=== PATIENT | female | born 1985 | race Two or more races ===

== ENCOUNTER 2024-05-02 03:48 | Emergency (ER) | payer OTHER, SELFPAY ==
--- NOTE | ~2024-05-02 | XR_ITS ---
EXAMINATION: XR CHEST CLINICAL INFORMATION: Positive covid. Cough. COMPARISON: None available. TECHNIQUE: Frontal view of the chest was obtained. FINDINGS: No significant abnormality is noted involving the heart, lungs, mediastinum, bony thorax or soft tissues. XR/XR chest 1V IMPRESSION: Unremarkable examination. Electronically signed by: Fab Caban MD 05/02/2024 05:22 AM EDT RP
[2024-05-02 04:06] VITALS: BP 123/73; PULSE 92; RESP 20; TEMP 36.9; O2SAT 98; BMI 37.6
--- NOTE | 2024-05-02 04:56 | ED_ITS ---
HPI - URI/Sore Throat General Chief Complaint: Upper Respiratory Symptoms Stated Complaint: COVID+/Cough Time Seen by Provider: 05/02/24 04:56 Source: patient Mode of arrival: ambulatory Limitations: no limitations History of Present Illness ED Provider: Dr. Prieto HPI Narrative: Patient with 3 days of cough, initially she thought it was her asthma, she took a covid test at home and it was positive. She notice slight blood when she brought up some sputum MD elicited complaint: cough Related Data Previous Rx's ?Medication ?Instructions ?Recorded kloidlisqbmfr-AJ-apixkemfequ 5 10 ml PO Q4H PRN cough #473 mL 05/02/24 mg-10 mg-100 mg/5 mL oral liquid Allergies Allergy/AdvReac Type Severity Reaction Status Date / Time Latex Allergy Unknown Rash Uncoded 05/02/24 04:07 Zyrtec Allergy Unknown Fatigued Uncoded 05/02/24 04:07 Review of Systems Review of Systems: Yes all other systems are reviewed and are negative Neurologic: Denies Sensory deficit (Neuro) [facility] Social History Social History Advance Directives: No Advance Directives Information Provided: Yes Physical Exam Vital Signs: Vital Signs: Last Vital Signs Temp 98.4 F 05/02/24 04:06 Pulse 92 05/02/24 04:06 Resp 20 05/02/24 04:06 BP 123/73 05/02/24 04:06 Pulse Ox 98 05/02/24 04:06 O2 Del Method Room Air 05/02/24 04:06 BMI result Body Mass Index 37.6 Const: Other: very anxious General: healthy appearing Nutritional Appearance: average body habitus Orientation/consciousness: oriented to person and patient oriented x3 Limitations: no limitations HEENT: Head: Yes normal to inspection Ears: external ears normal General nose exam: Normal external nose present Mouth: Normal oral and palatal mucosa present and oropharynx normal Throat: Yes posterior oropharynx normal Eyes: General: appearance normal, both eyes and all related structures Neck: Other: supple Neck: Yes normal visual inspection Chest: Chest palpation & inspection: normal inspection of the chest Resp: Auscultation: clear to auscultation bilaterally Cardio: Jugular venous distension: no JVD Rate: regular rate Rhythm: regular rhythm Heart sounds: S1 normal heart sound present and S2 normal heart sound present GI: Inspection: Yes normal to inspection Palpation (GI): Soft to palpation, nontender and No hepatosplenomegaly present Auscultation: normal bowel sounds : General: Yes no CVA tenderness Back/Spine/Pelvis: Back: no CVA tenderness Skin: General skin exam: no rashes or lesions noted Neuro: General: oriented to person and patient oriented x3 Cranial nerves: Yes CN's II-XII intact bilaterally Motor exam (neuro): 5/5 motor strength present throughout Sensory Exam: No Sensory deficit (Neuro) Extrem: General: Yes normal to inspection Psych: Appearance: grossly normal Course Reevaluation(s) Reevaluation #1: patient covid positive, xray normal will dc on cough medication Time: 06:15 Medical Decision Making Differential Diagnosis Differential Diagnoses: The differential diagnosis associated with the presentation includes (covid, pneumonia) Admission/Observation Consideration of admission/observation: Escalation of care including admission/observation considered (upon arrival admission was considered) Independent Interpretation I performed an independent interpretation of an: Plain X-Ray (no infiltrate on xray) Prescription Management I considered prescription management with: Antibiotic (no infiltrate on cxr) Chronic Conditions Patient?s care impacted by: Other (asthma) Discharge Plan Discharge Clinical Impression: COVID Patient Disposition: Home, Self-Care Instructions: COVID-19 (Coronavirus Disease 2019) (ED) Prescriptions: New iscepjusggpun-OO-bxmbutwzxun 5-10-100 mg/5 mL liquid 10 ml PO Q4H PRN (Reason: cough) Qty: [phone] Print Language: Romanian
--- OUTSIDE RECORDS SUMMARY | 2024-05-02 04:58 | XMS_ITS | Continuity of Care Document ---
Author Organization [facility] Address [address] [place] [address]- Care Team Providers Care Wire Inspector Name Role Phone Anali Concepcion DO Primary Care Physician Encounter [facility] Date(s): 12/14/21 - 03/10/[address] [address] Discharge Disposition: A-D/C Home Attending Physician: Anali Concepcion DO Admitting Physician: Anali Concepcion DO Referring Physician: Anali Concepcion DO Allergies, Adverse Reactions, Alerts Substance Reaction Severity Status aloe vera topical Active Latex Active ZyrTEC Active Immunizations Given and Recorded Vaccine Date Status Refusal Reason tetanus-diphtheria toxoids (Td) 1 02/01/22 Given tetanus-diphtheria toxoids (Td) 01/30/02 Recorded SARS-CoV-2 (COVID-19) mRNA BNT-162b2 vac 09/23/21 Recorded SARS-CoV-2 (COVID-19) mRNA BNT-162b2 vac 04/26/21 Recorded SARS-CoV-2 (COVID-19) mRNA BNT-162b2 vac 04/06/21 Recorded influenza virus vaccine, inactivated 06/30/21 Fareed rded influenza virus vaccine, inactivated 06/26/20 Fareed rded influenza virus vaccine, inactivated 2 06/08/18 Gi pooja influenza virus vaccine, inactivated 07/19/17 Give n hepatitis B adult vaccine 02/06/20 Given hepatitis B adult vaccine 10/07/19 Given hepatitis B adult vaccine 09/06/19 Given hepatitis B adult vaccine 09/24/10 Recorded Measles/Mumps/Rubella Virus Vaccine 09/06/19 Given Measles/Mumps/Rubella Virus Vaccine 09/24/10 Recor ded Measles/Mumps/Rubella Virus Vaccine 11/25/04 Recor ded Measles/Mumps/Rubella Virus Vaccine 11/25/94 Recor ded Measles/Mumps/Rubella Virus Vaccine 07/03/87 Recor ded pneumococcal 23-valent vaccine 08/14/15 Recorded pneumococcal 23-valent vaccine 06/07/11 Recorded tetanus/diphtheria/pertussis, acel(Tdap) 06/07/11 Recorded Human Papillomavirus Vaccine 05/23/07 Recorded Human Papillomavirus Vaccine 02/28/07 Recorded Human Papillomavirus Vaccine 11/01/06 Recorded Varicella Virus Vaccine 03/16/05 Recorded Varicella Virus Vaccine 02/09/05 Recorded hepatitis B pediatric vaccine 01/30/02 Recorded hepatitis B pediatric vaccine 10/17/97 Recorded hepatitis B pediatric vaccine 04/18/87 Recorded Poliovirus Vaccine, Inactivated 12/05/90 Recorded Poliovirus Vaccine, Inactivated 07/03/87 Recorded Poliovirus Vaccine, Inactivated 04/28/86 Recorded Poliovirus Vaccine, Inactivated 02/24/86 Recorded diphtheria/tetanus/pertussis, acel(DTaP) 07/03/87 Recorded diphtheria/tetanus/pertussis, acel(DTaP) 06/25/86 Recorded diphtheria/tetanus/pertussis, acel(DTaP) 04/28/86 Recorded diphtheria/tetanus/pertussis, acel(DTaP) 85 Recorded 1Result Comment: [facility]# [id number] 2Result Comment: [06/08/2018] [facility]:25998-626-15 Medications albuterol 0.083% inhalation solution 3 mL = 2.5 mg, Inhalation, Every 6 hours, PRN for wheezing, # 100 each, 0 Refills, Maintenance, 04/02/19 8:11:51 EDT, Solution Start Date: 04/02/19 Stop Date: 05/02/19 Status: Ordered albuterol 90 mcg/inh inhalation powder 1 puffs, Inhalation, Every 6 hours, PRN as needed, # 1 each, 0 Refills, Maintenance, 04/18/21 13:10:00 EDT, Powder, [facility], Partial fill upon patient request if the prescriptionis for a schedule II opioid drug., 1 puffs Inhalation E... Start Date: 04/18/21 Status: Ordered azelastine nasal 0.15% spray 2 sprays, 2 times a day, 0 Refills, Maintenance, 01/04/21 12:07:00 EDT, Partial fill upon patient request if the prescription is for a schedule II opioid drug. Start Date: 01/04/21 Status: Ordered Dulera Inhalation, 2 times a day, 0 Refills, Maintenance, 04/02/19 8:28:41 EDT Start Date: 04/02/19 Status: Ordered meclizine 12.5 mg oral tablet 1 tablet = 12.5 mg, By Mouth, 3 times a day, PRN Dizziness, # 10 tablet, 0 Refills, Maintenance, 11/26/21 17:45:00 EDT, Tablet, [facility], Partial fill upon patient request if the prescription is for a schedule II opioid drug., 146, cm,... Start Date: 11/26/21 Status: Ordered norethindrone 5 mg oral tablet 5 mg, 1, tablet, By Mouth, 2 times a day, # 90 tablet, Refills 3, Tot. Refills 3, Maintenance, 01/18/22 15:52:00 EDT, Route to Pharmacy Electronically, [facility], Partial fill uponpatient request if the prescription is for a schedule I... Start Date: 01/18/22 Status: Ordered omeprazole 20 mg oral enteric coated capsule 1 capsule, By Mouth, Daily, # 30 capsule, 1 Refills, Maintenance, 01/12/21 8:16:00 EDT, [id number], 146, cm, 01/04/21 11:29:00 EDT, Height, 75.5, kg, 10/31/19 15:44:00 EST, Dry Weight Start Date: 01/12/21 Status: Ordered Multivitamins By Mouth, Daily, 0 Refills, Maintenance, 01/04/21 12:04:00 EDT, Partial fill upon patient request if the prescription is for a schedule II opioid drug. Start Date: 01/04/21 Status: Ordered Singulair 10 mg oral tablet 10 mg, 1, tablet, By Mouth, Daily, # 30 tablet, Refills 5, Tot. Refills 5, Maintenance, 04/05/18 14:33:44 EDT, Print Requisition Start Date: 04/05/18 Stop Date: 10/02/18 Status: Ordered Voltaren 1% topical gel 1 application, Topically, 4 times a day, with food for 4-7 days, # 100 Gm, 0 Refills, Maintenance, 10/04/21 17:03:00 EST, Gel, [facility], Partial fill upon patient request if the prescription is for a schedule II opioid drug., 1 applica... Start Date: 10/04/21 Status: Ordered Problem List Condition Effective Dates Status Health Status Inform ant Allergic rhinitis(Confirmed) Active Anemia(Confirmed) Active Anxiety(Confirmed) Active Asthma(Confirmed) Active Last pap smear 10/03/17 negat dayron, with negative HPV(Confirmed) Active Endometriosis - diagnosed in 2011 and had multiple chocolate cysts removed from her ovaries and fallopian tubes(Confirmed) 1 Active Family history of colon canc er - sister at age 37; colonoscooy due 09/2023(Confirmed) Active LBP (low back pain)(Confirmed) Active Obese class I(Confirmed) Active RA (rheumatoid arthritis)(Confirmed) Active History of suicidal ideation which she blames on control, not sure which one it was, ? Depo-Provera. 11/23/17 denies suicidal ideation on current medications(Confirmed) Active 1She was diagnosed with endometriosis in 2011 and had multiple chocolate cysts removed from her ovaries and fallopian tubes. She was started on depo, but discontinued due to mood changes. She then tried Lupron + daily progesterone, but the Lupron gave her hot flashes, so she discontinued that. Shehas been taking the progesterone alone for the past 2-3 years. Social History Social History Type Response Smoking Status Never smoker entered on: 10/03/17 Sex
--- OUTSIDE RECORDS SUMMARY | 2024-05-02 04:59 | XMS_ITS | Continuity of Care Document ---
Author Organization [facility] Address [address] [place] [address]- Care Team Providers Care Master Mechanic Name Role Phone Anali Concepcion DO Primary Care Physician Encounter [facility] Date(s): 09/02/22 - 10/02/22 [facility] [address] [place], [place] [address] Allergies, Adverse Reactions, Alerts Substance Reaction Severity [...] Recorded diphtheria/tetanus/pertussis, acel(DTaP) 85 Recorded 1Result Comment: [facility]# [id number] 2Result Comment: [06/08/2018] [facility]:[id number] Medications albuterol 0.083% inhalation solution 3 mL [...] opioid drug. Start Date: 01/04/21 Status: Ordered fexofenadine 60 mg oral tablet 1 tablet = 60 mg, By Mouth, Daily, # 90 tablet, 4 Refills, Maintenance, 04/12/22 8:47:00 EDT, Tablet, [facility], Partial fill upon patient request if the prescription is for a schedule II opioid drug., 146, cm, 04/12/22 8:15:00 EDT, Hei... Start Date: 04/12/22 Stop Date: 07/06/23 Status: Ordered norethindrone 5 mg oral tablet 5 mg, 1, tablet, By Mouth, Daily, # 90 tablet, Refills 3, Tot. Refills 3, Maintenance, 06/06/22 11:31:00 EDT, Route to Pharmacy Electronically, [facility], Partial fill upon patientrequest if the prescription is for a schedule II opioid... Start Date: 06/06/22 Status: Ordered omeprazole 20 mg oral enteric coated capsule 1 capsule, By Mouth, Daily, # 30 capsule, 2 Refills, Maintenance, 07/15/22 13:24:00 EST, [facility], 146, cm, 05/17/22 8:07:00 EDT, Height, 72.3, kg, 05/13/22 15:03:00 EDT, Dry Weight Start Date: 07/15/22 Status: Ordered Multivitamins By Mouth, Daily, 0 [...] Date: 04/05/18 Stop Date: 10/02/18 Status: Ordered Zithromax 250 mg oral tablet 1 pack/packet, By Mouth, Once, # 6 tablet, 0 Refills, Soft Stop, 08/26/22 12:27:00 EST, Tablet, [facility], Partial fill upon patient request if the prescription is for a schedule II opioid drug., 146, cm, 12/23/22 11:41:00 EST, Height,... Start Date: 08/26/22 Status: Ordered Problem List Condition Confirmation Course Effective Dates Status H ealth Status Informant Allergic rhinitis Confirmed Active Anemia Confirmed Active Anxiety Confirmed Active Asthma Confirmed Active Last pap smear 10/03/17 negative, with negative HPV Confirmed Active Endometriosis - diagnosed in 2011 and had multiple chocolate cysts removed from her ovaries and fallopian tubes 1 Confirmed Active Family history of colon cancer - sister at age 37; colonoscooy due 09/2023 Confirmed Active LBP (low back pain) Confirmed Active RA (rheumatoid arthritis) Confirmed Active Severe obesity (BMI 35.0-39.9) with comorbidity Confirmed Active History of suicidal ideation which she blames on control, not sure which one it was, ? Depo-Provera. 11/23/17 denies suicidal ideation on current medications Confirmed Active 1She was diagnosed with endometriosis in [...] Status Never smoker entered on: 10/03/17 Sex Patient Care team information Care Team Personnel Name: Anali Concepcion DO Position: [facility] Primary Care Physician Member Role: PCP Address: Address: [address] [place] [address] Adult [place] [address]- Care Team Related Persons Name: KATIUSKA VIGIL Address: [address] [place] [address] Name: RAISA AMBROSE Address: home [address] [place] [address] Name: AURORA NIX Name: MELISSA AGUILAR
--- OUTSIDE RECORDS SUMMARY | 2024-05-02 04:59 | XMS_ITS | Continuity of Care Document ---
Author Organization [facility] Address [address] [place] [address]- Care Team Providers Care Cadence Specialists Name Role Phone Anali Concepcion DO Primary Care Physician Encounter [facility] Date(s): 02/26/24 - 03/27/24 [facility] [address] [place] [id number] Attending Physician: Louise Camarillo Admitting Physician: Admtr, Louise Referring Physician: Admtr, Ar8 Allergies, Adverse Reactions, Alerts Substance Reaction Severity Status amoxicillin gi upset Active aloe vera topical Active Zithromax gi upset Active Contrave gi upset Active Cats Active Dogs Active Latex Active ZyrTEC Active Pollen Ragweed Active Ragweed Active Other Environmental Allergy 1, 2 Active 1grass Feathers 2tree Immunizations Given and Recorded Vaccine Date Status Refusal Reason influenza virus vaccine, inactivated 06/27/22 Fareed rded influenza virus vaccine, inactivated 06/30/21 Fareed rded influenza virus vaccine, inactivated 06/26/20 Fareed rded influenza virus vaccine, inactivated 1 06/08/18 Gi pooja influenza virus vaccine, inactivated 07/19/17 Give n tetanus-diphtheria toxoids (Td) 2 02/01/22 Given tetanus-diphtheria toxoids (Td) 01/30/02 Recorded SARS-CoV-2 (COVID-19) mRNA BNT-162b2 vac 09/23/21 Recorded SARS-CoV-2 (COVID-19) mRNA BNT-162b2 vac 04/26/21 Recorded SARS-CoV-2 (COVID-19) mRNA BNT-162b2 vac 04/06/21 Recorded hepatitis B adult vaccine 02/06/20 Given hepatitis [...] Recorded diphtheria/tetanus/pertussis, acel(DTaP) 85 Recorded 1Result Comment: [06/08/2018] [facility]:50831-878-72 2Result Comment: [facility]# [id number] Medications albuterol 0.083% inhalation solution 3 mL [...] opioid drug. Start Date: 01/04/21 Status: Ordered Compression Stockings See Instructions, Maintenance, surgical, panty hose length 30-40 mm Hg, 07/24/23 15:29:00 EST, Supply Start Date: 07/24/23 Status: Ordered fexofenadine 60 mg oral tablet 1 tablet, By Mouth, Daily, # 90 tablet, 4 Refills, Maintenance, 04/26/23 9:22:00 EDT, [facility], 146, cm, 03/10/23 9:41:00 EDT, Height, 70.9, kg, 03/10/23 9:41:00 EDT, Dry Weight Start Date: 04/26/23 Status: Ordered norethindrone 5 mg oral tablet 5 mg, 1, tablet, By Mouth, Daily, # 90 tablet, Refills 3, Tot. Refills 3, Maintenance, 07/12/23 13:25:00 EST, Route to Pharmacy Electronically, [facility], Partial fill upon patientrequest if the prescription is for a schedule II opioid... Start Date: 07/12/23 Status: Ordered omeprazole 20 mg oral enteric coated capsule 1 capsule, By Mouth, Daily, # 30 capsule, 2 Refills, Maintenance, 12/29/23 10:32:00 EDT, [facility], 146, cm, 10/10/23 8:12:00 EST, Height, 75.8, kg, 07/24/23 15:15:00 EST, Dry Weight Start Date: 12/29/23 Status: Ordered Singulair 10 mg oral tablet 10 mg, 1, tablet, By Mouth, Daily, # 30 tablet, Refills 5, Tot. Refills 5, Maintenance, 04/05/18 14:33:44 EDT, Print Requisition Start Date: 04/05/18 Stop Date: 10/02/18 Status: Ordered tirzepatide 2.5 mg/0.5 mL subcutaneous solution = 2.5 mg, Subcutaneous Injection, Every week, rotate injection sites, # 4 each, 0 Refills, Maintenance, 02/02/24 13:49:00 EDT, Solution, [facility], Partial fill upon patient requestif the prescription is for a schedule II opioid drug.,... Start Date: 02/02/24 Status: Ordered Problem List Condition Confirmation Course Effective Dates Status H ealth Status Informant Allergic rhinitis Confirmed Active Anemia Confirmed Active Anxiety Confirmed Active Asthma Confirmed Active Last pap smear 10/03/17 negative, with negative HPV Confirmed Active Chronic rhinitis Confirmed Active Endometriosis - diagnosed in 2011 and had multiple chocolate cysts removed from her ovaries and fallopian tubes 1 Confirmed Active Family history of colon cancer - sister at age 37; colonoscooy due 09/2023 Confirmed Active LBP (low back pain) Confirmed Active Neck pain Confirmed Active RA (rheumatoid arthritis) Confirmed Active Severe obesity (BMI 35.0-39.9) with comorbidity Confirmed Active Vertigo Confirmed Active 1She was diagnosed with endometriosis [...] Team Personnel Name: Anali Concepcion DO Position: S Physician - Primary Care Member Role: PCP Address: Address: [address] [place] [address] Adult & [place] [address]- Care Team Related Persons Name: KATIUSKA VIGIL Address: [address] [place] [address] Name: RAISA AMBROSE Address: [address] [place] [address] Name: AURORA NIX Name: MELISSA AGUILAR
--- OUTSIDE RECORDS SUMMARY | 2024-05-02 04:59 | XMS_ITS | Continuity of Care Document ---
Author Organization [facility] Address [address] [place] [address]- Care Team Providers Care Art Preparator Name Role Phone Anali Concepcion DO Primary Care Physician Encounter [facility] Date(s): 08/11/23 - 09/10/23 [facility] [address] [place], [place] [address] Allergies, Adverse Reactions, Alerts Substance Reaction Severity Status aloe vera topical Active Cats Active Dogs Active Latex Active Pollen Ragweed Active Ragweed Active Other Environmental Allergy 1, 2 Active ZyrTEC Active 1grass Feathers 2tree Immunizations Given and [...] 1Result Comment: [06/08/2018] [facility]:90586-477-08 2Result Comment: [facility]# [id number] Medications albuterol 0.083% inhalation solution 3 mL [...] opioid drug. Start Date: 01/04/21 Status: Ordered buPROPion 100 mg/12 hours (SR) oral tablet, extended release 1 tablet = 100 mg, By Mouth, Daily, while waiting for contrave, # 7 tablet, 0 Refills, Maintenance,04/13/23 15:43:00 EDT, ER Tablet, [facility], Partial fill upon patient request if the prescription is for a schedule II opioid drug., 14... Start Date: 04/13/23 Stop Date: 04/20/23 Status: Ordered Compression Stockings See Instructions, Maintenance, surgical, panty hose length 30-40 mm Hg, 07/24/23 15:29:00 EST, Supply Start Date: 07/24/23 Status: Ordered fexofenadine 60 mg oral tablet 1 tablet, By Mouth, Daily, # 90 tablet, 4 Refills, Maintenance, 04/26/23 9:22:00 EDT, [facility], 146, cm, 03/10/23 9:41:00 EDT, Height, 70.9, kg, 03/10/23 9:41:00 EDT, Dry Weight Start Date: 04/26/23 Status: Ordered norethindrone 5 mg oral tablet 5 mg, 1, tablet, By Mouth, Daily, # 90 tablet, Refills 3, Tot. Refills 3, Maintenance, 07/12/23 13:25:00 EST, Route to Pharmacy Electronically, [facility], Partial fill upon patientrequest if the prescription is for a schedule II opioid... Start Date: 07/12/23 Status: Ordered Omeprazole By Mouth, Daily, 0 Refills, Maintenance, 09/06/23 11:58:00 EST, Partial fill upon patient request if the prescription is for a schedule II opioid drug. Start Date: 09/06/23 Status: Ordered Singulair 10 mg oral tablet 10 mg, 1, tablet, By Mouth, Daily, # 30 tablet, Refills 5, Tot. Refills 5, Maintenance, 04/05/18 14:33:44 EDT, Print Requisition Start Date: 04/05/18 Stop Date: 10/02/18 Status: Ordered Wegovy (0.25 mg dose) subcutaneous solution = 0.25 mg, Subcutaneous Infusion, Every week, rotate injection sites Dx: Overweight BMI >33; dyslipidemia in the abdomen, thigh, or upper arm, # 2 mL, 1 Refills, Maintenance, 04/28/23 11:27:00 EDT, [facility], Partial fill upon patient... Start Date: 04/28/23 Status: Ordered Problem List Condition Confirmation Course [...] Team Personnel Name: Anali Concepcion DO Position: [facility] Physician - Primary Care Member Role: PCP Address: Address: [address] [place] [address] Adult & [place] [address]- Care Team Related Persons Name: KATIUSKA VIGIL Address: [address] [place] [address] Name: RAISA AMBROSE Address: [address] [place] [address] Name: AURORA NIX Name: MELISSA AGUILAR
--- OUTSIDE RECORDS SUMMARY | 2024-05-02 04:59 | XMS_ITS | Continuity of Care Document ---
Author Organization [facility] Address [address] [place] [address]- Care Team Providers Care Ribbon Cutter Name Role Phone Anali Concepcion DO Primary Care Physician Encounter [facility] Date(s): 04/19/21 - 05/19/21 [facility] [address] [place] [address]- Allergies, Adverse Reactions, Alerts Substance Reaction Severity Status aloe vera topical Active Latex Active ZyrTEC Active Immunizations Given and Recorded Vaccine Date Status Refusal Reason hepatitis B adult vaccine 02/06/20 Given hepatitis B adult vaccine 10/07/19 Given hepatitis B adult vaccine 09/06/19 Given hepatitis B adult vaccine 09/24/10 Recorded Measles/Mumps/Rubella Virus Vaccine 09/06/19 Given Measles/Mumps/Rubella Virus Vaccine 09/24/10 Recor ded Measles/Mumps/Rubella Virus Vaccine 11/25/94 Recor ded Measles/Mumps/Rubella Virus Vaccine 07/03/87 Recor ded influenza virus vaccine, inactivated 1 06/08/18 Gi pooja influenza virus vaccine, inactivated 07/19/17 Give n pneumococcal 23-valent vaccine 08/14/15 Recorded pneumococcal 23-valent vaccine 06/07/11 Recorded tetanus/diphtheria/pertussis, acel(Tdap) 06/07/11 Recorded Varicella Virus Vaccine 02/09/05 Recorded hepatitis B pediatric vaccine 01/30/02 Recorded hepatitis B pediatric vaccine 10/17/97 Recorded hepatitis B pediatric vaccine 04/18/87 Recorded tetanus-diphtheria toxoids (Td) 01/30/02 Recorded Poliovirus Vaccine, Inactivated 12/05/90 Recorded Poliovirus Vaccine, Inactivated 07/03/87 Recorded Poliovirus Vaccine, Inactivated 04/28/86 Recorded Poliovirus Vaccine, Inactivated 02/24/86 Recorded diphtheria/tetanus/pertussis, acel(DTaP) 07/03/87 Recorded diphtheria/tetanus/pertussis, acel(DTaP) 06/25/86 Recorded diphtheria/tetanus/pertussis, acel(DTaP) 04/28/86 Recorded diphtheria/tetanus/pertussis, acel(DTaP) 85 Recorded 1Result Comment: [06/08/2018] [facility]:93654-736-08 Medications albuterol 0.083% inhalation solution 3 mL [...] 8:28:41 EDT Start Date: 04/02/19 Status: Ordered norethindrone 5 mg oral tablet TAKE 1 TABLET BY MOUTH TWICE A DAY Start Date: 04/02/19 Status: Ordered norethindrone 5 mg oral tablet 5 mg, 1, tablet, By Mouth, 2 times a day, # 90 tablet, Refills 3, Tot. Refills 3, Maintenance, 01/08/21 16:22:00 EDT, Route to Pharmacy Electronically, [facility], Partial fill uponpatient request if the prescription is for a schedule I... Start Date: 01/08/21 Status: Ordered omeprazole 20 mg oral enteric coated capsule 1 capsule, By Mouth, Daily, # 30 capsule, 1 Refills, Maintenance, 01/12/21 8:16:00 EDT, [id number], 146, cm, 01/04/21 11:29:00 EDT, Height, 75.5, kg, 10/31/19 15:44:00 EST, Dry Weight Start Date: 01/12/21 Status: Ordered Multivitamins By Mouth, Daily, 0 Refills, Maintenance, 01/04/21 12:04:00 EDT, Partial fill upon patient request if the prescription is for a schedule II opioid drug. Start Date: 01/04/21 Status: Ordered ProAir HFA 90 mcg/inh inhalation aerosol with adapter 2, puffs, Inhalation, Every 6 hours, PRN, # 1 each, Refills 0, Tot. Refills 0, Soft Stop, 11/02/18 9:01:59 EST, Aerosol, Route to Pharmacy Electronically, [id number], [facility] Start Date: 11/02/18 Stop Date: 12/02/18 Status: Ordered Singulair 10 mg oral tablet 10 mg, 1, tablet, By Mouth, Daily, # 30 tablet, Refills 5, Tot. Refills 5, Maintenance, 04/05/18 14:33:44 EDT, Print Requisition Start Date: 04/05/18 Stop Date: 10/02/18 Status: Ordered Zithromax 250 mg oral tablet 1 pack/packet, By Mouth, Once, as directed on package labeling, # 6 tablet, 0 Refills, Soft Stop, 04/20/21 16:04:00 EDT, Tablet, [facility], Partial fill upon patient request, 146, cm, 01/04/21 11:29:00 EDT, Height, 75.5, kg, 10/31/19 15... 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
--- OUTSIDE RECORDS SUMMARY | 2024-05-02 04:59 | XMS_ITS | Continuity of Care Document ---
Author Organization [facility] Address [address] [place] [address]- Care Team Providers Care Anchorer Name Role Phone Anali Concepcion DO Primary Care Physician ( [phone] [place] [facility]/29/[place] - 01/02/[address] [address] Attending Physician: Anali Concepcion DO Admitting Physician: Anali Concepcion DO Referring Physician: Anali Concepcion DO Allergies, Adverse Reactions, Alerts Substance Reaction Severity Status aloe vera topical Active Latex Active ZyrTEC Active Immunizations Given and Recorded Vaccine Date Status Refusal Reason SARS-CoV-2 (COVID-19) mRNA BNT-162b2 vac 09/23/21 Recorded [...] diphtheria/tetanus/pertussis, acel(DTaP) 85 Recorded 1Result Comment: [06/08/2018] [facility]:79856-966-07 Medications albuterol 0.083% inhalation solution 3 mL [...] capsule, 1 Refills, Maintenance, 01/12/21 8:16:00 EDT, [id number], 146, cm, 01/04/21 11:29:00 EDT, Height, 75.5, [...]
--- OUTSIDE RECORDS SUMMARY | 2024-05-02 04:59 | XMS_ITS | Continuity of Care Document ---
Author Organization [facility] [employer] [facility] Address [address], [address] [place] [address]- Care Team Providers Care Tool Grinder Set Up Operator Gear Name Role Phone Anali Concepcion DO Primary Care Physician En[place] [facility] [place] Date(s): 02/23/24 - 03/24/24 [facility] [address], [address]th [place] [address]- Attending Physician: Louise Camarillo Admitting Physician: AdmLouise galvan Referring Physician: Admtr ArJuan Alberto Allergies, Adverse Reactions, Alerts Substance Reaction Severity Status amoxicillin gi upset Active aloe vera topical Active Other Environmental Allergy 1, 2 Active Contrave gi upset Active Zithromax gi upset Active Cats Active Dogs Active Latex Active ZyrTEC Active Pollen Ragweed Active Ragweed Active 1grass Feathers 2tree Immunizations Given and [...] diphtheria/tetanus/pertussis, acel(DTaP) 85 Recorded 1Result Comment: [06/08/2018] [facility]:25875-834-92 2Result Comment: [facility]# [id number] Medications albuterol 0.083% inhalation solution 3 mL [...] tablet, 4 Refills, Maintenance, 04/26/23 9:22:00 EDT, [facility], 146, cm, 03/10/23 9:41:00 EDT, Height, 70.9, kg, 03/10/23 9:41:00 EDT, Dry Weight Start Date: 04/26/23 Status: Ordered norethindrone 5 mg oral tablet 5 mg, 1, tablet, By Mouth, Daily, # 90 tablet, Refills 3, Tot. Refills 3, Maintenance, 07/12/23 13:25:00 EST, Route to Pharmacy Electronically, [facility], Partial fill upon patientrequest if the prescription is for a schedule II opioid... Start Date: 07/12/23 Status: Ordered omeprazole 20 mg oral enteric coated capsule 1 capsule, By Mouth, Daily, # 30 capsule, 2 Refills, Maintenance, 12/29/23 10:32:00 EDT, [facility], 146, cm, 10/10/23 8:12:00 EST, [...] opioid drug.,... Start Date: 02/02/24 Status: Ordered triamcinolone 0.1% topical ointment 1 application, Topically, 2 times a day, for 14 days, apply a thin film to affected area of arm pits bilaterally, # 15 Gm, 0 Refills, Acute 03/25/24 14:04:00 EDT, 03/11/24 14:04:00 EDT, Ointment, [facility], Partial fill upon patient req... Start Date: 03/11/24 Stop Date: 03/25/24 Status: Ordered Problem List Condition Confirmation Course [...] Primary Care Member Role: PCP Address: Address: [address] [place] [address] Adult [place] [address]- [place] Care Team Related Persons Name: KATIUSKA VIGIL Address: [address] [place] [address] Name: RAISA AMBROSE Address: home [address] [place] [address] Name: AURORA NIX Name: MELISSA AGUILAR
--- OUTSIDE RECORDS SUMMARY | 2024-05-02 04:59 | XMS_ITS | Continuity of Care Document ---
Author Organization [facility] Address [address] [place] [address]- Care Team Providers Care Personnel Manager Name Role Phone Anali Concepcion DO Primary Care Physician ( [phone] [id number] Date(s): 01/12/23 - 01/19/23 [facility] [address] [place] [address]- Encounter Diagnosis Bilateral plantar fasciitis(Discharge Diagnosis) - 01/12/23 Attending Physician: Lincoln Gordon MD Referring Physician: Anali Concepcion DO Allergies, Adverse [...] diphtheria/tetanus/pertussis, acel(DTaP) 85 Recorded 1Result Comment: [06/08/2018] [facility]:08902-780-39 2Result Comment: [facility]# [address]-6 Medications albuterol 0.083% inhalation solution 3 mL [...] opioid drug. Start Date: 01/04/21 Status: Ordered Contrave 8 mg-90 mg oral tablet, extended release 2 tablet, By Mouth, 2 times a day, to replace prior dose, # 120 tablet, 5 Refills, Maintenance, 01/09/23 13:49:00 EDT, ER Tablet, [facility], Partial fill upon patient request if the prescription is for a schedule II opioid drug., 2 tabl... Start Date: 01/09/23 Stop Date: 07/08/23 Status: Ordered Contrave 8 mg-90 mg oral tablet, extended release 1 tablet, By Mouth, Daily in AM, do not crush or chew; contact pcp when receive for titration instructions, # 90 tablet, 1 Refills, Maintenance, 12/14/22 12:28:00 EDT, ER Tablet, [facility], Partial fill upon patient request if the prescription... Start Date: 12/14/22 Stop Date: 06/12/23 Status: Ordered fexofenadine 60 mg oral tablet [...] Daily, # 30 capsule, 2 Refills, Maintenance, 11/05/22 19:47:00 EST, [facility], 146, cm, 10/20/22 11:21:00 EST, Height, 72.3, kg, 05/13/22 15:03:00 EDT, Dry Weight Start Date: 11/05/22 Status: Ordered Singulair 10 mg oral tablet 10 mg, 1, tablet, By Mouth, Daily, # 30 tablet, Refills 5, Tot. Refills 5, Maintenance, 04/05/18 14:33:44 EDT, Print Requisition Start Date: 04/05/18 Stop Date: 10/02/18 Status: Ordered Problem List Condition Confirmation Course [...] Active LBP (low back pain) Confirmed Active Obese class I Confirmed Active RA (rheumatoid arthritis) Confirmed Active History of suicidal ideation which [...] progesterone alone for the past 2-3 years. Diagnosis Diagnosis Type Effective Dates Health Status inical Service Informant Bilateral plantar fasciitis Discharge Diagnosis 01/12/23 Vital Signs Most recent to oldest [Reference Range]: 1 Height 146 cm (01/12/23 3:23 PM) Weight 72.4 kg (01/12/23 3:23 PM) Oxygen Saturation [94-100 %] 97 % (01/12/23 3:23 PM) Pulse Rate [55-90 bpm] 84 bpm (01/12/23 3:23 PM) Body Mass Index [18.5-24.99 kg/m2] 33.97 kg/m2 *>HHI* (01/12/23 3:23 PM) Blood Pressure [90-138/55-84 mm Hg] 129/ 81mm Hg (01/12/23 3:23 PM) Blood pressure sites Arm, left (01/12/23 3:23 PM) Weight Obtained Via Bed scale (01/12/23 3:23 PM) Social History Social History Type Response Smoking Status Never smoker entered on: 10/03/17 Sex Patient Care team information Care Team Personnel Name: Anali Concepcion DO Position: [facility] Primary Care Physician Member Role: PCP Address: Address: [address] [place] [address] Adult & [place] [address]- Care Team Related Persons Name: KATIUSKA VIGIL Address: [address] [place] [address] Name: RAISA AMBROSE Address: [address] [place] [address] Name: AURORA NIX Name: MELISSA AGUILAR
--- OUTSIDE RECORDS SUMMARY | 2024-05-02 04:59 | XMS_ITS | Continuity of Care Document ---
Author Organization [facility] Address [address], [address] [place] [address]- Care Team Providers Care Tapper Supervisor Name Role Phone Anali Concepcion DO Primary Care Physician ( [phone] [place] [facility] [place] 12/08[place]22 - 01/07/23 [facility] [employer] [facility] [address] [place] [address]- Attending Physician: Louise Camarillo Admitting Physician: Louise Camarillo Referring Physician: AdmtrLouise Allergies, Adverse Reactions, Alerts Substance Reaction Severity [...] adult vaccine 09/24/10 Recorded Measles/Mumps/Rubella Virus Vaccine 1/3/20 Given Measles/Mumps/Rubella Virus Vaccine 09/24/10 Recor ded [...] Recorded 1Result Comment: [06/08/2018] [facility]:47152-571-39 2Result Comment: [facility]# [address]-3 Medications albuterol 0.083% inhalation solution 3 mL [...] Personnel Name: Anali Concepcion DO Position: S Primary Care Physician Member Role: PCP Address: Address: [address] [place] [address] Adult [place] [address]- Care Team Related Persons Name: KATIUSKA VIGIL Address: [address] [place] [address] Name: RAISA AMBROSE Address: [address] [place] [address] Name: AURORA NIX Name: MELISSA AGUILAR
--- OUTSIDE RECORDS SUMMARY | 2024-05-02 04:59 | XMS_ITS | Continuity of Care Document ---
Author Organization [facility] Address [address] [place] [address]- Care Team Providers Care Software Tools Build Engineer Name Role Phone Anali Concepcion DO Primary Care Physician Encounter [facility] [place] Date(s): 07/11/22 - 08/10/22 [facility] [address] [place] [address]- Allergies, Adverse Reactions, Alerts Substance Reaction Severity [...] Recorded 1Result Comment: [facility]# [address]-2 2Result Comment: [06/08/2018] [facility]:80637-551-43 Medications albuterol 0.083% inhalation solution 3 mL [...] 8:28:41 EDT Start Date: 04/02/19 Status: Ordered fexofenadine 60 mg oral tablet [...] Dry Weight Start Date: 07/15/22 Status: Ordered ondansetron 4 mg oral tablet 1 tablet = 4 mg, By Mouth, Every 8 hours, # 12 tablet, 0 Refills, Maintenance, 07/25/22 15:55:00 EST, Tablet, [facility], Partial fill upon patient request if the prescription is for a schedule II opioid drug., 146, cm, 07/21/22 9:03:00... Start Date: 07/25/22 Status: Ordered Multivitamins By Mouth, Daily, 0 Refills, Maintenance, 01/04/21 12:04:00 EDT, Partial fill upon patient request if the prescription is for a schedule II opioid drug. Start Date: 01/04/21 Status: Ordered simethicone 125 mg oral tablet, chewable 1 tablet = 125 mg, Chew, 4 times a day, # 48 tablet, 0 Refills, Maintenance, 04/12/22 8:43:00 EDT, Chew Tablet, [facility], Partial fill upon patient request if the prescription is for a schedule II opioid drug., 146, cm, 04/12/22 8:15:0... Start Date: 04/12/22 Status: Ordered Singulair 10 mg oral tablet [...] Date: 10/04/21 Status: Ordered Problem List Condition Confirmation Course [...] Team Personnel Name: Anali Concepcion DO Position: [facility] Primary Care Physician Member Role: PCP Address: Address: [address] [place] [address] Adult & [place] [address]- Care Team Related Persons Name: MUSASHALONDAA Address: [address] [place] [address] Name: RAISA AMBROSE Address: [address] [place] [address] Name: AURORA NIX Name: MELISSA AGUILAR
--- OUTSIDE RECORDS SUMMARY | 2024-05-02 04:59 | XMS_ITS | Continuity of Care Document ---
Author Organization [facility] Address [address] [place] [address]- Care Team Providers Care Manufacturing Lead Name Role Phone Anali Concepcion DO Primary Care Physician ( [phone] Encounter [facility] [place] Date(s): 11/29/19 - 12/06/19 [facility] [address] [place] [address]- [facility] Attending Physician: Anali Concepcion DO Allergies, Adverse Reactions, Alerts Substance Reaction Severity Status aloe vera topical Active Latex Active ZyrTEC Active Immunizations Given and Recorded Vaccine Date Status Refusal Reason hepatitis B adult vaccine 10/07/19 Given hepatitis [...] 06/07/11 Recorded Varicella Virus Vaccine 02/09/05 Recorded tetanus-diphtheria toxoids (Td) 01/30/02 Recorded hepatitis B pediatric vaccine 01/30/02 Recorded hepatitis B pediatric vaccine 10/17/97 Recorded hepatitis B pediatric vaccine 04/18/87 Recorded Poliovirus Vaccine, Inactivated 12/05/90 Recorded Poliovirus Vaccine, Inactivated 07/03/87 Recorded Poliovirus Vaccine, Inactivated 04/28/86 Recorded Poliovirus Vaccine, Inactivated 02/24/86 Recorded diphtheria/tetanus/pertussis, acel(DTaP) 07/03/87 Recorded diphtheria/tetanus/pertussis, acel(DTaP) 06/25/86 Recorded diphtheria/tetanus/pertussis, acel(DTaP) 04/28/86 Recorded diphtheria/tetanus/pertussis, acel(DTaP) 85 Recorded 1Result Comment: [06/08/2018] [facility]:35424-522-41 Medications Advair HFA 230 mcg / 21 mcg 2 puffs, Inhalation, 2 times a day, # 60 each, 0 Refills, Maintenance, 05/21/19 18:19:53 EDT, Aerosol, 2 puffs Inhalation 2 times a day Start Date: 05/21/19 Status: Ordered albuterol 0.083% inhalation solution 3 mL = 2.5 mg, Inhalation, Every 6 hours, PRN for wheezing, # 100 each, 0 Refills, Maintenance, 04/02/19 8:11:51 EDT, Solution Start Date: 04/02/19 Stop Date: 05/02/19 Status: Ordered Cipro HC 0.2%-1% otic suspension 3 drops, Ears, Both, 2 times a day, for 7 days, to replace ciprodex, # 10 mL, 0 Refills, Acute 12/12/19 9:54:00 EDT, 12/05/19 9:54:00 EDT, Otic Suspension, [facility]pharmacy #1130, 3 drops Ears, Both 2 times a day,x7 days,Instr:to replace ciprodex, 146, cm... Start Date: 12/05/19 Stop Date: 12/12/19 Status: Ordered ciprofloxacin-dexamethasone 0.3%-0.1% otic suspension 4 drops, Ears, Both, 2 times a day, # 7.5 mL, 0 Refills, Maintenance, 11/29/19 15:48:00 EDT, Suspension, [facility], 4 drops Ears, Both 2 times a day, 146, cm, 11/29/19 15:26:00 EDT, Height, 75.5, kg, 10/31/19 15:44:00 EST, Dry Weight Start Date: 11/29/19 Status: Ordered Citrucel Clear Mix 2 g/19 g oral powder for reconstitution = 2 Gm, By Mouth, Daily, # 30 each, 5 Refills, Maintenance, 02/08/18 15:02:21 EDT Start Date: 02/08/18 Status: Ordered Claritin 10 mg oral tablet 10 mg, 1, tablet, By Mouth, Daily, # 30 tablet, Refills 0, Tot. Refills 0, Maintenance, 05/21/19 18:52:50 EDT, Route to Pharmacy Electronically, [id number], [facility]/pharmacy #1130 Start Date: 05/21/19 Status: Ordered Claritin 10 mg oral tablet 10 mg, 1, tablet, By Mouth, Daily, # 90 tablet, Refills 0, Tot. Refills 0, Maintenance, 04/02/19 8:27:25 EDT, Route to Pharmacy Electronically, [id number], [facility]/pharmacy #1130 Start Date: 04/02/19 Status: Ordered Colace sodium 100 mg oral capsule 100 mg, 1, capsule, By Mouth, Daily, # 30 capsule, Refills 11, Tot. Refills 11, Maintenance, 02/08/18 15:01:19 EDT, Route to Pharmacy Electronically, [id number], [facility] Start Date: 02/08/18 Stop Date: 02/03/19 Status: Ordered Dulera Inhalation, 2 times a day, 0 Refills, Maintenance, 04/02/19 8:28:41 EDT Start Date: 04/02/19 Status: Ordered measles/mumps/rubella/varicella virus vaccine subcutaneous injection 0.5 mL, Subcutaneous Injection, Once, # 1 each, 0 Refills, Soft Stop, 09/02/19 12:34:00 EST, Powder, [facility]/pharmacy #1130, 0.5 mL Subcutaneous Injection Once, 146, cm, 06/28/19 16:39:00 EDT, Height, 77.72, kg, 06/12/19 14:42:00 EDT, Dry Weight Start Date: 09/02/19 Status: Ordered meloxicam 7.5 mg oral tablet 1 tablet = 7.5 mg, By Mouth, Daily, As needed with food, # 30 tablet, 1 Refills, Maintenance, 01/22/18 16:26:29 EDT Start Date: 01/22/18 Status: Ordered MiraLax oral powder for reconstitution See Instructions, 17 Gm By Mouth Daily as need for constipation dissolve in water or juice, # 527 Gm, 0 Refills, Maintenance, 02/08/18 15:01:29 EDT, 17 Gm By Mouth Daily as need for constipation; dissolve in water or juice Start Date: 02/08/18 Status: Ordered Nasacort Allergy 24HR 55 mcg/inh nasal spray 2 sprays, Nares, Both, Daily, # 1 each, 2 Refills, Maintenance, 11/29/19 16:12:00 EDT, [facility]/pharmacy#1130, 2 sprays Nares, Both Daily, 146, cm, 11/29/19 15:26:00 EDT, Height, 75.5, kg, 10/31/19 15:44:00 EST, Dry Weight Start Date: 11/29/19 Status: Ordered Nebulizer/Compressor See Instructions, # 1 each, Maintenance, and tubing/mouthpiece Dx asthma, 05/21/19 18:27:56 EDT, Compound Start Date: 05/21/19 Status: Ordered norethindrone 5 mg oral tablet TAKE 1 TABLET BY MOUTH TWICE A DAY Start Date: 04/02/19 Status: Ordered NuLYTELY with Flavor Packs oral powder for reconstitution 240 mL, By Mouth, Every 15 minutes, # 4,000 mL, 0 Refills, Maintenance, 02/08/18 15:01:07 EDT, 240 mL By Mouth Every 15 minutes Start Date: 02/08/18 Status: Ordered omeprazole 20 mg oral enteric coated capsule 1 capsule, By Mouth, Daily, # 30 capsule, 2 Refills, Maintenance, 10/17/19 16:34:00 EST, [facility], 146, cm, 10/07/19 8:16:00 EST, Height, 77.72, kg, 06/12/19 14:42:00 EDT, Dry Weight Start Date: 10/17/19 Status: Ordered ProAir HFA 90 mcg/inh inhalation aerosol with adapter 2, puffs, Inhalation, Every 6 hours, PRN, # 1 each, Refills 0, Tot. Refills 0, Soft Stop, 11/02/18 9:01:59 EST, Aerosol, Route to Pharmacy Electronically, [id number], [facility] [address] Start Date: 11/02/18 Stop Date: 12/02/18 Status: Ordered Recombivax HB Adult 10 mcg/mL intramuscular suspension 1 mL = 10 mcg, Intramuscular, Once, rpt at 1 and 6 months, # 1 mL, 2 Refills, Soft Stop, 09/02/19 12:37:00 EST, [facility], 146, cm, 06/28/19 16:39:00 EDT, Height, 77.72, kg, 06/12/19 14:42:00 EDT, Dry Weight Start Date: 09/02/19 Status: Ordered Singulair 10 mg oral tablet 10 mg, 1, tablet, By Mouth, Daily, # 30 tablet, Refills 5, Tot. Refills 5, Maintenance, 04/05/18 14:33:44 EDT, Print Requisition Start Date: 04/05/18 Stop Date: 10/02/18 Status: Ordered Zantac 150 oral tablet 1 tablet = 150 mg, By Mouth, 2 times a day, as needed for refiux, # 60 tablet, 0 Refills, Maintenance, 06/28/19 17:02:22 EDT, Tablet Start Date: 06/28/19 Status: Ordered Problem List Condition Effective Dates [...] progesterone alone for the past 2-3 years. Vital Signs Most recent to oldest [Reference Range]: 1 Height 146 cm (11/29/19 3:26 PM) Weight 76.6 kg (11/29/19 3:26 PM) Oxygen Saturation [94-100 %] 99 % (11/29/19 3:26 PM) Pulse Rate [55-90 bpm] 97 bpm *H* (11/29/19 3:26 PM) Body Mass Index [18.5-24.99] 35.94 *>HHI* (11/29/19 3:26 PM) Blood Pressure [90-138/55-84 mm Hg] 130/ 80mm Hg (11/29/19 3:26 PM) Social History Social History Type Response Smoking Status Never smoker entered on: 10/03/17 Sex
--- OUTSIDE RECORDS SUMMARY | 2024-05-02 04:59 | XMS_ITS | Continuity of Care Document ---
Author Organization [facility] Address [address] [place] [address]- Care Team Providers Care Sonographer Name Role Phone Anali Concepcion DO Primary Care Physician Encounter [facility] Date(s): 12/13/21 - 12/20/21 [facility] [address] [place] [address]- Encounter Diagnosis Knee pain, bilateral(Discharge Diagnosis) - 12/13/21 Attending Physician: Lincoln Gordon MD Referring Physician: [...] diphtheria/tetanus/pertussis, acel(DTaP) 85 Recorded 1Result Comment: [06/08/2018] [facility]:[id number] Medications albuterol 0.083% inhalation solution 3 mL [...] capsule, 1 Refills, Maintenance, 01/12/21 8:16:00 EDT, [id number], 146, cm, 01/04/21 11:29:00 EDT, Height, 75.5, [...] Diagnosis Diagnosis Type Effective Dates Health Status Cl inical Service Informant Knee pain, bilateral Discharge Diagnosis 12/13/21 Social History Social History Type Response Smoking Status Never smoker entered on: 10/03/17 Sex
--- OUTSIDE RECORDS SUMMARY | 2024-05-02 04:59 | XMS_ITS | Continuity of Care Document ---
Author Organization [facility] Address [address] [place] [address]- Care Team Providers Care Chainstitch Felled Seam Operator Name Role Phone Anali Concepcion DO Primary Care Physician Encounter [place] Date(s): 05/17/22 - 06/16/22 [facility] [address] [place], [place] [address] Attending Physician: Louise Camarillo Admitting Physician: AdmtrLouise Referring Physician: Admtr, Ar8 Allergies, Adverse Reactions, [...] Recorded diphtheria/tetanus/pertussis, acel(DTaP) 85 Recorded 1Result Comment: [facility]# [id number] 2Result Comment: [06/08/2018] [facility]:[id number] Medications albuterol 0.083% inhalation solution 3 mL [...] Date: 04/12/22 Stop Date: 07/06/23 Status: Ordered meclizine 12.5 mg oral tablet [...] Daily, # 30 capsule, 1 Refills, Maintenance, 04/12/22 8:42:00 EDT, [facility], 146, cm, 04/12/22 8:15:00 EDT, Height, 69.7, kg, 10/04/21 16:20:00 EST, Dry Weight Start Date: 04/12/22 Status: Ordered Multivitamins By Mouth, Daily, 0 [...] on: 10/03/17 Sex Patient Care team information Personnel Name: Anali Concepcion DO Address: Address: [address] [place] [address] Adult & Pediatric Medicine [place], [place] [address]
--- OUTSIDE RECORDS SUMMARY | 2024-05-02 04:59 | XMS_ITS | Continuity of Care Document ---
Author Organization [facility] Address [address] [place] [address]- Care Team Providers Care Sight Effects Specialist Name Role Phone Anali Concepcion DO Primary Care Physician ( [phone] Encounter [facility] Date(s): 12/15/22 - 12/22/22 [facility] [address] [place], [place] [address] Attending Physician: Anali Concepcion DO Allergies, Adverse [...] diphtheria/tetanus/pertussis, acel(DTaP) 85 Recorded 1Result Comment: [06/08/2018] [facility]:[id number] 2Result Comment: [facility]# [id number] Medications albuterol 0.083% inhalation solution 3 mL [...] Date: 04/12/22 Stop Date: 07/06/23 Status: Ordered lidocaine 5% topical ointment 1 application, Topically, 4 times a day, Apply to area of discomfort with a fingertip. Wash hands thoroughly after application., # 35 Gm, 0 Refills, Acute 01/02/23 12:00:00 EDT, 12/08/22 15:16:00 EDT, Ointment, [facility], Partial fill u... Start Date: 12/08/22 Stop Date: 01/02/23 Status: Ordered norethindrone 5 mg oral tablet [...] oldest [Reference Range]: 1 Height 146 cm (12/15/22 9:11 AM) Weight 73.8 kg (12/15/22 9:11 AM) Oxygen Saturation [94-100 %] 96 % (12/15/22 9:11 AM) Pulse Rate [55-90 bpm] 118 bpm *H* (12/15/22 9:11 AM) Body Mass Index [18.5-24.99 kg/m2] 34.62 kg/m2 *>HHI* (12/15/22 9:11 AM) Blood Pressure [90-138/55-84 mm Hg] 97/6 3mm Hg (12/15/22 9:11 AM) Respiratory Rate [16-30 br/min] 14 br/mi n *L* (12/15/22 9:11 AM) Temperature [96.8-100.4 DegF] 98 DegF (12/15/22 9:11 AM) Mode of Delivery (Oxygen) Room air (12/15/22 9:11 AM) Blood pressure sites Arm, left (12/15/22 9:11 AM) Temperature Route Temporal (12/15/22 9:11 AM) Weight Obtained Via Standing scale (12/15/22 9:11 AM) Social History Social History Type Response Smoking Status Never smoker entered on: 10/03/17 Sex Note * Velia Cooper: PERFORM, SIGN, VERIFY Event Display: Patient Education/Instruction Authored Date: [id number] [facility] Clinical Summary Name DIONY AMBROSE Age 37 Years 1985 PCP Anali Concepcion DO PCP Visit Date 12/15/2022 09:00:00 Patient Instructions Week 1: ??One tablet (naltrexone 8 mg/bupropion 90 mg) once daily in the morning for 1 week Week 2:?? one tablet twice a day Week 3: then 2 tablets in the morning and 1 tablet in the evening for 1 week Week 4:?2 tablets twice daily?? If you are having increased side effects please to not escalate the dose. We will need to monitor your blood pressure as you escalate on the dose. For your vaginal??lump-please use warm compresses??3 times a day??on this area. ??This is likely a benign process. ??Could be an ingrown hair??versus a??tiny cyst underneath the skin. ??You do not have to use the lidocaine if it is not providing any relief.?? Please do not squeeze the lump. Additional Instructions: Scheduled Appointments?? Future Appointments ?*[facility] ?[address]??[place],??[place],??[address] ?Phone:??--?Fax:??-- ?Appt. Date:??01/26/2023?10:00 AM ?Scheduled Provider:??Anali Concepcion DO Follow-Up Instructions ?? With: Address: When: Follow up, 1 Year for Physical With: Address: When: As Needed Diagnosis Encounter for general adult medical examination without abnormal findings Medications: Please continue your medications until treatment is completed or stopped by your provider. Discuss any questions related to medications with your provider. Medications to Continue with No Changes These medications were not printed or sent to your pharmacy Albuterol (albuterol 0.083% inhalation solution) 3 Milliliter Inhalation every 6 hours as needed for wheezing for 30 Days. Refills: 0. Next Dose: Albuterol (albuterol 90 mcg/inh inhalation powder) 1 puff(s) Inhalation every 6 hours as needed. Refills: 0. Next Dose: Azelastine Nasal (azelastine nasal 0.15% spray) 2 spray(s) twice a day. Next Dose: buPROPion-naltrexone (Contrave 8 mg-90 mg oral tablet, extended release) 1 tab(s) Oral Daily in themorning for 90 Days. do not crush or chew; contact pcp when receive for titration instructions. Refills: 1. Next Dose: Fexofenadine (fexofenadine 60 mg oral tablet) 1 tab(s) Oral Daily for 90 Days. Refills: 4. Next Dose: Lidocaine Topical (lidocaine 5% topical ointment) 1 farzana Topically 4 times a day. Apply to area of discomfort with a fingertip. Wash hands thoroughly after application.. Refills: 0. Next Dose: Montelukast (Singulair 10 mg oral tablet) 1 tab(s) Oral Daily for 30 Days. Refills: 5. Next Dose: Norethindrone (norethindrone 5 mg oral tablet) 1 tab(s) Oral Daily. Refills: 3. Next Dose: Omeprazole (omeprazole 20 mg oral enteric coated capsule) 1 capsule Oral Daily. Refills: 2. Next Dose: Allergy Info:?? ZyrTEC; Latex; aloe vera topical Medications Given This Visit Future Orders ?No future orders Vital Signs Height 146 cm Weight 73.8 kg BMI 34.62 kg/m2 Blood Pressure 97 mm Hg/63 mm Hg Temperature 98 DegF Pulse Rate 118 bpm Respiratory Rate 14 br/min 02 Sat Mode of Delivery 96 %/Room air You can now view a summary of your hospital visit from the comfort of your home through a free online portal called [employer]. [employer] is a website that allows you to securely view your medical information including discharge summary, medications and follow-up visits. ??You can alsosend a secure electronic message to your doctor???s office to request appointments, renew medications or just ask a question. You can enroll at [email or web address] or register during your next office visit. Disclaimer:?? The information provided is of a general nature and is intended to be used in conjunction with the recommendations and advice of your health care practitioner. ??Every effort has been made to ensure that the information provided is accurate and complete at the time it is provided to you however, as your needs change, or, as new ??information becomes available, different or additional instructions may be required. If you have questions, please consult with your primary care provider or pharmacist, as appropriate. ??This information is not intended to serve as substitution for assessment and evaluation by a qualified health care provider. If you do not have a primary care provider, you may find a [facility] provider by calling [facility] at [phone]. For information about the plan of care including goals and instructions for your diagnosis, please see the patient education orders section of this document. Patient Education Materials?? The content of this educational material or handout may have been modified, supplemented, or adapted from its original content and format to support your individualized medical care. 4 Steps for Eating Healthier Changing the way you eat can improve your health. It can lower your cholesterol and blood pressure,and help you stay at a healthy weight. Your diet doesn???t have to be bland and boring to be healthy. Just watch your calories and follow these steps: 1. Eat fewer unhealthy fats ??? Choose more fish and lean meats instead of fatty cuts of meat. ??? Skip butter and lard, and use less margarine. ??? Pass on foods that have palm, coconut, or hydrogenated oils. ??? Eat fewer high-fat dairy foods like cheese, ice cream, and whole milk. ??? Get a heart-healthy cookbook and try some low-fat recipes. 2.??Go light on salt ??? Keep the saltshaker off the table. ??? Limit high-salt ingredients, such as soy sauce, bouillon, and garlic salt. ??? Instead of adding salt when cooking, season your food with herbs and flavorings. Try lemon, garlic, and onion. ??? Limit convenience foods, such as boxed or canned foods and restaurant food. ??? Read food labels and choose lower-sodium options. 3. Limit sugar ??? Pause before you add sugars to pancakes, cereal, coffee, or tea. This includes white and brown table sugar, syrup, honey, and molasses. Cut your usual amount by half. ??? Use non-sugar sweeteners. Stevia, aspartame, and sucralose can satisfy a sweet tooth without adding calories. ??? Swap out sugar-filled soda and other drinks. Buy sugar-free or low-calorie beverages. Remember water is always the best choice. ??? Read labels and choose foods with less added sugar. Keep in mind that dairy foods and foods with fruit will have some natural sugar. ??? Cut the sugar in recipes by 1/3 to 1/2. Boost the flavor with extracts like almond, vanilla, ororange. Or add spices such as cinnamon or nutmeg. 4. Eat??more fiber ??? Eat fresh fruits and vegetables every day. ??? Boost your diet with whole grains. Go for oats, whole-grain rice, and bran. ??? Add beans and lentils to your meals. ??? Drink more water to match your fiber increase. This is to help prevent constipation. ?? 8080-[address] [employer] [place] [address]. All rights reserved. This information is not intended as a substitute for professional medical care. Always follow your healthcare professional's instructions. Prevention Guidelines,??Women Ages 18 to 39 Screening tests and vaccines are an important part of managing your health. Health counseling is essential, too. Below are guidelines for these, for women ages 18 to 39. Talk with your healthcare provider to make sure you???re up-to-date on what you need. Screening Who needs it How often Alcohol misuse All women in this age group At routine exams Blood pressure All women in this age group Every 2 years if your blood pressure is less than 120/80 mm Hg; yearly if your systolic blood pressure is 120 to 139 mm Hg, or your diastolic blood pressure reading is 80 to 89 mm Hg Breast cancer All women in this age group should talk with their healthcare providers about the need for clinicalbreast exams (CBE)1 Clinical breast exam every 3 years1 Cervical cancer Women ages 21 and older Women between ages 21 and 29 should have a Pap test every 3 years; women between ages 30 and 65 areadvised to have a Pap test plus an HPV test every 5 years Chlamydia Sexually active women ages 24 and younger, and women at increased risk for infection Every 3 years if you're at risk or have symptoms Depression All women in this age group At routine exams Diabetes mellitus, type 2 Adults with no symptoms who are overweight or obese and have 1 or more other risk factors for diabetes At least every 3 years Gonorrhea Sexually active women at increased risk for infection At routine exams Hepatitis C Anyone at increased risk At routine exams HIV All women At routine exams Obesity All women in this age group At routine exams Syphilis Women at increased risk for infection ??? talk with your healthcare provider At routine exams Tuberculosis Women at increased risk for infection ??? talk with your healthcare provider Ask your healthcare provider Vision All women in this age group At least 1 complete exam in your 20s, and 2 in your 30s Vaccine2 Who needs it How often Chickenpox (varicella) All women in this age group who have no record of this infection or vaccine 2 doses; the second dose should be given 4 to 8 weeks after the first dose Hepatitis A Women at increased risk for infection ??? talk with your healthcare provider 2 doses given at least 6 months apart Hepatitis B Women at increased risk for infection ??? talk with your healthcare provider 3 doses over 6 months; second dose should be given 1 month after the first dose; the third dose should be given at least 2 months after the second dose and at least 4 months after the first dose Haemophilus influenzae??Type B (HIB) Women at increased risk for infection ??? talk with your healthcare provider 1 to 3 doses Human papillomavirus (HPV) All women in this age group up to age 26 3 doses; the second dose should be given 1 to 2 months after the first dose and the third dose given 6 months after the first dose Influenza (flu) All women in this age group Once a year Measles, mumps, rubella (MMR) All women in this age group who have no record of these infections or vaccines 1 or 2 doses Meningococcal Women at increased risk for infection ??? talk with your healthcare provider 1 or more doses Pneumococcal conjugate vaccine (PCV13)??and pneumococcal polysaccharide??vaccine??(PPSV23) Women at increased risk for infection ??? talk with your healthcare provider PCV13: 1 dose ages 19 to 65 (protects against 13 types of pneumococcal bacteria) PPSV23: 1 to??2 doses through age 64, or 1 dose at 65 or older (protects against 23 types of pneumococcal bacteria) Tetanus/diphtheria/pertussis (Td/Tdap) booster All women in this age group Td every 10 years, or a one-time dose of Tdap instead of a Td booster after age 18, then Td every 10 years Counseling Who needs it How often BRCA gene mutation testing for breast and ovarian cancer susceptibility Women with increased risk for having gene mutation When your risk is known Breast cancer and chemoprevention Women at high risk for breast cancer When your risk is known Diet and exercise Women who are overweight or obese When diagnosed, and then at routine exams Domestic violence Women at the age in which they are able to have children At routine exams Sexually transmitted infection prevention Women who are sexually active At routine exams Skin cancer Prevention of skin cancer in fair-skinned adults through age 24 At routine exams Use of tobacco and the health effects it can cause All women in this age group Every visit 1According to the ACS, women ages 20 to 39 years should have a clinical breast exam (CBE) as part of their routine health exam every 3 years, and breast self- exams are an option for women starting intheir 20s.??However, the ??USPSTF does not recommend CBE. 2Those who are 18 years of age, who are not up-to-date on their childhood immunizations, should receive all appropriate catch-up vaccines recommended by the CDC. ?? 2827-58[address] [employer]. [address] [place] [address]. All rights reserved. This information is not intended as a substitute for professional medical care. Always follow your healthcare professional's instructions. Getting a Flu Vaccination The flu (influenza) is caused by a virus that is easily spread. A flu vaccine is your best chance to avoid the flu. The vaccine is given in the form of a shot (injection) or a nasal spray. It???s best to get vaccinated each year when the flu vaccine is available in your area. This can be done at your health care provider???s office or a health clinic. Drugstores, senior centers, and workplaces often offer flu vaccinations, too. If you want to know when the vaccine is available or if you have questions about getting vaccinated, ask your health care provider. Flu facts ??? The flu vaccine will not give you the flu. ??? The flu is caused by a virus. It can???t be treated with antibiotics. ??? The flu can be life-threatening, especially for people in high-risk groups. ??? Influenza is not the same as ???stomach flu,?? the 24-hour bug that causes vomiting and diarrhea. This is most likely due to a GI (gastrointestinal) infection???not the flu. Flu symptoms Flu symptoms tend to come on quickly. Fever, headache, fatigue, cough, sore throat, runny nose, andmuscle aches are symptoms of the flu. Children may have upset stomach or vomiting, but adults usually don???t. Some symptoms, such as fatigue and cough, can last a few weeks. How a flu vaccine protects you There are many strains (types) of flu viruses. Medical experts predict which??strains are most likely to make people sick each year. Flu vaccines??are made from these strains. With the shot, inactivated (???killed?? ) flu viruses are injected into your body. With the nasal spray, live and weakened viruses are sprayed into your nose. The viruses in both vaccines cannot make you sick. But they do prompt the body to make antibodies to fight these flu strains. If you???re exposed to the same strains later in the flu season, the antibodies will fight off the virus. Your health care provider can tell you which type of flu vaccine is right for you. Who should get the flu vaccination? The Centers for Disease Control and Prevention (CDC) recommends that infants over the age of 6 months and all children and adults should get a flu shot every year. Some people are at an increased risk of developing serious complications from the flu. It's extremely important that these people get the vaccine. They include those with: ??? Long-term heart and lung conditions ??? Other serious medical conditions: ??? Endocrine disorders, like diabetes ??? Kidney or liver disorders ??? Weak immune system from disease or medical treatment, for example those with HIV or AIDS or those taking long-term steroids or medications to treat cancer ??? Blood disorders, such as sickle cell disease It is also very important that others that have an increased risk of being exposed to the flu or are around people with increased risk of complications get the vaccine. They are: ??? Health care providers and other staff that provide care in hospitals, nursing homes, home health, and other facilities ??? Household members, including children of people in high-risk groups Types of flu vaccines The flu vaccine is available as a shot and as a nasal spray. Your health care provider will recommend the vaccine that is best for you. ??? The shot is available in a few different forms. There is a high-dose vaccine for those over age65 and a vaccine for those with egg allergies. It's safe for most people. Talk with your provider if you have had: ??? A severe allergic reaction to a previous flu vaccine ??? Guillain-barre syndrome (a severe paralyzing condition) ??? The nasal spray is recommended for people from 2 to 49 years of age. It should not be given to adults who: ??? Are ??? Have weak immune systems ??? Have egg allergies ??? Will be in close contact with someone with a weak immune system ??? Have taken antiviral medication in the past 2 days ?? 9468-[address] [employer] [place] [address], [place] [address]. All rights reserved. This information is not intended as a substitute for professional medical care. Always follow your healthcare professional's instructions. Patient Care team information Care Team Personnel Name: Anali Concepcion DO Position: [facility] Primary Care Physician Member Role: PCP Address: Address: [address] [place] [address] Adult & [place] [address]- Care Team Related Persons Name: KATIUSKA VIGIL Address: [address] [place] [address] Name: RAISA AMBROSE Address: [address] [place] [address] Name: AURORA NIX Name: MELISSA AGUILAR
--- OUTSIDE RECORDS SUMMARY | 2024-05-02 04:59 | XMS_ITS | Continuity of Care Document ---
Author Organization [facility] Address [address] [place] [address]- Care Team Providers Care Consumer Loan Processor Name Role Phone Anali Concepcion DO Primary Care Physician ( [phone] Encounter [facility] Date(s): 06/01/22 - 07/01/22 [facility] [address] [place], [place] [address] Allergies, Adverse Reactions, Alerts Substance Reaction [...] Recorded diphtheria/tetanus/pertussis, acel(DTaP) 85 Recorded 1Result Comment: [facility]# [id number] 2Result Comment: [06/08/2018] [facility]:[id number] Medications albuterol 0.083% inhalation solution 3 mL [...] a schedule II opioid drug. Start Date: 5/3/21 Status: Ordered simethicone 125 mg oral tablet, [...] Personnel Name: Anali Concepcion DO Address: Address: [address] [place] [address] Adult & Pediatric Medicine [place], [place] [address]
--- OUTSIDE RECORDS SUMMARY | 2024-05-02 04:59 | XMS_ITS | Continuity of Care Document ---
Author Organization [facility] Address [address] [place] [address]- Care Team Providers Care Port Cdl A Driver Name Role Phone Anali Concepcion DO Primary Care Physician Encounter [facility] Date(s): 09/02/22 - 10/02/22 [facility] [address] [place], [place] [address] Attending Physician: Anali Concepcion DO Allergies, [...] Recorded diphtheria/tetanus/pertussis, acel(DTaP) 85 Recorded 1Result Comment: [facility]# [id number] 2Result Comment: [06/08/2018] [facility]:[id number] Medications albuterol 0.083% inhalation solution 3 mL [...] a schedule II opioid drug., 146, cm, 08/26/22 11:41:00 EST, Height,... Start Date: 08/26/22 Status: [...] Care Physician Member Role: PCP Address: Address: [address] [place] [address] Adult [place] [address]- Care Team Related Persons Name: KATIUSKA VIGIL Address: [address] [place] [address] Name: RAISA AMBROSE Address: [address] [place] [address] Name: AURORA NIX Name: MELISSA AGUILAR
--- OUTSIDE RECORDS SUMMARY | 2024-05-02 04:59 | XMS_ITS | Continuity of Care Document ---
Author Organization [facility] Address [address] [place] [address]- Care Team Providers Care Beauty Counselor Name Role Phone Anali Concepcion DO Primary Care Physician ( [phone] [facility]counter [facility] Date[facility]): 12/29/22 - 01/28/23 [facility] [address] [place], [place] [address] Allergies, Adverse Reactions, Alerts Substance Reaction [...] acel(DTaP) 85 Recorded 1Result Comment: [06/08/2018] [facility] [place]:73308-844-33 2Result Comment: [facility] [place] [id number] Medications albuterol 0.083% inhalation solution 3 mL [...] dose, # 120 tablet, 5 Refills, Maintenance, 01/26/23 10:44:00 EDT, ER Tablet, [facility], Partial fill upon patient request if the prescription is for a schedule II opioid drug., 2 tabl... Start Date: 01/26/23 Stop Date: 07/25/23 Status: Ordered Contrave 8 mg-90 mg oral [...] Date: 04/12/22 Stop Date: 07/06/23 Status: Ordered MiraLax oral powder for reconstitution = 17 Gm, By Mouth, Daily, dissolve in water before taking, # 255 Gm, 0 Refills, Maintenance, 01/26/23 10:45:00 EDT, REC Powder, [facility], Partial fill upon patient request if the prescription is for a schedule II opioid drug., 17 Gm By... Start Date: 01/26/23 Status: Ordered norethindrone 5 mg oral tablet [...] Primary Care Member Role: PCP Address: Address: [address] [place] [address] Adult & [place] [address]- Care Team Related Persons Name: KATIUSKA VIGIL Address: [address] [place] [address] Name: RAISA AMBROSE Address: home [address] [place] [address] Name: AURORA NIX Name: MELISSA AGUILAR
--- OUTSIDE RECORDS SUMMARY | 2024-05-02 04:59 | XMS_ITS | Continuity of Care Document ---
Author Organization [facility] Address [address] [place] [address]- Care Team Providers Care Hardware Assembler Name Role Phone Anali Concepcion DO Primary Care Physician [facility] Date(s): 05/13/22 - 06/12/22 [facility] [address] [place], [place] [address] Allergies, Adverse Reactions, Alerts Substance Reaction Severity [...] Recorded diphtheria/tetanus/pertussis, acel(DTaP) 85 Recorded 1Result Comment: [facility]# [id number] 2Result Comment: [06/08/2018] [facility]:98310-721-86 Medications albuterol 0.083% inhalation solution 3 mL [...] Personnel Name: Anali Concepcion DO Address: Address: [address] [place] [address] Adult & Pediatric Medicine [place], [place] [address]
--- OUTSIDE RECORDS SUMMARY | 2024-05-02 04:59 | XMS_ITS | Continuity of Care Document ---
Author Organization [facility] Address [address] [place] [address]- Care Team Providers Care Early Intervention School Psychologist Name Role Phone Anali Concepcion DO Primary Care Physician [facility] Date(s): 06/06/22 - 07/06/22 [facility] [address] [place] [address]- Allergies, Adverse Reactions, Alerts Substance Reaction Severity [...] Recorded diphtheria/tetanus/pertussis, acel(DTaP) 85 Recorded 1Result Comment: [facility]# [id number] 2Result Comment: [06/08/2018] [facility]:48643-751-22 Medications albuterol 0.083% inhalation solution 3 mL [...] Personnel Name: Anali Concepcion DO Address: Address: [address] [place] [address] Adult & Pediatric [place], [place] [address]
--- OUTSIDE RECORDS SUMMARY | 2024-05-02 04:59 | XMS_ITS | Continuity of Care Document ---
Author Organization [facility] Address [address] [place] [address]- Care Team Providers Care Network Consultant Name Role Phone Anali Concepcion DO Primary Care Physician [facility]counter [facility] Date(s): 04/19/21 - 05/19/21 [facility] [address] [place] [address]- Allergies, Adverse Reactions, Alerts Substance Reaction Severity [...] diphtheria/tetanus/pertussis, acel(DTaP) 85 Recorded 1Result Comment: [06/08/2018] [facility]:84870-365-08 Medications albuterol 0.083% inhalation solution 3 mL [...] capsule, 1 Refills, Maintenance, 01/12/21 8:16:00 EDT, [facility], 146, cm, 01/04/21 11:29:00 EDT, Height, 75.5, [...] 9:01:59 EST, Aerosol, Route to Pharmacy Electronically, [id number], [facility] [address] Start Date: 11/02/18 Stop Date: 12/02/18 Status: [...]
--- OUTSIDE RECORDS SUMMARY | 2024-05-02 04:59 | XMS_ITS | Continuity of Care Document ---
Author Organization [facility] Address [address] [place] [address]- Care Team Providers Care Crystal Attacher Name Role Phone Anali Concepcion DO Primary Care Physician ( [phone] Encounter [facility] Date(s): 09/06/22 - 09/23/[address] [address]- Encounter Diagnosis Dizziness and giddiness(Final) - Discharge Disposition: A-D/C Home Attending Physician: Anali [...] 1Result Comment: [facility]# [id number] 2Result Comment: [06/08/2018] [facility]:25539-695-72 Medications albuterol 0.083% inhalation solution 3 mL [...] Maintenance, 04/12/22 8:47:00 EDT, Tablet, [facility], Partial fill upon patient request if the prescription is for a schedule II opioid drug., 146, cm, 04/12/22 8:15:00 EDT, Hei... Start Date: 04/12/22 Stop Date: 07/06/23 Status: Ordered norethindrone 5 mg oral tablet 5 mg, 1, tablet, By Mouth, Daily, # 90 tablet, Refills 3, Tot. Refills 3, Maintenance, 06/06/22 11:31:00 EDT, Route to Pharmacy Electronically, [facility], Partial fill upon patientrequest if [...] Team Personnel Name: Anali Concepcion DO Position: [facility] Primary Care Physician Member Role: PCP Address: Address: [address] [place] [address] Adult & [place] [address]- Care Team Related Persons Name: KATIUSKA VIGIL Address: home [address] [place] [address] Name: RAISA AMBROSE Address: home [address] [place] [address] Name: AURORA NIX Name: MELISSA AGUILAR
--- OUTSIDE RECORDS SUMMARY | 2024-05-02 04:59 | XMS_ITS | Continuity of Care Document ---
Author Organization [facility] Address [address] [place] [address]- Care Team Providers Care Community Development Aide Name Role Phone Anali Concepcion DO Primary Care Physician [facility] Date(s): 07/29/20 - 08/28/20 [facility] [address] [place], [place] [address] Allergies, Adverse Reactions, Alerts Substance Reaction Severity [...] diphtheria/tetanus/pertussis, acel(DTaP) 85 Recorded 1Result Comment: [06/08/2018] [facility]:51575-165-56 Medications Advair HFA 230 mcg / 21 [...] Date: 04/02/19 Stop Date: 05/02/19 Status: Ordered ciprofloxacin-dexamethasone 0.3%-0.1% otic suspension 4 drops, Ears, Both, 2 times a day, # 7.5 mL, 0 Refills, Maintenance, 11/29/19 15:48:00 EDT, Suspension, [facility]acy #0957, 4 drops Ears, Both 2 times [...] 05/21/19 18:52:50 EDT, Route to Pharmacy Electronically, [id number], [facility]pharmacy #1130 Start Date: 05/21/19 Status: Ordered Claritin 10 mg oral tablet 10 mg, 1, tablet, By Mouth, Daily, # 90 tablet, Refills 0, Tot. Refills 0, Maintenance, 04/02/19 8:27:25 EDT, Route to Pharmacy Electronically, [id number], [facility]/pharmacy #1130 Start Date: 04/02/19 Status: Ordered Colace sodium 100 mg oral capsule 100 mg, 1, capsule, By Mouth, Daily, # 30 capsule, Refills 11, Tot. Refills 11, Maintenance, 02/08/18 15:01:19 EDT, Route to Pharmacy Electronically, [id number], [facility] [address] Start Date: 02/08/18 Stop Date: 02/03/19 Status: Ordered Dulera Inhalation, 2 times a day, 0 Refills, Maintenance, 04/02/19 8:28:41 EDT Start Date: 04/02/19 Status: Ordered Flonase 50 mcg/inh nasal spray 1 sprays, Nares, Both, 2 times a day, # 3 each, 0 Refills, Maintenance, 08/10/20 10:32:00 EST, [place], [facility] # 302, Partial fill upon patient request, 1 sprays Nares, Both 2 times a day, 146, cm, 03/16/20 10:36:00 EDT, Height, 75.5, kg, 10/31... Start Date: 08/10/20 Status: Ordered guaiFENesin 100 mg/5 mL oral liquid 10 mL = 200 mg, By Mouth, Every 6 hours, PRN for cough, # 600 mL, 0 Refills, Maintenance, 08/10/20 10:34:00 EST, Liquid, [facility]/pharmacy #0957, Partial fill upon patient request if the prescription is for a schedule II opioid drug., 146, cm, 03/16/20 10:... Start Date: 08/10/20 Status: Ordered measles/mumps/rubella/varicella virus vaccine subcutaneous injection 0.5 mL, Subcutaneous Injection, Once, # 1 each, 0 Refills, Soft Stop, 09/02/19 12:34:00 EST, Powder, [facility]/pharmacy #1130, 0.5 mL Subcutaneous Injection Once, 146, cm, 06/28/19 16:39:00 EDT, Height, 77.72, kg, 06/12/19 14:42:00 EDT, Dry Weight Start Date: 09/02/19 Status: Ordered meloxicam 15 mg oral tablet 1 tablet = 15 mg, By Mouth, Daily, with food for foot pain, # 30 tablet, 0 Refills, Maintenance, 03/16/20 11:09:00 EDT, Tablet, [facility]/pharmacy #0957, 146, cm, 03/16/20 10:36:00 EDT, Height, 75.5, kg, 10/31/19 15:44:00 EST, Dry Weight Start Date: 03/16/20 Stop Date: 04/15/20 Status: Ordered meloxicam 7.5 mg oral tablet [...] each, 2 Refills, Maintenance, 11/29/19 16:12:00 EDT, [facility]pharmacy#1130, 2 sprays Nares, Both Daily, 146, cm, [...] Daily, # 30 capsule, 2 Refills, Maintenance, 06/08/20 13:45:00 EDT, [facility]/pharmacy #0957, 146, cm, 03/16/20 10:36:00 EDT, Height, 75.5, kg, 10/31/19 15:44:00 EST, Dry Weight Start Date: 06/08/20 Status: Ordered ProAir HFA 90 mcg/inh inhalation aerosol with adapter 2, puffs, Inhalation, Every 6 hours, PRN, # 1 each, Refills 0, Tot. Refills 0, Soft Stop, 11/02/18 9:01:59 EST, Aerosol, Route to Pharmacy Electronically, [id number], [facility] [address] Start Date: 11/02/18 Stop Date: 12/02/18 Status: Ordered Recombivax HB Adult 10 mcg/mL intramuscular suspension 1 mL = 10 mcg, Intramuscular, Once, rpt at 1 and 6 months, # 1 mL, 2 Refills, Soft Stop, 09/02/19 12:37:00 EST, [facility]/pharmacy #1130, 146, cm, 06/28/19 16:39:00 EDT, Height, [...] EDT, Tablet Start Date: 06/28/19 Status: Ordered Zithromax 250 mg oral tablet 1 pack/packet, By Mouth, Once, as directed on package labeling, # 6 tablet, 0 Refills, Soft Stop, 07/29/20 17:17:00 EST, Tablet, [facility], Partial fill upon patient request, 146, cm, 03/16/20 10:36:00 EDT, Height, 75.5, kg, 10/31/19 15:44:00... Start Date: 07/29/20 Status: Ordered Problem List Condition Effective Dates [...]
--- OUTSIDE RECORDS SUMMARY | 2024-05-02 04:59 | XMS_ITS | Continuity of Care Document ---
Author Organization [facility] Address [address] [place] [address]- Care Team Providers Care Thermal Cutter Hand Name Role Phone Anali Concepcion DO Primary Care Physician Encounter [facility] Date(s): 08/01/22 - 08/31/[address] [address] Attending Physician: Louise Camarillo Admitting Physician: Louise Camarillo Referring Physician: Louise Camarillo Allergies, Adverse Reactions, Alerts Substance Reaction Severity [...] Recorded 1Result Comment: [facility]# [id number] 2Result Comment: [06/08/2018] [facility]:40584-489-36 Medications albuterol 0.083% inhalation solution 3 mL [...] Maintenance, 04/12/22 8:47:00 EDT, Tablet, [facility], Partial fill upon patient request if the prescription is for a schedule II opioid drug., 146, cm, 04/12/22 8:15:00 EDT, Hei... Start Date: 04/12/22 Stop Date: 07/06/23 Status: Ordered norethindrone 5 mg oral tablet 5 mg, 1, tablet, By Mouth, Daily, # 90 tablet, Refills 3, Tot. Refills 3, Maintenance, 06/06/22 11:31:00 EDT, Route to Pharmacy Electronically, [facility], Partial fill upon patientrequest if [...] Team Personnel Name: Anali Concepcion DO Position: [facility] Primary Care Physician Member Role: PCP Address: Address: [address] [place] [address] Adult & [place] [address]- Care Team Related Persons Name: KATIUSKA VIGIL Address: [address] [place] [address] Name: RAISA AMBROSE Address: home [address] [place] [address] Name: AURORA NIX Name: MELISSA AGUILAR
--- OUTSIDE RECORDS SUMMARY | 2024-05-02 04:59 | XMS_ITS | Continuity of Care Document ---
Author Organization [facility] Address [address] [place] [address]- Care Team Providers Care Vp Medical Name Role Phone Anali Concepcion DO Primary Care Physician Encounter [facility] Date(s): 08/12/20 - 08/19/20 [facility] [address] [place], [place] [address] Encounter Diagnosis Cough(Discharge Diagnosis) - 08/12/20 Dyspnea(Discharge Diagnosis) - 08/12/20 Asthma, persistent not controlled(Discharge Diagnosis) - 08/12/20 Attending Physician: Luly Malik MD Referring Physician: Anali Concepcion DO Allergies, [...] vaccine 01/30/02 Recorded hepatitis B pediatric vaccine 2/13/98 Recorded hepatitis B pediatric vaccine 04/18/87 Recorded tetanus-diphtheria toxoids (Td) 01/30/02 Recorded Poliovirus Vaccine, Inactivated 12/05/90 Recorded Poliovirus Vaccine, Inactivated 07/03/87 Recorded Poliovirus Vaccine, Inactivated 04/28/86 Recorded Poliovirus Vaccine, Inactivated 02/24/86 Recorded diphtheria/tetanus/pertussis, acel(DTaP) 07/03/87 Recorded diphtheria/tetanus/pertussis, acel(DTaP) 06/25/86 Recorded diphtheria/tetanus/pertussis, acel(DTaP) 04/28/86 Recorded diphtheria/tetanus/pertussis, acel(DTaP) 85 Recorded 1Result Comment: [06/08/2018] [facility]:28052-639-02 Medications Advair HFA 230 mcg / 21 [...] Date: 04/02/19 Stop Date: 05/02/19 Status: Ordered Cheracol with Codeine 10 mg-100 mg/5 ml oral syrup 5 mL, By Mouth, Every 4 hours, PRN for cough, # 120 mL, 0 Refills, Acute 08/26/20 18:43:00 EST, 08/12/20 18:43:00 EST, Syrup, Partial fill upon patient request if the prescription is for a schedule II opioid drug. Start Date: 08/12/20 Stop Date: 08/26/20 Status: Ordered ciprofloxacin-dexamethasone 0.3%-0.1% otic suspension 4 drops, Ears, Both, 2 times a day, # 7.5 mL, 0 Refills, Maintenance, 11/29/19 15:48:00 EDT, Suspension, [facility]/pharmacy #0957, 4 drops Ears, Both 2 times [...] 05/21/19 18:52:50 EDT, Route to Pharmacy Electronically, [id number], [facility]/pharmacy #1130 Start Date: 05/21/19 Status: Ordered Claritin 10 mg oral tablet 10 mg, 1, tablet, By Mouth, Daily, # 90 tablet, Refills 0, Tot. Refills 0, Maintenance, 04/02/19 8:27:25 EDT, Route to Pharmacy Electronically, [id number], [facility]/pharmacy #1130 Start Date: 04/02/19 Status: Ordered Colace sodium 100 mg oral capsule 100 mg, 1, capsule, By Mouth, Daily, # 30 capsule, Refills 11, Tot. Refills 11, Maintenance, 02/08/18 15:01:19 EDT, Route to Pharmacy Electronically, [id number], [facility] [address] Start Date: 02/08/18 Stop Date: 02/03/19 Status: Ordered Dulera Inhalation, 2 times a day, 0 Refills, Maintenance, 04/02/19 8:28:41 EDT Start Date: 04/02/19 Status: Ordered Flonase 50 mcg/inh nasal spray 1 sprays, Nares, Both, 2 times a day, # 3 each, 0 Refills, Maintenance, 08/10/20 10:32:00 EST, [place], [facility] # 302, Partial fill upon patient request, 1 sprays Nares, Both 2 times a day, 146, cm, 03/16/20 10:36:00 EDT, Height, 75.5, kg, 10/31... Start Date: 08/10/20 Status: Ordered guaiFENesin 100 mg/5 mL oral liquid 10 mL = 200 mg, By Mouth, Every 6 hours, PRN for cough, # 600 mL, 0 Refills, Maintenance, 08/10/20 10:34:00 EST, Liquid, [facility]/pharmacy #0957, Partial fill upon patient request if the prescription is for a schedule II opioid drug., 146, cm, 03/16/20 10:... Start Date: 08/10/20 Status: Ordered measles/mumps/rubella/varicella virus vaccine subcutaneous injection 0.5 mL, Subcutaneous Injection, Once, # 1 each, 0 Refills, Soft Stop, 09/02/19 12:34:00 EST, Powder, [facility]/pharmacy #1130, 0.5 mL Subcutaneous Injection Once, 146, cm, 06/28/19 16:39:00 EDT, Height, 77.72, kg, 06/12/19 14:42:00 EDT, Dry Weight Start Date: 09/02/19 Status: Ordered meloxicam 15 mg oral tablet 1 tablet = 15 mg, By Mouth, Daily, with food for foot pain, # 30 tablet, 0 Refills, Maintenance, 03/16/20 11:09:00 EDT, Tablet, [facility]/pharmacy #0957, 146, cm, 03/16/20 10:36:00 EDT, Height, [...] each, 2 Refills, Maintenance, 11/29/19 16:12:00 EDT, [facility]/pharmacy#1130, 2 sprays Nares, Both Daily, 146, cm, [...] capsule, 2 Refills, Maintenance, 06/08/20 13:45:00 EDT, [facility]/pharmacy #0957, 146, cm, 03/16/20 10:36:00 EDT, Height, 75.5, kg, 10/31/19 15:44:00 EST, Dry Weight Start Date: 06/08/20 Status: Ordered predniSONE 10 mg oral tablet See Instructions, [id number],[id number] then stop with food, # 26 tablet, 0 Refills, Acute 08/20/20 18:22:00 EST, 08/12/20 18:21:00 EST, [facility]/pharmacy #0957, Partial fill upon patient request if the prescription is for a schedule II opioid d... Start Date: 08/12/20 Stop Date: 08/20/20 Status: Ordered ProAir HFA 90 mcg/inh inhalation aerosol with adapter 2, puffs, Inhalation, Every 6 hours, PRN, # 1 each, Refills 0, Tot. Refills 0, Soft Stop, 11/02/18 9:01:59 EST, Aerosol, Route to Pharmacy Electronically, [id number], [facility] [address] Start Date: 11/02/18 Stop Date: 12/02/18 Status: Ordered Recombivax HB Adult 10 mcg/mL intramuscular suspension 1 mL = 10 mcg, Intramuscular, Once, rpt at 1 and 6 months, # 1 mL, 2 Refills, Soft Stop, 09/02/19 12:37:00 EST, [facility]/pharmacy #1130, 146, cm, 06/28/19 16:39:00 EDT, Height, [...] Diagnosis Diagnosis Type Effective Dates Health Status Clinical Service Informant Cough Discharge Diagnosis 08/12/20 Dyspnea Discharge Diagnosis 08/12/20 Asthma, persistent not controlled Discharge Diagnosis 08/12/20 Social History Social History Type Response Smoking Status Never smoker entered on: 10/03/17 Sex
--- OUTSIDE RECORDS SUMMARY | 2024-05-02 04:59 | XMS_ITS | Continuity of Care Document ---
Author Organization [facility] Address [address] [place] [address]- Care Team Providers Care Atm Mechanic Name Role Phone Anali Concepcion DO Primary Care Physician ( [phone] Encounter [facility] Date(s): 04/18/21 - 04/25/21 [facility] [address] [place] [address]- Encounter Diagnosis URI (upper respiratory infection)(Discharge Diagnosis) - 04/18/21 Attending Physician: Aspen Abdul MD Referring Physician: Anali Concepcion DO Allergies, [...] 85 Recorded 1Result Comment: [06/08/2018] [facility]:62982-313-02 Medications albuterol 0.083% inhalation solution 3 mL [...] Refills, Maintenance, 01/12/21 8:16:00 EDT, [facility], 146, cm, 01/04/21 11:29:00 EDT, Height, 75.5, [...] 9:01:59 EST, Aerosol, Route to Pharmacy Electronically, [id number], [facility] Start Date: 11/02/18 Stop Date: 12/02/18 Status: Ordered Singulair 10 mg oral tablet 10 mg, 1, tablet, By Mouth, Daily, # 30 tablet, Refills 5, Tot. Refills 5, Maintenance, 04/05/18 14:33:44 EDT, Print Requisition Start Date: 04/05/18 Stop Date: 10/02/18 Status: Ordered Tessalon Perles 100 mg oral capsule 1 capsule = 100 mg, By Mouth, 3 times a day, PRN as needed for cough, for 7 days, # 21 capsule, 0 Refills, Acute 04/26/21 18:55:00 EDT, 04/19/21 18:55:00 EDT, Capsule, [facility], Partial fill upon patient request if the prescription is... Start Date: 04/19/21 Stop Date: 04/26/21 Status: Ordered Zithromax 250 mg oral tablet [...] Effective Dates Health Status Clinical Service Informant URI (upper respiratory infection) Discharge Diagnosis 04/18/21 Social History Social History Type Response Smoking Status Never smoker entered on: 10/03/17 Sex
--- OUTSIDE RECORDS SUMMARY | 2024-05-02 04:59 | XMS_ITS | Continuity of Care Document ---
Author Organization [facility] Address [address] [place] [address]- Care Team Providers Care Electronic Gaming Device Supervisor Name Role Phone Anali Concepcion DO Primary Care Physician Encounter [facility] Date(s): 03/10/23 - 03/17/23 [facility] [address] [place] [address]- Encounter Diagnosis Constipation(Discharge Diagnosis) - 03/10/23 Obese class I(Discharge Diagnosis) - 03/10/23 Change of, skin texture(Discharge Diagnosis) - 03/10/23 Sinus congestion(Discharge Diagnosis) - 03/10/23 Rib pain(Discharge Diagnosis) - 03/10/23 Attending Physician: Eva VP [employer]SPORTATION, Miriam Allergies, Adverse Reactions, Alerts Substance Reaction Severity [...] diphtheria/tetanus/pertussis, acel(DTaP) 85 Recorded 1Result Comment: [06/08/2018] [facility]:40766-692-38 2Result Comment: [facility]# [address]-5 Medications albuterol 0.083% inhalation solution 3 mL [...] capsule, By Mouth, Daily, # 30 capsule, 6 Refills, Maintenance, 02/06/23 16:38:00 EDT, [facility], 146, cm, 01/26/23 10:14:00 EDT, Height, 75, kg, 12/08/22 14:59:00 EDT, Dry Weight Start Date: 02/06/23 Status: Ordered polyethylene glycol 3350 oral powder for reconstitution = 17 Gm, By Mouth, Daily, # 238 Gm, 1 Refills, Maintenance, 02/09/23 16:28:00 EDT, [facility], 15, 17 Gm By Mouth Daily, 146, cm, 02/09/23 9:44:00 EDT, Height, 75, kg, 12/08/22 14:59:00 EDT, Dry Weight Start Date: 02/09/23 Status: Ordered Singulair 10 mg oral tablet [...] Effective Dates Health Status Clinical Service Informant Constipation Discharge Diagnosis 03/10/23 Obese class I Discharge Diagnosis 03/10/23 Change of, skin texture Discharge Diagnosis 03/10/23 Sinus congestion Discharge Diagnosis 03/10/23 Rib pain Discharge Diagnosis 03/10/23 Vital Signs Most recent to oldest [Reference Range]: 1 Height 146 cm (03/10/23 9:41 AM) Weight 70.9 kg (03/10/23 9:41 AM) Oxygen Saturation [94-100 %] 97 % (03/10/23 9:41 AM) Pulse Rate [55-90 bpm] 90 bpm (03/10/23 9:41 AM) Body Mass Index [18.5-24.99 kg/m2] 33.26 kg/m2 *>HHI* (03/10/23 9:41 AM) Blood Pressure [90-138/55-84 mm Hg] 131/ 81mm Hg (03/10/23 9:41 AM) Respiratory Rate [16-30 br/min] 18 br/mi n (03/10/23 9:41 AM) Temperature [96.8-100.4 DegF] 98.7 DegF (03/10/23 9:41 AM) Mode of Delivery (Oxygen) Room air (03/10/23 9:41 AM) Blood pressure sites Arm, right (03/10/23 9:41 AM) Temperature Route Oral (03/10/23 9:41 AM) Dry Weight 70.9 kg (03/10/23 9:41 AM) Weight Obtained Via Standing scale (03/10/23 9:41 AM) Dry Weight Obtained Via Standing scale (03/10/23 9:41 AM) Social History Social History Type Response Smoking Status Never smoker entered on: 10/03/17 Sex Note * Sarah Herring: PERFORM, SIGN, VERIFY Event Display: Patient Education/Instruction Authored Date: [id number] [facility] *No [facility] Clinical Summary Name DIONY AMBROSE Age 37 Years 1985 PCP Anali Concepcion DO PCP Visit Date 03/10/2023 09:39:00 Additional Instructions: Scheduled Appointments?? Future Appointments ?*No??[facility] ?[address]??[place],??[place],??[address] ?Phone:??--?Fax:??-- ?Appt. Date:??04/28/2023?11:00 AM ?Scheduled Provider:??Anali Concepcion DO Follow-Up Instructions ?? Diagnosis Medications: Please continue your medications until treatment is completed or stopped by your provider. Discuss any questions related to medications with your provider. New Medications [facility], [address], [place] [id number], [phone] Senna (Senna 8.6 mg oral tablet) 2 tab(s) Oral Daily at Bedtime as needed Constipation. Refills: 0. Next Dose: Medications to Continue with No Changes These [...] 8 mg-90 mg oral tablet, extended release) 2 tab(s) Oral twice a day for 30 Days. to replace prior dose. Refills: 5. Next Dose: buPROPion-naltrexone (Contrave 8 mg-90 mg oral tablet, extended release) 1 tab(s) Oral Daily in themorning for 90 Days. do not crush or chew; contact pcp when receive for titration instructions. Refills: 1. Next Dose: Fexofenadine (fexofenadine 60 mg oral tablet) 1 tab(s) Oral Daily for 90 Days. Refills: 4. Next Dose: Montelukast (Singulair 10 mg oral tablet) 1 tab(s) Oral Daily for 30 Days. Refills: 5. Next Dose: Norethindrone (norethindrone 5 mg oral tablet) 1 tab(s) Oral Daily. Refills: 3. Next Dose: Omeprazole (omeprazole 20 mg oral enteric coated capsule) 1 capsule Oral Daily. Refills: 6. Next Dose: Polyethylene Glycol 3350 (polyethylene glycol 3350 oral powder for reconstitution) 17 gram Oral Daily. Refills: 1. Next Dose: Allergy Info:?? ZyrTEC; Latex; aloe vera topical Medications Given This Visit Future Orders ?No future orders Vital Signs Height 146 cm Weight 70.9 kg BMI 33.26 kg/m2 Blood Pressure 131 mm Hg/81 mm Hg Temperature 98.7 DegF Pulse Rate 90 bpm Respiratory Rate 18 br/min 02 Sat Mode of Delivery 97 %/Room air You can now view a summary of your hospital visit from the comfort of your home through a free online portal called [employer]. [employer] is a website that allows you to securely view your medical information including discharge summary, medications and follow-up visits. ??You can alsosend a secure electronic message to your doctor???s office to request appointments, renew medications or just ask a question. You can enroll at [email or web address] or register during your next office visit. [...] primary care provider, you may find a [facility] provider by calling [facility] at [phone]. For information about the plan of care including goals and instructions for your diagnosis, please see the patient education orders section of this document. Patient Education Materials?? The content of this educational material or handout may have been modified, supplemented, or adapted from its original content and format to support your individualized medical care. Patient Care team information Care Team Personnel Name: Anali Concepcion DO Position: [facility] Physician - Primary Care Member Role: PCP Address: Address: [address] [place] [address] Adult & [place] [address]- Care Team Related Persons Name: KATIUSKA VIGIL Address: home [address] [place] [address] Name: RAISA AMBROSE Address: home [address] [place] [address] Name: AURORA NIX Name: MELISSA AGUILAR
--- OUTSIDE RECORDS SUMMARY | 2024-05-02 04:59 | XMS_ITS | Continuity of Care Document ---
Author Organization [facility] Address [address] [place] [address]- Care Team Providers Care Mingle Operator Name Role Phone Anali Concepcion DO Primary Care Physician [place] [facility] Date(s): 07/25/22 - 08/01/22 [facility] [address] [place], [place] [address] Attending Physician: Anali Concepcion DO Allergies, Adverse [...] Recorded diphtheria/tetanus/pertussis, acel(DTaP) 85 Recorded 1Result Comment: [facility]# [address]-5 2Result Comment: [06/08/2018] [facility]:10604-167-28 Medications albuterol 0.083% inhalation solution 3 mL [...] Team Personnel Name: Anali Concepcion DO Position: [facility] Primary Care Physician Member Role: PCP Address: Address: [address] [place] [address] Adult [place] [address]- Care Team Related Persons Name: MUSASHALONDAA Address: [address] [place] [address] Name: RAISA AMBROSE Address: home [address] [place] [address] Name: AURORA NIX Name: MELISSA AGUILAR
--- OUTSIDE RECORDS SUMMARY | 2024-05-02 05:00 | XMS_ITS | Continuity of Care Document ---
Author Organization [facility] Address [address] [place] [address]- Care Team Providers Care Consumer Product Advisor Name Role Phone Anali Concepcion DO Primary Care Physician Encounter [facility] Date(s): 07/29/20 - 08/28/20 [facility] [address] [place], [place] [address] Allergies, Adverse Reactions, Alerts Substance Reaction [...] diphtheria/tetanus/pertussis, acel(DTaP) 85 Recorded 1Result Comment: [06/08/2018] [facility]:60971-668-70 Medications Advair HFA 230 mcg / 21 [...] 0 Refills, Maintenance, 11/29/19 15:48:00 EDT, Suspension, [facility]/pharmacy #0957, 4 drops Ears, Both 2 times [...] 05/21/19 18:52:50 EDT, Route to Pharmacy Electronically, [id number], [facility]/pharmacy #1130 Start Date: 05/21/19 Status: Ordered Claritin 10 mg oral tablet 10 mg, 1, tablet, By Mouth, Daily, # 90 tablet, Refills 0, Tot. Refills 0, Maintenance, 04/02/19 8:27:25 EDT, Route to Pharmacy Electronically, [id number], [facility]/pharmacy #1130 Start Date: 04/02/19 Status: Ordered Colace sodium 100 mg oral capsule 100 mg, 1, capsule, By Mouth, Daily, # 30 capsule, Refills 11, Tot. Refills 11, Maintenance, 02/08/18 15:01:19 EDT, Route to Pharmacy Electronically, [id number], [facility] Start Date: 02/08/18 Stop Date: 02/03/19 Status: Ordered Dulera Inhalation, 2 times a day, 0 Refills, Maintenance, 04/02/19 8:28:41 EDT Start Date: 04/02/19 Status: Ordered Flonase 50 mcg/inh nasal spray 1 sprays, Nares, Both, 2 times a day, # 3 each, 0 Refills, Maintenance, 08/10/20 10:32:00 EST, [place], [facility] # [facility], Partial fill upon patient request, 1 sprays Nares, Both 2 times a day, 146, cm, 03/16/20 10:36:00 EDT, Height, 75.5, kg, 10/31... Start Date: 08/10/20 Status: Ordered guaiFENesin 100 mg/5 mL oral liquid 10 mL = 200 mg, By Mouth, Every 6 hours, PRN for cough, # 600 mL, 0 Refills, Maintenance, 08/10/20 10:34:00 EST, Liquid, [facility]/pharmacy #0957, Partial fill upon patient request if the prescription is for a schedule II opioid drug., 146, cm, 03/16/20 10:... Start Date: 08/10/20 Status: Ordered measles/mumps/rubella/varicella virus vaccine subcutaneous injection 0.5 mL, Subcutaneous Injection, Once, # 1 each, 0 Refills, Soft Stop, 09/02/19 12:34:00 EST, Powder, [facility]/pharmacy #1130, 0.5 mL Subcutaneous Injection Once, 146, cm, 06/28/19 16:39:00 EDT, Height, 77.72, kg, 06/12/19 14:42:00 EDT, Dry Weight Start Date: 09/02/19 Status: Ordered meloxicam 15 mg oral tablet 1 tablet = 15 mg, By Mouth, Daily, with food for foot pain, # 30 tablet, 0 Refills, Maintenance, 03/16/20 11:09:00 EDT, Tablet, [facility]/pharmacy #0957, 146, cm, 03/16/20 10:36:00 EDT, Height, [...] each, 2 Refills, Maintenance, 11/29/19 16:12:00 EDT, [facility]/pharmacy#1130, 2 sprays Nares, Both Daily, 146, cm, [...] capsule, 2 Refills, Maintenance, 06/08/20 13:45:00 EDT, [facility]/pharmacy #0957, 146, cm, 03/16/20 10:36:00 EDT, Height, 75.5, kg, 10/31/19 15:44:00 EST, Dry Weight Start Date: 06/08/20 Status: Ordered ProAir HFA 90 mcg/inh inhalation aerosol with adapter 2, puffs, Inhalation, Every 6 hours, PRN, # 1 each, Refills 0, Tot. Refills 0, Soft Stop, 11/02/18 9:01:59 EST, Aerosol, Route to Pharmacy Electronically, [id number], [facility] Start Date: 11/02/18 Stop Date: 12/02/18 Status: Ordered Recombivax HB Adult 10 mcg/mL intramuscular suspension 1 mL = 10 mcg, Intramuscular, Once, rpt at 1 and 6 months, # 1 mL, 2 Refills, Soft Stop, 09/02/19 12:37:00 EST, [facility]/pharmacy #1130, 146, cm, 06/28/19 16:39:00 EDT, Height, [...]
--- OUTSIDE RECORDS SUMMARY | 2024-05-02 05:00 | XMS_ITS | Continuity of Care Document ---
Author Organization [facility] Address [address] [place] [address]- Care Team Providers Care Preparer Making Department Name Role Phone Anali Concepcion DO Primary Care Physician Encounter [facility] Date(s): 11/22/21 - 11/29/21 [facility] [address] [place] [address]- Encounter Diagnosis Bilateral knee pain(Discharge Diagnosis) - 11/22/21 Attending Physician: Lincoln Gordon MD Allergies, Adverse Reactions, Alerts Substance Reaction Severity [...] acel(DTaP) 85 Recorded 1Result Comment: [06/08/2018] [facility]:57145-007-45 Medications albuterol 0.083% inhalation solution 3 mL [...] capsule, 1 Refills, Maintenance, 01/12/21 8:16:00 EDT, [facility], 146, cm, 01/04/21 11:29:00 EDT, Height, 75.5, [...] Dates Health Status Cl inical Service Informant Bilateral knee pain Discharge Diagnosis 11/22/21 Social History Social History Type Response Smoking Status Never smoker entered on: 10/03/17 Sex
--- OUTSIDE RECORDS SUMMARY | 2024-05-02 05:00 | XMS_ITS | Continuity of Care Document ---
Author Organization [facility] Address [address] [place] [address]- Care Team Providers Care Outreach Liaison Name Role Phone Anali Concepcion DO Primary Care Physician Encounter [facility] Date(s): 10/11/19 - 10/21/19 [facility] [address] [place] [address]- [facility] Attending Physician: Louise Camarillo Admitting Physician: Louise [...] diphtheria/tetanus/pertussis, acel(DTaP) 85 Recorded 1Result Comment: [06/08/2018] [facility]:20264-694-26 Medications Advair HFA 230 mcg / 21 [...] Date: 04/02/19 Stop Date: 05/02/19 Status: Ordered Citrucel Clear Mix 2 g/19 g oral powder for reconstitution = 2 Gm, By Mouth, Daily, # 30 each, 5 Refills, Maintenance, 02/08/18 15:02:21 EDT Start Date: 02/08/18 Status: Ordered Claritin 10 mg oral tablet 10 mg, 1, tablet, By Mouth, Daily, # 30 tablet, Refills 0, Tot. Refills 0, Maintenance, 05/21/19 18:52:50 EDT, Route to Pharmacy Electronically, [id number], [facility]/pharmacy #1130 Start Date: 05/21/19 Status: Ordered Claritin 10 mg oral tablet 10 mg, 1, tablet, By Mouth, Daily, # 90 tablet, Refills 0, Tot. Refills 0, Maintenance, 04/02/19 8:27:25 EDT, Route to Pharmacy Electronically, [id number], [facility] Start Date: 04/02/19 Status: Ordered Colace sodium 100 mg oral capsule 100 mg, 1, capsule, By Mouth, Daily, # 30 capsule, Refills 11, Tot. Refills 11, Maintenance, 02/08/18 15:01:19 EDT, Route to Pharmacy Electronically, [id number], [facility] Start Date: 02/08/18 Stop Date: 02/03/19 Status: Ordered Dulera Inhalation, 2 times a day, 0 Refills, Maintenance, 04/02/19 8:28:41 EDT Start Date: 04/02/19 Status: Ordered measles/mumps/rubella/varicella virus vaccine subcutaneous injection 0.5 mL, Subcutaneous Injection, Once, # 1 each, 0 Refills, Soft Stop, 09/02/19 12:34:00 EST, Powder, [facility], 0.5 mL Subcutaneous Injection Once, 146, [...] or juice Start Date: 02/08/18 Status: Ordered Nebulizer/Compressor See Instructions, # 1 [...] capsule, 2 Refills, Maintenance, 10/17/19 16:34:00 EST, [facility], 146, cm, 10/07/19 8:16:00 EST, Height, 77.72, kg, 06/12/19 14:42:00 EDT, Dry Weight Start Date: 10/17/19 Status: Ordered ProAir HFA 90 mcg/inh inhalation aerosol with adapter 2, puffs, Inhalation, Every 6 hours, PRN, # 1 each, Refills 0, Tot. Refills 0, Soft Stop, 11/02/18 9:01:59 EST, Aerosol, Route to Pharmacy Electronically, [id number], [facility] Start Date: 11/02/18 Stop Date: 12/02/18 Status: Ordered Recombivax HB Adult 10 mcg/mL intramuscular suspension 1 mL = 10 mcg, Intramuscular, Once, rpt at 1 and 6 months, # 1 mL, 2 Refills, Soft Stop, 09/02/19 12:37:00 EST, [facility]/pharmacy #1130, 146, cm, 06/28/19 16:39:00 EDT, Height, 77.72, kg, 06/12/19 14:42:00 EDT, Dry Weight Start Date: 09/02/19 Status: Ordered Singulair 10 mg oral tablet 10 mg, 1, tablet, By Mouth, Daily, # 30 tablet, Refills 5, Tot. Refills 5, Maintenance, 04/05/18 14:33:44 EDT, Print Requisition Start Date: 04/05/18 Stop Date: 10/02/18 Status: Ordered triamcinolone 55 mcg/inh nasal spray PUT 1-2 SPRAYS INTO EACH NOSTRIL DAILY. Start Date: 04/02/19 Status: Ordered Zantac 150 oral tablet 1 [...]
--- OUTSIDE RECORDS SUMMARY | 2024-05-02 05:00 | XMS_ITS | Continuity of Care Document ---
Author Organization [facility] Address [address] [place] [address]- Care Team Providers Care Orthopedics Nurse Name Role Phone Anali Concepcion DO Primary Care Physician Encounter [facility] Date(s): 05/13/22 - 06/12/[address] [address]- Allergies, Adverse Reactions, Alerts Substance Reaction Severity [...] Recorded diphtheria/tetanus/pertussis, acel(DTaP) 85 Recorded 1Result Comment: [facility]# [id number] 2Result Comment: [06/08/2018] [facility]:04354-848-21 Medications albuterol 0.083% inhalation solution 3 mL [...] Personnel Name: Anali Concepcion DO Address: Address: [address] [place] [address] Adult & Pediatric Medicine [place], [place] [address]
--- OUTSIDE RECORDS SUMMARY | 2024-05-02 05:00 | XMS_ITS | Continuity of Care Document ---
Author Organization [facility] Address [address] [place] [address]- Care Team Providers Care Pickle Solution Maker Name Role Phone Anali Concepcion DO Primary Care Physician Encounter [facility] Date(s): 01/18/23 - 03/11/23 [facility] [address] [place] [address]- Attending Physician: Lincoln Gordon MD Referring Physician: [...] diphtheria/tetanus/pertussis, acel(DTaP) 85 Recorded 1Result Comment: [06/08/2018] [facility]:87291-478-84 2Result Comment: [facility]# [address]-5 Medications albuterol 0.083% inhalation solution 3 mL [...] 6 Refills, Maintenance, 02/06/23 16:38:00 EDT, [facility], 146, cm, 01/26/23 10:14:00 EDT, [...] Dry Weight Start Date: 02/09/23 Status: Ordered Senna 8.6 mg oral tablet 17.2 mg, 2, tablet, By Mouth, Daily at bedtime, PRN, # 50 tablet, Refills 0, Tot. Refills 0, Acute,Constipation, 03/12/23 10:13:00 EDT, 03/10/23 10:12:00 EDT, Route to Pharmacy Electronically, [facility] Tablet, Partial fill upon patien... Start Date: 03/10/23 Stop Date: 03/12/23 Status: Ordered Singulair 10 mg oral tablet [...] Team Personnel Name: Anali Concepcion DO Position: [facility] Physician - Primary Care Member Role: PCP Address: Address: [address] [place] [address] Adult & [place] [address]- Care Team Related Persons Name: KATIUSKA VIGIL Address: home [address] [place] [address] Name: RAISA AMBROSE Address: [address] [place] [address] Name: AURROA NIX Name: MELISSA AGUILAR
--- OUTSIDE RECORDS SUMMARY | 2024-05-02 05:00 | XMS_ITS | Continuity of Care Document ---
Author Organization [facility] Address [address] [place] [address]- Care Team Providers Care Miller [place] Name Role Phone Anali Concepcion DO Primary Care Physician ( [phone] Encounter [facility] Date(s): 08/15/20 - 09/14/20 [facility] [address] [place], [place] [address] Allergies, Adverse Reactions, Alerts Substance [...] diphtheria/tetanus/pertussis, acel(DTaP) 85 Recorded 1Result Comment: [06/08/2018] [facility]:77224-787-31 Medications Advair HFA 230 mcg / 21 [...] 0 Refills, Maintenance, 11/29/19 15:48:00 EDT, Suspension, [facility]/pharmacy #0957, 4 drops Ears, Both 2 [...] 05/21/19 18:52:50 EDT, Route to Pharmacy Electronically, [id number], [facility]/pharmacy #1130 Start Date: 05/21/19 Status: Ordered Claritin 10 mg oral tablet 10 mg, 1, tablet, By Mouth, Daily, # 90 tablet, Refills 0, Tot. Refills 0, Maintenance, 04/02/19 8:27:25 EDT, Route to Pharmacy Electronically, [id number], [facility]/pharmacy #1130 Start Date: 04/02/19 Status: Ordered Colace sodium 100 mg oral capsule 100 mg, 1, capsule, By Mouth, Daily, # 30 capsule, Refills 11, Tot. Refills 11, Maintenance, 02/08/18 15:01:19 EDT, Route to Pharmacy Electronically, [id number], [facility] [address] Start Date: 02/08/18 Stop Date: 02/03/19 Status: Ordered Dulera Inhalation, 2 times a day, 0 Refills, Maintenance, 04/02/19 8:28:41 EDT Start Date: 04/02/19 Status: Ordered Flonase 50 mcg/inh nasal spray 1 sprays, Nares, Both, 2 times a day, # 3 each, 0 Refills, Maintenance, 08/10/20 10:32:00 EST, [place], [facility] # 302, Partial fill upon patient request, 1 sprays Nares, Both 2 times a day, 146, cm, 03/16/20 10:36:00 EDT, Height, 75.5, kg, 10/31... Start Date: 08/10/20 Status: Ordered guaiFENesin 100 mg/5 mL oral liquid 10 mL = 200 mg, By Mouth, Every 6 hours, PRN for cough, # 600 mL, 0 Refills, Maintenance, 08/10/20 10:34:00 EST, Liquid, [facility]/pharmacy #0957, Partial fill upon patient request if the prescription is for a schedule II opioid drug., 146, cm, 03/16/20 10:... Start Date: 08/10/20 Status: Ordered measles/mumps/rubella/varicella virus vaccine subcutaneous injection 0.5 mL, Subcutaneous Injection, Once, # 1 each, 0 Refills, Soft Stop, 09/02/19 12:34:00 EST, Powder, [facility]/pharmacy #1130, 0.5 mL Subcutaneous Injection Once, 146, cm, 06/28/19 16:39:00 EDT, Height, 77.72, kg, 06/12/19 14:42:00 EDT, Dry Weight Start Date: 09/02/19 Status: Ordered meloxicam 15 mg oral tablet 1 tablet = 15 mg, By Mouth, Daily, with food for foot pain, # 30 tablet, 0 Refills, Maintenance, 03/16/20 11:09:00 EDT, Tablet, [facility]/pharmacy #0957, 146, cm, 03/16/20 10:36:00 EDT, [...] each, 2 Refills, Maintenance, 11/29/19 16:12:00 EDT, [facility]/pharmacy#1130, 2 sprays Nares, Both Daily, 146, [...] Daily, # 30 capsule, 2 Refills, Maintenance, 09/07/20 10:39:00 EST, [facility]/pharmacy #0957, 146, cm, 08/12/20 17:46:00 EST, Height, 75.5, kg, 10/31/19 15:44:00 EST, Dry Weight Start Date: 09/07/20 Status: Ordered ProAir HFA 90 mcg/inh inhalation aerosol with adapter 2, puffs, Inhalation, Every 6 hours, PRN, # 1 each, Refills 0, Tot. Refills 0, Soft Stop, 11/02/18 9:01:59 EST, Aerosol, Route to Pharmacy Electronically, [id number], [facility] [address] Start Date: 11/02/18 Stop Date: 12/02/18 Status: Ordered Recombivax HB Adult 10 mcg/mL intramuscular suspension 1 mL = 10 mcg, Intramuscular, Once, rpt at 1 and 6 months, # 1 mL, 2 Refills, Soft Stop, 09/02/19 12:37:00 EST, [facility]/pharmacy #1130, 146, cm, 06/28/19 16:39:00 EDT, [...]
--- OUTSIDE RECORDS SUMMARY | 2024-05-02 05:00 | XMS_ITS | Continuity of Care Document ---
Author Organization [facility] Address [address] [place] [address]- Care Team Providers Care Forklift Material Handler Name Role Phone Anali Concepcion DO Primary Care Physician Encounter [facility] Date(s): 08/31/21 - 09/30/21 [facility] [address] [place] [address]- Allergies, Adverse Reactions, Alerts Substance Reaction Severity [...] diphtheria/tetanus/pertussis, acel(DTaP) 85 Recorded 1Result Comment: [06/08/2018] [facility]:52501-401-00 Medications albuterol 0.083% inhalation solution 3 mL [...] Refills, Maintenance, 01/12/21 8:16:00 EDT, [facility], 146, cm, 01/04/21 11:29:00 EDT, Height, 75.5, [...] 9:01:59 EST, Aerosol, Route to Pharmacy Electronically, [id number], [facility] [address] Start Date: 11/02/18 Stop Date: 12/02/18 Status: [...]
--- OUTSIDE RECORDS SUMMARY | 2024-05-02 05:00 | XMS_ITS | Continuity of Care Document ---
[facility] Address [address], [address] [place] [address]- Care Team Providers Care Staffing Manager Name Role Phone Anali Concepcion DO Primary Care Physician Encounter [facility] Date(s): 05/13/22 - 05/20/22 [facility] Renute Cooknvites [facility] [address] [place], [place] [address] Attending Physician: Azeb GUTIERREZ, July Malhotra Referring Physician: Anali Concepcion DO Allergies, Adverse [...] Recorded diphtheria/tetanus/pertussis, acel(DTaP) 85 Recorded 1Result Comment: [facility]# [id number] 2Result Comment: [06/08/2018] [facility]:90272-917-12 Medications albuterol 0.083% inhalation solution 3 mL [...] oldest [Reference Range]: 1 Height 146 cm (05/13/22 3:03 PM) Weight 72.3 kg (05/13/22 3:03 PM) Pulse Rate [55-90 bpm] 159 bpm *H* (05/13/22 3:03 PM) Body Mass Index [18.5-24.99] 33.92 *>HHI* (05/13/22 3:03 PM) Blood Pressure [90-138/55-84 mm Hg] 118/ 82mm Hg (05/13/22 3:03 PM) Blood pressure sites Arm, right (05/13/22 3:03 PM) Dry Weight 72.3 kg (05/13/22 3:03 PM) Weight Obtained Via Standing scale (05/13/22 3:03 PM) Dry Weight Obtained Via Standing scale (05/13/22 3:03 PM) Social History Social History Type Response Smoking Status Never smoker entered on: 10/03/17 Sex Care Team Personnel Name: Anali Concepcion DO Address: [address] [place] [address] Adult & Pediatric Medicine [place], [place] [address]"
--- OUTSIDE RECORDS SUMMARY | 2024-05-02 05:00 | XMS_ITS | Continuity of Care Document ---
Author Organization [facility] Address [address] [place] [address]- Care Team Providers Care Educational Coordinator Name Role Phone Anali Concepcion DO Primary Care Physician [facility] Date(s): 02/07/23 - 03/09/23 [facility] [address] [place], [place] [address] Allergies, Adverse Reactions, Alerts Substance Reaction [...] diphtheria/tetanus/pertussis, acel(DTaP) 85 Recorded 1Result Comment: [06/08/2018] [facility]:06354-369-42 2Result Comment: [facility]# [id number] Medications albuterol 0.083% inhalation solution 3 mL [...] Primary Care Member Role: PCP Address: Address: [address] [place] [address] Adult & [place] [address]- [place] Care Team Related Persons Name: KATIUSKA VIGIL Address: home [address] [place] [address] Name: RAISA AMBROSE Address: home [address] [place] [address] Name: AURORA NIX Name: MELISSA AGUILAR
--- OUTSIDE RECORDS SUMMARY | 2024-05-02 05:00 | XMS_ITS | Continuity of Care Document ---
Author Organization [facility] Address [address] [place] [address]- Care Team Providers Care Tank Stave Assembler Name Role Phone Anali Concepcion DO Primary Care Physician Encounter [facility] Date(s): 03/11/24 - 04/10/24 [facility] [address] [place], [place] [address] Allergies, Adverse Reactions, Alerts Substance Reaction Severity Status amoxicillin gi upset Active aloe vera topical Active Zithromax gi upset Active Cats Active Dogs Active Latex Active Pollen Ragweed Active Ragweed Active Other Environmental Allergy 1, 2 Active ZyrTEC Active Contrave gi upset Active 1grass Feathers 2tree Immunizations Given and [...] Recorded 1Result Comment: [06/08/2018] [facility]:32007-909-91 2Result Comment: [facility]# [id number] Medications albuterol 0.083% inhalation solution 3 mL [...] tablet, 4 Refills, Maintenance, 04/26/23 9:22:00 EDT, [facility], 146, cm, 03/10/23 9:41:00 EDT, Height, 70.9, kg, 03/10/23 9:41:00 EDT, Dry Weight Start Date: 04/26/23 Status: Ordered norethindrone 5 mg oral tablet 5 mg, 1, tablet, By Mouth, Daily, # 90 tablet, Refills 3, Tot. Refills 3, Maintenance, 07/12/23 13:25:00 EST, Route to Pharmacy Electronically, [facility] #[facility], Partial fill upon patientrequest if the prescription is for a schedule II opioid... Start Date: 07/12/23 Status: Ordered omeprazole 20 mg oral enteric coated capsule 1 capsule, By Mouth, Daily, # 30 capsule, 2 Refills, Maintenance, 12/29/23 10:32:00 EDT, [facility], 146, cm, 10/10/23 8:12:00 EST, [...] Team Personnel Name: Anali Concepcion DO Position: [facility] Physician - Primary Care Member Role: PCP Address: Address: [address] [place] [address] Adult & [place] [address]- Care Team Related Persons Name: KATIUSKA VIGIL Address: home [address] [place] [address] Name: RAISA AMBROSE Address: home [address] [place] [address] Name: AURORA NIX Name: MELISSA AGUILAR
--- OUTSIDE RECORDS SUMMARY | 2024-05-02 05:00 | XMS_ITS | Continuity of Care Document ---
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 Refills 3, Maintenance, 07/12/23 13:25:00 EST, Route to Pharmacy Electronically, [facility] #94, Partial fill upon patientrequest if the prescription is for a schedule II opioid... Start Date: 07/12/23 Status: Ordered omeprazole 20 mg oral enteric coated capsule 1 capsule, By Mouth, Daily, # 30 capsule, 2 Refills, Maintenance, 12/29/23 10:32:00 EDT, [facility], 146, cm, 10/10/23 8:12:00 EST, [...] Effective Dates Health Status Clinical Service Informant Breast abscess Discharge Diagnosis 03/19/24 Breast tenderness Discharge Diagnosis 03/19/24 Vital Signs Most recent to oldest [Reference Range]: 1 Height 146 cm (03/19/24 9:11 AM) Weight 78.2 kg (03/19/24 9:11 AM) Oxygen Saturation [94-100 %] 96 % (03/19/24 9:11 AM) Pulse Rate [55-90 bpm] 82 bpm (03/19/24 9:11 AM) Body Mass Index [18.5-24.99 kg/m2] 36.69 kg/m2 *>HHI* (03/19/24 9:11 AM) Blood Pressure [90-138/55-84 mm Hg] 115/ 72mm Hg (03/19/24 9:11 AM) Mode of Delivery (Oxygen) Room air (03/19/24 9:11 AM) Blood pressure sites Arm, left (03/19/24 9:11 AM) Dry Weight 78.2 kg (03/19/24 9:11 AM) Weight Obtained Via Standing scale (03/19/24 9:11 AM) Social History Social History Type Response Smoking Status Never smoker entered on: 10/03/17 Sex Note * Brooklyn Rodríguez: PERFORM Event Display: Patient Education/Instruction Authored Date: [id number] Ambulatory Adult Visit Summary [facility] [address] [place] [address] Name: DIONY AMBROSE : 1985?? Visit: 03/19/2024 09:10?? Ambulatory Visit Instructions ?? Your Care Team Primary Care Provider Anali Concepcion DO? This Visit Provider Eva SOLARES, Miriam Vitals Signs Pulse Rate: 82 bpm Height: 146 cm Systolic Blood Pressure: 115 mm Hg Weight: 78.2 kg Diastolic Blood Pressure: 72 mm Hg Body Mass Index:??36.69 kg/m2??Critical Oxygen Saturation: 96 % Body surface area: 1.78 What to do next Scheduled Follow-Up Appointments 2023 11:00 AM EDT ?? With: Anali Concepcion DO Where: [facility] [address] [place] [address]- Status: Pending Medications The list below reflects the information in our records and provided by you today along with any changes made during this visit. Please continue your medications until treatment is completed or stopped by your provider. If this is different from the information you have or there are other questions,please contact the prescribing provider. What How Much When Instructions Unchanged Albuterol (albuterol 0.083% inhalation solution) 3 Milliliter Inhalation Every 6 hours as needed for for wheezing Duration: 30 Days Unchanged Albuterol (albuterol 90 mcg/ inh inhalation powder) 1 puff(s) Inhalation Every 6 hours as needed for as needed Unchanged Azelastine Nasal (azelastine nasal 0.15% spray) 2 spray(s) Twice a day Unchanged Durable Medical Equipment (Compression Stockings) See Instructions surgical, panty hose length 30-40 mm Hg ?? Unchanged Fexofenadine (fexofenadine 60 mg oral tablet) 1 tab(s) Oral Daily Unchanged Montelukast (Singulair 10 mg oral tablet) 1 tab(s) Oral Daily Duration: 30 Days Unchanged Norethindrone (norethindrone 5 mg oral tablet) 1 tab(s) Oral Daily Unchanged Omeprazole (omeprazole 20 mg oral enteric coated capsule) 1 capsule Oral Daily Unchanged tirzepatide (tirzepatide 2.5 mg/ 0.5 mL subcutaneous solution) 2.5 Milligram Subcutaneous Injection Every week rotate injection sites ?? Unchanged Triamcinolone Topical (triamcinolone 0.1% topical ointment) 1 farzana Topically Twice a day Duration: 14 Days apply a thin film to affected area of arm pits bilaterally ?? Medications and Immunizations Administered Medications Given During Visit No medications given during this visit.?? Allergies (NKA means No Known Allergies) Cats Contrave??(gi upset) Dogs Latex Other Environmental Allergy Pollen??(Ragweed) Ragweed Zithromax??(gi upset) ZyrTEC aloe vera topical amoxicillin??(gi upset) Common Emergency Awareness Tips IS IT A STROKE? Act FAST and Check for these signs: FACE Does the face look uneven? ARM Does one arm drift down? SPEECH Does their speech sound strange? TIME Call at any sign of stroke ?? Heart Attack Signs Chest discomfort: Most heart attacks involve discomfort in the center of the chest and lasts more than a few minutes, or goes away and comes back. It can feel like uncomfortable pressure, squeezing, fullness or pain. Discomfort in upper body: Symptoms can include pain or discomfort in one or both arms, back, neck, jaw or stomach. Shortness of breath: With or without discomfort. Other signs: Breaking out in a cold sweat, nausea, or lightheaded. Remember, MINUTES DO MATTER. If you experience any of these heart attack warning signs, call to get immediate medical attention! ?? Smoking can increase your chances of developing chronic health problems and can cause harmful effects to other family members in your house. If you smoke, you are strongly encouraged to quit. Please call [facility] [employer] at [phone] or [phone]) or log in to [email or web address] for referrals to smoking cessation programs. ?? The National Suicide Prevention Hotline is available 27/03 if you or someone you know needs to find a reason to keep living. By calling 7-301-846-FlickIM (5000) you'll be connected to a skilled, trained counselor at a crisis center in your area. [facility] [employer] Portal You can view and manage your care through the patient portal or by using a health care farzana of your choosing. [employer] is a website that allows you to securely view your medical information including your hospital discharge summary, office visit summaries, medications and follow-up visits. You can also request appointments, renew medications, and request access to your medical information using a health care farzana of your choosing, or just ask a question. You can enroll at [email or web address] or register during your next office visit. [facility], in keeping with [facility] guidance, no longer requires face masks for staff, patientsor visitors in most situations. Similiar to time spent indoors at other locations, there is the chance that you were exposed to repiratory viruses during your time with us (such as flu or COVID-19). If you develop symptoms concerning for a viral respiratory infection, please seek testing (and treatment if indicated) from your medical provider or home test kit. ?? Disclaimer: The information provided is of a general nature and is intended to be used in conjunction with the recommendations and advice of your health care practitioner. Every effort has been made to ensure that the information provided is accurate and complete at the time it is provided to you however, as your needs change, or, as new information becomes available, different or additional instructions may be required. ?? If you have questions, please consult with your primary care provider or pharmacist, as appropriate. This information is not intended to serve as substitution for assessment and evaluation by a qualified health care provider. If you do not have a primary care provider, you may find a [facility] provider by calling [employer] at [phone]. Patient Care team information Care Team Personnel Name: Anali Concepcion DO Position: S Physician - Primary Care Member Role: PCP Address: Address: [address] [place] [address] Adult & Pediatric Medicine [address] Care Team Related Persons Name: KATIUSKA VIGIL Address: home [address] [place] [address] Name: RAISA AMBROSE Address: home [address] [place] [address] Name: AURORA NIX Name: MELISSA AGUILAR
--- OUTSIDE RECORDS SUMMARY | 2024-05-02 05:00 | XMS_ITS | Continuity of Care Document ---
Author Organization [facility] Address [address] [place] [address]- Care Team Providers Care Centrifugal Screen Tender Name Role Phone Anali Concepcion DO Primary Care Physician [facility] Date(s): 06/01/22 - 07/01/22 [facility] [address] [place], [place] [address] Allergies, Adverse Reactions, Alerts Substance [...] Fareed rded influenza virus vaccine, inactivated 06/26/20 Farede rded influenza virus vaccine, inactivated 2 06/08/18 [...] 1Result Comment: [facility]# [id number] 2Result Comment: [06/08/2018] [facility]:76584-422-67 Medications albuterol 0.083% inhalation solution 3 mL [...] Personnel Name: Anali Concepcion DO Address: Address: [address] [place] [address] Adult & Pediatric Medicine [place], [place] [address]
--- OUTSIDE RECORDS SUMMARY | 2024-05-02 05:00 | XMS_ITS | Continuity of Care Document ---
Author Organization [facility] Address [address] [place] [address]- Care Team Providers Care Flying I Instructor Name Role Phone Anali Concepcion DO Primary Care Physician ( [phone] Encounter [facility] Date(s): 11/29/21 - 12/29/21 [facility] [address] [place] [address]- Allergies, Adverse Reactions, Alerts Substance Reaction Severity [...] Recorded 1Result Comment: [06/08/2018] [facility]:29941-082-62 Medications albuterol 0.083% inhalation solution 3 mL [...] capsule, 1 Refills, Maintenance, 01/12/21 8:16:00 EDT, [facility], 146, cm, 01/04/21 11:29:00 EDT, Height, 75.5, [...]
--- OUTSIDE RECORDS SUMMARY | 2024-05-02 05:00 | XMS_ITS | Continuity of Care Document ---
Author Organization [facility] Address [address] [address]- Care Team Providers Care Cloth Designer Name Role Phone Anali Concepcion DO Primary Care Physician Encounter [facility] Date(s): 08/07/20 - 09/06/[address] [address]- Allergies, Adverse Reactions, Alerts Substance Reaction Severity [...] diphtheria/tetanus/pertussis, acel(DTaP) 85 Recorded 1Result Comment: [06/08/2018] [facility]:86053-873-05 Medications Advair HFA 230 mcg / 21 [...] 0 Refills, Maintenance, 11/29/19 15:48:00 EDT, Suspension, [facility]/pharmacy #0957, 4 drops Ears, Both [...] 05/21/19 18:52:50 EDT, Route to Pharmacy Electronically, [id number], [facility]/pharmacy #1130 Start Date: 05/21/19 Status: Ordered Claritin 10 mg oral tablet 10 mg, 1, tablet, By Mouth, Daily, # 90 tablet, Refills 0, Tot. Refills 0, Maintenance, 04/02/19 8:27:25 EDT, Route to Pharmacy Electronically, [id number], [facility]/pharmacy #1130 Start Date: 04/02/19 Status: Ordered Colace sodium 100 mg oral capsule 100 mg, 1, capsule, By Mouth, Daily, # 30 capsule, Refills 11, Tot. Refills 11, Maintenance, 02/08/18 15:01:19 EDT, Route to Pharmacy Electronically, [id number], [facility] Start Date: 02/08/18 Stop Date: 02/03/19 Status: Ordered Dulera Inhalation, 2 times a day, 0 Refills, Maintenance, 04/02/19 8:28:41 EDT Start Date: 04/02/19 Status: Ordered Flonase 50 mcg/inh nasal spray 1 sprays, Nares, Both, 2 times a day, # 3 each, 0 Refills, Maintenance, 08/10/20 10:32:00 EST, [place], [facility] # 302, Partial fill upon patient request, 1 sprays Nares, Both 2 times a day, 146, cm, 03/16/20 10:36:00 EDT, Height, 75.5, kg, 10/31... Start Date: 08/10/20 Status: Ordered guaiFENesin 100 mg/5 mL oral liquid 10 mL = 200 mg, By Mouth, Every 6 hours, PRN for cough, # 600 mL, 0 Refills, Maintenance, 08/10/20 10:34:00 EST, Liquid, [facility]/pharmacy #0957, Partial fill upon patient request if the prescription is for a schedule II opioid drug., 146, cm, 03/16/20 10:... Start Date: 08/10/20 Status: Ordered measles/mumps/rubella/varicella virus vaccine subcutaneous injection 0.5 mL, Subcutaneous Injection, Once, # 1 each, 0 Refills, Soft Stop, 09/02/19 12:34:00 EST, Powder, [facility]/pharmacy #1130, 0.5 mL Subcutaneous Injection Once, 146, cm, 06/28/19 16:39:00 EDT, Height, 77.72, kg, 06/12/19 14:42:00 EDT, Dry Weight Start Date: 09/02/19 Status: Ordered meloxicam 15 mg oral tablet 1 tablet = 15 mg, By Mouth, Daily, with food for foot pain, # 30 tablet, 0 Refills, Maintenance, 03/16/20 11:09:00 EDT, Tablet, [facility]/pharmacy #0957, 146, cm, 03/16/20 10:36:00 [...] each, 2 Refills, Maintenance, 11/29/19 16:12:00 EDT, [facility]/pharmacy#1130, 2 sprays Nares, Both Daily, [...] capsule, 2 Refills, Maintenance, 06/08/20 13:45:00 EDT, [facility]/pharmacy #0957, 146, cm, 03/16/20 10:36:00 EDT, Height, 75.5, kg, 10/31/19 15:44:00 EST, Dry Weight Start Date: 06/08/20 Status: Ordered ProAir HFA 90 mcg/inh inhalation aerosol with adapter 2, puffs, Inhalation, Every 6 hours, PRN, # 1 each, Refills 0, Tot. Refills 0, Soft Stop, 11/02/18 9:01:59 EST, Aerosol, Route to Pharmacy Electronically, [id number], [facility] Start Date: 11/02/18 Stop Date: 12/02/18 Status: Ordered Recombivax HB Adult 10 mcg/mL intramuscular suspension 1 mL = 10 mcg, Intramuscular, Once, rpt at 1 and 6 months, # 1 mL, 2 Refills, Soft Stop, 09/02/19 12:37:00 EST, [facility]/pharmacy #1130, 146, cm, 06/28/19 16:39:00 [...]
--- OUTSIDE RECORDS SUMMARY | 2024-05-02 05:00 | XMS_ITS | Continuity of Care Document ---
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
--- OUTSIDE RECORDS SUMMARY | 2024-05-02 05:00 | XMS_ITS | Continuity of Care Document ---
Author Organization [facility] Renu Brooks n's [facility] Address [address] [place] [address], [address] [place] [address]- Care Team Providers Care Field Superintendent Name Role Phone Anali Concepcion DO Primary Care Physician Encounter [facility] Date(s): 09/06/23 - 11/15/23 [facility] Renu Osunas [facility] [address] [place] [address] [place] [address]- Attending Physician: Not on Staff, Attending MD Referring Physician: Carrillo Stockton Allergies, Adverse Reactions, Alerts Substance Reaction Severity Status amoxicillin gi upset Active aloe vera topical Active Zithromax gi upset Active Dogs Active Contrave gi upset Active Cats Active Latex Active ZyrTEC Active Pollen Ragweed [...] diphtheria/tetanus/pertussis, acel(DTaP) 85 Recorded 1Result Comment: [06/08/2018] [facility]:46060-244-86 2Result Comment: [facility]# [address]-6 Medications albuterol 0.083% inhalation solution 3 mL [...] Refills, Maintenance, 04/26/23 9:22:00 EDT, [facility], 146, cm, 03/10/23 9:41:00 EDT, Height, 70.9, kg, 03/10/23 9:41:00 EDT, Dry Weight Start Date: 04/26/23 Status: Ordered norethindrone 5 mg oral tablet 5 mg, 1, tablet, By Mouth, Daily, # 90 tablet, Refills 3, Tot. Refills 3, Maintenance, 07/12/23 13:25:00 EST, Route to Pharm[facility] Electronically, [facility] [...] arm, # 2 mL, 1 Refills, Maintenance, 10/10/23 8:26:00 EST,[facility], Partial fill upon patient... Start Date: 10/10/23 Status: Ordered Problem List Condition Confirmation Course [...] pain) Confirmed Active Neck pain Confirmed Active Obese class I Confirmed Active RA (rheumatoid arthritis) Confirmed Active Vertigo Confirmed Active 1She was [...] Team Personnel Name: Anali Concepcion DO Position: [facility] Physician - Primary Care Member Role: PCP Address: Address: [address] [place] [address] Adult [place] [address]- Care Team Related Persons Name: KATIUSKA VIGIL Address: home [address] [place] [address] Name: RAISA AMBROSE Address: [address] [place] [address] Name: AURORA NIX Name: MELISSA AGUILAR
--- OUTSIDE RECORDS SUMMARY | 2024-05-02 05:00 | XMS_ITS | Continuity of Care Document ---
Author Organization [facility] Address [address] [place] [address]- Care Team Providers Care Advanced Research Programs Director Name Role Phone Anali Concepcion DO Primary Care Physician [place] [facility] [place] - 10/15/[address] [address] Attending Physician: Louise Camarillo Admitting Physician: Louise [...] Recorded diphtheria/tetanus/pertussis, acel(DTaP) 85 Recorded 1Result Comment: [facility]# [id number] 2Result Comment: [06/08/2018] [facility]:[id number] Medications albuterol 0.083% inhalation solution 3 mL [...] Maintenance, 04/12/22 8:47:00 EDT, Tablet, [facility], Partial fill upon patient request if the prescription is for a schedule II opioid drug., 146, cm, 04/12/22 8:15:00 EDT, Hei... Start Date: 04/12/22 Stop Date: 07/06/23 Status: Ordered norethindrone 5 mg oral tablet 5 mg, 1, tablet, By Mouth, Daily, # 90 tablet, Refills 3, Tot. Refills 3, Maintenance, 06/06/22 11:31:00 EDT, Route to Pharmacy Electronically, [facility] #[facility], Partial fill upon patientrequest if [...] Care Physician Member Role: PCP Address: Address: [address] [place] [address] Adult & [place] [address]- Care Team Related Persons Name: KATIUSKA VIGIL Address: home [address] [place] [address] Name: RAISA AMBROSE Address: home [address] [place] [address] Name: AURORA NIX Name: MELISSA AGUILAR
--- OUTSIDE RECORDS SUMMARY | 2024-05-02 05:00 | XMS_ITS | Continuity of Care Document ---
Author Organization [facility] Address [address] [place] [address]- Care Team Providers Care Winder Hand Name Role Phone Anali Concepcion DO Primary Care Physician Encounter [facility] [place] Date(s): 10/20/22 - 11/19/22 [facility] [address] [place], [place] [address] Attending Physician: Louise Camarillo Admitting Physician: [...] diphtheria/tetanus/pertussis, acel(DTaP) 85 Recorded 1Result Comment: [06/08/2018] [facility]:[id number] 2Result Comment: [facility]# [id number] Medications albuterol 0.083% inhalation solution 3 mL [...] 8 mg-90 mg oral tablet, extended release See Instructions, one tab daily x 1 week, then 1 tabs 2x daily x week 2, then 2 tabs am and 1 tab pm week 3, then 2 tabs bid x week 4 and then from there on ; TEST script for insurance Dx: BMI >30and dyslipidemia, failure of prior wt loss trials, #... Start Date: 10/20/22 Status: Ordered fexofenadine 60 mg oral tablet 1 tablet = 60 mg, By Mouth, Daily, # 90 tablet, 4 Refills, Maintenance, 04/12/22 8:47:00 EDT, Tablet, [facility], Partial fill upon patient request if the prescription is for a schedule II opioid drug., 146, cm, 04/12/22 8:15:00 EDT, Hei... Start Date: 04/12/22 Stop Date: 07/06/23 Status: Ordered norethindrone 5 mg oral tablet 5 mg, 1, tablet, By Mouth, Daily, # 90 tablet, Refills 3, Tot. Refills 3, Maintenance, 06/06/22 11:31:00 EDT, Route to Pharmacy Electronically, [facility], Partial fill upon patientrequest if the prescription is for a schedule II opioid... Start Date: 06/06/22 Status: Ordered omeprazole 20 mg oral enteric coated capsule 1 capsule, By Mouth, Daily, # 30 capsule, 2 Refills, Maintenance, 11/05/22 19:47:00 EST, [facility], 146, cm, 10/20/22 11:21:00 EST, Height, 72.3, kg, 05/13/22 15:03:00 EDT, Dry Weight Start Date: 11/05/22 Status: Ordered Multivitamins By Mouth, Daily, 0 [...] smoker entered on: 10/03/17 Sex Note * Event Display: Laboratory Result Scanned Authored Date: * Event Display: Laboratory Result Scanned Authored Date: * Event Display: Immunology Report Authored Date: Patient Care team information Care Team Personnel Name: Anali Concepcion DO Position: S Primary Care Physician Member Role: PCP Address: Address: [address] [facility] Adult [facility] [place] [address]- Care Team Related Persons Name: MUSASHALONDAA Address: [address] [place] [address] Name: RAISA AMBROSE Address: [address] [place] [address] Name: AURORA NIX Name: MELISSA AGUILAR
--- OUTSIDE RECORDS SUMMARY | 2024-05-02 05:00 | XMS_ITS | Continuity of Care Document ---
Author Organization [facility] Address [address] [place] [address]- Care Team Providers Care Sap Fico Business Analyst Name Role Phone Anali Concepcion DO Primary Care Physician [facility] Date(s): 01/19/23 - 02/18/23 [facility] [address] [place], [place] [address] Allergies, Adverse Reactions, Alerts Substance Reaction Severity [...] 85 Recorded 1Result Comment: [06/08/2018] [facility]:[id number] 2Result Comment: [facility]# [id number] Medications albuterol 0.083% inhalation solution 3 mL [...] Most recent to oldest [Reference Range]: 1 Blood Pressure [90-138/55-84 mm Hg] 112/ 66mm Hg (01/18/23 5:02 PM) Social History Social History Type Response Smoking Status Never smoker entered on: 10/03/17 Sex Patient Care team information Care Team Personnel Name: Anali Concepcion DO Position: [facility] Physician - Primary Care Member Role: PCP Address: Address: [address] [place] [address] Adult & [place] [address]- Care Team Related Persons Name: MUSAKATIUSKA Address: [address] [place] [address] Name: RAISA AMBROSE Address: [address] [place] [address] Name: AURORA NIX Name: MELISSA AGUILAR
--- OUTSIDE RECORDS SUMMARY | 2024-05-02 05:00 | XMS_ITS | Continuity of Care Document ---
Author Organization [facility] Address [address] [place] [address]- Care Team Providers Care Centerpuncher Name Role Phone Anali Concepcion DO Primary Care Physician [place] [facility] [place]): [place] 04/27/21 [facility] [address] [place] [address]- Encounter Diagnosis Asthma exacerbation(Discharge Diagnosis) - 04/20/21 Attending Physician: Stephen Phan MD Allergies, Adverse Reactions, Alerts Substance Reaction [...] 85 Recorded 1Result Comment: [06/08/2018] [facility]:[id number] Medications albuterol 0.083% inhalation solution 3 mL [...] Refills, Maintenance, 01/12/21 8:16:00 EDT, [facility], 146, cm, 01/04/21 11:29:00 EDT, Height, 75.5, [...] 9:01:59 EST, Aerosol, Route to Pharmacy Electronically, [id number], [facility] [address] Start Date: 11/02/18 Stop Date: 12/02/18 Status: [...] Effective Dates Health Status Clinical Service Informant Asthma exacerbation Discharge Diagnosis 04/20/21 Social History Social History Type Response Smoking Status Never smoker entered on: 10/03/17 Sex
--- OUTSIDE RECORDS SUMMARY | 2024-05-02 05:00 | XMS_ITS | Continuity of Care Document ---
Author Organization [facility] Address [address] [place] [address]- Care Team Providers Care Facing Slitter Name Role Phone Anali Concepcion DO Primary Care Physician [facility]counter [facility] Date(s): 01/09/23 - 02/08/23 [facility] [address] [place], [place] [address] Allergies, Adverse Reactions, Alerts Substance Reaction [...] acel(DTaP) 85 Recorded 1Result Comment: [06/08/2018] [facility]:[id number] 2Result Comment: [facility]# [id number] Medications albuterol 0.083% inhalation solution 3 mL [...] Daily, # 238 Gm, 1 Refills, Maintenance, 02/07/23 22:06:00 EDT, [facility], 15, DISSOLVE AND TAKE 17 GRAM IN WATER BY MOUTH ONCE DAILY, 146, cm, 01/26/23 10:14:00EDT, Height, 75, kg, 12/08/22 14:59:00 EDT, Dry Weight Start Date: 02/07/23 Status: Ordered Singulair 10 mg oral tablet [...] Primary Care Member Role: PCP Address: Address: [address] [place] [address] Adult & [place] [address]- Care Team Related Persons Name: KATIUSKA VIGIL Address: [address] [place] [address] Name: RAISA AMBROSE Address: [address] [place] [address] Name: AURORA NIX Name: MELISSA AGUILAR
--- OUTSIDE RECORDS SUMMARY | 2024-05-02 05:00 | XMS_ITS | Continuity of Care Document ---
Author Organization [facility] Address [address] [place] [address]- Care Team Providers Care Architectural Engineering Teacher Name Role Phone Anali Concepcion DO Primary Care Physician [facility]counter [facility] Date(s): 12/29/22 - 01/28/23 [facility] [address] [place], [place] [address] Allergies, Adverse Reactions, Alerts Substance Reaction [...] diphtheria/tetanus/pertussis, acel(DTaP) 85 Recorded 1Result Comment: [06/08/2018] [facility]:[id number] 2Result Comment: [facility]# [id number] Medications albuterol 0.083% inhalation solution 3 mL [...] Primary Care Member Role: PCP Address: Address: [address] [place] [address] Adult [place] [address]- Care Team Related Persons Name: KATIUSKA VIGIL Address: [address] [place] [address] Name: RAISA AMBROSE Address: home [address] [place] [address] Name: AURORA NIX Name: MELISSA AGUILAR
--- OUTSIDE RECORDS SUMMARY | 2024-05-02 05:00 | XMS_ITS | Continuity of Care Document ---
Author Organization [facility] Address [address] [place] [address]- Care Team Providers Care Bowling Ball Marker Name Role Phone Anali Concepcion DO Primary Care Physician Encounter [facility] [place] Date(s): 10/04/21 - 10/11/21 [facility] [address] [place] [address]- Encounter Diagnosis Patellar instability of both knees(Discharge Diagnosis) - 10/04/21 Patellofemoral pain syndrome of both knees(Discharge Diagnosis) - 10/04/21 Attending Physician: Lincoln Gordon MD Referring Physician: [...] 1Result Comment: [06/08/2018] [facility]:[id number] Medications albuterol 0.083% inhalation solution 3 mL [...] Refills, Maintenance, 01/12/21 8:16:00 EDT, [facility], 146, cm, 01/04/21 11:29:00 EDT, Height, 75.5, [...] 9:01:59 EST, Aerosol, Route to Pharmacy Electronically, [id number], [facility] Start Date: 11/02/18 Stop Date: 12/02/18 Status: [...] 1 applica... Start Date: 10/04/21 Status: Ordered Zithromax 250 mg oral tablet [...] Effective Dates Health Status Clinical Service Informant Patellar instability of both knees Discharge Diagnosis 10/04/21 Patellofemoral pain syndrome of both knees Discharge Diagnosis 10/04/21 Vital Signs Most recent to oldest [Reference Range]: 1 Height 146 cm (10/04/21 4:20 PM) Weight 69.7 kg (10/04/21 4:20 PM) Oxygen Saturation [94-100 %] 98 % (10/04/21 4:20 PM) Pulse Rate [55-90 bpm] 78 bpm (10/04/21 4:20 PM) Body Mass Index [18.5-24.99] 32.7 *>HHI* (10/04/21 4:20 PM) Blood Pressure [90-138/55-84 mm Hg] 115/ 78mm Hg (10/04/21 4:20 PM) Temperature [96.8-100.4 DegF] 98.3 DegF (10/04/21 4:20 PM) Mode of Delivery (Oxygen) Room air (10/04/21 4:20 PM) Blood pressure sites Arm, left (10/04/21 4:20 PM) Dry Weight 69.7 kg (10/04/21 4:20 PM) Weight Obtained Via Standing scale (10/04/21 4:20 PM) Social History Social History Type Response Smoking Status Never smoker entered on: 10/03/17 Sex
--- OUTSIDE RECORDS SUMMARY | 2024-05-02 05:00 | XMS_ITS | Continuity of Care Document ---
Author Organization [facility] Address [address] [place] [address]- Care Team Providers Care Strickler Attendant Name Role Phone Anali Concepcion DO Primary Care Physician Encounter [facility] [place] Date(s): 08/08/23 - 09/07/23 [facility] [address] [place], [place] [address] Allergies, Adverse Reactions, Alerts Substance [...] acel(DTaP) 85 Recorded 1Result Comment: [06/08/2018] [facility]:[id number] 2Result Comment: [facility]# [id number] Medications albuterol 0.083% inhalation solution 3 mL [...] Maintenance,04/13/23 15:43:00 EDT, ER Tablet, [facility], Partial fill upon patient request [...] Refills, Maintenance, 04/26/23 9:22:00 EDT, [facility], 146, cm, 03/10/23 9:41:00 EDT, Height, 70.9, kg, 03/10/23 9:41:00 EDT, Dry Weight Start Date: 04/26/23 Status: Ordered norethindrone 5 mg oral tablet 5 mg, 1, tablet, By Mouth, Daily, # 90 tablet, Refills 3, Tot. Refills 3, Maintenance, 07/12/23 13:25:00 EST, Route to Pharmacy Electronically, [facility], Partial fill upon patientrequest if [...] Team Personnel Name: Anali Concepcion DO Position: [facility] Physician - Primary Care Member Role: PCP Address: Address: [address] [place] [address] Adult & [place] [address]- Care Team Related Persons Name: KATIUSKA VIGIL Address: home [address] [place] [address] Name: RAISA AMBROSE Address: home [address] [place] [address] Name: AURORA NIX Name: MELISSA AGUILAR
--- OUTSIDE RECORDS SUMMARY | 2024-05-02 05:00 | XMS_ITS | Continuity of Care Document ---
Author Organization [facility] Address [address] [place] [address]- Care Team Providers Care House Rn Name Role Phone Anali Concepcion DO Primary Care Physician [facility] Date(s): 03/19/21 - 05/06/[address] [address] Attending Physician: Saman Carlson MD Admitting Physician: Saman Carlson MD Referring Physician: Saman Carlson MD Allergies, Adverse Reactions, Alerts Substance Reaction [...] 85 Recorded 1Result Comment: [06/08/2018] [facility]:78425-557-64 Medications albuterol 0.083% inhalation solution 3 mL [...] Refills, Maintenance, 01/12/21 8:16:00 EDT, [facility], 146, cm, 01/04/21 11:29:00 EDT, Height, 75.5, [...] 9:01:59 EST, Aerosol, Route to Pharmacy Electronically, [id number], [facility] [address] Start Date: 11/02/18 Stop Date: 12/02/18 Status: [...]
--- OUTSIDE RECORDS SUMMARY | 2024-05-02 05:01 | XMS_ITS | Continuity of Care Document ---
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 Refills 0, Maintenance, 04/02/19 8:27:25 EDT, Route to Pharmacy Electronically, [id number], [facility]/pharmacy #1130 Start Date: 04/02/19 Status: Ordered Colace sodium 100 mg oral capsule 100 mg, 1, capsule, By Mouth, Daily, # 30 capsule, Refills 11, Tot. Refills 11, Maintenance, 02/08/18 15:01:19 EDT, Route to Pharmacy Electronically, [id number], [facility] [address] Start Date: 02/08/18 Stop Date: 02/03/19 Status: [...] capsule, 2 Refills, Maintenance, 10/17/19 16:34:00 EST, [facility], 146, cm, 10/07/19 8:16:00 EST, Height, 77.72, kg, 06/12/19 14:42:00 EDT, Dry Weight Start Date: 10/17/19 Status: Ordered ProAir HFA 90 mcg/inh inhalation aerosol with adapter 2, puffs, Inhalation, Every 6 hours, PRN, # 1 each, Refills 0, Tot. Refills 0, Soft Stop, 11/02/18 9:01:59 EST, Aerosol, Route to Pharmacy Electronically, [id number], [facility] Start Date: 11/02/18 Stop Date: 12/02/18 Status: Ordered Recombivax HB Adult 10 mcg/mL intramuscular suspension 1 mL = 10 mcg, Intramuscular, Once, rpt at 1 and 6 months, # 1 mL, 2 Refills, Soft Stop, 09/02/19 12:37:00 EST, [facility]/pharmacy #1130, 146, cm, 06/28/19 16:39:00 EDT, [...]
--- OUTSIDE RECORDS SUMMARY | 2024-05-02 05:01 | XMS_ITS | Continuity of Care Document ---
Author Organization [facility] Address [address] [place] [address]- Care Team Providers Care Pellet Machine Operator Name Role Phone Anali Concepcion DO Primary Care Physician Encounter [facility] Date(s): 08/11/23 - 09/10/23 [facility] [address] [place], [place] [address] Allergies, Adverse [...] acel(DTaP) 85 Recorded 1Result Comment: [06/08/2018] [facility]:23513-121-13 2Result Comment: [facility]# [id number] Medications albuterol 0.083% inhalation solution 3 mL [...] Maintenance,04/13/23 15:43:00 EDT, ER Tablet, [facility] [...] EST, Route to Pharmacy Electronically, [facility], Partial fill upon patientrequest if [...] Primary Care Member Role: PCP Address: Address: [address] [place] [address] Adult & [place] [address]- Care Team Related Persons Name: KATIUSKA VIGIL Address: home [address] [place] [address] Name: RAISA AMBROSE Address: home [address] [place] [address] Name: AURORA NIX Name: MELISSA AGUILAR
--- OUTSIDE RECORDS SUMMARY | 2024-05-02 05:01 | XMS_ITS | Continuity of Care Document ---
Author Organization [facility] Address [address] [place] [address]- Care Team Providers Care Shift Supervisor Melting Name Role Phone Anali Concepcion DO Primary Care Physician [facility]counter [facility] Date(s): 10/31/19 - 11/07/19 [facility] [address] [place] [address]- [facility] Attending Physician: Bruce Khalil MD Referring Physician: Anali Concepcion DO Allergies, [...] acel(DTaP) 85 Recorded 1Result Comment: [06/08/2018] [facility]:24161-354-92 Medications Advair HFA 230 mcg / 21 [...] Date: 04/02/19 Stop Date: 05/02/19 Status: Ordered amoxicillin-clavulanate 875 mg-125 mg oral tablet 1 tablet, By Mouth, 2 times a day, for 10 days, with food or milk, # 20 tablet, 0 Refills, Acute 11/10/19 16:23:00 EDT, 10/31/19 16:23:00 EST, [facility], 146, cm, 10/31/19 15:44:00EST, Height, 75.5, kg, 10/31/19 15:44:00 EST, Dry Weight Start Date: 10/31/19 Stop Date: 11/10/19 Status: Ordered Citrucel Clear Mix 2 g/19 g oral powder for reconstitution = 2 Gm, By Mouth, Daily, # 30 each, 5 Refills, Maintenance, 02/08/18 15:02:21 EDT Start Date: 02/08/18 Status: Ordered Claritin 10 mg oral tablet 10 mg, 1, tablet, By Mouth, Daily, # 30 tablet, Refills 0, Tot. Refills 0, Maintenance, 05/21/19 18:52:50 EDT, Route to Pharmacy Electronically, [id number], [facility]/pharmacy #1130 Start Date: 05/21/19 Status: Ordered Claritin 10 mg oral tablet 10 mg, 1, tablet, By Mouth, Daily, # 90 tablet, Refills 0, Tot. Refills 0, Maintenance, 04/02/19 8:27:25 EDT, Route to Pharmacy Electronically, [id number], [facility]/pharmacy #1130 Start Date: 04/02/19 Status: Ordered Colace sodium 100 mg oral capsule 100 mg, 1, capsule, By Mouth, Daily, # 30 capsule, Refills 11, Tot. Refills 11, Maintenance, 02/08/18 15:01:19 EDT, Route to Pharmacy Electronically, [id number], [facility] [address] Start Date: 02/08/18 Stop Date: 02/03/19 Status: Ordered Dulera Inhalation, 2 times a day, 0 Refills, Maintenance, 04/02/19 8:28:41 EDT Start Date: 04/02/19 Status: Ordered measles/mumps/rubella/varicella virus vaccine subcutaneous injection 0.5 mL, Subcutaneous Injection, Once, # 1 each, 0 Refills, Soft Stop, 09/02/19 12:34:00 EST, Powder, [facility]/pharmacy #1130, 0.5 mL Subcutaneous Injection [...] Refills, Maintenance, 10/17/19 16:34:00 EST, [facility], 146, cm, 10/07/19 8:16:00 EST, Height, 77.72, kg, 06/12/19 14:42:00 EDT, Dry Weight Start Date: 10/17/19 Status: Ordered ProAir HFA 90 mcg/inh inhalation aerosol with adapter 2, puffs, Inhalation, Every 6 hours, PRN, # 1 each, Refills 0, Tot. Refills 0, Soft Stop, 11/02/18 9:01:59 EST, Aerosol, Route to Pharmacy Electronically, [id number], [facility] [address] Start Date: 11/02/18 Stop Date: 12/02/18 Status: Ordered Recombivax HB Adult 10 mcg/mL intramuscular suspension 1 mL = 10 mcg, Intramuscular, Once, rpt at 1 and 6 months, # 1 mL, 2 Refills, Soft Stop, 09/02/19 12:37:00 EST, [facility]/pharmacy #1130, 146, cm, 06/28/19 16:39:00 [...] oldest [Reference Range]: 1 Height 146 cm (10/31/19 3:44 PM) Weight 75.5 kg (10/31/19 3:44 PM) Oxygen Saturation [94-100 %] 96 % (10/31/19 3:44 PM) Pulse Rate [55-90 bpm] 129 bpm *H* (10/31/19 3:44 PM) Body Mass Index [18.5-24.99] 35.42 *>HHI* (10/31/19 3:44 PM) Blood Pressure [90-138/55-84 mm Hg] 140/ 86mm Hg *H* (10/31/19 3:44 PM) Respiratory Rate [16-30 br/min] 18 br/mi n (10/31/19 3:44 PM) Temperature [96.8-100.4 DegF] 99.0 DegF (10/31/19 3:44 PM) Mode of Delivery (Oxygen) Room air (10/31/19 3:44 PM) Blood pressure sites Arm, right (10/31/19 3:44 PM) Temperature Route Oral (10/31/19 3:44 PM) Dry Weight 75.5 kg (10/31/19 3:44 PM) Weight Obtained Via Standing scale (10/31/19 3:44 PM) Dry Weight Obtained Via Standing scale (10/31/19 3:44 PM) Social History Social History Type Response Smoking Status Never smoker entered on: 10/03/17 Sex
--- OUTSIDE RECORDS SUMMARY | 2024-05-02 05:01 | XMS_ITS | Continuity of Care Document ---
Author Organization [facility] Address [address] [place] [address]- Care Team Providers Care Psychologist Name Role Phone Anali Concepcino DO Primary Care Physician Encounter [facility] Date(s): 01/26/23 - 02/02/23 [facility] [address] [place], [place] [address] Attending Physician: Anali Concepicon DO Allergies, Adverse Reactions, Alerts Substance Reaction [...] diphtheria/tetanus/pertussis, acel(DTaP) 85 Recorded 1Result Comment: [06/08/2018] [facility]:36318-292-33 2Result Comment: [facility]# [id number] Medications albuterol 0.083% inhalation solution 3 mL [...] oldest [Reference Range]: 1 Height 146 cm (01/26/23 10:14 AM) Weight 70.1 kg (01/26/23 10:14 AM) Oxygen Saturation [94-100 %] 98 % (01/26/23 10:14 AM) Pulse Rate [55-90 bpm] 85 bpm (5/25/23 10:14 AM) Body Mass Index [18.5-24.99 kg/m2] 32.89 kg/m2 *>HHI* (01/26/23 10:14 AM) Blood Pressure [90-138/55-84 mm Hg] 118/ 79mm Hg (01/26/23 10:14 AM) Mode of Delivery (Oxygen) Room air (01/26/23 10:14 AM) Blood pressure sites Arm, left (01/26/23 10:14 AM) Weight Obtained Via Standing scale (01/26/23 10:14 AM) Social History Social History Type Response Smoking Status Never smoker entered on: 10/03/17 Sex Note * Sarah Herring: PERFORM, SIGN, VERIFY Event Display: Patient Education/Instruction Authored Date: [id number] [facility] *No Edge Adult Ped Clinical Summary Name DIONY AMBROSE Age 37 Years 1985 PCP Anali Concepcion DO PCP Visit Date 01/26/2023 09:58:00 Additional Instructions: Scheduled Appointments?? Future Appointments ?*[facility] ?[address] ?[address] ?[place],??[place],??[address] ?Phone:??--?Fax:??-- ?Appt. Date:??02/09/2023?4:00 PM ?Scheduled Provider:??Lincoln Gordon MD Follow-Up Instructions ?? Diagnosis Medications: Please continue [...] for titration instructions. Refills: 1. Next Dose: buPROPion-naltrexone (Contrave 8 mg-90 mg oral tablet, extended release) 2 tab(s) Oral twice a day for 30 Days. to replace prior dose. Refills: 5. Next Dose: Fexofenadine (fexofenadine 60 mg oral [...] topical Medications Given This Visit Future Orders ?Comprehensive Metabolic Panel? Order Date:01/26/23?- Complete on or after?01/26/23 Vital Signs Height 146 cm Weight 70.1 kg BMI 32.89 kg/m2 Blood Pressure 118 mm Hg/79 mm Hg Temperature Pulse Rate 85 bpm Respiratory Rate 02 Sat Mode of Delivery 98 %/Room air You can now view a summary of your hospital visit from the comfort of your home through a free online portal called [employer]. [employer] is a website that allows you to securely view your medical information including discharge summary, medications and follow-up visits. ??You can alsosend a secure electronic message to your doctor???s office to request appointments, renew medications or just ask a question. You can enroll at [email or web address] or register during your next office visit. [...] primary care provider, you may find a [facility] provider by calling [facility] [employer] Link at [phone]. For information about the plan of care [...] Team Personnel Name: Anali Concepcion DO Position: [facility] Physician - Primary Care Member Role: PCP Address: Address: [address] [place] [address] Adult & [place] [address]- Care Team Related Persons Name: KATIUSKA VIGIL Address: home [address] [place] [address] Name: RAISA AMBROSE Address: home [address] [place] [address] Name: AURORA NIX Name: MELISSA AGUILAR
--- OUTSIDE RECORDS SUMMARY | 2024-05-02 05:01 | XMS_ITS | Continuity of Care Document ---
Author Organization [facility] Address [address] [place] [address]- Care Team Providers Care Director Of Counseling Name Role Phone Anali Concepcion DO Primary Care Physician [place] [facility] Date(s): 02/02/24 - 02/09/24 [facility] [address] [place], [place] [address] Attending Physician: Anali Concepcion DO Allergies, Adverse Reactions, Alerts Substance Reaction Severity Status amoxicillin gi upset Active aloe vera topical Active Zithromax gi upset Active Ragweed Active Contrave gi upset Active Other Environmental Allergy 1, 2 Active Cats Active Dogs Active Latex Active ZyrTEC Active Pollen Ragweed Active 1grass Feathers 2tree Immunizations Given [...] acel(DTaP) 85 Recorded 1Result Comment: [06/08/2018] [facility]:[id number] 2Result Comment: [facility]# [address]-7 Medications albuterol 0.083% inhalation solution 3 mL [...] tablet, 4 Refills, Maintenance, 04/26/23 9:22:00 EDT, [facility], 146, cm, 03/10/23 9:41:00 EDT, Height, 70.9, kg, 03/10/23 9:41:00 EDT, Dry Weight Start Date: 04/26/23 Status: Ordered norethindrone 5 mg oral tablet 5 mg, 1, tablet, By Mouth, Daily, # 90 tablet, Refills 3, Tot. Refills 3, Maintenance, 07/12/23 13:25:00 EST, Route to Pharmacy Electronically, [facility], Partial fill upon patientrequest if the prescription is for a schedule II opioid... Start Date: 07/12/23 Status: Ordered omeprazole 20 mg oral enteric coated capsule 1 capsule, By Mouth, Daily, # 30 capsule, 2 Refills, Maintenance, 12/29/23 10:32:00 EDT, [facility], 146, cm, 10/10/23 8:12:00 EST, [...] oldest [Reference Range]: 1 Height 146 cm (02/02/24 1:28 PM) Weight 78.8 kg (02/02/24 1:28 PM) Oxygen Saturation [94-100 %] 96 % (02/02/24 1:28 PM) Pulse Rate [55-90 bpm] 93 bpm *H* (02/02/24 1:28 PM) Body Mass Index [18.5-24.99 kg/m2] 36.97 kg/m2 *>HHI* (02/02/24 1:28 PM) Blood Pressure [90-138/55-84 mm Hg] 125/ 82mm Hg (02/02/24 1:28 PM) Mode of Delivery (Oxygen) Room air (02/02/24 1:28 PM) Blood pressure sites Arm, left (02/02/24 1:28 PM) Dry Weight 78.8 kg (02/02/24 1:28 PM) Weight Obtained Via Standing scale (02/02/24 1:28 PM) Dry Weight Obtained Via Standing scale (02/02/24 1:28 PM) Social History Social History Type Response Smoking Status Never smoker entered on: 10/03/17 Sex Note * Tamar Goldberg: PERFORM Event Display: Patient Education/Instruction Authored Date: [id number] Ambulatory Adult Visit Summary [facility] [address] [place] [address] Name: DIONY AMBROSE : 1985?? Visit: 02/02/2024 13:19?? Ambulatory Visit Instructions ?? Your Care Team Primary Care Provider Anali Concepcion DO? This Visit Provider Anali Concepcion DO Vitals Signs Pulse Rate:??93 bpm??High Height: 146 cm Systolic Blood Pressure: 125 mm Hg Weight: 78.8 kg Diastolic Blood Pressure: 82 mm Hg Body Mass Index:??36.97 kg/m2??Critical Oxygen Saturation: 96 % Body surface area: 1.79 What to do next Follow-Up Appointments Follow Up with??Anali Concepcion DO When:??05/16/2024 11:00 AM EDT Where: [address] [facility] Adult [place] [address]- Medications The list below reflects the information in our records and provided by you today along with any changes made during this visit. Please continue your medications until treatment is completed or stopped by your provider. If this is different from the information you have or there are other questions,please contact the prescribing provider. What How Much When Instructions New tirzepatide (tirzepatide 2.5 mg/ 0.5 mL subcutaneous solution) 2.5 Milligram Subcutaneous Injection Every week rotate injection sites ?? Pickup at [facility] Unchanged Albuterol (albuterol 0.083% inhalation solution) 3 [...] enteric coated capsule) 1 capsule Oral Daily Pharmacy Information [facility]: [address], [place] [id number] [phone] ?? What How Much When Comments Stop Taking semaglutide (Wegovy (0.25 mg dose) subcutaneous solution) 0.25 Milligram Subcutaneous Infusion Every week rotate injection sites Dx: Overweight BMI >33; dyslipidemia in the abdomen, thigh, or upper arm ?? Medications and Immunizations Administered Medications Given [...] are strongly encouraged to quit. Please call [employer] at [phone] or [phone] ([phone]) or log in to [email or web address] for referrals to smoking cessation programs. ?? The National Suicide Prevention Hotline is available 27/03 if you or someone you know needs to find a reason to keep living. By calling 1-278-322-[employer] (3519) you'll be connected to a skilled, trained counselor at a crisis center in your area. [facility] Portal You can view and manage your care through the patient portal or by using a health care farzana of your choosing. [employer] is a website that allows you to securely view your medical information including your hospital discharge summary, office visit summaries, medications and follow-up visits. You can also request appointments, renew medications, and request access to your medical information using a health care farzana of your choosing, or just ask a question. You can enroll at [email or web address] or register during your next office visit. [facility], in keeping with [facility] guidance, no longer requires face masks [...] care provider, you may find a [facility] provider by calling [employer] at [phone]. Patient Care team information Care Team Personnel Name: Anali Concepcion DO Position: [facility] Physician - Primary Care Member Role: PCP Address: Address: [address] [place] [address] Adult [place] [address]- Care Team Related Persons Name: KATIUSKA VIGIL Address: home [address] [place] [address] Name: RAISA AMBROSE Address: home [address] [place] [address] Name: AURORA NIX Name: MELISSA AGUILAR
--- OUTSIDE RECORDS SUMMARY | 2024-05-02 05:01 | XMS_ITS | Continuity of Care Document ---
Author Organization [facility] Address [address], [address] [place] [address]- Care Team Providers Care Rn Primary Care Name Role Phone Anali Concepcion DO Primary Care Physician ( [phone] [facility] Date(s): 08/03/20 - 09/04/20 [facility] Renu Osunas [facility] [address] [place] [address]- Attending Physician: [place] GUTIERREZ, Hanane Malhotra Referring Physician: Not on Staff, Referring MD Allergies, Adverse Reactions, Alerts Substance Reaction [...] diphtheria/tetanus/pertussis, acel(DTaP) 85 Recorded 1Result Comment: [06/08/2018] [facility]:18340-339-30 Medications Advair HFA 230 mcg / 21 [...] 0 Refills, Maintenance, 11/29/19 15:48:00 EDT, Suspension, [facility]/pharmacy #0957, 4 drops Ears, Both 2 times [...] 05/21/19 18:52:50 EDT, Route to Pharmacy Electronically, [id number], [facility]/pharmacy #1130 Start Date: 05/21/19 Status: Ordered Claritin 10 mg oral tablet 10 mg, 1, tablet, By Mouth, Daily, # 90 tablet, Refills 0, Tot. Refills 0, Maintenance, 04/02/19 8:27:25 EDT, Route to Pharmacy Electronically, [id number], [facility]/pharmacy #1130 Start Date: 04/02/19 Status: Ordered Colace sodium 100 mg oral capsule 100 mg, 1, capsule, By Mouth, Daily, # 30 capsule, Refills 11, Tot. Refills 11, Maintenance, 02/08/18 15:01:19 EDT, Route to Pharmacy Electronically, [id number], [facility] Start Date: 02/08/18 Stop Date: 02/03/19 Status: Ordered Dulera Inhalation, 2 times a day, 0 Refills, Maintenance, 04/02/19 8:28:41 EDT Start Date: 04/02/19 Status: Ordered Flonase 50 mcg/inh nasal spray 1 sprays, Nares, Both, 2 times a day, # 3 each, 0 Refills, Maintenance, 08/10/20 10:32:00 EST, [place], [facility], Partial fill upon patient request, 1 sprays Nares, Both 2 times a day, 146, cm, 03/16/20 10:36:00 EDT, Height, 75.5, kg, 10/31... Start Date: 08/10/20 Status: Ordered guaiFENesin 100 mg/5 mL oral liquid 10 mL = 200 mg, By Mouth, Every 6 hours, PRN for cough, # 600 mL, 0 Refills, Maintenance, 08/10/20 10:34:00 EST, Liquid, [facility]/pharmacy #0957, Partial fill upon patient request if the prescription is for a schedule II opioid drug., 146, cm, 03/16/20 10:... Start Date: 08/10/20 Status: Ordered measles/mumps/rubella/varicella virus vaccine subcutaneous injection 0.5 mL, Subcutaneous Injection, Once, # 1 each, 0 Refills, Soft Stop, 09/02/19 12:34:00 EST, Powder, [facility]/pharmacy #1130, 0.5 mL Subcutaneous Injection Once, 146, cm, 06/28/19 16:39:00 EDT, Height, 77.72, kg, 06/12/19 14:42:00 EDT, Dry Weight Start Date: 09/02/19 Status: Ordered meloxicam 15 mg oral tablet 1 tablet = 15 mg, By Mouth, Daily, with food for foot pain, # 30 tablet, 0 Refills, Maintenance, 03/16/20 11:09:00 EDT, Tablet, [facility]/pharmacy #0957, 146, cm, 03/16/20 10:36:00 EDT, Height, [...] each, 2 Refills, Maintenance, 11/29/19 16:12:00 EDT, [facility]/pharmacy#1130, 2 sprays Nares, Both Daily, 146, cm, [...] capsule, 2 Refills, Maintenance, 06/08/20 13:45:00 EDT, [facility]/pharmacy #0957, 146, cm, 03/16/20 10:36:00 EDT, Height, 75.5, kg, 10/31/19 15:44:00 EST, Dry Weight Start Date: 06/08/20 Status: Ordered ProAir HFA 90 mcg/inh inhalation aerosol with adapter 2, puffs, Inhalation, Every 6 hours, PRN, # 1 each, Refills 0, Tot. Refills 0, Soft Stop, 11/02/18 9:01:59 EST, Aerosol, Route to Pharmacy Electronically, [id number], [facility] Start Date: 11/02/18 Stop Date: 12/02/18 Status: Ordered Recombivax HB Adult 10 mcg/mL intramuscular suspension 1 mL = 10 mcg, Intramuscular, Once, rpt at 1 and 6 months, # 1 mL, 2 Refills, Soft Stop, 09/02/19 12:37:00 EST, [facility]/pharmacy #1130, 146, cm, 06/28/19 16:39:00 EDT, Height, [...]
--- OUTSIDE RECORDS SUMMARY | 2024-05-02 05:01 | XMS_ITS | Continuity of Care Document ---
Author Organization [facility] Address [address] [place] [address]- Care Team Providers Care Electrical Helper Name Role Phone Anali Concepcion DO Primary Care Physician Encounter [facility] [place] Date(s): 07/24/23 - 07/31/23 [facility] [address] [place], [place] [address] Encounter Diagnosis Severe obesity (BMI 35.0-39.9) with comorbidity(Discharge Diagnosis) - 07/24/23 Allergic rhinitis(Discharge Diagnosis) - 07/24/23 Chronic rhinitis(Discharge Diagnosis) - 07/24/23 Neck pain(Discharge Diagnosis) - 07/24/23 Attending Physician: Anali Concepcion DO Allergies, Adverse Reactions, Alerts Substance Reaction Severity Status aloe vera topical Active Cats Active Latex Active Pollen Ragweed Active Ragweed Active Other Environmental Allergy 1, 2 Active ZyrTEC Active Dogs Active 1grass Feathers 2tree Immunizations Given and [...] acel(DTaP) 85 Recorded 1Result Comment: [06/08/2018] [facility]:19669-024-50 2Result Comment: [facility]# [address]-3 Medications albuterol 0.083% inhalation solution 3 mL [...] II opioid... Start Date: 07/12/23 Status: Ordered Singulair 10 mg oral tablet [...] Effective Dates Health Status Clinical Service Informant Severe obesity (BMI 35.0-39.9) with comorbidity Discharge Diagnosis 07/24/23 Allergic rhinitis Discharge Diagnosis 07/24/23 Chronic rhinitis Discharge Diagnosis 07/24/23 Neck pain Discharge Diagnosis 07/24/23 Vital Signs Most recent to oldest [Reference Range]: 1 Height 146 cm (07/24/23 3:15 PM) Weight 75.8 kg (07/24/23 3:15 PM) Oxygen Saturation [94-100 %] 97 % (07/24/23 3:15 PM) Pulse Rate [55-90 bpm] 82 bpm (07/24/23 3:15 PM) Body Mass Index [18.5-24.99 kg/m2] 35.56 kg/m2 *>HHI* (07/24/23 3:15 PM) Blood Pressure [90-138/55-84 mm Hg] 123/ 81mm Hg (07/24/23 3:15 PM) Respiratory Rate [16-30 br/min] 18 br/mi n (07/24/23 3:15 PM) Temperature [96.8-100.4 DegF] 98.3 DegF (07/24/23 3:15 PM) Mode of Delivery (Oxygen) Room air (07/24/23 3:15 PM) Blood pressure sites Arm, left (07/24/23 3:15 PM) Temperature Route Oral (07/24/23 3:15 PM) Dry Weight 75.8 kg (07/24/23 3:15 PM) Weight Obtained Via Standing scale (07/24/23 3:15 PM) Dry Weight Obtained Via Standing scale (07/24/23 3:15 PM) Social History Social History Type Response Smoking Status Never smoker entered on: 10/03/17 Sex Note * Tamar Goldberg: PERFORM, SIGN, VERIFY Event Display: Patient Education/Instruction Authored Date: [id number] [facility] *No Edge Adult Ped Clinical Summary Name DIONY AMBROSE Age 37 Years 1985 PCP Anali Concepcion DO PCP Visit Date 07/24/2023 15:14:00 Patient Instructions Start flonase??sensimist??one spray each nostril twice a day.?? Restart your flonase.?? Additional Instructions: Scheduled Appointments?? Future Appointments ?*No[facility]Edge[facility]Adult[facility]Ped ?[address]??[place],??[place],??[address] ?Phone:??--?Fax:??-- ?Appt. Date:??09/26/2023?10:40 AM ?Scheduled Provider:??Anali Concepcion DO Follow-Up Instructions [...] 2 spray(s) twice a day. Next Dose: BuPROpion (buPROPion 100 mg/12 hours (SR) oral tablet, extended release) 1 tab(s) Oral Daily for 7 Days. while waiting for contrave. Refills: 0. Next Dose: Durable Medical Equipment (Compression Stockings) See Instructions. surgical, panty hose length 30-40 mm Hg. Next Dose: Fexofenadine (fexofenadine 60 mg oral tablet) 1 tab(s) Oral Daily. Refills: 4. Next Dose: Montelukast (Singulair 10 mg oral tablet) 1 tab(s) Oral Daily for 30 Days. Refills: 5. Next Dose: Norethindrone (norethindrone 5 mg oral tablet) 1 tab(s) Oral Daily. Refills: 3. Next Dose: semaglutide (Wegovy (0.25 mg dose) subcutaneous solution) 0.25 Milligram Subcutaneous Infusion every week. rotate injection sites Dx: Overweight BMI >33; dyslipidemia in the abdomen, thigh, or upper arm. Refills: 1. Next Dose: No Longer Take the Following Medications buPROPion-naltrexone (Contrave 8 mg-90 mg oral tablet, extended release) 2 tab(s) Oral twice a day for 30 Days. to replace prior dose. Refills: 5. buPROPion-naltrexone (Contrave 8 mg-90 mg oral tablet, extended release) 1 tab(s) Oral Daily in themorning for 90 Days. do not crush or chew; contact pcp when receive for titration instructions. Refills: 1. Omeprazole (omeprazole 20 mg oral enteric coated capsule) 1 capsule Oral Daily. Refills: 6. Polyethylene Glycol 3350 (polyethylene glycol 3350 oral powder for reconstitution) 17 gram Oral Daily. Refills: 5. Allergy Info:?? ZyrTEC; Other Environmental Allergy; Ragweed; Pollen; Latex; Dogs; Cats; aloe vera topical Medications Given This Visit Future Orders ?No future orders Vital Signs Height 146 cm Weight 75.8 kg BMI 35.56 kg/m2 Blood Pressure 123 mm Hg/81 mm Hg Temperature 98.3 DegF Pulse Rate 82 bpm Respiratory Rate 18 br/min 02 Sat Mode of Delivery 97 %/Room air You can now view a summary of your hospital visit from the comfort of your home through a free online portal called [employer]. [employer] is a website that allows you to securely view your medical information including discharge summary, medications and follow-up visits. ??You can alsosend a secure electronic message to your doctor???s office to request appointments, renew medications or just ask a question. You can enroll at [email or web address] or register during your next [...] [facility] provider by calling [facility] [employer] Link at [phone]. [facility], in keeping with [facility] guidance, no longer requires face masks for staff, patientsor visitors in most situations. Similar to time spent indoors at other locations, there is the chance that you were exposed to respiratory viruses during your time with us (such as flu or COVID-19).? If you develop symptoms concerning for a viral respiratory infection, please seek testing (and treatment if indicated) from your medical provider or home test kit. For information about the plan of care [...] Team Personnel Name: Anali Concepcion DO Position: [facility] Physician - Primary Care Member Role: PCP Address: Address: [address] [place] [address] Adult & [place] [address]- Care Team Related Persons Name: KATIUSKA VIGIL Address: [address] [place] [address] Name: RAISA AMBROSE Address: [address] [place] [address] Name: AURORA NIX Name: MELISSA AGUILAR
--- OUTSIDE RECORDS SUMMARY | 2024-05-02 05:01 | XMS_ITS | Continuity of Care Document ---
Author Organization [facility] n[facility] Address [address], [address] [place] [address]- Care Team Providers Care Watch Train Inspector Name Role Phone Anali Concepcion DO Primary Care Physician Encounter [facility] [place] [place] Date(s): 01/27/22 - 02/26/22 [facility] [address], [address] [place], [place] [address] Allergies, Adverse [...] Recorded diphtheria/tetanus/pertussis, acel(DTaP) 85 Recorded 1Result Comment: [facility]# [id number] 2Result Comment: [06/08/2018] [facility]:67392-544-08 Medications albuterol 0.083% inhalation solution 3 mL [...] capsule, 1 Refills, Maintenance, 01/12/21 8:16:00 EDT, [facility], 146, cm, 01/04/21 11:29:00 EDT, Height, 75.5, [...]
--- OUTSIDE RECORDS SUMMARY | 2024-05-02 05:01 | XMS_ITS | Continuity of Care Document ---
Author Organization [facility] Address [address] [place] [address]- Care Team Providers Care Central Office Equipment Installer Name Role Phone Anali Concepcion DO Primary Care Physician Encounter [facility] [place] Date(s): 02/06/20 - 02/13/20 [facility] [address] [place] [address]- [facility] Attending Physician: Anali Concepcion DO Allergies, Adverse [...] acel(DTaP) 85 Recorded 1Result Comment: [06/08/2018] [facility]:56332-153-01 Medications Advair HFA 230 mcg / 21 [...] 0 Refills, Maintenance, 11/29/19 15:48:00 EDT, Suspension, [facility]/pharmacy #0957, 4 drops Ears, Both 2 times [...] 05/21/19 18:52:50 EDT, Route to Pharmacy Electronically, [id number], [facility]/pharmacy #1130 Start Date: 05/21/19 Status: Ordered Claritin 10 mg oral tablet 10 mg, 1, tablet, By Mouth, Daily, # 90 tablet, Refills 0, Tot. Refills 0, Maintenance, 04/02/19 8:27:25 EDT, Route to Pharmacy Electronically, [id number], [facility]/pharmacy #1130 Start Date: 04/02/19 Status: Ordered Colace sodium 100 mg oral capsule 100 mg, 1, capsule, By Mouth, Daily, # 30 capsule, Refills 11, Tot. Refills 11, Maintenance, 02/08/18 15:01:19 EDT, Route to Pharmacy Electronically, [id number], [facility] [address] Start Date: 02/08/18 Stop Date: 02/03/19 Status: Ordered Dulera Inhalation, 2 times a day, 0 Refills, Maintenance, 04/02/19 8:28:41 EDT Start Date: 04/02/19 Status: Ordered measles/mumps/rubella/varicella virus vaccine subcutaneous injection 0.5 mL, Subcutaneous Injection, Once, # 1 each, 0 Refills, Soft Stop, 09/02/19 12:34:00 EST, Powder, [facility]/pharmacy #1130, 0.5 mL Subcutaneous Injection Once, 146, [...] each, 2 Refills, Maintenance, 11/29/19 16:12:00 EDT, [facility]/pharmacy#1130, 2 sprays Nares, Both Daily, 146, cm, [...] Daily, # 30 capsule, 2 Refills, Maintenance, 01/20/20 13:47:00 EDT, [facility]/pharmacy #0957, 146, cm, 01/16/20 10:45:00 EDT, Height, 75.5, kg, 10/31/19 15:44:00 EST, Dry Weight Start Date: 01/20/20 Status: Ordered ProAir HFA 90 mcg/inh inhalation aerosol with adapter 2, puffs, Inhalation, Every 6 hours, PRN, # 1 each, Refills 0, Tot. Refills 0, Soft Stop, 11/02/18 9:01:59 EST, Aerosol, Route to Pharmacy Electronically, [id number], [facility] [address] Start Date: 11/02/18 Stop Date: 12/02/18 Status: Ordered Recombivax HB Adult 10 mcg/mL intramuscular suspension 1 mL = 10 mcg, Intramuscular, Once, rpt at 1 and 6 months, # 1 mL, 2 Refills, Soft Stop, 09/02/19 12:37:00 EST, [facility]/pharmacy #1130, 146, cm, 06/28/19 16:39:00 EDT, Height, [...]
--- OUTSIDE RECORDS SUMMARY | 2024-05-02 05:01 | XMS_ITS | Continuity of Care Document ---
Author Organization [facility] Address [address] [place] [address]- Care Team Providers Care Loan Processor Name Role Phone Anali Concepcion DO Primary Care Physician [place] [facility] [place](s[place] 05/17/22 - 05/24/22 [facility] [address] [place] [address]- Encounter Diagnosis Midepigastric pain(Discharge Diagnosis) - 05/17/22 Right upper quadrant abdominal pain(Discharge Diagnosis) - 05/17/22 Attending Physician: Eva SOLARES, Miriam Referring Physician: Anali Concepcion DO Allergies, Adverse [...] Recorded 1Result Comment: [facility]# [address]-4 2Result Comment: [06/08/2018] [facility]:78360-233-84 Medications albuterol 0.083% inhalation solution 3 mL [...] Effective Dates Health Status Clinical Service Informant Midepigastric pain Discharge Diagnosis 05/17/22 Right upper quadrant abdominal pain Discharge Diagnosis 05/17/22 Vital Signs Most recent to oldest [Reference Range]: 1 Height 146 cm (05/17/22 8:07 AM) Weight 72.3 kg (05/17/22 8:07 AM) Oxygen Saturation [94-100 %] 98 % (05/17/22 8:07 AM) Pulse Rate [55-90 bpm] 74 bpm (05/17/22 8:07 AM) Body Mass Index [18.5-24.99] 33.92 *>HHI* (05/17/22 8:07 AM) Blood Pressure [90-138/55-84 mm Hg] 106/ 70mm Hg (05/17/22 8:07 AM) Mode of Delivery (Oxygen) Room air (05/17/22 8:07 AM) Blood pressure sites Arm, left (05/17/22 8:07 AM) Weight Obtained Via Standing scale (05/17/22 8:07 AM) Social History Social History Type Response Smoking Status Never smoker entered on: 10/03/17 Sex Care Team Personnel Name: Anali Concepcion DO Address: [address] [place] [address] Adult [facility] Medicine [address]
--- OUTSIDE RECORDS SUMMARY | 2024-05-02 05:01 | XMS_ITS | Continuity of Care Document ---
Author Organization [facility] Address [address] [place] [address]- Care Team Providers Care Pickle Sorter Name Role Phone Anali Concepcion DO Primary Care Physician Encounter [facility] Date(s): 04/12/22 - 04/19/22 [facility] [address] [place], [place] [address] Attending Physician: Anali Concepcion DO Allergies, Adverse [...] Recorded diphtheria/tetanus/pertussis, acel(DTaP) 85 Recorded 1Result Comment: [facility]# [address]-6 2Result Comment: [06/08/2018] [facility]:09435-847-36 Medications albuterol 0.083% inhalation solution 3 mL [...] Date: 04/12/22 Stop Date: 07/06/23 Status: Ordered Lidoderm 5% film 1 patch, Topically, Daily, for 30 days, dx costochondritis remove patches after 12 hours, # 30 patch, 0 Refills, Acute 05/12/22 8:40:00 EDT, 04/12/22 8:40:00 EDT, [facility], Partial fill upon patient request if the prescription is for... Start Date: 04/12/22 Stop Date: 05/12/22 Status: Ordered meclizine 12.5 mg oral tablet [...] oldest [Reference Range]: 1 Height 146 cm (04/12/22 8:15 AM) Weight 72.3 kg (04/12/22 8:15 AM) Oxygen Saturation [94-100 %] 98 % (04/12/22 8:15 AM) Pulse Rate [55-90 bpm] 74 bpm (04/12/22 8:15 AM) Body Mass Index [18.5-24.99] 33.92 *>HHI* (04/12/22 8:15 AM) Blood Pressure [90-138/55-84 mm Hg] 104/ 78mm Hg (04/12/22 8:15 AM) Blood pressure sites Arm, left (04/12/22 8:15 AM) Weight Obtained Via Standing scale (04/12/22 8:15 AM) Social History Social History Type Response Smoking Status Never smoker entered on: 10/03/17 Sex
--- OUTSIDE RECORDS SUMMARY | 2024-05-02 05:01 | XMS_ITS | Continuity of Care Document ---
Author Organization [facility] Address [address] [place] [address]- Care Team Providers Care Packing Room Supervisor Name Role Phone Anali Concepcion DO Primary Care Physician [place] [facility] [place] Date(s[place] 09/14/20 - 12/16/20 [facility] [address] [place] [address]- Attending Physician: [place] GUTIERREZ, Hanane Malhotra Referring [...] acel(DTaP) 85 Recorded 1Result Comment: [06/08/2018] [facility]:25437-364-21 Medications Advair HFA 230 mcg / 21 [...] 05/21/19 18:52:50 EDT, Route to Pharmacy Electronically, [id number], [facility]/pharmacy #1130 Start Date: 05/21/19 Status: Ordered Claritin 10 mg oral tablet 10 mg, 1, tablet, By Mouth, Daily, # 90 tablet, Refills 0, Tot. Refills 0, Maintenance, 04/02/19 8:27:25 EDT, Route to Pharmacy Electronically, [id number], [facility]/pharmacy #1130 Start Date: 04/02/19 Status: Ordered Colace sodium 100 mg oral capsule 100 mg, 1, capsule, By Mouth, Daily, # 30 capsule, Refills 11, Tot. Refills 11, Maintenance, 02/08/18 15:01:19 EDT, Route to Pharmacy Electronically, [id number], [facility] [address] Start Date: 02/08/18 Stop Date: 02/03/19 Status: Ordered Dulera Inhalation, 2 times a day, 0 Refills, Maintenance, 04/02/19 8:28:41 EDT Start Date: 04/02/19 Status: Ordered Flonase 50 mcg/inh nasal spray 1 sprays, Nares, Both, 2 times a day, # 3 each, 0 Refills, Maintenance, 08/10/20 10:32:00 EST, [place], [facility] # [facility], Partial fill upon patient [...] capsule, 2 Refills, Maintenance, 09/07/20 10:39:00 EST, [facility]/pharmacy #0957, 146, cm, 08/12/20 17:46:00 EST, Height, 75.5, kg, 10/31/19 15:44:00 EST, Dry Weight Start Date: 09/07/20 Status: Ordered ProAir HFA 90 mcg/inh inhalation aerosol with adapter 2, puffs, Inhalation, Every 6 hours, PRN, # 1 each, Refills 0, Tot. Refills 0, Soft Stop, 11/02/18 9:01:59 EST, Aerosol, Route to Pharmacy Electronically, [id number], [facility] [address] Start Date: 11/02/18 Stop Date: 12/02/18 Status: [...]
--- OUTSIDE RECORDS SUMMARY | 2024-05-02 05:01 | XMS_ITS | Continuity of Care Document ---
Author Organization [facility] Address [address] [place] [address]- Care Team Providers Care Card Services Specialist Name Role Phone Anali Concepcion DO Primary Care Physician Encounter [facility] [place] Date(s): 02/05/24 - 03/06/24 [facility] [address] [place], [place] [address] Allergies, Adverse Reactions, Alerts Substance Reaction Severity Status amoxicillin gi upset Active aloe vera topical Active Latex Active Ragweed Active Other Environmental Allergy 1, 2 Active ZyrTEC Active Contrave gi upset Active Pollen Ragweed Active Zithromax gi upset Active Cats Active Dogs Active 1grass Feathers 2tree Immunizations [...] acel(DTaP) 85 Recorded 1Result Comment: [06/08/2018] [facility]:87181-927-93 2Result Comment: [facility]# [address]-7 Medications albuterol 0.083% inhalation solution 3 mL [...] tablet, 4 Refills, Maintenance, 04/26/23 9:22:00 EDT, [facility], 146, cm, 03/10/23 9:41:00 EDT, Height, 70.9, kg, 03/10/23 9:41:00 EDT, Dry Weight Start Date: 04/26/23 Status: Ordered norethindrone 5 mg oral tablet 5 mg, 1, tablet, By Mouth, Daily, # 90 tablet, Refills 3, Tot. Refills 3, Maintenance, 07/12/23 13:25:00 EST, Route to Pharmacy Electronically, [facility], Partial fill upon patientrequest if the prescription is for a schedule II opioid... Start Date: 07/12/23 Status: Ordered omeprazole 20 mg oral enteric coated capsule 1 capsule, By Mouth, Daily, # 30 capsule, 2 Refills, Maintenance, 12/29/23 10:32:00 EDT, [facility] #[facility], 146, cm, 10/10/23 8:12:00 EST, [...] Team Personnel Name: Anali Concepcion DO Position: [facility] Physician - Primary Care Member Role: PCP Address: Address: [address] [place] [address] Adult & [place] [address]- Care Team Related Persons Name: KATIUSKA VIGIL Address: [address] [place] [address] Name: RAISA AMBROSE Address: home [address] [place] [address] Name: AURORA NIX Name: MELISSA AGUILAR
--- OUTSIDE RECORDS SUMMARY | 2024-05-02 05:01 | XMS_ITS | Continuity of Care Document ---
Author Organization [facility] Address [address] [place] [address]- Care Team Providers Care Sign Hanger Supervisor Name Role Phone Anali Concepcion DO Primary Care Physician ( [phone] Encounter [facility] [place] Date(s): 04/20/21 - 05/20/[address] [facility] [place] [facility] [address] [place], [place] [address] Attending Physician: Louise Camarillo [...] acel(DTaP) 85 Recorded 1Result Comment: [06/08/2018] [facility]:42913-546-32 Medications albuterol 0.083% inhalation solution 3 mL [...] Refills, Maintenance, 01/12/21 8:16:00 EDT, [facility], 146, cm, 01/04/21 11:29:00 EDT, Height, 75.5, [...] 9:01:59 EST, Aerosol, Route to Pharmacy Electronically, [id number], [facility] [address] Start Date: 11/02/18 Stop Date: 12/02/18 Status: [...]
--- OUTSIDE RECORDS SUMMARY | 2024-05-02 05:01 | XMS_ITS | Continuity of Care Document ---
Author Organization [facility] Address [address] [place] [address]- Care Team Providers Care Ticket Counter Name Role Phone Anali Concepcion DO Primary Care Physician Encounter [facility] Date(s): 09/16/22 - 10/16/22 [facility] [address] [place] [address]- Allergies, Adverse Reactions, Alerts Substance Reaction Severity [...] Recorded diphtheria/tetanus/pertussis, acel(DTaP) 85 Recorded 1Result Comment: [facility]# [address]-4 2Result Comment: [06/08/2018] [facility]:22697-873-08 Medications albuterol 0.083% inhalation solution 3 mL [...] Care Physician Member Role: PCP Address: Address: [address] [place] [address] Adult [place] [address]- Care Team Related Persons Name: KATIUSKA VIGIL Address: home [address] [place] [address] Name: RAISA AMBROSE Address: home [address] [place] [address] Name: AURORA NIX Name: MELISSA AGUILAR
--- OUTSIDE RECORDS SUMMARY | 2024-05-02 05:01 | XMS_ITS | Continuity of Care Document ---
Author Organization [facility] Address [address] [place] [address]- Care Team Providers Care Terrazzo Worker Helper Name Role Phone Anali Concepcion DO Primary Care Physician Encounter [facility] Date(s): 10/19/19 - 10/19/[address] [address] [facility] Attending Physician: Anali Concepcion DO Allergies, [...] diphtheria/tetanus/pertussis, acel(DTaP) 85 Recorded 1Result Comment: [06/08/2018] [facility]:37043-743-54 Medications Advair HFA 230 mcg / 21 [...] 05/21/19 18:52:50 EDT, Route to Pharmacy Electronically, [id number], [facility]/pharmacy #1130 Start Date: 05/21/19 Status: Ordered Claritin 10 mg oral tablet 10 mg, 1, tablet, By Mouth, Daily, # 90 tablet, Refills 0, Tot. Refills 0, Maintenance, 04/02/19 8:27:25 EDT, Route to Pharmacy Electronically, [id number], [facility]/pharmacy #1130 Start Date: 04/02/19 Status: Ordered Colace sodium 100 mg oral capsule 100 mg, 1, capsule, By Mouth, Daily, # 30 capsule, Refills 11, Tot. Refills 11, Maintenance, 02/08/18 15:01:19 EDT, Route to Pharmacy Electronically, [id number], [facility] [address] Start Date: 02/08/18 Stop Date: 02/03/19 Status: [...] capsule, 2 Refills, Maintenance, 10/17/19 16:34:00 EST, [facility], 146, cm, 10/07/19 8:16:00 EST, Height, 77.72, kg, 06/12/19 14:42:00 EDT, Dry Weight Start Date: 10/17/19 Status: Ordered ProAir HFA 90 mcg/inh inhalation aerosol with adapter 2, puffs, Inhalation, Every 6 hours, PRN, # 1 each, Refills 0, Tot. Refills 0, Soft Stop, 11/02/18 9:01:59 EST, Aerosol, Route to Pharmacy Electronically, [id number], [facility] [address] Start Date: 11/02/18 Stop Date: 12/02/18 Status: Ordered Recombivax HB Adult 10 mcg/mL intramuscular suspension 1 mL = 10 mcg, Intramuscular, Once, rpt at 1 and 6 months, # 1 mL, 2 Refills, Soft Stop, 09/02/19 12:37:00 EST, [facility]/pharmacy #1130, 146, cm, 06/28/19 16:39:00 EDT, [...]
--- OUTSIDE RECORDS SUMMARY | 2024-05-02 05:01 | XMS_ITS | Continuity of Care Document ---
Author Organization [facility] Address [address] [place] [address]- Care Team Providers Care Wax Ball Molder Name Role Phone Anali Concepcion DO Primary Care Physician ( [phone] Encounter [facility] Date(s): 05/18/22 - 06/17/22 [facility] [address] [place], [place] [address] Allergies, Adverse Reactions, Alerts Substance [...] Recorded diphtheria/tetanus/pertussis, acel(DTaP) 85 Recorded 1Result Comment: [facility][NOTE 2]# [id number] 2Result Comment: [06/08/2018] [facility][NOTE 2]:[id number] Medications albuterol 0.083% inhalation solution 3 mL [...] Personnel Name: Anali Concepcion DO Address: Address: [address] [place] [address] Adult & Pediatric Medicine [place], [place] [address]
--- OUTSIDE RECORDS SUMMARY | 2024-05-02 05:01 | XMS_ITS | Continuity of Care Document ---
Author Organization [facility] Address [address] [place] [address]- Care Team Providers Care Inventory Taker Name Role Phone Anali Concepcion DO Primary Care Physician Encounter [facility] Date(s): 11/29/19 - 12/09/19 [facility] [address] [place] [address]- [facility] Attending Physician: Louise Camarillo Admitting Physician: Louise Camarillo Referring Physician: AdmLouise galvan Allergies, Adverse Reactions, Alerts Substance Reaction Severity [...] Recorded 1Result Comment: [06/08/2018] [facility]:70812-329-86 Medications Advair HFA 230 mcg / 21 [...] 9:54:00 EDT, 12/05/19 9:54:00 EDT, Otic Suspension, [facility]/pharmacy #1130, 3 drops Ears, Both 2 times [...] 05/21/19 18:52:50 EDT, Route to Pharmacy Electronically, [id number], [facility]/pharmacy #1130 Start Date: 05/21/19 Status: Ordered Claritin 10 mg oral tablet 10 mg, 1, tablet, By Mouth, Daily, # 90 tablet, Refills 0, Tot. Refills 0, Maintenance, 04/02/19 8:27:25 EDT, Route to Pharmacy Electronically, [id number], [facility]/pharmacy #1130 Start Date: 04/02/19 Status: Ordered Colace sodium 100 mg oral capsule 100 mg, 1, capsule, By Mouth, Daily, # 30 capsule, Refills 11, Tot. Refills 11, Maintenance, 02/08/18 15:01:19 EDT, Route to Pharmacy Electronically, [id number], [facility] [address] Start Date: 02/08/18 Stop Date: 02/03/19 Status: Ordered Cortisporin-TC 0.3%-1%-0.33%-0.05% suspension 5 drops, Ears, Both, 3 times a day, for 10 days, # 10 mL, 0 Refills, Acute 12/19/19 14:49:00 EDT, 12/09/19 14:49:00 EDT, Susp[facility], [facility], 5 drops Ears, Both 3 times a day,x10 days, 146, cm, 11/29/19 15:26:00 EDT, Height, 75.5, kg, 10/31... Start Date: 12/09/19 Stop Date: 12/19/19 Status: Ordered Dulera Inhalation, 2 times a day, 0 Refills, Maintenance, 04/02/19 8:28:41 EDT Start Date: 04/02/19 Status: Ordered measles/mumps/rubella/varicella virus vaccine subcutaneous injection 0.5 mL, Subcutaneous Injection, Once, # 1 each, 0 Refills, Soft Stop, 09/02/19 12:34:00 EST, Powder, [facility]/pharmacy #1130, 0.5 mL Subcutaneous Injection Once, [...] each, 2 Refills, Maintenance, 11/29/19 16:12:00 EDT, [facility]/pharmacy#1130, 2 sprays Nares, Both Daily, 146, [...] capsule, 2 Refills, Maintenance, 10/17/19 16:34:00 EST, [facility], 146, cm, 10/07/19 8:16:00 EST, Height, 77.72, kg, 06/12/19 14:42:00 EDT, Dry Weight Start Date: 10/17/19 Status: Ordered ProAir HFA 90 mcg/inh inhalation aerosol with adapter 2, puffs, Inhalation, Every 6 hours, PRN, # 1 each, Refills 0, Tot. Refills 0, Soft Stop, 11/02/18 9:01:59 EST, Aerosol, Route to Pharmacy Electronically, [id number], [facility] [address] Start Date: 11/02/18 Stop Date: 12/02/18 Status: Ordered Recombivax HB Adult 10 mcg/mL intramuscular suspension 1 mL = 10 mcg, Intramuscular, Once, rpt at 1 and 6 months, # 1 mL, 2 Refills, Soft Stop, 09/02/19 12:37:00 EST, [facility]/pharmacy #1130, 146, cm, 06/28/19 16:39:00 EDT, [...] Maintenance, 06/28/19 17:02:22 EDT, Tablet Start Date: 10/25/19 Status: Ordered Problem List Condition Effective Dates [...]
--- OUTSIDE RECORDS SUMMARY | 2024-05-02 05:01 | XMS_ITS | Continuity of Care Document ---
Author Organization [facility] Address [address] [place] [address]- Care Team Providers Care Dry Transfer Worker Name Role Phone Anali Concepcion DO Primary Care Physician En[place] [facility] Date(s): 10/10/23 - 10/17/23 [facility] [address] [place] [address]- Encounter Diagnosis Sinusitis(Discharge Diagnosis) - 10/10/23 Asthma(Discharge Diagnosis) - 10/10/23 Obesity(Discharge Diagnosis) - 10/10/23 RA (rheumatoid arthritis)(Discharge Diagnosis) - 10/10/23 Attending Physician: Aris Hidalgo MD Allergies, Adverse Reactions, Alerts Substance Reaction [...] diphtheria/tetanus/pertussis, acel(DTaP) 85 Recorded 1Result Comment: [06/08/2018] [facility]:07851-650-32 2Result Comment: [facility]# [address]-5 Medications albuterol 0.083% inhalation solution 3 mL = 2.5 mg, Inhalation, Every 6 hours, PRN for wheezing, # 100 each, 0 Refills, Maintenance, 04/02/19 8:11:51 EDT, Solution Start Date: 04/02/19 Stop Date: 05/02/19 Status: Ordered albuterol 90 mcg/inh inhalation powder 1 puffs, Inhalation, Every 6 hours, PRN as needed, # 1 each, 0 Refills, Maintenance, 04/18/21 13:10:00 EDT, Powder, [facility], Partial fill upon patient request [...] EST, Route to Pharmacy Electronically, [facility], Partial fill upon patientrequest if [...] Effective Dates Health Status inical Service Informant Sinusitis Discharge Diagnosis 10/10/23 Asthma Discharge Diagnosis 10/10/23 Obesity Discharge Diagnosis 10/10/23 RA (rheumatoid arthritis) Discharge Diagnosis 10/10/23 Vital Signs Most recent to oldest [Reference Range]: 1 Height 146 cm (10/10/23 8:12 AM) Weight 74.5 kg (10/10/23 8:12 AM) Oxygen Saturation [94-100 %] 98 % (10/10/23 8:12 AM) Pulse Rate [55-90 bpm] 77 bpm (10/10/23 8:12 AM) Body Mass Index [18.5-24.99 kg/m2] 34.95 kg/m2 *>HHI* (10/10/23 8:12 AM) Blood Pressure [90-138/55-84 mm Hg] 104/ 71mm Hg (10/10/23 8:12 AM) Mode of Delivery (Oxygen) Room air (10/10/23 8:12 AM) Blood pressure sites Arm, left (10/10/23 8:12 AM) Social History Social History Type Response Smoking Status Never smoker entered on: 10/03/17 Sex Patient Care team information Care Team Personnel Name: Anali Concepcion DO Position: [facility] Physician - Primary Care Member Role: PCP Address: Address: [address] [place] [address] Adult & [place] [address]- Care Team Related Persons Name: KATIUSKA VIGIL Address: [address] [place] [address] Name: RAISA AMBROSE Address: [address] [place] [address] Name: AURORA NIX Name: MELISSA AGUILAR
--- OUTSIDE RECORDS SUMMARY | 2024-05-02 05:01 | XMS_ITS | Continuity of Care Document ---
Author Organization [facility] Address [address] [place] [address]- Care Team Providers Care Reading Intervention Teacher Name Role Phone Anali Concepcion DO Primary Care Physician Encounter [facility] [place] Date(s): 08/09/23 - 09/08/23 [facility] [address] [place], [place] [address] Allergies, Adverse Reactions, Alerts Substance Reaction Severity Status aloe vera topical Active Cats Active Dogs Active Ragweed Active Other Environmental Allergy 1, 2 Active Pollen Ragweed Active Latex Active ZyrTEC Active 1grass Feathers 2tree Immunizations [...] diphtheria/tetanus/pertussis, acel(DTaP) 85 Recorded 1Result Comment: [06/08/2018] [facility]:94280-925-18 2Result Comment: [facility]# [id number] Medications albuterol 0.083% inhalation solution 3 mL [...] EST, Route to Pharmacy Electronically, [facility], Partial fill upon patientrequest if [...] Team Personnel Name: Anali Concepcion DO Position: [facility] Physician - Primary Care Member Role: PCP Address: Address: [address] [place] [address] Adult [place] [address]- Care Team Related Persons Name: KATIUSKA VIGIL Address: home [address] [place] [address] Name: RAISA AMBROSE Address: [address] [place] [address] Name: AURORA NIX Name: MELISSA AGUILAR
--- OUTSIDE RECORDS SUMMARY | 2024-05-02 05:01 | XMS_ITS | Continuity of Care Document ---
Author Organization [facility] Address [address] [place] [address]- Care Team Providers Care Cat Dog Or Other Pet Groomer Name Role Phone Anali Concepcion DO Primary Care Physician ( [phone] Encounter [facility] Date(s): 04/12/23 - 05/12/23 [facility] [address] [place], [place] [address] Allergies, Adverse Reactions, Alerts Substance Reaction Severity Status aloe vera topical Active Cats Active Dogs Active Latex Active Ragweed Active Other Environmental Allergy 1, 2 Active ZyrTEC Active Pollen Ragweed Active 1grass [...] Vaccine 09/24/10 Recor ded Measles/Mumps/Rubella Virus Vaccine 3/24/05 Recor ded Measles/Mumps/Rubella Virus Vaccine 11/25/94 Recor [...] diphtheria/tetanus/pertussis, acel(DTaP) 85 Recorded 1Result Comment: [06/08/2018] [facility]:11643-448-73 2Result Comment: [facility]# [address]-1 Medications albuterol 0.083% inhalation solution 3 mL [...] Date: 04/13/23 Stop Date: 04/20/23 Status: Ordered Contrave 8 mg-90 mg oral [...] 06/06/22 11:31:00 EDT, Route to Pharmacy Electronically, [facility], Partial fill upon patientrequest if the prescription is for a schedule II opioid... Start Date: 06/06/22 Status: Ordered omeprazole 20 mg oral enteric coated capsule 1 capsule, By Mouth, Daily, # 30 capsule, 6 Refills, Maintenance, 02/06/23 16:38:00 EDT, [facility], 146, cm, 01/26/23 10:14:00 EDT, Height, 75, kg, 12/08/22 14:59:00 EDT, Dry Weight Start Date: 02/06/23 Status: Ordered polyethylene glycol 3350 oral powder for reconstitution = 17 Gm, By Mouth, Daily, # 527 Gm, 5 Refills, Maintenance, 04/28/23 11:28:00 EDT, [facility] #[facility], 17 Gm By Mouth Daily, 146, cm, 04/28/23 11:13:00 EDT, Height, 70.5, kg, 04/28/23 11:18:00 EDT, Dry Weight Start Date: 04/28/23 Status: Ordered Singulair 10 mg oral tablet [...] mL, 1 Refills, Maintenance, 04/28/23 11:27:00 EDT, [facility] #[facility], Partial fill upon patient... Start Date: 04/28/23 Status: Ordered Problem List Condition Confirmation Course Effective Dates Status H ealth Status Informant Allergic rhinitis Confirmed Active Anemia Confirmed Active Anxiety Confirmed Active Asthma Confirmed Active Last pap smear 10/03/17 negative, with negative HPV Confirmed Active Constipation Confirmed Active Endometriosis - diagnosed in 2011 [...] Personnel Name: Anali Concepcion DO Position: [facility] Physician - Primary Care Member Role: PCP Address: Address: [address] [place] [address] Adult & [place] [address]- [place] Care Team Related Persons Name: KATIUSKA VIGIL Address: home [address] [place] [address] Name: RAISA AMBROSE Address: home [address] [place] [address] Name: AURORA NIX Name: MELISSA AGUILAR
--- OUTSIDE RECORDS SUMMARY | 2024-05-02 05:01 | XMS_ITS | Continuity of Care Document ---
Author Organization [facility] Address [address] [place] [address]- Care Team Providers Care Professor Of Special Education Name Role Phone Anali Concepcion DO Primary Care Physician [facility] Date(s): 04/06/21 - 05/06/21 [facility] [address] [place] [address]- Allergies, Adverse Reactions, Alerts Substance Reaction Severity [...] acel(DTaP) 85 Recorded 1Result Comment: [06/08/2018] [facility]:90411-426-92 Medications albuterol 0.083% inhalation solution 3 mL [...] Refills, Maintenance, 01/12/21 8:16:00 EDT, [facility], 146, cm, 01/04/21 11:29:00 EDT, Height, 75.5, [...] 9:01:59 EST, Aerosol, Route to Pharmacy Electronically, [id number], [facility] Start Date: 11/02/18 Stop Date: 12/02/18 Status: [...]
--- OUTSIDE RECORDS SUMMARY | 2024-05-02 05:01 | XMS_ITS | Continuity of Care Document ---
Author Organization [facility] Address [address], [address] [place] [address]- Care Team Providers Care Hr Specialist Name Role Phone Anali Concepcion DO Primary Care Physician [facility]counter [facility] Date(s): 08/25/21 - 09/24/21 [facility] [address] [facility], [address] [place] [address]- Allergies, Adverse Reactions, Alerts Substance Reaction Severity [...] 85 Recorded 1Result Comment: [06/08/2018] [facility]:04753-362-13 Medications albuterol 0.083% inhalation solution 3 mL [...] Refills, Maintenance, 01/12/21 8:16:00 EDT, [facility], 146, cm, 01/04/21 11:29:00 EDT, Height, 75.5, [...] 9:01:59 EST, Aerosol, Route to Pharmacy Electronically, [id number], [facility] Start Date: 11/02/18 Stop Date: 12/02/18 Status: [...]
--- OUTSIDE RECORDS SUMMARY | 2024-05-02 05:01 | XMS_ITS | Continuity of Care Document ---
Author Organization [facility] Address [address] [place] [address]- Care Team Providers Care Sociology Faculty Member Name Role Phone Anali Concepcion DO Primary Care Physician Encounter [facility] Date(s): 08/12/20 - 08/19/20 [facility] [address] [place] [address]- Attending Physician: Aspen Abdul MD Referring Physician: [...] diphtheria/tetanus/pertussis, acel(DTaP) 85 Recorded 1Result Comment: [06/08/2018] [facility]:13528-411-85 Medications Advair HFA 230 mcg / 21 [...] 0 Refills, Maintenance, 11/29/19 15:48:00 EDT, Suspension, [facility]/pharmacy #0957, 4 drops Ears, [...] 05/21/19 18:52:50 EDT, Route to Pharmacy Electronically, [id number], [facility]/pharmacy #1130 Start Date: 05/21/19 Status: Ordered Claritin 10 mg oral tablet 10 mg, 1, tablet, By Mouth, Daily, # 90 tablet, Refills 0, Tot. Refills 0, Maintenance, 04/02/19 8:27:25 EDT, Route to Pharmacy Electronically, [id number], [facility]/pharmacy #1130 Start Date: 04/02/19 Status: Ordered Colace sodium 100 mg oral capsule 100 mg, 1, capsule, By Mouth, Daily, # 30 capsule, Refills 11, Tot. Refills 11, Maintenance, 02/08/18 15:01:19 EDT, Route to Pharmacy Electronically, [id number], [facility] [address] Start Date: 02/08/18 Stop Date: 02/03/19 Status: Ordered Dulera Inhalation, 2 times a day, 0 Refills, Maintenance, 04/02/19 8:28:41 EDT Start Date: 04/02/19 Status: Ordered Flonase 50 mcg/inh nasal spray 1 sprays, Nares, Both, 2 times a day, # 3 each, 0 Refills, Maintenance, 08/10/20 10:32:00 EST, [facility], Partial fill upon patient request, 1 sprays Nares, Both 2 times a day, 146, cm, 03/16/20 10:36:00 EDT, Height, 75.5, kg, 10/31... Start Date: 08/10/20 Status: Ordered guaiFENesin 100 mg/5 mL oral liquid 10 mL = 200 mg, By Mouth, Every 6 hours, PRN for cough, # 600 mL, 0 Refills, Maintenance, 08/10/20 10:34:00 EST, Liquid, [facility]/pharmacy #0957, Partial fill upon patient request if the prescription is for a schedule II opioid drug., 146, cm, 03/16/20 10:... Start Date: 08/10/20 Status: Ordered measles/mumps/rubella/varicella virus vaccine subcutaneous injection 0.5 mL, Subcutaneous Injection, Once, # 1 each, 0 Refills, Soft Stop, 09/02/19 12:34:00 EST, Powder, [facility]/pharmacy #1130, 0.5 mL Subcutaneous Injection Once, 146, cm, 06/28/19 16:39:00 EDT, Height, 77.72, kg, 06/12/19 14:42:00 EDT, Dry Weight Start Date: 09/02/19 Status: Ordered meloxicam 15 mg oral tablet 1 tablet = 15 mg, By Mouth, Daily, with food for foot pain, # 30 tablet, 0 Refills, Maintenance, 03/16/20 11:09:00 EDT, Tablet, [facility]/pharmacy #0957, 146, cm, 03/16/20 [...] each, 2 Refills, Maintenance, 11/29/19 16:12:00 EDT, [facility]/pharmacy#1130, 2 sprays Nares, Both [...] capsule, 2 Refills, Maintenance, 06/08/20 13:45:00 EDT, [facility]/pharmacy #0957, 146, cm, 03/16/20 10:36:00 EDT, Height, 75.5, kg, 10/31/19 15:44:00 EST, Dry Weight Start Date: 06/08/20 Status: Ordered predniSONE 10 mg oral tablet See Instructions, [id number],[id number],[id number] then stop with food, # 26 tablet, 0 Refills, Acute 08/20/20 18:22:00 EST, 08/12/20 18:21:00 EST, [facility]/pharmacy #0957, Partial fill upon patient request if the prescription is for a schedule II opioid d... Start Date: 08/12/20 Stop Date: 08/20/20 Status: Ordered ProAir HFA 90 mcg/inh inhalation aerosol with adapter 2, puffs, Inhalation, Every 6 hours, PRN, # 1 each, Refills 0, Tot. Refills 0, Soft Stop, 11/02/18 9:01:59 EST, Aerosol, Route to Pharmacy Electronically, [id number], [facility] [address] Start Date: 11/02/18 Stop Date: 12/02/18 Status: Ordered Recombivax HB Adult 10 mcg/mL intramuscular suspension 1 mL = 10 mcg, Intramuscular, Once, rpt at 1 and 6 months, # 1 mL, 2 Refills, Soft Stop, 09/02/19 12:37:00 EST, [facility]/pharmacy #1130, 146, cm, 06/28/19 [...] oldest [Reference Range]: 1 Height 146 cm (08/12/20 5:46 PM) Oxygen Saturation [94-100 %] 100 % (08/12/20 5:46 PM) Pulse Rate [55-90 bpm] 79 bpm (08/12/20 5:46 PM) Blood Pressure [90-138/55-84 mm Hg] 135/ 89mm Hg (08/12/20 5:46 PM) Respiratory Rate [16-30 br/min] 20 br/mi n (08/12/20 5:46 PM) Temperature [96.8-100.4 DegF] 98.4 DegF (08/12/20 5:46 PM) Mode of Delivery (Oxygen) Room air (08/12/20 5:46 PM) Blood pressure sites Arm, left (08/12/20 5:46 PM) Temperature Route Temporal (08/12/20 5:46 PM) Social History Social History Type Response Smoking Status Never smoker entered on: 10/03/17 Sex
--- OUTSIDE RECORDS SUMMARY | 2024-05-02 05:01 | XMS_ITS | Continuity of Care Document ---
Author Organization [facility] Address [address] [place] [address]- Care Team Providers Care Hvac R Instructor Name Role Phone Anali Concepcion DO Primary Care Physician Encounter [facility] Date(s): 04/28/23 - 05/05/23 [facility] [address] [place] [address]- Encounter Diagnosis Obese class I(Discharge Diagnosis) - 04/28/23 Allergic rhinitis(Discharge Diagnosis) - 04/28/23 Asthma(Discharge Diagnosis) - 04/28/23 Family history of colon cancer - sister at age 37; colonoscooy due 09/2023 (Discharge Diagnosis) - 04/28/23 Endometriosis - diagnosed in 2011 and had multiple chocolate cysts removed from her ovaries and fallopian tubes(Discharge Diagnosis) - 04/28/23 Constipation(Discharge Diagnosis) - 04/28/23 Vertigo(Discharge Diagnosis) - 04/28/23 Attending Physician: Anali Concepcion DO Allergies, Adverse [...] diphtheria/tetanus/pertussis, acel(DTaP) 85 Recorded 1Result Comment: [06/08/2018] [facility]:27487-297-27 2Result Comment: [facility]# [id number] Medications albuterol 0.083% inhalation solution 3 mL [...] tablet, 4 Refills, Maintenance, 04/26/23 9:22:00 EDT, [facility], 146, cm, 03/10/23 9:41:00 EDT, Height, 70.9, kg, 03/10/23 9:41:00 EDT, Dry Weight Start Date: 04/26/23 Status: Ordered norethindrone 5 mg oral tablet 5 mg, 1, tablet, By Mouth, Daily, # 90 tablet, Refills 3, Tot. Refills 3, Maintenance, 06/06/22 11:31:00 EDT, Route to Pharmacy Electronically, [facility], Partial fill upon patientrequest if the prescription is for a schedule II opioid... Start Date: 06/06/22 Status: Ordered omeprazole 20 mg oral enteric coated capsule 1 capsule, By Mouth, Daily, # 30 capsule, 6 Refills, Maintenance, 02/06/23 16:38:00 EDT, [facility], 146, cm, 01/26/23 10:14:00 EDT, Height, 75, kg, 12/08/22 14:59:00 EDT, Dry Weight Start Date: 02/06/23 Status: Ordered polyethylene glycol 3350 oral powder for reconstitution = 17 Gm, By Mouth, Daily, # 527 Gm, 5 Refills, Maintenance, 04/28/23 11:28:00 EDT, [facility], 17 Gm By Mouth Daily, [...] Effective Dates Health Status Clinical Service Informant Obese class I Discharge Diagnosis 04/28/23 Allergic rhinitis Discharge Diagnosis 04/28/23 Asthma Discharge Diagnosis 04/28/23 Family history of colon cancer - sister at age 37; colonoscooy due 09/2023 Discharge Diagnosis 04/28/23 Endometriosis - diagnosed in 2011 and had multiple chocolate cysts removed from her ovaries and fallopian tubes Discharge Diagnosis 04/28/23 Constipation Discharge Diagnosis 04/28/23 Vertigo Discharge Diagnosis 04/28/23 Vital Signs Most recent to oldest [Reference Range]: 1 Height 146 cm (04/28/23 11:13 AM) Weight 70.5 kg (04/28/23 11:13 AM) Oxygen Saturation [94-100 %] 97 % (04/28/23 11:13 AM) Pulse Rate [55-90 bpm] 88 bpm (04/28/23 11:13 AM) Body Mass Index [18.5-24.99 kg/m2] 33.07 kg/m2 *>HHI* (04/28/23 11:13 AM) Blood Pressure [90-138/55-84 mm Hg] 117/ 79mm Hg (04/28/23 11:13 AM) Blood pressure sites Arm, left (04/28/23 11:13 AM) Dry Weight 70.5 kg (04/28/23 11:13 AM) Social History Social History Type Response Smoking Status Never smoker entered on: 10/03/17 Sex Patient Care team information Care Team Personnel Name: Anali Concepcion DO Position: [facility] Physician - Primary Care Member Role: PCP Address: Address: [address] [place] [address] Adult [place] [address]- Care Team Related Persons Name: KATIUSKA VIGIL Address: [address] [place] [address] Name: RAISA AMBROSE Address: [address] [place] [address] Name: AURORA NIX Name: MELISSA AGUILAR
--- OUTSIDE RECORDS SUMMARY | 2024-05-02 05:02 | XMS_ITS | Continuity of Care Document ---
Author Organization [facility] Address [address] [place] [address]- Care Team Providers Care Linen Manager Name Role Phone Anali Concepcion DO Primary Care Physician [facility]counter [facility] Date(s): 07/15/22 - 08/14/22 [facility] [address] [place] [address]- Allergies, Adverse Reactions, Alerts Substance Reaction Severity [...] Recorded diphtheria/tetanus/pertussis, acel(DTaP) 85 Recorded 1Result Comment: [facility]# [id number] 2Result Comment: [06/08/2018] [facility]:08176-763-82 Medications albuterol 0.083% inhalation solution 3 mL [...] Team Personnel Name: Anali Concepcion DO Position: [facility] Primary Care Physician Member Role: PCP Address: Address: [address] [place] [address] Adult [place] [address]- Care Team Related Persons Name: MUSAKATIUSKA Address: [address] [place] [address] Name: RAISA AMBROSE Address: [address] [place] [address] Name: AURORA NIX Name: MELISSA AGUILAR
--- OUTSIDE RECORDS SUMMARY | 2024-05-02 05:02 | XMS_ITS | Continuity of Care Document ---
Author Organization [facility] Address [address] [place] [address]- Care Team Providers Care Bone Char Kiln Tender Name Role Phone Anali Concepcion DO Primary Care Physician Encounter [facility] Date(s): 01/04/21 - 01/11/21 [facility] [address] [place] [address]- Encounter Diagnosis Polyuria(Discharge Diagnosis) - 01/04/21 Polydipsia(Discharge Diagnosis) - 01/04/21 Abdominal bloating(Discharge Diagnosis) - 01/04/21 Attending Physician: Luly Malik MD Referring Physician: [...] diphtheria/tetanus/pertussis, acel(DTaP) 85 Recorded 1Result Comment: [06/08/2018] [facility]:39099-685-50 Medications albuterol 0.083% inhalation solution 3 mL = 2.5 mg, Inhalation, Every 6 hours, PRN for wheezing, # 100 each, 0 Refills, Maintenance, 04/02/19 8:11:51 EDT, Solution Start Date: 04/02/19 Stop Date: 05/02/19 Status: Ordered azelastine nasal 0.15% spray 2 [...] 20 mg oral enteric coated capsule 1 capsule = 20 mg, By Mouth, Daily, # 30 capsule, 0 Refills, Maintenance, 01/04/21 12:03:00 EDT, [facility], Partial fill upon patient request if the prescription is for a schedule II opioid drug. Start Date: 01/04/21 Status: Ordered Multivitamins By Mouth, Daily, 0 [...] 9:01:59 EST, Aerosol, Route to Pharmacy Electronically, [id number], [facility] [address] Start Date: 11/02/18 Stop Date: 12/02/18 Status: Ordered Singulair 10 mg oral tablet 10 mg, 1, tablet, By Mouth, Daily, # 30 tablet, Refills 5, Tot. Refills 5, Maintenance, 04/05/18 14:33:44 EDT, [facility] Start Date: 04/05/18 Stop Date: 10/02/18 Status: Ordered Problem List Condition Effective Dates [...] Effective Dates Health Status Clinical Service Informant Polyuria Discharge Diagnosis 01/04/21 Polydipsia Discharge Diagnosis 01/04/21 Abdominal bloating Discharge Diagnosis 01/04/21 Vital Signs Most recent to oldest [Reference Range]: 1 Height 146 cm (01/04/21 11:29 AM) Weight 70 kg (01/04/21 11:29 AM) Oxygen Saturation [94-100 %] 96 % (01/04/21 11:29 AM) Pulse Rate [55-90 bpm] 74 bpm (01/04/21 11:29 AM) Body Mass Index [18.5-24.99] 32.84 *>HHI* (01/04/21 11:29 AM) Blood Pressure [90-138/55-84 mm Hg] 112/ 72mm Hg (01/04/21 11:29 AM) Temperature [96.8-100.4 DegF] 98.7 DegF (01/04/21 11:29 AM) Mode of Delivery (Oxygen) Room air (01/04/21 11:29 AM) Blood pressure sites Arm, left (01/04/21 11:29 AM) Temperature Route Temporal (01/04/21 11:29 AM) Weight Obtained Via Standing scale (01/04/21 11:29 AM) Social History Social History Type Response Smoking Status Never smoker entered on: 10/03/17 Sex
--- OUTSIDE RECORDS SUMMARY | 2024-05-02 05:02 | XMS_ITS | Continuity of Care Document ---
Author Organization [facility] Address [address] [place] [address]- Care Team Providers Care Machine Operator Picker Name Role Phone Anali Concepcion DO Primary Care Physician [facility] Date(s): 01/27/22 - 02/26/22 [facility] [address] [place] [address]- Allergies, Adverse Reactions, Alerts Substance Reaction Severity [...] Recorded diphtheria/tetanus/pertussis, acel(DTaP) 85 Recorded 1Result Comment: [facility]# [id number] 2Result Comment: [06/08/2018] [facility]:22663-597-86 Medications albuterol 0.083% inhalation solution 3 mL [...] capsule, 1 Refills, Maintenance, 01/12/21 8:16:00 EDT, [facility], 146, cm, 01/04/21 11:29:00 EDT, Height, 75.5, [...]
--- OUTSIDE RECORDS SUMMARY | 2024-05-02 05:02 | XMS_ITS | Continuity of Care Document ---
Author Organization [facility] Address [address] [place] [address]- Care Team Providers Care Burn Nurse Name Role Phone Anali Concepcion DO Primary Care Physician Encounter [facility] Date(s): 05/16/23 - 06/15/23 [facility] [address] [place], [place] [address] Allergies, Adverse Reactions, Alerts Substance Reaction Severity [...] Recorded 1Result Comment: [06/08/2018] [facility]:79498-592-55 2Result Comment: [facility]# [id number] Medications albuterol 0.083% inhalation solution 3 mL [...] 06/06/22 11:31:00 EDT, Route to Pharmacy Electronically, [facility], Partial fill upon patientrequest if the prescription is for a schedule II opioid... Start Date: 06/06/22 Status: Ordered omeprazole 20 mg oral enteric coated capsule 1 capsule, By Mouth, Daily, # 30 capsule, 6 Refills, Maintenance, 02/06/23 16:38:00 EDT, [facility], 146, cm, 01/26/23 10:14:00 EDT, Height, 75, kg, 12/08/22 14:59:00 EDT, Dry Weight Start Date: 02/06/23 Status: Ordered polyethylene glycol 3350 oral powder for reconstitution = 17 Gm, By Mouth, Daily, # 527 Gm, 5 Refills, Maintenance, 04/28/23 11:28:00 EDT, [facility] #[facility], 17 Gm By Mouth Daily, [...] mL, 1 Refills, Maintenance, 04/28/23 11:27:00 EDT, [facility] #[facility], Partial fill upon patient... Start [...] Team Personnel Name: Anali Concepcion DO Position: [facility] Physician - Primary Care Member Role: PCP Address: Address: [address] [place] [address] Adult [place] [address]- [place] Care Team Related Persons Name: KATIUSKA VIGIL Address: [address] [place] [address] Name: RAISA AMBROSE Address: [address] [place] [address] Name: AURORA NIX Name: MELISSA AGUILAR
--- OUTSIDE RECORDS SUMMARY | 2024-05-02 05:02 | XMS_ITS | Continuity of Care Document ---
Author Organization [facility] Address [address] [place] [address]- Care Team Providers Care Crop Adjuster Name Role Phone Anali Concepcion DO Primary Care Physician ( [phone] [facility]counter [facility] Date(s): 01/05/23 - 02/04/23 [facility] [address] [place], [place] [address] Allergies, Adverse Reactions, Alerts Substance [...] diphtheria/tetanus/pertussis, acel(DTaP) 85 Recorded 1Result Comment: [06/08/2018] [facility]:[id number] 2Result Comment: [facility]# [address]-1 Medications albuterol 0.083% inhalation solution 3 mL [...] Primary Care Member Role: PCP Address: Address: [address] [place] [address] Adult & [place] [address]- Care Team Related Persons Name: KATIUSKA VIGIL Address: [address] [place] [address] Name: RAISA AMBROSE Address: [address] [place] [address] Name: AURORA NIX Name: MELISSA AGUILAR
--- OUTSIDE RECORDS SUMMARY | 2024-05-02 05:02 | XMS_ITS | Continuity of Care Document ---
Author Organization [facility] Address [address] [place] [address]- Care Team Providers Care Retoucher Name Role Phone Anali Concepcion DO Primary Care Physician [facility] Date(s): 03/23/22 - 04/22/22 [facility] [address] [place], [place] [address] Allergies, Adverse [...] Vaccine 11/25/04 Recor ded Measles/Mumps/Rubella Virus Vaccine 3/24/95 Recor ded Measles/Mumps/Rubella Virus Vaccine 07/03/87 Recor [...] 85 Recorded 1Result Comment: [facility]# [id number] 2Result Comment: [06/08/2018] [facility]:71462-670-03 Medications albuterol 0.083% inhalation solution 3 mL [...]
--- OUTSIDE RECORDS SUMMARY | 2024-05-02 05:02 | XMS_ITS | Continuity of Care Document ---
Author Organization [facility] Address [address] [place] [address]- Care Team Providers Care Bankruptcy Processor Name Role Phone Anali Concepcion DO Primary Care Physician [facility]counter [facility] Date(s): 02/10/23 - 03/12/23 [facility] [address] [place], [place] [address] Allergies, Adverse Reactions, Alerts Substance Reaction [...] acel(DTaP) 85 Recorded 1Result Comment: [06/08/2018] [facility]:50942-362-40 2Result Comment: [facility]# [address]-4 Medications albuterol 0.083% inhalation solution 3 mL [...] Primary Care Member Role: PCP Address: Address: [address] [place] [address] Adult & [place] [address]- Care Team Related Persons Name: KATIUSKA VIGIL Address: [address] [place] [address] Name: RAISA AMBROSE Address: [address] [place] [address] Name: AURORA NIX Name: MELISSA AGUILAR
--- OUTSIDE RECORDS SUMMARY | 2024-05-02 05:02 | XMS_ITS | Continuity of Care Document ---
Author Organization [facility] Address [address], [address] [place] [address]- Care Team Providers Care Reel Fed Printer Name Role Phone Anali Concepcion DO Primary Care Physician [place] [facility] [place] - 08/26/22 [facility] [address], [address] [place] [address]- Attending Physician: Hanane Millard MD Referring Physician: Anali Concepcion DO Allergies, [...] diphtheria/tetanus/pertussis, acel(DTaP) 85 Recorded 1Result Comment: [facility]# [address]-5 2Result Comment: [06/08/2018] [facility]:84154-065-86 Medications albuterol 0.083% inhalation solution 3 mL [...] 4 Refills, Maintenance, 04/12/22 8:47:00 EDT, Tablet, [facility], Partial fill upon patient request if the prescription is for a schedule II opioid drug., 146, cm, 04/12/22 8:15:00 EDT, Hei... Start Date: 04/12/22 Stop Date: 07/06/23 Status: Ordered norethindrone 5 mg oral tablet 5 mg, 1, tablet, By Mouth, Daily, # 90 tablet, Refills 3, Tot. Refills 3, Maintenance, 06/06/22 11:31:00 EDT, Route to Pharmacy Electronically, [facility] #[facility], Partial fill upon patientrequest if the prescription is for a schedule II opioid... Start Date: 06/06/22 Status: Ordered omeprazole 20 mg oral enteric coated capsule 1 capsule, By Mouth, Daily, # 30 capsule, 2 Refills, Maintenance, 07/15/22 13:24:00 EST, [facility], 146, cm, 05/17/22 8:07:00 EDT, [...] oldest [Reference Range]: 1 Height 146 cm (08/19/22 11:44 AM) Blood Pressure [90-138/55-84 mm Hg] 112/ 68mm Hg (08/19/22 11:44 AM) Blood pressure sites Arm, right (08/19/22 11:44 AM) Social History Social History Type Response Smoking Status Never smoker entered on: 10/03/17 Sex Patient Care team information Care Team Personnel Name: Anali Concepcion DO Position: S Primary Care Physician Member Role: PCP Address: Address: [address] [place] [address] Adult & [place] [address]- Care Team Related Persons Name: KATIUSKA VIGIL Address: [address] [place] [address] Name: RAISA AMBROSE Address: [address] [place] [address] Name: AURORA NIX Name: MELISSA AGUILAR
--- OUTSIDE RECORDS SUMMARY | 2024-05-02 05:02 | XMS_ITS | Continuity of Care Document ---
Author Organization [facility] Address [address] [place] [address]- Care Team Providers Care Venetian Blind Machine Operator Name Role Phone Anali Concepcion DO Primary Care Physician [facility] Date(s[facility] 11/07/20 - 12/07/20 [facility] [address] [place], [place] [address] Attending Physician: Louise Camarillo Admitting Physician: AdmLouise galvan Referring Physician: Admtr, Louise Allergies, Adverse Reactions, Alerts Substance Reaction Severity [...] diphtheria/tetanus/pertussis, acel(DTaP) 85 Recorded 1Result Comment: [06/08/2018] [facility]:39673-722-07 Medications Advair HFA 230 mcg / 21 [...] 0 Refills, Maintenance, 11/29/19 15:48:00 EDT, Suspension, [facility]/pharmacy #0957, 4 drops Ears, Both 2 [...] 05/21/19 18:52:50 EDT, Route to Pharmacy Electronically, [id number], [facility]/pharmacy #1130 Start Date: 05/21/19 Status: Ordered Claritin 10 mg oral tablet 10 mg, 1, tablet, By Mouth, Daily, # 90 tablet, Refills 0, Tot. Refills 0, Maintenance, 04/02/19 8:27:25 EDT, Route to Pharmacy Electronically, [id number], [facility]/pharmacy #1130 Start Date: 04/02/19 Status: Ordered Colace sodium 100 mg oral capsule 100 mg, 1, capsule, By Mouth, Daily, # 30 capsule, Refills 11, Tot. Refills 11, Maintenance, 02/08/18 15:01:19 EDT, Route to Pharmacy Electronically, [id number], [facility] [address] Start Date: 02/08/18 Stop Date: 02/03/19 Status: Ordered Dulera Inhalation, 2 times a day, 0 Refills, Maintenance, 04/02/19 8:28:41 EDT Start Date: 04/02/19 Status: Ordered Flonase 50 mcg/inh nasal spray 1 sprays, Nares, Both, 2 times a day, # 3 each, 0 Refills, Maintenance, 08/10/20 10:32:00 EST, [place], [facility] # 302, Partial fill upon patient request, 1 sprays Nares, Both 2 times a day, 146, cm, 03/16/20 10:36:00 EDT, Height, 75.5, kg, 10/31... Start Date: 08/10/20 Status: Ordered guaiFENesin 100 mg/5 mL oral liquid 10 mL = 200 mg, By Mouth, Every 6 hours, PRN for cough, # 600 mL, 0 Refills, Maintenance, 08/10/20 10:34:00 EST, Liquid, [facility]/pharmacy #0957, Partial fill upon patient request if the prescription is for a schedule II opioid drug., 146, cm, 03/16/20 10:... Start Date: 08/10/20 Status: Ordered measles/mumps/rubella/varicella virus vaccine subcutaneous injection 0.5 mL, Subcutaneous Injection, Once, # 1 each, 0 Refills, Soft Stop, 09/02/19 12:34:00 EST, Powder, [facility]/pharmacy #1130, 0.5 mL Subcutaneous Injection Once, 146, cm, 06/28/19 16:39:00 EDT, Height, 77.72, kg, 06/12/19 14:42:00 EDT, Dry Weight Start Date: 09/02/19 Status: Ordered meloxicam 15 mg oral tablet 1 tablet = 15 mg, By Mouth, Daily, with food for foot pain, # 30 tablet, 0 Refills, Maintenance, 03/16/20 11:09:00 EDT, Tablet, [facility]/pharmacy #0957, 146, cm, 03/16/20 10:36:00 EDT, [...] each, 2 Refills, Maintenance, 11/29/19 16:12:00 EDT, [facility]/pharmacy#1130, 2 sprays Nares, Both Daily, 146, [...] capsule, 2 Refills, Maintenance, 09/07/20 10:39:00 EST, [facility]/pharmacy #0957, 146, cm, 08/12/20 17:46:00 EST, Height, 75.5, kg, 10/31/19 15:44:00 EST, Dry Weight Start Date: 09/07/20 Status: Ordered ProAir HFA 90 mcg/inh inhalation aerosol with adapter 2, puffs, Inhalation, Every 6 hours, PRN, # 1 each, Refills 0, Tot. Refills 0, Soft Stop, 11/02/18 9:01:59 EST, Aerosol, Route to Pharmacy Electronically, [id number], [facility] [address] Start Date: 11/02/18 Stop Date: 12/02/18 Status: Ordered Recombivax HB Adult 10 mcg/mL intramuscular suspension 1 mL = 10 mcg, Intramuscular, Once, rpt at 1 and 6 months, # 1 mL, 2 Refills, Soft Stop, 09/02/19 12:37:00 EST, [facility]/pharmacy #1130, 146, cm, 06/28/19 16:39:00 [...]
--- OUTSIDE RECORDS SUMMARY | 2024-05-02 05:02 | XMS_ITS | Continuity of Care Document ---
Author Organization [facility] Address [address] [place] [address]- Care Team Providers Care Mri Special Procedures Technologist Name Role Phone Anali Concepcion DO Primary Care Physician [facility]counter [facility] Date(s): 09/25/23 - 10/25/23 [facility] [address] [place], [place] [address] Allergies, Adverse Reactions, Alerts [...] 1Result Comment: [06/08/2018] [facility]:84326-354-67 2Result Comment: [facility]# [address]-7 Medications albuterol 0.083% inhalation solution 3 mL [...] EST, Route to Pharmacy Electronically, [facility] #[facility], Partial fill upon patientrequest if [...] Team Personnel Name: Anali Concepcion DO Position: [facility] Physician - Primary Care Member Role: PCP Address: Address: [address] [place] [address] Adult & [place] [address]- Care Team Related Persons Name: KATIUSKA VIGIL Address: [address] [place] [address] Name: RAISA AMBROSE Address: home [address] [place] [address] Name: AURORA NIX Name: MELISSA AGUILAR
--- OUTSIDE RECORDS SUMMARY | 2024-05-02 05:02 | XMS_ITS | Continuity of Care Document ---
Author Organization [facility] Address [address] [place] [address]- Care Team Providers Care Feather Maker Name Role Phone Anali Concepcion DO Primary Care Physician Encounter [facility] Date(s): 01/27/22 - 02/26/22 [facility] [address] [place] [address]- Allergies, Adverse Reactions, Alerts Substance Reaction Severity [...] Recorded 1Result Comment: [facility]# [id number] 2Result Comment: [06/08/2018] [facility]:94139-770-19 Medications albuterol 0.083% inhalation solution 3 mL [...] 01/12/21 8:16:00 EDT, [facility], 146, cm, 01/04/21 11:29:00 EDT, Height, 75.5, [...]
--- OUTSIDE RECORDS SUMMARY | 2024-05-02 05:02 | XMS_ITS | Continuity of Care Document ---
Author Organization [facility] Cecilia n[facility] Address [address], [address] [place] [address]- Care Team Providers Care Eviction Specialist Name Role Phone Anali Concepcion DO Primary Care Physician ( [phone] Encounter [facility] Date(s): 08/01/22 - 08/31/22 [facility] [address], [address] [place] [address]- Allergies, Adverse Reactions, Alerts Substance Reaction Severity [...] [facility]# [address]-4 2Result Comment: [06/08/2018] [facility]:48738-251-23 Medications albuterol 0.083% inhalation solution 3 mL [...] Care Physician Member Role: PCP Address: Address: [address] [place] [address] Adult & [place] [address]- Care Team Related Persons Name: KATIUSKA VIGIL Address: [address] [place] [address] Name: RAISA AMBROSE Address: [address] [place] [address] Name: AURORA NIX Name: MELISSA AGUILAR
--- OUTSIDE RECORDS SUMMARY | 2024-05-02 05:02 | XMS_ITS | Continuity of Care Document ---
Author Organization [facility] Address [address] [place] [address]- Care Team Providers Care Substation Operator Automatic Name Role Phone Anali Concepcion DO Primary Care Physician [place] [facility] 02/25/21 [facility] [address] [place], [place] [address] Attending Physician: Louise Camarillo Admitting Physician: Louise [...] toxoids (Td) 01/30/02 Recorded Poliovirus Vaccine, Inactivated 4/3/91 Recorded Poliovirus Vaccine, Inactivated 07/03/87 Recorded Poliovirus Vaccine, Inactivated 04/28/86 Recorded Poliovirus Vaccine, Inactivated 02/24/86 Recorded diphtheria/tetanus/pertussis, acel(DTaP) 07/03/87 Recorded diphtheria/tetanus/pertussis, acel(DTaP) 06/25/86 Recorded diphtheria/tetanus/pertussis, acel(DTaP) 04/28/86 Recorded diphtheria/tetanus/pertussis, acel(DTaP) 85 Recorded 1Result Comment: [06/08/2018] [facility]:78748-294-20 Medications albuterol 0.083% inhalation solution 3 mL [...] capsule, 1 Refills, Maintenance, 01/12/21 8:16:00 EDT, [facility], 146, cm, 01/04/21 11:29:00 EDT, Height, 75.5, kg, 02/27/20 15:44:00 EST, Dry Weight Start Date: 01/12/21 [...] 9:01:59 EST, Aerosol, Route to Pharmacy Electronically, [id number], [facility] [address] Start Date: 11/02/18 Stop Date: 12/02/18 Status: [...]
--- OUTSIDE RECORDS SUMMARY | 2024-05-02 05:02 | XMS_ITS | Continuity of Care Document ---
Author Organization [facility] [employer] [employer] [facility] Address [address], [address] [place] [address]- Care Team Providers Care Healthcare Analyst Name Role Phone Anali Concepcion DO Primary Care Physician ( [phone] Encounter [facility] Date(s): 11/03/21 - 12/03/21 [facility] [employer] [facility] [address] [place], [place] [address] Attending Physician: Louise Camarillo Admitting Physician: AdmtrLouise [...] acel(DTaP) 85 Recorded 1Result Comment: [06/08/2018] [facility]:24181-451-06 Medications albuterol 0.083% inhalation solution 3 mL [...] capsule, 1 Refills, Maintenance, 01/12/21 8:16:00 EDT, [facility] 18[facility], 146, cm, 01/04/21 11:29:00 EDT, Height, 75.5, [...]
--- OUTSIDE RECORDS SUMMARY | 2024-05-02 05:02 | XMS_ITS | Continuity of Care Document ---
Author Organization [facility] Address [address] [place] [address]- Care Team Providers Care Air Conditioning Technician Name Role Phone Anali Concepcion DO Primary Care Physician [place] [facility] [place] 08[place]01[place]23 - 08/31/23 [facility] [address] [place] [address] [place] Allergies, Adverse Reactions, Alerts Substance Reaction Severity [...] diphtheria/tetanus/pertussis, acel(DTaP) 85 Recorded 1Result Comment: [06/08/2018] [facility]:96364-228-93 2Result Comment: [facility]# [address]-6 Medications albuterol 0.083% inhalation solution 3 mL [...] EST, Route to Pharmacy Electronically, [facility], Partial fill upon patientrequest if [...] Team Personnel Name: Anali Concepcion DO Position: [facility] Physician - Primary Care Member Role: PCP Address: Address: [address] [place] [address] Adult & [place] [address]- Care Team Related Persons Name: KATIUSKA VIGIL Address: [address] [place] [address] Name: RAISA AMBROSE Address: home [address] [place] [address] Name: AURORA NIX Name: MELISSA AGUILAR
--- OUTSIDE RECORDS SUMMARY | 2024-05-02 05:02 | XMS_ITS | Continuity of Care Document ---
Author Organization [facility] Address [address] [place] [address]- Care Team Providers Care Able Bodied Seaman Name Role Phone Anali Concepcion DO Primary Care Physician [place] [facility] [place] 11[place]07[place]20 - 11/14/20 [facility] [address] [place] [address]- Attending Physician: Elmira Reed Referring Physician: Anali Concepcion DO Allergies, Adverse [...] Recorded 1Result Comment: [06/08/2018] [facility]:01526-667-73 Medications Advair HFA 230 mcg / 21 [...] 0 Refills, Maintenance, 11/29/19 15:48:00 EDT, Suspension, [facility]/pharmacy #0957, 4 drops Ears, [...] 05/21/19 18:52:50 EDT, Route to Pharmacy Electronically, [id number], [facility]/pharmacy #1130 Start Date: 05/21/19 Status: Ordered Claritin 10 mg oral tablet 10 mg, 1, tablet, By Mouth, Daily, # 90 tablet, Refills 0, Tot. Refills 0, Maintenance, 04/02/19 8:27:25 EDT, Route to Pharmacy Electronically, [id number], [facility]/pharmacy #1130 Start Date: 04/02/19 Status: Ordered Colace sodium 100 mg oral capsule 100 mg, 1, capsule, By Mouth, Daily, # 30 capsule, Refills 11, Tot. Refills 11, Maintenance, 02/08/18 15:01:19 EDT, Route to Pharmacy Electronically, [id number], [facility] [address] Start Date: 02/08/18 Stop Date: 02/03/19 Status: Ordered Dulera Inhalation, 2 times a day, 0 Refills, Maintenance, 04/02/19 8:28:41 EDT Start Date: 04/02/19 Status: Ordered Flonase 50 mcg/inh nasal spray 1 sprays, Nares, Both, 2 times a day, # 3 each, 0 Refills, Maintenance, 08/10/20 10:32:00 EST, [place], [facility] # 302, Partial fill upon patient request, 1 sprays Nares, Both 2 times a day, 146, cm, 03/16/20 10:36:00 EDT, Height, 75.5, kg, 10/31... Start Date: 08/10/20 Status: Ordered guaiFENesin 100 mg/5 mL oral liquid 10 mL = 200 mg, By Mouth, Every 6 hours, PRN for cough, # 600 mL, 0 Refills, Maintenance, 08/10/20 10:34:00 EST, Liquid, [facility]/pharmacy #0957, Partial fill upon patient request if the prescription is for a schedule II opioid drug., 146, cm, 03/16/20 10:... Start Date: 08/10/20 Status: Ordered measles/mumps/rubella/varicella virus vaccine subcutaneous injection 0.5 mL, Subcutaneous Injection, Once, # 1 each, 0 Refills, Soft Stop, 09/02/19 12:34:00 EST, Powder, [facility]/pharmacy #1130, 0.5 mL Subcutaneous Injection Once, 146, cm, 06/28/19 16:39:00 EDT, Height, 77.72, kg, 06/12/19 14:42:00 EDT, Dry Weight Start Date: 09/02/19 Status: Ordered meloxicam 15 mg oral tablet 1 tablet = 15 mg, By Mouth, Daily, with food for foot pain, # 30 tablet, 0 Refills, Maintenance, 03/16/20 11:09:00 EDT, Tablet, [facility]/pharmacy #0957, 146, cm, 03/16/20 [...] each, 2 Refills, Maintenance, 11/29/19 16:12:00 EDT, [facility]/pharmacy#1130, 2 sprays Nares, Both [...] capsule, 2 Refills, Maintenance, 09/07/20 10:39:00 EST, [facility]/pharmacy #0957, 146, cm, 08/12/20 17:46:00 EST, Height, 75.5, kg, 10/31/19 15:44:00 EST, Dry Weight Start Date: 09/07/20 Status: Ordered ProAir HFA 90 mcg/inh inhalation aerosol with adapter 2, puffs, Inhalation, Every 6 hours, PRN, # 1 each, Refills 0, Tot. Refills 0, Soft Stop, 11/02/18 9:01:59 EST, Aerosol, Route to Pharmacy Electronically, [id number], [facility] [address] Start Date: 11/02/18 Stop Date: 12/02/18 Status: Ordered Recombivax HB Adult 10 mcg/mL intramuscular suspension 1 mL = 10 mcg, Intramuscular, Once, rpt at 1 and 6 months, # 1 mL, 2 Refills, Soft Stop, 09/02/19 12:37:00 EST, [facility]/pharmacy #1130, 146, cm, 06/28/19 16:39:00 EDT, Height, 77.72, kg, 06/12/19 14:42:00 EDT, Dry Weight Start Date: 09/02/19 Status: Ordered Singulair 10 mg oral tablet 10 mg, 1, tablet, By Mouth, Daily, # 30 tablet, Refills 5, Tot. Refills 5, Maintenance, 04/05/18 14:33:44 EDT, Print Requisition Start Date: 04/05/18 Stop Date: 10/02/18 Status: Ordered tiZANidine 2 mg oral tablet See Instructions, PRN, 1-2 tablet By Mouth Every 8 hours PRN muscle spasm. Start with 1 and increase as needed/tolerated., # 24 tablet, Refills 0, Tot. Refills 0, Acute 11/15/20 14:00:00 EDT, muscle spasm, 11/07/20 13:10:00 EST, Instructions Replace R... Start Date: 11/07/20 Stop Date: 11/15/20 Status: Ordered Zantac 150 oral tablet 1 [...] oldest [Reference Range]: 1 Height 146 cm (11/07/20 12:40 PM) Oxygen Saturation [94-100 %] 99 % (11/07/20 12:40 PM) Pulse Rate [55-90 bpm] 70 bpm (11/07/20 12:40 PM) Blood Pressure [90-138/55-84 mm Hg] 134/ 85mm Hg (11/07/20 12:40 PM) Respiratory Rate [16-30 br/min] 20 br/mi n (11/07/20 12:40 PM) Temperature [96.8-100.4 DegF] 98.1 DegF (11/07/20 12:40 PM) Mode of Delivery (Oxygen) Room air (11/07/20 12:40 PM) Social History Social History Type Response Smoking Status Never smoker entered on: 10/03/17 Sex
--- OUTSIDE RECORDS SUMMARY | 2024-05-02 05:02 | XMS_ITS | Continuity of Care Document ---
Author Organization [facility] Address [address] [place] [address]- Care Team Providers Care Center Hole Reamer Name Role Phone Anali Concepcion DO Primary Care Physician Encounter [facility] Date(s): 02/06/20 - 03/07/20 [facility] [address] [place] [address]- [facility] Attending Physician: Louise Camarillo Admitting Physician: Louise [...] diphtheria/tetanus/pertussis, acel(DTaP) 85 Recorded 1Result Comment: [06/08/2018] [facility]:25409-597-76 Medications Advair HFA 230 mcg / 21 [...] 0 Refills, Maintenance, 11/29/19 15:48:00 EDT, Suspension, [facility]/pharmacy #0957, 4 drops Ears, Both 2 times [...] 05/21/19 18:52:50 EDT, Route to Pharmacy Electronically, [id number], [facility]/pharmacy #1130 Start Date: 05/21/19 Status: Ordered Claritin 10 mg oral tablet 10 mg, 1, tablet, By Mouth, Daily, # 90 tablet, Refills 0, Tot. Refills 0, Maintenance, 04/02/19 8:27:25 EDT, Route to Pharmacy Electronically, [id number], [facility]/pharmacy #1130 Start Date: 04/02/19 Status: Ordered Colace sodium 100 mg oral capsule 100 mg, 1, capsule, By Mouth, Daily, # 30 capsule, Refills 11, Tot. Refills 11, Maintenance, 02/08/18 15:01:19 EDT, Route to Pharmacy Electronically, [id number], [facility] [address] Start Date: 02/08/18 Stop Date: 02/03/19 Status: Ordered Dulera Inhalation, 2 times a day, 0 Refills, Maintenance, 04/02/19 8:28:41 EDT Start Date: 04/02/19 Status: Ordered measles/mumps/rubella/varicella virus vaccine subcutaneous injection 0.5 mL, Subcutaneous Injection, Once, # 1 each, 0 Refills, Soft Stop, 09/02/19 12:34:00 EST, Powder, [facility]/pharmacy #1130, 0.5 mL Subcutaneous Injection Once, 146, [...] each, 2 Refills, Maintenance, 11/29/19 16:12:00 EDT, [facility]/pharmacy#1130, 2 sprays Nares, Both Daily, 146, cm, [...] capsule, 2 Refills, Maintenance, 01/20/20 13:47:00 EDT, [facility]/pharmacy #0957, 146, cm, 01/16/20 10:45:00 EDT, Height, 75.5, kg, 10/31/19 15:44:00 EST, Dry Weight Start Date: 01/20/20 Status: Ordered ProAir HFA 90 mcg/inh inhalation aerosol with adapter 2, puffs, Inhalation, Every 6 hours, PRN, # 1 each, Refills 0, Tot. Refills 0, Soft Stop, 11/02/18 9:01:59 EST, Aerosol, Route to Pharmacy Electronically, [id number], [facility] [address] Start Date: 11/02/18 Stop Date: 12/02/18 Status: Ordered Recombivax HB Adult 10 mcg/mL intramuscular suspension 1 mL = 10 mcg, Intramuscular, Once, rpt at 1 and 6 months, # 1 mL, 2 Refills, Soft Stop, 09/02/19 12:37:00 EST, [facility]/pharmacy #1130, 146, cm, 06/28/19 16:39:00 EDT, Height, [...]
--- OUTSIDE RECORDS SUMMARY | 2024-05-02 05:02 | XMS_ITS | Continuity of Care Document ---
Author Organization [facility] Address [address] [place] [address]- Care Team Providers Care Electrical Power Station Technician Name Role Phone Anali Concepcion DO Primary Care Physician [facility]): 08[facility] - 09/16/20 [facility] [address], [place] [address] Allergies, Adverse Reactions, Alerts Substance [...] acel(DTaP) 85 Recorded 1Result Comment: [06/08/2018] [facility]:09811-988-86 Medications Advair HFA 230 mcg / 21 [...] 0 Refills, Maintenance, 11/29/19 15:48:00 EDT, Suspension, [facility]/pharmacy #0957, 4 drops Ears, [...] 05/21/19 18:52:50 EDT, Route to Pharmacy Electronically, [id number], [facility]/pharmacy #1130 Start Date: 05/21/19 Status: Ordered Claritin 10 mg oral tablet 10 mg, 1, tablet, By Mouth, Daily, # 90 tablet, Refills 0, Tot. Refills 0, Maintenance, 04/02/19 8:27:25 EDT, Route to Pharmacy Electronically, [id number], [facility]/pharmacy #1130 Start Date: 04/02/19 Status: Ordered Colace sodium 100 mg oral capsule 100 mg, 1, capsule, By Mouth, Daily, # 30 capsule, Refills 11, Tot. Refills 11, Maintenance, 02/08/18 15:01:19 EDT, Route to Pharmacy Electronically, [id number], [facility] [address] Start Date: 02/08/18 Stop Date: 02/03/19 Status: Ordered Dulera Inhalation, 2 times a day, 0 Refills, Maintenance, 04/02/19 8:28:41 EDT Start Date: 04/02/19 Status: Ordered Flonase 50 mcg/inh nasal spray 1 sprays, Nares, Both, 2 times a day, # 3 each, 0 Refills, Maintenance, 08/10/20 10:32:00 EST, [place], [facility] # 302, Partial fill upon patient request, 1 sprays Nares, Both 2 times a day, 146, cm, 03/16/20 10:36:00 EDT, Height, 75.5, kg, 10/31... Start Date: 08/10/20 Status: Ordered guaiFENesin 100 mg/5 mL oral liquid 10 mL = 200 mg, By Mouth, Every 6 hours, PRN for cough, # 600 mL, 0 Refills, Maintenance, 08/10/20 10:34:00 EST, Liquid, [facility]/pharmacy #0957, Partial fill upon patient request if the prescription is for a schedule II opioid drug., 146, cm, 03/16/20 10:... Start Date: 08/10/20 Status: Ordered measles/mumps/rubella/varicella virus vaccine subcutaneous injection 0.5 mL, Subcutaneous Injection, Once, # 1 each, 0 Refills, Soft Stop, 09/02/19 12:34:00 EST, Powder, [facility]/pharmacy #1130, 0.5 mL Subcutaneous Injection Once, 146, cm, 06/28/19 16:39:00 EDT, Height, 77.72, kg, 06/12/19 14:42:00 EDT, Dry Weight Start Date: 09/02/19 Status: Ordered meloxicam 15 mg oral tablet 1 tablet = 15 mg, By Mouth, Daily, with food for foot pain, # 30 tablet, 0 Refills, Maintenance, 03/16/20 11:09:00 EDT, Tablet, [facility]/pharmacy #0957, 146, cm, 03/16/20 [...] each, 2 Refills, Maintenance, 11/29/19 16:12:00 EDT, [facility]/pharmacy#1130, 2 sprays Nares, Both [...] capsule, 2 Refills, Maintenance, 09/07/20 10:39:00 EST, [facility]/pharmacy #0957, 146, cm, 08/12/20 17:46:00 EST, Height, 75.5, kg, 10/31/19 15:44:00 EST, Dry Weight Start Date: 09/07/20 Status: Ordered ProAir HFA 90 mcg/inh inhalation aerosol with adapter 2, puffs, Inhalation, Every 6 hours, PRN, # 1 each, Refills 0, Tot. Refills 0, Soft Stop, 11/02/18 9:01:59 EST, Aerosol, Route to Pharmacy Electronically, [id number], [facility] [address] Start Date: 11/02/18 Stop Date: 12/02/18 Status: Ordered Recombivax HB Adult 10 mcg/mL intramuscular suspension 1 mL = 10 mcg, Intramuscular, Once, rpt at 1 and 6 months, # 1 mL, 2 Refills, Soft Stop, 09/02/19 12:37:00 EST, [facility]/pharmacy #1130, 146, cm, 06/28/19 [...]
--- OUTSIDE RECORDS SUMMARY | 2024-05-02 05:02 | XMS_ITS | Continuity of Care Document ---
Author Organization [facility] Address [address] [place] [address]- Care Team Providers Care Lawn And Garden Technician Name Role Phone Anali Concepcion DO Primary Care Physician ( [phone] Encounter [facility] Date(s): 03/16/20 - 03/23/20 [facility] [address] [place] [address]- [facility] Attending Physician: Bruce Khalil MD Referring Physician: [...] acel(DTaP) 85 Recorded 1Result Comment: [06/08/2018] [facility]:48013-640-17 Medications Advair HFA 230 mcg / 21 [...] 0 Refills, Maintenance, 11/29/19 15:48:00 EDT, Suspension, [facility]/pharmacy #0957, 4 drops Ears, Both 2 times [...] 05/21/19 18:52:50 EDT, Route to Pharmacy Electronically, [id number], [facility]/pharmacy #1130 Start Date: 05/21/19 Status: Ordered Claritin 10 mg oral tablet 10 mg, 1, tablet, By Mouth, Daily, # 90 tablet, Refills 0, Tot. Refills 0, Maintenance, 04/02/19 8:27:25 EDT, Route to Pharmacy Electronically, [id number], [facility]/pharmacy #1130 Start Date: 04/02/19 Status: Ordered Colace sodium 100 mg oral capsule 100 mg, 1, capsule, By Mouth, Daily, # 30 capsule, Refills 11, Tot. Refills 11, Maintenance, 02/08/18 15:01:19 EDT, Route to Pharmacy Electronically, [id number], [facility] [address] Start Date: 02/08/18 Stop Date: 02/03/19 Status: Ordered Dulera Inhalation, 2 times a day, 0 Refills, Maintenance, 04/02/19 8:28:41 EDT Start Date: 04/02/19 Status: Ordered measles/mumps/rubella/varicella virus vaccine subcutaneous injection 0.5 mL, Subcutaneous Injection, Once, # 1 each, 0 Refills, Soft Stop, 09/02/19 12:34:00 EST, Powder, [facility]/pharmacy #1130, 0.5 mL Subcutaneous Injection Once, 146, cm, 06/28/19 16:39:00 EDT, Height, 77.72, kg, 06/12/19 14:42:00 EDT, Dry Weight Start Date: 09/02/19 Status: Ordered meloxicam 15 mg oral tablet 1 tablet = 15 mg, By Mouth, Daily, with food for foot pain, # 30 tablet, 0 Refills, Maintenance, 03/16/20 11:09:00 EDT, Tablet, [facility]/pharmacy #0957, 146, cm, 03/16/20 10:36:00 EDT, Height, [...] each, 2 Refills, Maintenance, 11/29/19 16:12:00 EDT, [facility]/pharmacy#1130, 2 sprays Nares, Both Daily, 146, cm, [...] capsule, 2 Refills, Maintenance, 01/20/20 13:47:00 EDT, [facility]/pharmacy #0957, 146, cm, 01/16/20 10:45:00 EDT, Height, 75.5, kg, 10/31/19 15:44:00 EST, Dry Weight Start Date: 01/20/20 Status: Ordered ProAir HFA 90 mcg/inh inhalation aerosol with adapter 2, puffs, Inhalation, Every 6 hours, PRN, # 1 each, Refills 0, Tot. Refills 0, Soft Stop, 11/02/18 9:01:59 EST, Aerosol, Route to Pharmacy Electronically, [id number], [facility] [address] Start Date: 11/02/18 Stop Date: 12/02/18 Status: [...] oldest [Reference Range]: 1 Height 146 cm (03/16/20 10:36 AM) Oxygen Saturation [94-100 %] 98 % (03/16/20 10:36 AM) Pulse Rate [55-90 bpm] 82 bpm (03/16/20 10:36 AM) Blood Pressure [90-138/55-84 mm Hg] 132/ 79mm Hg (03/16/20 10:36 AM) Respiratory Rate [16-30 br/min] 20 br/mi n (03/16/20 10:36 AM) Temperature [96.8-100.4 DegF] 98.2 DegF (03/16/20 10:36 AM) Mode of Delivery (Oxygen) Room air (03/16/20 10:36 AM) Blood pressure sites Arm, left (03/16/20 10:36 AM) Temperature Route Temporal (03/16/20 10:36 AM) Social History Social History Type Response Smoking Status Never smoker entered on: 10/03/17 Sex
--- OUTSIDE RECORDS SUMMARY | 2024-05-02 05:02 | XMS_ITS | Continuity of Care Document ---
Author Organization [facility] Address [address] [place] [address]- Care Team Providers Care Termite Renewal Inspector Name Role Phone Anali Concepcion DO Primary Care Physician [facility]): 08[facility]12/22 - 08/19/22 [facility] [address] [place], [place] [address] Attending Physician: Anali Concepcion DO [...] Recorded 1Result Comment: [facility]# [id number] 2Result Comment: [06/08/2018] [facility]:45055-271-89 Medications albuterol 0.083% inhalation solution 3 mL [...] oldest [Reference Range]: 1 Height 146 cm (08/12/22 11:26 AM) Oxygen Saturation [94-100 %] 97 % (08/12/22 11:26 AM) Pulse Rate [55-90 bpm] 84 bpm (08/12/22 11:26 AM) Blood Pressure [90-138/55-84 mm Hg] 108/ 82mm Hg (08/12/22 11:26 AM) Mode of Delivery (Oxygen) Room air (08/12/22 11:26 AM) Blood pressure sites Arm, left (08/12/22 11:26 AM) Social History Social History Type Response Smoking Status Never smoker entered on: 10/03/17 Sex Note * Brooklny Rodríguez: PERFORM, SIGN, VERIFY Event Display: Patient Education/Instruction Authored Date: [id number] [facility] *[facility] Adult [facility] Clinical Summary Name DIONY AMBROSE Age 36 Years 1985 PCP Anali Concepcion DO PCP Visit Date 08/12/2022 10:57:00 Additional Instructions: Scheduled Appointments?? Future Appointments ?*[facility]DUPLICATING [facility]ACHINE [facility]IC[facility] ?[address]??[place],??[place],??[address] ?Phone:??--?Fax:??-- ?Appt. Date:??08/19/2022?11:40 AM ?Scheduled Provider:??Hanane Millard MD Follow-Up Instructions ?? Diagnosis Medications: Please [...] 2 spray(s) twice a day. Next Dose: Diclofenac Topical (Voltaren 1% topical gel) 1 farzana Topically 4 times a day. with food for 4-7 days.Refills: 0. Next Dose: Fexofenadine (fexofenadine 60 mg oral tablet) 1 tab(s) Oral Daily for 90 Days. Refills: 4. Next Dose: formoterol-mometasone (Dulera) Inhalation twice a day. Next Dose: Montelukast (Singulair 10 mg oral tablet) 1 tab(s) Oral Daily for 30 Days. Refills: 5. Next Dose: Multivitamin, ( Multivitamins) Oral Daily. Next Dose: Norethindrone (norethindrone 5 mg oral tablet) 1 tab(s) Oral Daily. Refills: 3. Next Dose: Omeprazole (omeprazole 20 mg oral enteric coated capsule) 1 capsule Oral Daily. Refills: 2. Next Dose: Ondansetron (ondansetron 4 mg oral tablet) 1 tab(s) Oral every 8 hours. Refills: 0. Next Dose: Simethicone (simethicone 125 mg oral tablet, chewable) 1 tab(s) Chew 4 times a day. Refills: 0. Next Dose: Allergy Info:?? ZyrTEC; Latex; aloe vera topical Medications Given This Visit Future Orders ?No future orders Vital Signs Height 146 cm Weight BMI Blood Pressure 108 mm Hg/82 mm Hg Temperature Pulse Rate 84 bpm Respiratory Rate 02 Sat Mode of Delivery 97 %/Room air You can now view a summary of your hospital visit from the comfort of your home through a free online portal called [employer]. [employer] is a website that allows you to securely view your medical information including discharge summary, medications and follow-up visits. ??You can alsosend a secure electronic message to your doctor???s office to request appointments, renew medications or just ask a question. You can enroll at [email or web address] or register during your next office visit. [...] primary care provider, you may find a [facility] provider by calling [facility] at [phone]. For information about the plan of care [...] Team Personnel Name: Anali Concepcion DO Position: [facility] Primary Care Physician Member Role: PCP Address: Address: [address] [place] [address] Adult [place] [address]- Care Team Related Persons Name: KATIUSKA VIGIL Address: home [address] [place] [address] Name: RAISA AMBROSE Address: [address] [place] [address] Name: AURORA NIX Name: MELISSA AGUILAR
--- OUTSIDE RECORDS SUMMARY | 2024-05-02 05:02 | XMS_ITS | Continuity of Care Document ---
Author Organization [facility] Address [address] [place] [address]- Care Team Providers Care Acute Care Nurse Name Role Phone Anali Concepcion DO Primary Care Physician [facility] Date(s): 12/29/23 - 01/28/24 [facility] [address] [place], [place] [address] Allergies, Adverse Reactions, Alerts Substance Reaction [...] Fareed rded influenza virus vaccine, inactivated 06/30/21 Farede rded influenza virus vaccine, inactivated 06/26/20 Fareed [...] 85 Recorded 1Result Comment: [06/08/2018] [facility]:91737-190-16 2Result Comment: [facility]# [address]-7 Medications albuterol 0.083% inhalation solution 3 mL [...] tablet, 4 Refills, Maintenance, 04/26/23 9:22:00 EDT, [facility], 146, cm, 03/10/23 9:41:00 EDT, Height, 70.9, kg, 03/10/23 9:41:00 EDT, Dry Weight Start Date: 04/26/23 Status: Ordered norethindrone 5 mg oral tablet 5 mg, 1, tablet, By Mouth, Daily, # 90 tablet, Refills 3, Tot. Refills 3, Maintenance, 07/12/23 13:25:00 EST, Route to Pharmacy Electronically, [facility] #[facility], Partial fill upon patientrequest if the prescription is for a schedule II opioid... Start Date: 07/12/23 Status: Ordered omeprazole 20 mg oral enteric coated capsule 1 capsule, By Mouth, Daily, # 30 capsule, 2 Refills, Maintenance, 12/29/23 10:32:00 EDT, [facility], 146, cm, 10/10/23 8:12:00 EST, [...] arm, # 2 mL, 1 Refills, Maintenance, 01/17/24 16:07:00 EDT, [facility] #94, Partial fill upon patient... Start Date: 01/17/24 Status: Ordered Problem List Condition Confirmation Course [...] Team Personnel Name: Anali Concepcion DO Position: [facility] Physician - Primary Care Member Role: PCP Address: Address: [address] [place] [address] Adult [place] [address]- Care Team Related Persons Name: KATIUSKA VIGIL Address: [address] [place] [address] Name: RAISA AMBROSE Address: [address] [place] [address] Name: AURORA NIX Name: MELISSA AGUILAR
--- OUTSIDE RECORDS SUMMARY | 2024-05-02 05:02 | XMS_ITS | Continuity of Care Document ---
Author Organization [facility] Address [address] [place] [address]- Care Team Providers Care Baker Doughnut Name Role Phone Anali Concepcion DO Primary Care Physician [facility]s): 09/02/22 - 10/02/22 [facility] [address] [place], [place] [address] Allergies, Adverse [...] diphtheria/tetanus/pertussis, acel(DTaP) 85 Recorded 1Result Comment: [facility]# [id number] 2Result Comment: [06/08/2018] [facility]:86865-436-28 Medications albuterol 0.083% inhalation solution 3 mL [...] Anali Concepcion DO Position: [facility] Primary Care Physician Member Role: PCP Address: Address: [address] [place] [address] Adult [place] [address]- Care Team Related Persons Name: KATIUSKA VIGIL Address: [address] [place] [address] Name: RAISA AMBROSE Address: [address] [place] [address] Name: AURORA NIX Name: MELISSA AGUILAR
--- OUTSIDE RECORDS SUMMARY | 2024-05-02 05:02 | XMS_ITS | Continuity of Care Document ---
Author Organization [facility] Address [address] [place] [address]- Care Team Providers Care Sand Operator Name Role Phone Anali Concepcion DO Primary Care Physician [facility] Date[facility]s): 10/21/21 - 10/28/21 [facility] [address] [place] [address]- Attending Physician: July Bowie MD Referring Physician: Hannah Jorge Allergies, Adverse Reactions, Alerts Substance Reaction Severity [...] [06/08/2018] [facility]:97676-315-70 Medications albuterol 0.083% inhalation solution 3 mL [...] capsule, 1 Refills, Maintenance, 01/12/21 8:16:00 EDT, [facility], 146, cm, 01/04/21 11:29:00 EDT, Height, 75.5, [...] 9:01:59 EST, Aerosol, Route to Pharmacy Electronically, [id number], [facility] [address] Start Date: 11/02/18 Stop Date: 12/02/18 Status: [...] oldest [Reference Range]: 1 Height 146 cm (10/21/21 11:34 AM) Weight 68.63 kg (10/21/21 11:34 AM) Body Mass Index [18.5-24.99] 32.2 *>HHI* (10/21/21 11:34 AM) Blood Pressure [90-138/55-84 mm Hg] 130/ 74mm Hg (10/21/21 11:34 AM) Blood pressure sites Arm, left (10/21/21 11:34 AM) Weight Obtained Via Standing scale (10/21/21 11:34 AM) Social History Social History Type Response Smoking Status Never smoker entered on: 10/03/17 Sex
--- OUTSIDE RECORDS SUMMARY | 2024-05-02 05:02 | XMS_ITS | Continuity of Care Document ---
Author Organization [facility] Address [address] [place] [address]- Care Team Providers Care Laboratory Animal Care Veterinarian Name Role Phone Anali Concepcion DO Primary Care Physician ( [phone] [facility]s): 09/06/19 - 09/13/19 [facility] [address] [place] [address]- [facility] Attending Physician: Anali Concepcion DO Allergies, Adverse Reactions, Alerts Substance Reaction Severity Status aloe vera topical Active Latex Active ZyrTEC Active Immunizations Given and Recorded Vaccine Date Status Refusal Reason Measles/Mumps/Rubella Virus Vaccine 09/06/19 Given Measles/Mumps/Rubella Virus Vaccine 09/24/10 Recor ded Measles/Mumps/Rubella Virus Vaccine 11/25/94 Recor ded Measles/Mumps/Rubella Virus Vaccine 07/03/87 Recor ded hepatitis B adult vaccine 09/06/19 Given hepatitis B adult vaccine 09/24/10 Recorded influenza virus vaccine, inactivated 1 06/08/18 Gi [...] 1Result Comment: [06/08/2018] [facility]:93305-138-04 Medications Advair HFA 230 mcg / 21 [...] 05/21/19 18:52:50 EDT, Route to Pharmacy Electronically, [id number], [facility]/pharmacy #1130 Start Date: 05/21/19 Status: Ordered Claritin 10 mg oral tablet 10 mg, 1, tablet, By Mouth, Daily, # 90 tablet, Refills 0, Tot. Refills 0, Maintenance, 04/02/19 8:27:25 EDT, Route to Pharmacy Electronically, [id number], [facility]/pharmacy #1130 Start Date: 04/02/19 Status: Ordered Colace sodium 100 mg oral capsule 100 mg, 1, capsule, By Mouth, Daily, # 30 capsule, Refills 11, Tot. Refills 11, Maintenance, 02/08/18 15:01:19 EDT, Route to Pharmacy Electronically, [id number], [facility] [address] Start Date: 02/08/18 Stop Date: 02/03/19 Status: Ordered Dulera Inhalation, 2 times a day, 0 Refills, Maintenance, 04/02/19 8:28:41 EDT Start Date: 04/02/19 Status: Ordered measles/mumps/rubella/varicella virus vaccine subcutaneous injection 0.5 mL, Subcutaneous Injection, Once, # 1 each, 0 Refills, Soft Stop, 09/02/19 12:34:00 EST, Powder, [facility]/pharmacy #1130, 0.5 mL Subcutaneous Injection Once, 146, [...] capsule = 20 mg, By Mouth, Daily, resending pharmacy did not recieve, # 30 capsule, 2 Refills, Maintenance, 06/14/19 16:23:14 EDT, [facility] Start Date: 06/14/19 Status: Ordered ProAir HFA 90 mcg/inh inhalation aerosol with adapter 2, puffs, Inhalation, Every 6 hours, PRN, # 1 each, Refills 0, Tot. Refills 0, Soft Stop, 11/02/18 9:01:59 EST, Aerosol, Route to Pharmacy Electronically, [id number], [facility] [address] Start Date: 11/02/18 Stop Date: 12/02/18 Status: [...]
--- OUTSIDE RECORDS SUMMARY | 2024-05-02 05:02 | XMS_ITS | Continuity of Care Document ---
Author Organization [facility] Address [address] [place] [address]- Care Team Providers Care Engraver Signature Name Role Phone Anali Concepcion DO Primary Care Physician [facility](s): 01/07/21 - 02/06/21 [facility] [address], [address] [place] [address]- Allergies, Adverse Reactions, Alerts Substance Reaction Severity [...] 85 Recorded 1Result Comment: [06/08/2018] [facility]:53976-324-71 Medications albuterol 0.083% inhalation solution 3 mL [...] Refills, Maintenance, 01/12/21 8:16:00 EDT, [facility], 146, cm, 01/04/21 11:29:00 EDT, Height, 75.5, [...] 9:01:59 EST, Aerosol, Route to Pharmacy Electronically, [id number], [facility] [address] Start Date: 11/02/18 Stop Date: 12/02/18 Status: [...]
--- OUTSIDE RECORDS SUMMARY | 2024-05-02 05:02 | XMS_ITS | Continuity of Care Document ---
Author Organization [facility] Address [address] [place] [address]- Care Team Providers Care It Program Manager Name Role Phone Anali Concepcion DO Primary Care Physician [facility] Date(s): 07/13/22 - 08/12/[address] [address]- Allergies, Adverse Reactions, Alerts Substance Reaction Severity [...] 85 Recorded 1Result Comment: [facility]# [id number] 2Result Comment: [06/08/2018] [facility]:27107-246-00 Medications albuterol 0.083% inhalation solution 3 mL [...] Name: Anali Concepcion DO Position: [facility] Primary Care Physician Member Role: PCP Address: Address: [address] [place] [address] Adult & [place] [address]- Care Team Related Persons Name: MUSASHALONDAA Address: [address] [place] [address] Name: RAISA AMBROSE Address: [address] [place] [address] Name: AURORA NIX Name: MELISSA AGUILAR
--- OUTSIDE RECORDS SUMMARY | 2024-05-02 05:03 | XMS_ITS | Continuity of Care Document ---
Author Organization [facility] Address [address] [place] [address]- Care Team Providers Care Architectural Inspector Name Role Phone Anali Concepcion DO Primary Care Physician ( [phone] Encounter [facility] Date(s): 03/08/22 - 04/07/[address] [address]- Attending Physician: Louise Camarillo Admitting Physician: Louise [...] Comment: [facility]NOTE 2]# [id number] 2Result Comment: [06/08/2018] [facility][NOTE 2]:99168-717-25 Medications albuterol 0.083% inhalation solution 3 mL [...] capsule, 1 Refills, Maintenance, 01/12/21 8:16:00 EDT, [facility] [address], 146, cm, 01/04/21 11:29:00 EDT, Height, 75.5, [...] Print Requisition Start Date: 04/05/18 Stop Date: 1/29/19 Status: Ordered Voltaren 1% topical gel 1 [...]
--- OUTSIDE RECORDS SUMMARY | 2024-05-02 05:03 | XMS_ITS | Continuity of Care Document ---
Author Organization [facility] Address [address] [place] [address]- Care Team Providers Care Registered Nurse Obstetrics Name Role Phone Anali Concepcion DO Primary Care Physician [facility] - 05/21/20 [facility] [address] [place] [address]- [facility] Allergies, Adverse Reactions, Alerts Substance Reaction Severity [...] Comment: [06/08/2018] [facility]:41687-403-50 Medications Advair HFA 230 mcg / 21 [...] 0 Refills, Maintenance, 11/29/19 15:48:00 EDT, Suspension, [facility]/pharmacy #0957, 4 drops Ears, Both 2 [...] 05/21/19 18:52:50 EDT, Route to Pharmacy Electronically, [id number], [facility]/pharmacy #1130 Start Date: 05/21/19 Status: Ordered Claritin 10 mg oral tablet 10 mg, 1, tablet, By Mouth, Daily, # 90 tablet, Refills 0, Tot. Refills 0, Maintenance, 04/02/19 8:27:25 EDT, Route to Pharmacy Electronically, [id number], [facility]/pharmacy #1130 Start Date: 04/02/19 Status: Ordered Colace sodium 100 mg oral capsule 100 mg, 1, capsule, By Mouth, Daily, # 30 capsule, Refills 11, Tot. Refills 11, Maintenance, 02/08/18 15:01:19 EDT, Route to Pharmacy Electronically, [id number], [facility] [address] Start Date: 02/08/18 Stop Date: 02/03/19 Status: Ordered Dulera Inhalation, 2 times a day, 0 Refills, Maintenance, 04/02/19 8:28:41 EDT Start Date: 04/02/19 Status: Ordered measles/mumps/rubella/varicella virus vaccine subcutaneous injection 0.5 mL, Subcutaneous Injection, Once, # 1 each, 0 Refills, Soft Stop, 09/02/19 12:34:00 EST, Powder, [facility]/pharmacy #1130, 0.5 mL Subcutaneous Injection Once, 146, cm, 06/28/19 16:39:00 EDT, Height, 77.72, kg, 06/12/19 14:42:00 EDT, Dry Weight Start Date: 09/02/19 Status: Ordered meloxicam 15 mg oral tablet 1 tablet = 15 mg, By Mouth, Daily, with food for foot pain, # 30 tablet, 0 Refills, Maintenance, 03/16/20 11:09:00 EDT, Tablet, [facility]/pharmacy #0957, 146, cm, 03/16/20 10:36:00 EDT, [...] each, 2 Refills, Maintenance, 11/29/19 16:12:00 EDT, [facility]/pharmacy#1130, 2 sprays Nares, Both Daily, 146, [...] capsule, 2 Refills, Maintenance, 01/20/20 13:47:00 EDT, [facility]/pharmacy #0957, 146, cm, 01/16/20 10:45:00 EDT, Height, 75.5, kg, 10/31/19 15:44:00 EST, Dry Weight Start Date: 01/20/20 Status: Ordered ProAir HFA 90 mcg/inh inhalation aerosol with adapter 2, puffs, Inhalation, Every 6 hours, PRN, # 1 each, Refills 0, Tot. Refills 0, Soft Stop, 11/02/18 9:01:59 EST, Aerosol, Route to Pharmacy Electronically, [id number], [facility] [address] Start Date: 11/02/18 Stop Date: 12/02/18 Status: [...] sure which one it was, ? Depo-Provera. 3/22/18 denies suicidal ideation on current medications(Confirmed) Active [...]
--- OUTSIDE RECORDS SUMMARY | 2024-05-02 05:03 | XMS_ITS | Continuity of Care Document ---
Author Organization [facility] Address [address] [place] [address]- Care Team Providers Care Poiser Balance Name Role Phone Anali Concepcion DO Primary Care Physician [facility] Date[facility]s): 01/26/22 - 02/25/22 [facility] [address] [place] [address]- Allergies, Adverse Reactions, Alerts Substance Reaction Severity [...] diphtheria/tetanus/pertussis, acel(DTaP) 85 Recorded 1Result Comment: [facility]# [id number] 2Result Comment: [06/08/2018] [facility]:87019-075-49 Medications albuterol 0.083% inhalation solution 3 mL [...] capsule, 1 Refills, Maintenance, 01/12/21 8:16:00 EDT, [facility], 146, cm, 01/04/21 11:29:00 EDT, Height, 75.5, [...]
--- OUTSIDE RECORDS SUMMARY | 2024-05-02 05:03 | XMS_ITS | Continuity of Care Document ---
[facility] Address [address], [address] [place] [address]- Care Team Providers Care Supervisor Brake Repair Name Role Phone Anali Concepcion DO Primary Care Physician ( [phone] Encounter [facility] Date(s): 06/17/22 - 07/17/22 [facility] [address] [place] [address]- Allergies, Adverse Reactions, Alerts Substance Reaction Severity [...] Recorded diphtheria/tetanus/pertussis, acel(DTaP) 85 Recorded 1Result Comment: [facility]# [id number] 2Result Comment: [06/08/2018] [facility]:96140-430-77 Medications albuterol 0.083% inhalation solution 3 mL [...] Team Personnel Name: Anali Concepcion DO Position: [facility] Primary Care Physician Member Role: PCP Address: Address: [address] [place] [address] Adult & Pediatric Medicine [address]- Care Team Related Persons Name: KATIUSKA VIGIL Address: [address] [place] [address] Name: RAISA AMBROSE Address: home [address] [place] [address] Name: AURORA NIX Name: MELISSA AGUILAR
--- OUTSIDE RECORDS SUMMARY | 2024-05-02 05:03 | XMS_ITS | Continuity of Care Document ---
Author Organization [facility] Cecilia n's [facility] Address [address], [address] [place] [address]- Care Team Providers Care Valve Assembler Name Role Phone Anali Concepcion DO Primary Care Physician ( [phone] Encounter [facility] Date(s): 08/05/20 - 09/04/20 [facility] [address] [place] [address]- Attending Physician: Louise Camarillo Admitting Physician: Louise [...] Recorded 1Result Comment: [06/08/2018] [facility]:98962-795-72 Medications Advair HFA 230 mcg / 21 [...] 0 Refills, Maintenance, 11/29/19 15:48:00 EDT, Suspension, [facility]/pharmacy #0957, 4 drops Ears, Both 2 times [...] 05/21/19 18:52:50 EDT, Route to Pharmacy Electronically, [id number], [facility]/pharmacy #1130 Start Date: 05/21/19 Status: Ordered Claritin 10 mg oral tablet 10 mg, 1, tablet, By Mouth, Daily, # 90 tablet, Refills 0, Tot. Refills 0, Maintenance, 04/02/19 8:27:25 EDT, Route to Pharmacy Electronically, [id number], [facility]/pharmacy #1130 Start Date: 04/02/19 Status: Ordered Colace sodium 100 mg oral capsule 100 mg, 1, capsule, By Mouth, Daily, # 30 capsule, Refills 11, Tot. Refills 11, Maintenance, 02/08/18 15:01:19 EDT, Route to Pharmacy Electronically, [id number], [facility] [address] Start Date: 02/08/18 Stop Date: 02/03/19 Status: Ordered Dulera Inhalation, 2 times a day, 0 Refills, Maintenance, 04/02/19 8:28:41 EDT Start Date: 04/02/19 Status: Ordered Flonase 50 mcg/inh nasal spray 1 sprays, Nares, Both, 2 times a day, # 3 each, 0 Refills, Maintenance, 08/10/20 10:32:00 EST, [place], [facility] # 302, Partial fill upon patient request, 1 sprays Nares, Both 2 times a day, 146, cm, 03/16/20 10:36:00 EDT, Height, 75.5, kg, 10/31... Start Date: 08/10/20 Status: Ordered guaiFENesin 100 mg/5 mL oral liquid 10 mL = 200 mg, By Mouth, Every 6 hours, PRN for cough, # 600 mL, 0 Refills, Maintenance, 08/10/20 10:34:00 EST, Liquid, [facility]/pharmacy #0957, Partial fill upon patient request if the prescription is for a schedule II opioid drug., 146, cm, 03/16/20 10:... Start Date: 08/10/20 Status: Ordered measles/mumps/rubella/varicella virus vaccine subcutaneous injection 0.5 mL, Subcutaneous Injection, Once, # 1 each, 0 Refills, Soft Stop, 09/02/19 12:34:00 EST, Powder, [facility]/pharmacy #1130, 0.5 mL Subcutaneous Injection Once, 146, cm, 06/28/19 16:39:00 EDT, Height, 77.72, kg, 06/12/19 14:42:00 EDT, Dry Weight Start Date: 09/02/19 Status: Ordered meloxicam 15 mg oral tablet 1 tablet = 15 mg, By Mouth, Daily, with food for foot pain, # 30 tablet, 0 Refills, Maintenance, 03/16/20 11:09:00 EDT, Tablet, [facility]/pharmacy #0957, 146, cm, 03/16/20 10:36:00 EDT, Height, [...] each, 2 Refills, Maintenance, 11/29/19 16:12:00 EDT, [facility]/pharmacy#1130, 2 sprays Nares, Both Daily, 146, cm, [...] capsule, 2 Refills, Maintenance, 06/08/20 13:45:00 EDT, [facility]/pharmacy #0957, 146, cm, 03/16/20 10:36:00 EDT, Height, 75.5, kg, 10/31/19 15:44:00 EST, Dry Weight Start Date: 06/08/20 Status: Ordered ProAir HFA 90 mcg/inh inhalation aerosol with adapter 2, puffs, Inhalation, Every 6 hours, PRN, # 1 each, Refills 0, Tot. 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
--- OUTSIDE RECORDS SUMMARY | 2024-05-02 05:03 | XMS_ITS | Continuity of Care Document ---
Author Organization [facility] Address [address] [place] [address]- Care Team Providers Care Shift Supervisor Melting Name Role Phone Anali Concepcion DO Primary Care Physician [facility] Date[facility]s): 08/10/23 - 09/09/23 [facility] [address] [place], [place] [address] Allergies, Adverse Reactions, Alerts Substance Reaction Severity Status aloe vera topical Active Cats Active Dogs Active Latex Active Other Environmental Allergy 1, 2 Active ZyrTEC Active Ragweed Active Pollen Ragweed Active 1grass Feathers 2tree [...] 1Result Comment: [06/08/2018] [facility]:39626-595-84 2Result Comment: [facility]# [address]-8 Medications albuterol 0.083% inhalation solution 3 mL [...] EST, Route to Pharmacy Electronically, [facility] #[facility], Partial fill upon patientrequest if [...] Team Personnel Name: Anali Concepcion DO Position: [facility] Physician - Primary Care Member Role: PCP Address: Address: [address] [place] [address] Adult & [place] [address]- Care Team Related Persons Name: KATIUSKA VIGIL Address: [address] [place] [address] Name: RAISA AMBROSE Address: home [address] [place] [address] Name: AURORA NIX Name: MELISSA AGUILAR
--- OUTSIDE RECORDS SUMMARY | 2024-05-02 05:03 | XMS_ITS | Continuity of Care Document ---
Author Organization [facility] Address [address] [place] [address]- Care Team Providers Care Certified Industrial Hygienist Name Role Phone Anali Concepcion DO Primary Care Physician [facility] Date(s): 03/10/21 - 04/09/21 [facility] [address] [place], [place] [address] Allergies, Adverse [...] diphtheria/tetanus/pertussis, acel(DTaP) 85 Recorded 1Result Comment: [06/08/2018] [facility]:26098-371-77 Medications albuterol 0.083% inhalation solution 3 mL [...] 1 Refills, Maintenance, 01/12/21 8:16:00 EDT, [facility] [address], 146, cm, 01/04/21 11:29:00 EDT, Height, 75.5, [...] 9:01:59 EST, Aerosol, Route to Pharmacy Electronically, [id number], [facility] [address] Start Date: 11/02/18 Stop Date: 12/02/18 Status: [...]
--- OUTSIDE RECORDS SUMMARY | 2024-05-02 05:03 | XMS_ITS | Continuity of Care Document ---
Author Organization [facility] Address [address] [place] [address]- Care Team Providers Care Dynamotor Repairer Name Role Phone Anali Concepcion DO Primary Care Physician [facility] Date(s): 09/01/22 - 10/01/22 [facility] [address] [place], [place] [address] Allergies, Adverse Reactions, Alerts Substance Reaction [...] Recorded diphtheria/tetanus/pertussis, acel(DTaP) 85 Recorded 1Result Comment: [facility]# [id number] 2Result Comment: [06/08/2018] [facility]:40387-847-88 Medications albuterol 0.083% inhalation solution 3 mL [...] Care Physician Member Role: PCP Address: Address: [address] [place] [address] Adult & [place] [address]- Care Team Related Persons Name: KATIUSKA VIGIL Address: [address] [place] [address] Name: RAISA AMBROSE Address: [address] [place] [address] Name: AURORA NIX Name: MELISSA AGUILAR
--- OUTSIDE RECORDS SUMMARY | 2024-05-02 05:03 | XMS_ITS | Continuity of Care Document ---
Author Organization [facility] Address [address] [place] [address]- Care Team Providers Care Residential Real Estate Sales Manager Name Role Phone Anali Concepcion DO Primary Care Physician Encounter [facility] Date(s): 03/13/24 - 04/12/24 [facility] [address] [place], [place] [address] Allergies, Adverse Reactions, Alerts Substance Reaction Severity Status amoxicillin gi upset Active aloe vera topical Active Contrave gi upset Active Zithromax gi [...] acel(DTaP) 85 Recorded 1Result Comment: [06/08/2018] [facility]:50251-466-63 2Result Comment: [facility]# [address]-2 Medications albuterol 0.083% inhalation solution 3 mL [...] tablet, 4 Refills, Maintenance, 04/26/23 9:22:00 EDT, [facility] #94, 146, cm, 03/10/23 9:41:00 EDT, Height, 70.9, kg, 03/10/23 9:41:00 EDT, Dry Weight Start Date: 04/26/23 Status: Ordered norethindrone 5 mg oral tablet 5 mg, 1, tablet, By Mouth, Daily, # 90 tablet, Refills 3, Tot. Refills 3, Maintenance, 07/12/23 13:25:00 EST, Route to Pharmacy Electronically, [facility] #94, Partial fill upon patientrequest if the prescription is for a schedule II opioid... Start Date: 07/12/23 Status: Ordered omeprazole 20 mg oral enteric coated capsule 1 capsule, By Mouth, Daily, # 30 capsule, 2 Refills, Maintenance, 12/29/23 10:32:00 EDT, [facility], 146, cm, 10/10/23 8:12:00 EST, [...] Team Personnel Name: Anali Concepcion DO Position: [facility] Physician - Primary Care Member Role: PCP Address: Address: [address] [place] [address] Adult & [place] [address]- Care Team Related Persons Name: KATIUSKA VIGIL Address: [address] [place] [address] Name: RAISA AMBROSE Address: [address] [place] [address] Name: AURORA NIX Name: MELISSA AGUILAR
--- OUTSIDE RECORDS SUMMARY | 2024-05-02 05:03 | XMS_ITS | Continuity of Care Document ---
Author Organization [facility] Address [address] [place] [address]- Care Team Providers Care Finance Admin Name Role Phone Anali Concepcion DO Primary Care Physician ( [phone] [facility] Date(s): 08/17/20 - 08/24/20 [facility] [address] [place], [place] [address] Attending Physician: Anali Concepcion DO Allergies, [...] acel(DTaP) 85 Recorded 1Result Comment: [06/08/2018] [facility]:40643-664-77 Medications Advair HFA 230 mcg / 21 [...] Refills, Maintenance, 11/29/19 15:48:00 EDT, Suspension, [facility]/pharmacy #0957, 4 drops Ears, Both 2 [...] 05/21/19 18:52:50 EDT, Route to Pharmacy Electronically, [id number], [facility]/pharmacy #1130 Start Date: 05/21/19 Status: Ordered Claritin 10 mg oral tablet 10 mg, 1, tablet, By Mouth, Daily, # 90 tablet, Refills 0, Tot. Refills 0, Maintenance, 04/02/19 8:27:25 EDT, Route to Pharmacy Electronically, [id number], [facility]/pharmacy #1130 Start Date: 04/02/19 Status: Ordered Colace sodium 100 mg oral capsule 100 mg, 1, capsule, By Mouth, Daily, # 30 capsule, Refills 11, Tot. Refills 11, Maintenance, 02/08/18 15:01:19 EDT, Route to Pharmacy Electronically, [id number], [facility] [address] Start Date: 02/08/18 Stop Date: 02/03/19 Status: Ordered Dulera Inhalation, 2 times a day, 0 Refills, Maintenance, 04/02/19 8:28:41 EDT Start Date: 04/02/19 Status: Ordered Flonase 50 mcg/inh nasal spray 1 sprays, Nares, Both, 2 times a day, # 3 each, 0 Refills, Maintenance, 08/10/20 10:32:00 EST, [place], [facility] # 302, Partial fill upon patient request, 1 sprays Nares, Both 2 times a day, 146, cm, 03/16/20 10:36:00 EDT, Height, 75.5, kg, 10/31... Start Date: 08/10/20 Status: Ordered guaiFENesin 100 mg/5 mL oral liquid 10 mL = 200 mg, By Mouth, Every 6 hours, PRN for cough, # 600 mL, 0 Refills, Maintenance, 08/10/20 10:34:00 EST, Liquid, [facility]/pharmacy #0957, Partial fill upon patient request if the prescription is for a schedule II opioid drug., 146, cm, 03/16/20 10:... Start Date: 08/10/20 Status: Ordered measles/mumps/rubella/varicella virus vaccine subcutaneous injection 0.5 mL, Subcutaneous Injection, Once, # 1 each, 0 Refills, Soft Stop, 09/02/19 12:34:00 EST, Powder, [facility]/pharmacy #1130, 0.5 mL Subcutaneous Injection Once, 146, cm, 06/28/19 16:39:00 EDT, Height, 77.72, kg, 06/12/19 14:42:00 EDT, Dry Weight Start Date: 09/02/19 Status: Ordered meloxicam 15 mg oral tablet 1 tablet = 15 mg, By Mouth, Daily, with food for foot pain, # 30 tablet, 0 Refills, Maintenance, 03/16/20 11:09:00 EDT, Tablet, [facility]/pharmacy #0957, 146, cm, 03/16/20 10:36:00 EDT, [...] each, 2 Refills, Maintenance, 11/29/19 16:12:00 EDT, [facility], 2 sprays Nares, Both Daily, 146, cm, [...] 2 Refills, Maintenance, 06/08/20 13:45:00 EDT, [facility]/pharmacy #0957, 146, cm, 03/16/20 10:36:00 EDT, Height, 75.5, kg, 10/31/19 15:44:00 EST, Dry Weight Start Date: 06/08/20 Status: Ordered ProAir HFA 90 mcg/inh inhalation aerosol with adapter 2, puffs, Inhalation, Every 6 hours, PRN, # 1 each, Refills 0, Tot. Refills 0, Soft Stop, 11/02/18 9:01:59 EST, Aerosol, Route to Pharmacy Electronically, [id number], [facility] [address] Start Date: 11/02/18 Stop Date: 12/02/18 Status: Ordered Recombivax HB Adult 10 mcg/mL intramuscular suspension 1 mL = 10 mcg, Intramuscular, Once, rpt at 1 and 6 months, # 1 mL, 2 Refills, Soft Stop, 09/02/19 12:37:00 EST, [facility]/pharmacy #1130, 146, cm, 06/28/19 16:39:00 EDT, [...]
--- OUTSIDE RECORDS SUMMARY | 2024-05-02 05:03 | XMS_ITS | Continuity of Care Document ---
Author Organization [facility] Address [address] [place] [address]- Care Team Providers Care Canal Structure Operator Name Role Phone Anali Concepcion DO Primary Care Physician [facility]s): 08[facility]12/20 - 09/11/20 [facility] [address] [place], [place] [address] Attending Physician: Louise Camarillo Admitting Physician: [...] 85 Recorded 1Result Comment: [06/08/2018] [facility]:46225-054-84 Medications Advair HFA 230 mcg / 21 [...] 0 Refills, Maintenance, 11/29/19 15:48:00 EDT, Suspension, [facility]/pharmacy #0957, 4 drops Ears, Both [...] 05/21/19 18:52:50 EDT, Route to Pharmacy Electronically, [id number], [facility]/pharmacy #1130 Start Date: 05/21/19 Status: Ordered Claritin 10 mg oral tablet 10 mg, 1, tablet, By Mouth, Daily, # 90 tablet, Refills 0, Tot. Refills 0, Maintenance, 04/02/19 8:27:25 EDT, Route to Pharmacy Electronically, [id number], [facility]/pharmacy #1130 Start Date: 04/02/19 Status: Ordered Colace sodium 100 mg oral capsule 100 mg, 1, capsule, By Mouth, Daily, # 30 capsule, Refills 11, Tot. Refills 11, Maintenance, 02/08/18 15:01:19 EDT, Route to Pharmacy Electronically, [id number], [facility] [address] Start Date: 02/08/18 Stop Date: 02/03/19 Status: Ordered Dulera Inhalation, 2 times a day, 0 Refills, Maintenance, 04/02/19 8:28:41 EDT Start Date: 04/02/19 Status: Ordered Flonase 50 mcg/inh nasal spray 1 sprays, Nares, Both, 2 times a day, # 3 each, 0 Refills, Maintenance, 08/10/20 10:32:00 EST, [place], [facility] # 302, Partial fill upon patient request, 1 sprays Nares, Both 2 times a day, 146, cm, 03/16/20 10:36:00 EDT, Height, 75.5, kg, 10/31... Start Date: 08/10/20 Status: Ordered guaiFENesin 100 mg/5 mL oral liquid 10 mL = 200 mg, By Mouth, Every 6 hours, PRN for cough, # 600 mL, 0 Refills, Maintenance, 08/10/20 10:34:00 EST, Liquid, [facility]/pharmacy #0957, Partial fill upon patient request if the prescription is for a schedule II opioid drug., 146, cm, 03/16/20 10:... Start Date: 08/10/20 Status: Ordered measles/mumps/rubella/varicella virus vaccine subcutaneous injection 0.5 mL, Subcutaneous Injection, Once, # 1 each, 0 Refills, Soft Stop, 09/02/19 12:34:00 EST, Powder, [facility]/pharmacy #1130, 0.5 mL Subcutaneous Injection Once, 146, cm, 06/28/19 16:39:00 EDT, Height, 77.72, kg, 06/12/19 14:42:00 EDT, Dry Weight Start Date: 09/02/19 Status: Ordered meloxicam 15 mg oral tablet 1 tablet = 15 mg, By Mouth, Daily, with food for foot pain, # 30 tablet, 0 Refills, Maintenance, 03/16/20 11:09:00 EDT, Tablet, [facility]/pharmacy #0957, 146, cm, 03/16/20 10:36:00 [...] each, 2 Refills, Maintenance, 11/29/19 16:12:00 EDT, [facility]/pharmacy#1130, 2 sprays Nares, Both Daily, [...] capsule, 2 Refills, Maintenance, 09/07/20 10:39:00 EST, [facility]/pharmacy #0957, 146, cm, 08/12/20 17:46:00 EST, Height, 75.5, kg, 10/31/19 15:44:00 EST, Dry Weight Start Date: 09/07/20 Status: Ordered ProAir HFA 90 mcg/inh inhalation aerosol with adapter 2, puffs, Inhalation, Every 6 hours, PRN, # 1 each, Refills 0, Tot. Refills 0, Soft Stop, 11/02/18 9:01:59 EST, Aerosol, Route to Pharmacy Electronically, [id number], [facility] [address] Start Date: 11/02/18 Stop Date: 12/02/18 Status: Ordered Recombivax HB Adult 10 mcg/mL intramuscular suspension 1 mL = 10 mcg, Intramuscular, Once, rpt at 1 and 6 months, # 1 mL, 2 Refills, Soft Stop, 09/02/19 12:37:00 EST, [facility]/pharmacy #1130, 146, cm, 06/28/19 16:39:00 [...]
--- OUTSIDE RECORDS SUMMARY | 2024-05-02 05:03 | XMS_ITS | Continuity of Care Document ---
Author Organization [facility] Address [address], [address] [place] [address]- Care Team Providers Care Epic Cadence Analyst Name Role Phone Anali Concepcion DO Primary Care Physician Encounter [facility] Date(s): 06/17/22 - 07/17/22 [facility] [address], [address] [place] [address]- Allergies, Adverse Reactions, Alerts Substance Reaction Severity [...] diphtheria/tetanus/pertussis, acel(DTaP) 85 Recorded 1Result Comment: [facility]# [id number] 2Result Comment: [06/08/2018] [facility]:08861-337-47 Medications albuterol 0.083% inhalation solution 3 mL [...] Team Personnel Name: Anali Concepcion DO Position: [facility] Primary Care Physician Member Role: PCP Address: Address: [address] [place] [address] Adult & [place] [address]- Care Team Related Persons Name: KATIUSKA VIGIL Address: home [address] [place] [address] Name: RAISA AMBROSE Address: home [address] [place] [address] Name: AURORA NIX Name: MELISSA AGUILAR
--- OUTSIDE RECORDS SUMMARY | 2024-05-02 05:03 | XMS_ITS | Continuity of Care Document ---
Author Organization [facility] Address [address] [place] [address]- Care Team Providers Care Hosiery Pairer Name Role Phone Anali Concepcion DO Primary Care Physician ( [phone] [facility]counter [facility] Date(s): 06/08/20 - 07/08/20 [facility] [address] [place] [address]- [facility] Allergies, Adverse Reactions, Alerts Substance [...] Recorded 1Result Comment: [06/08/2018] [facility]:84962-378-58 Medications Advair HFA 230 mcg / 21 [...] Refills, Maintenance, 11/29/19 15:48:00 EDT, Suspension, [facility]/pharmacy #0957, 4 drops Ears, Both 2 times [...] 05/21/19 18:52:50 EDT, Route to Pharmacy Electronically, [id number], [facility]/pharmacy #1130 Start Date: 05/21/19 Status: Ordered Claritin 10 mg oral tablet 10 mg, 1, tablet, By Mouth, Daily, # 90 tablet, Refills 0, Tot. Refills 0, Maintenance, 04/02/19 8:27:25 EDT, Route to Pharmacy Electronically, [id number], [facility]/pharmacy #1130 Start Date: 04/02/19 Status: Ordered Colace sodium 100 mg oral capsule 100 mg, 1, capsule, By Mouth, Daily, # 30 capsule, Refills 11, Tot. Refills 11, Maintenance, 02/08/18 15:01:19 EDT, Route to Pharmacy Electronically, [id number], [facility] [id number] Start Date: 02/08/18 Stop Date: 02/03/19 Status: Ordered Dulera Inhalation, 2 times a day, 0 Refills, Maintenance, 04/02/19 8:28:41 EDT Start Date: 04/02/19 Status: Ordered measles/mumps/rubella/varicella virus vaccine subcutaneous injection 0.5 mL, Subcutaneous Injection, Once, # 1 each, 0 Refills, Soft Stop, 09/02/19 12:34:00 EST, Powder, [facility]/pharmacy #1130, 0.5 mL Subcutaneous Injection Once, 146, cm, 06/28/19 16:39:00 EDT, Height, 77.72, kg, 06/12/19 14:42:00 EDT, Dry Weight Start Date: 09/02/19 Status: Ordered meloxicam 15 mg oral tablet 1 tablet = 15 mg, By Mouth, Daily, with food for foot pain, # 30 tablet, 0 Refills, Maintenance, 03/16/20 11:09:00 EDT, Tablet, [facility]/pharmacy #0957, 146, cm, 03/16/20 10:36:00 EDT, Height, [...] 2 Refills, Maintenance, 11/29/19 16:12:00 EDT, [facility]/pharmacy#1130, 2 sprays Nares, Both Daily, 146, cm, [...] capsule, 2 Refills, Maintenance, 06/08/20 13:45:00 EDT, [facility]/pharmacy #0957, 146, cm, 03/16/20 10:36:00 EDT, Height, 75.5, kg, 10/31/19 15:44:00 EST, Dry Weight Start Date: 06/08/20 Status: Ordered ProAir HFA 90 mcg/inh inhalation aerosol with adapter 2, puffs, Inhalation, Every 6 hours, PRN, # 1 each, Refills 0, Tot. Refills 0, Soft Stop, 11/02/18 9:01:59 EST, Aerosol, Route to Pharmacy Electronically, [id number], [facility] [address] Start Date: 11/02/18 Stop Date: 12/02/18 Status: [...]
--- OUTSIDE RECORDS SUMMARY | 2024-05-02 05:03 | XMS_ITS | Continuity of Care Document ---
Author Organization [facility] Address [address] [place] [address]- Care Team Providers Care Wheel Molder Name Role Phone Anali Concepcion DO Primary Care Physician Encounter [facility] Date(s): 03/08/22 - 04/07/[address] [address] Attending Physician: [...] [facility]# [id number] 2Result Comment: [06/08/2018] [facility]:77563-246-28 Medications albuterol 0.083% inhalation solution 3 mL [...] capsule, 1 Refills, Maintenance, 01/12/21 8:16:00 EDT, [facility], 146, cm, 01/04/21 11:29:00 EDT, Height, 75.5, [...]
--- OUTSIDE RECORDS SUMMARY | 2024-05-02 05:03 | XMS_ITS | Continuity of Care Document ---
Author Organization [facility] Address [address] [place] [address]- Care Team Providers Care Hospitalist Medical Director Name Role Phone Anali Concepcion DO Primary Care Physician ( [phone] [place] [facility] [place] 01/16/20 - 01/23/20 [facility] [address] [place] [address]- [facility] Attending Physician: Anali Concepcion DO Allergies, Adverse [...] 85 Recorded 1Result Comment: [06/08/2018] [facility]:07997-060-82 Medications Advair HFA 230 mcg / 21 [...] Maintenance, 11/29/19 15:48:00 EDT, Suspension, [facility]/pharmacy #0957, 4 drops Ears, Both [...] 05/21/19 18:52:50 EDT, Route to Pharmacy Electronically, [id number], [facility]/pharmacy #1130 Start Date: 05/21/19 Status: Ordered Claritin 10 mg oral tablet 10 mg, 1, tablet, By Mouth, Daily, # 90 tablet, Refills 0, Tot. Refills 0, Maintenance, 04/02/19 8:27:25 EDT, Route to Pharmacy Electronically, [id number], [facility]/pharmacy #1130 Start Date: 04/02/19 Status: Ordered Colace sodium 100 mg oral capsule 100 mg, 1, capsule, By Mouth, Daily, # 30 capsule, Refills 11, Tot. Refills 11, Maintenance, 02/08/18 15:01:19 EDT, Route to Pharmacy Electronically, [id number], [facility] [address] Start Date: 02/08/18 Stop Date: 02/03/19 Status: Ordered Dulera Inhalation, 2 times a day, 0 Refills, Maintenance, 04/02/19 8:28:41 EDT Start Date: 04/02/19 Status: Ordered measles/mumps/rubella/varicella virus vaccine subcutaneous injection 0.5 mL, Subcutaneous Injection, Once, # 1 each, 0 Refills, Soft Stop, 09/02/19 12:34:00 EST, Powder, [facility]/pharmacy #1130, 0.5 mL Subcutaneous Injection [...] Refills, Maintenance, 11/29/19 16:12:00 EDT, [facility]/pharmacy#1130, 2 sprays Nares, Both Daily, [...] capsule, 2 Refills, Maintenance, 01/20/20 13:47:00 EDT, [facility]/pharmacy #0957, 146, cm, 01/16/20 10:45:00 EDT, Height, 75.5, kg, 10/31/19 15:44:00 EST, Dry Weight Start Date: 01/20/20 Status: Ordered ProAir HFA 90 mcg/inh inhalation aerosol with adapter 2, puffs, Inhalation, Every 6 hours, PRN, # 1 each, Refills 0, Tot. Refills 0, Soft Stop, 11/02/18 9:01:59 EST, Aerosol, Route to Pharmacy Electronically, [id number], [facility] [address] Start Date: 11/02/18 Stop Date: 12/02/18 Status: [...] oldest [Reference Range]: 1 Height 146 cm (01/16/20 10:45 AM) Weight 76.8 kg (01/16/20 10:45 AM) Oxygen Saturation [94-100 %] 98 % (01/16/20 10:45 AM) Pulse Rate [55-90 bpm] 93 bpm *H* (01/16/20 10:45 AM) Body Mass Index [18.5-24.99] 36.03 *>HHI* (01/16/20 10:45 AM) Blood Pressure [90-138/55-84 mm Hg] 122/ 78mm Hg (01/16/20 10:45 AM) Respiratory Rate [16-30 br/min] 16 br/mi n (01/16/20 10:45 AM) Temperature [96.8-100.4 DegF] 98.5 DegF (01/16/20 10:45 AM) Mode of Delivery (Oxygen) Room air (01/16/20 10:45 AM) Blood pressure sites Arm, left (01/16/20 10:45 AM) Temperature Route Oral (01/16/20 10:45 AM) Weight Obtained Via Standing scale (01/16/20 10:45 AM) Social History Social History Type Response Smoking Status Never smoker entered on: 10/03/17 Sex
--- OUTSIDE RECORDS SUMMARY | 2024-05-02 05:03 | XMS_ITS | Continuity of Care Document ---
Author Organization [facility] Address [address] [place] [address]- Care Team Providers Care Gas Engine Operator Generators Name Role Phone Anali Concepcion DO Primary Care Physician [facility] Date[facility]s): 12/13/22 - 01/12/23 [facility] [address] [place], [place] [address] Allergies, Adverse Reactions, Alerts Substance Reaction [...] acel(DTaP) 85 Recorded 1Result Comment: [06/08/2018] [facility]:06391-028-32 2Result Comment: [facility]# [address]-6 Medications albuterol 0.083% inhalation solution 3 mL [...] Care Physician Member Role: PCP Address: Address: [address] [place] [address] Adult & [place] [address]- Care Team Related Persons Name: KATIUSKA VIGIL Address: [address] [place] [address] Name: RASIA AMBROSE Address: [address] [place] [address] Name: AURORA NIX Name: MELISSA AGUILAR
--- OUTSIDE RECORDS SUMMARY | 2024-05-02 05:03 | XMS_ITS | Continuity of Care Document ---
Author Organization [facility] Address [address] [place] [address]- Care Team Providers Care Court Deputy Name Role Phone nAali Concepcion DO Primary Care Physician [facility]counter [facility] Date(s): 02/01/23 - 03/03/23 [facility] [address] [place], [place] [address] Allergies, Adverse Reactions, Alerts Substance Reaction Severity [...] diphtheria/tetanus/pertussis, acel(DTaP) 85 Recorded 1Result Comment: [06/08/2018] [facility]:42943-394-78 2Result Comment: [facility]# [address]-1 Medications albuterol 0.083% inhalation solution 3 mL [...] Primary Care Member Role: PCP Address: Address: [address] [place] [address] Adult [place] [address]- [place] Care Team Related Persons Name: KATIUSKA VIGIL Address: [address] [place] [address] Name: RAISA AMBROSE Address: [address] [place] [address] Name: AURORA NIX Name: MELISSA AGUILAR
--- OUTSIDE RECORDS SUMMARY | 2024-05-02 05:03 | XMS_ITS | Continuity of Care Document ---
Author Organization [facility] Address [address] [place] [address]- Care Team Providers Care Correspondence Representative Name Role Phone Anali Concepcion DO Primary Care Physician [place] [facility] [place](s[place] 02/09/23 - 02/16/23 [facility] [address] [place] [address]- Encounter Diagnosis Bilateral plantar fasciitis(Discharge Diagnosis) - 02/09/23 Chronic pain of both knees(Discharge Diagnosis) - 02/09/23 Attending Physician: Nile Diallo MD Referring Physician: Anali Concepcion DO Allergies, [...] 1Result Comment: [06/08/2018] [facility]:97218-654-27 2Result Comment: [facility]# [address]-5 Medications albuterol 0.083% inhalation solution 3 mL [...] Health Status Cl inical Service Informant Bilateral plantar fasciitis Discharge Diagnosis 02/09/23 Chronic pain of both knees Discharge Diagnosis 02/09/23 Vital Signs Most recent to oldest [Reference Range]: 1 Height 146 cm (02/09/23 9:44 AM) Weight 71.2 kg (02/09/23 9:44 AM) Oxygen Saturation [94-100 %] 98 % (02/09/23 9:44 AM) Pulse Rate [55-90 bpm] 82 bpm (02/09/23 9:44 AM) Body Mass Index [18.5-24.99 kg/m2] 33.4 kg/m2 *>HHI* (02/09/23 9:44 AM) Blood Pressure [90-138/55-84 mm Hg] 125/ 81mm Hg (02/09/23 9:44 AM) Mode of Delivery (Oxygen) Room air (02/09/23 9:44 AM) Blood pressure sites Arm, left (02/09/23 9:44 AM) Weight Obtained Via Bed scale (02/09/23 9:44 AM) Social History Social History Type Response Smoking Status Never smoker entered on: 10/03/17 Sex Patient Care team information Care Team Personnel Name: Anali Concepcion DO Position: [facility] Physician - Primary Care Member Role: PCP Address: Address: [address] [place] [address] Adult & [place] [address]- Care Team Related Persons Name: KATIUSKA VIGIL Address: [address] [place] [address] Name: RAISA AMBROSE Address: [address] [place] [address] Name: AURORA NIX Name: MELISSA AGUILAR
--- OUTSIDE RECORDS SUMMARY | 2024-05-02 05:03 | XMS_ITS | Continuity of Care Document ---
Author Organization [facility] Address [address] [place] [address]- Care Team Providers Care Place Change Roof Bolter Name Role Phone Anali Concepcion DO Primary Care Physician [facility] Date(s): 09/06/19 - 11/10/19 [facility] [address] [place] [address]- [facility] Attending Physician: Not on Staff, Attending MD Allergies, Adverse Reactions, Alerts Substance Reaction [...] 85 Recorded 1Result Comment: [06/08/2018] [facility]:55209-091-21 Medications Advair HFA 230 mcg / 21 [...] 05/21/19 18:52:50 EDT, Route to Pharmacy Electronically, [id number], [facility]/pharmacy #1130 Start Date: 05/21/19 Status: Ordered Claritin 10 mg oral tablet 10 mg, 1, tablet, By Mouth, Daily, # 90 tablet, Refills 0, Tot. Refills 0, Maintenance, 04/02/19 8:27:25 EDT, Route to Pharmacy Electronically, [id number], [facility]/pharmacy #1130 Start Date: 04/02/19 Status: Ordered Colace sodium 100 mg oral capsule 100 mg, 1, capsule, By Mouth, Daily, # 30 capsule, Refills 11, Tot. Refills 11, Maintenance, 02/08/18 15:01:19 EDT, Route to Pharmacy Electronically, [id number], [facility] [address] Start Date: 02/08/18 Stop Date: 02/03/19 Status: [...] Refills, Maintenance, 10/17/19 16:34:00 EST, [facility], 146, cm, 10/07/19 8:16:00 EST, Height, 77.72, kg, 06/12/19 14:42:00 EDT, Dry Weight Start Date: 10/17/19 Status: Ordered ProAir HFA 90 mcg/inh inhalation aerosol with adapter 2, puffs, Inhalation, Every 6 hours, PRN, # 1 each, Refills 0, Tot. Refills 0, Soft Stop, 11/02/18 9:01:59 EST, Aerosol, Route to Pharmacy Electronically, [id number], [facility] [address] Start Date: 11/02/18 Stop Date: 12/02/18 Status: [...]
--- OUTSIDE RECORDS SUMMARY | 2024-05-02 05:03 | XMS_ITS | Continuity of Care Document ---
Author Organization [facility] Address [address] [place] [address]- Care Team Providers Care Liquor Inspector Name Role Phone Anali Concepcion DO Primary Care Physician [facility] Date(s): 11/26/21 - 12/03/21 [facility] [address] [place] [address]- Attending Physician: Anali Concepcion DO Allergies, Adverse [...] diphtheria/tetanus/pertussis, acel(DTaP) 85 Recorded 1Result Comment: [06/08/2018] [facility][NOTE 2]:32734-035-52 Medications albuterol 0.083% inhalation solution 3 mL [...] capsule, 1 Refills, Maintenance, 01/12/21 8:16:00 EDT, [facility], 146, cm, 01/04/21 11:29:00 EDT, Height, 75.5, [...] oldest [Reference Range]: 1 Height 146 cm (11/26/21 2:10 PM) Weight 69.3 kg (11/26/21 2:10 PM) Oxygen Saturation [94-100 %] 99 % (11/26/21 2:10 PM) Pulse Rate [55-90 bpm] 85 bpm (11/26/21 2:10 PM) Body Mass Index [18.5-24.99] 32.51 *>HHI* (11/26/21 2:10 PM) Blood Pressure [90-138/55-84 mm Hg] 100/ 60mm Hg (11/26/21 2:10 PM) Blood pressure sites Arm, left (11/26/21 2:10 PM) Social History Social History Type Response Smoking Status Never smoker entered on: 10/03/17 Sex
--- OUTSIDE RECORDS SUMMARY | 2024-05-02 05:03 | XMS_ITS | Continuity of Care Document ---
Author Organization [facility] Address [address], [address] [place] [address]- Care Team Providers Care Skiing Instructor Name Role Phone Anali Concepcion DO Primary Care Physician [place] [facility] [place] 09/06/23 - 10/06/23 [facility] [address], [address] [place] [address]- Allergies, Adverse Reactions, Alerts Substance Reaction Severity [...] diphtheria/tetanus/pertussis, acel(DTaP) 85 Recorded 1Result Comment: [06/08/2018] [facility]:87015-070-92 2Result Comment: [facility]# [address]-3 Medications albuterol 0.083% inhalation solution 3 mL [...] Team Personnel Name: Anali Concepcion DO Position: [facility] Physician - Primary Care Member Role: PCP Address: Address: [address] [place] [address] Adult & [place] [address]- Care Team Related Persons Name: KATIUSKA VIGIL Address: [address] [place] [address] Name: RAISA AMBROSE Address: [address] [place] [address] Name: AURORA NIX Name: MELISSA AGUILAR
--- OUTSIDE RECORDS SUMMARY | 2024-05-02 05:03 | XMS_ITS | Continuity of Care Document ---
Author Organization [facility] Address [address] [place] [address]- Care Team Providers Care Underground Supervisor Name Role Phone Anali Concepcion DO Primary Care Physician [facility] Date(s): 07/29/20 - 08/28/20 [facility] [address] [place], [place] [address] Allergies, Adverse Reactions, Alerts [...] Recorded 1Result Comment: [06/08/2018] [facility]:66224-626-98 Medications Advair HFA 230 mcg / 21 [...] 0 Refills, Maintenance, 11/29/19 15:48:00 EDT, Suspension, [facility]/pharmacy #0957, 4 drops Ears, Both 2 [...] 05/21/19 18:52:50 EDT, Route to Pharmacy Electronically, [id number], [facility]/pharmacy #1130 Start Date: 05/21/19 Status: Ordered Claritin 10 mg oral tablet 10 mg, 1, tablet, By Mouth, Daily, # 90 tablet, Refills 0, Tot. Refills 0, Maintenance, 04/02/19 8:27:25 EDT, Route to Pharmacy Electronically, [id number], [facility]/pharmacy #1130 Start Date: 04/02/19 Status: Ordered Colace sodium 100 mg oral capsule 100 mg, 1, capsule, By Mouth, Daily, # 30 capsule, Refills 11, Tot. Refills 11, Maintenance, 02/08/18 15:01:19 EDT, Route to Pharmacy Electronically, [id number], [facility] [address] Start Date: 02/08/18 Stop Date: 02/03/19 Status: Ordered Dulera Inhalation, 2 times a day, 0 Refills, Maintenance, 04/02/19 8:28:41 EDT Start Date: 04/02/19 Status: Ordered Flonase 50 mcg/inh nasal spray 1 sprays, Nares, Both, 2 times a day, # 3 each, 0 Refills, Maintenance, 08/10/20 10:32:00 EST, [place], [facility] # 302, Partial fill upon patient request, 1 sprays Nares, Both 2 times a day, 146, cm, 03/16/20 10:36:00 EDT, Height, 75.5, kg, 10/31... Start Date: 08/10/20 Status: Ordered guaiFENesin 100 mg/5 mL oral liquid 10 mL = 200 mg, By Mouth, Every 6 hours, PRN for cough, # 600 mL, 0 Refills, Maintenance, 08/10/20 10:34:00 EST, Liquid, [facility]/pharmacy #0957, Partial fill upon patient request if the prescription is for a schedule II opioid drug., 146, cm, 03/16/20 10:... Start Date: 08/10/20 Status: Ordered measles/mumps/rubella/varicella virus vaccine subcutaneous injection 0.5 mL, Subcutaneous Injection, Once, # 1 each, 0 Refills, Soft Stop, 09/02/19 12:34:00 EST, Powder, [facility]/pharmacy #1130, 0.5 mL Subcutaneous Injection Once, 146, cm, 06/28/19 16:39:00 EDT, Height, 77.72, kg, 06/12/19 14:42:00 EDT, Dry Weight Start Date: 09/02/19 Status: Ordered meloxicam 15 mg oral tablet 1 tablet = 15 mg, By Mouth, Daily, with food for foot pain, # 30 tablet, 0 Refills, Maintenance, 03/16/20 11:09:00 EDT, Tablet, [facility]/pharmacy #0957, 146, cm, 03/16/20 10:36:00 EDT, [...] each, 2 Refills, Maintenance, 11/29/19 16:12:00 EDT, [facility]/pharmacy#1130, 2 sprays Nares, Both Daily, 146, [...] capsule, 2 Refills, Maintenance, 06/08/20 13:45:00 EDT, [facility]/pharmacy #0957, 146, cm, 03/16/20 10:36:00 EDT, Height, 75.5, kg, 10/31/19 15:44:00 EST, Dry Weight Start Date: 06/08/20 Status: Ordered ProAir HFA 90 mcg/inh inhalation aerosol with adapter 2, puffs, Inhalation, Every 6 hours, PRN, # 1 each, Refills 0, Tot. Refills 0, Soft Stop, 11/02/18 9:01:59 EST, Aerosol, Route to Pharmacy Electronically, [id number], [facility] [address] Start Date: 11/02/18 Stop Date: 12/02/18 Status: Ordered Recombivax HB Adult 10 mcg/mL intramuscular suspension 1 mL = 10 mcg, Intramuscular, Once, rpt at 1 and 6 months, # 1 mL, 2 Refills, Soft Stop, 09/02/19 12:37:00 EST, [facility]/pharmacy #1130, 146, cm, 06/28/19 16:39:00 EDT, [...]
--- OUTSIDE RECORDS SUMMARY | 2024-05-02 05:03 | XMS_ITS | Continuity of Care Document ---
Author Organization [facility] Address [address] [place] [address]- Care Team Providers Care Oncology Registrar Name Role Phone Anali Concepcion DO Primary Care Physician Encounter [facility] Date(s): 05/13/22 - 08/31/[address] [address]- Attending Physician: Isi Guerra MD Admitting Physician: Isi Guerra MD Referring Physician: Anali Concepcion DO Allergies, [...] diphtheria/tetanus/pertussis, acel(DTaP) 85 Recorded 1Result Comment: [facility]# [address]-8 2Result Comment: [06/08/2018] [facility]:42451-178-88 Medications albuterol 0.083% inhalation solution 3 mL [...] 4 Refills, Maintenance, 04/12/22 8:47:00 EDT, Tablet, [facility] #[facility], Partial fill upon patient request if the prescription is for a schedule II opioid drug., 146, cm, 04/12/22 8:15:00 EDT, Hei... Start Date: 04/12/22 Stop Date: 07/06/23 Status: Ordered norethindrone 5 mg oral tablet 5 mg, 1, tablet, By Mouth, Daily, # 90 tablet, Refills 3, Tot. Refills 3, Maintenance, 06/06/22 11:31:00 EDT, Route to Pharmacy Electronically, [facility] #[facility], Partial fill upon patientrequest if the prescription is for a schedule II opioid... Start Date: 06/06/22 Status: Ordered omeprazole 20 mg oral enteric coated capsule 1 capsule, By Mouth, Daily, # 30 capsule, 2 Refills, Maintenance, 07/15/22 13:24:00 EST, [facility], 146, cm, 05/17/22 8:07:00 EDT, [...] Team Personnel Name: Anali Concepcion DO Position: [facility] Primary Care Physician Member Role: PCP Address: Address: [address] [place] [address] Adult & [place] [address]- Care Team Related Persons Name: KATIUSKA VIGIL Address: [address] [place] [address] Name: RAISA AMBROSE Address: [address] [place] [address] Name: AURORA NIX Name: MELISSA AGUILAR
--- OUTSIDE RECORDS SUMMARY | 2024-05-02 05:03 | XMS_ITS | Continuity of Care Document ---
[facility] Organization [facility] Address [address], [address] [place] [address]- Care Team Providers Care Manager Customer Service Name Role Phone Anali Concepcion DO Primary Care Physician En[facility] [place] Date(s): 08/01/22 - 08/31/22 [facility] [address], [address] [place] [address]- Allergies, Adverse Reactions, Alerts Substance Reaction Severity [...] Recorded diphtheria/tetanus/pertussis, acel(DTaP) 85 Recorded 1Result Comment: [facility]# [address]-0 2Result Comment: [06/08/2018] [facility]:81194-716-87 Medications albuterol 0.083% inhalation solution 3 mL [...] Care Physician Member Role: PCP Address: Address: [address] [place] [address] Adult & [place] [address]- Care Team Related Persons Name: KATIUSKA VIGIL Address: home [address] [place] [address] Name: RAISA AMBROSE Address: home [address] [place] [address] Name: AURORA NIX Name: MELISSA AGUILAR
--- OUTSIDE RECORDS SUMMARY | 2024-05-02 05:03 | XMS_ITS | Continuity of Care Document ---
Author Organization [facility] Address [address] [place] [address]- Care Team Providers Care City Recorder Name Role Phone Anali Concepcion DO Primary Care Physician [facility]counter [facility] Date(s): 04/18/21 - 05/18/21 [facility] [address] [place] [address]- Attending Physician: Louise Camarillo Admitting Physician: Louise [...] 1Result Comment: [06/08/2018] [facility]:56351-266-91 Medications albuterol 0.083% inhalation solution 3 mL [...] Refills, Maintenance, 01/12/21 8:16:00 EDT, [facility], 146, cm, 01/04/21 11:29:00 EDT, Height, 75.5, [...] 9:01:59 EST, Aerosol, Route to Pharmacy Electronically, [id number], [facility] Start Date: 11/02/18 Stop Date: 12/02/18 Status: [...]
--- OUTSIDE RECORDS SUMMARY | 2024-05-02 05:03 | XMS_ITS | Continuity of Care Document ---
Author Organization [facility] Address [address] [place] [address]- Care Team Providers Care Combatant Swimmer Name Role Phone Anali Concepcion DO Primary Care Physician [facility]counter [facility] Date(s): 02/09/23 - 03/11/23 [facility] [address] [place], [place] [address] Allergies, Adverse [...] diphtheria/tetanus/pertussis, acel(DTaP) 85 Recorded 1Result Comment: [06/08/2018] [facility]:35133-321-98 2Result Comment: [facility]# [address]-3 Medications albuterol 0.083% inhalation solution 3 mL [...] to Pharmacy Electronically, [facility] Tablet, Partial fill upon patien... [...] Care Member Role: PCP Address: Address: [address] [place] [address] Adult & [place] [address]- Care Team Related Persons Name: KATIUSKA VIGIL Address: home [address] [place] [address] Name: RAISA AMBROSE Address: home [address] [place] [address] Name: AURORA NIX Name: MELISSA AGUILAR
--- OUTSIDE RECORDS SUMMARY | 2024-05-02 05:04 | XMS_ITS | Continuity of Care Document ---
Author Organization [facility] Renu erazo's Address [address] [facility] [address], 4t [place] [address]- Care Team Providers Care News Camera Operator Name Role Phone Anali Concepcion DO Primary Care Physician Encounter [facility] [place] [place] Date(s): 09/06/23 - 09/13/23 [facility] [address], 4th [place] [address]- Attending Physician: Not on Staff, Attending MD Referring Physician: Not on Staff, Referring MD Allergies, Adverse Reactions, Alerts Substance Reaction Severity Status aloe vera topical Active Cats Active Pollen Ragweed Active Other Environmental Allergy 1, 2 Active Ragweed Active Dogs Active Latex Active ZyrTEC Active 1grass Feathers [...] Recorded 1Result Comment: [06/08/2018] [facility]:59254-170-44 2Result Comment: [facility]# [address]-3 Medications albuterol 0.083% inhalation solution 3 mL [...] EST, Route to Pharmacy Electronically, [facility], Partial fill upon patientrequest if [...] oldest [Reference Range]: 1 Height 146 cm (09/06/23 11:56 AM) Weight 76.3 kg (09/06/23 11:56 AM) Body Mass Index [18.5-24.99 kg/m2] 35.79 kg/m2 *>HHI* (09/06/23 11:56 AM) Blood Pressure [90-138/55-84 mm Hg] 110/ 70mm Hg (09/06/23 11:56 AM) Blood pressure sites Arm, left (09/06/23 11:56 AM) Dry Weight Obtained Via Standing scale (09/06/23 11:56 AM) Social History Social History Type Response Smoking Status Never smoker entered on: 10/03/17 Sex Patient Care team information Care Team Personnel Name: AbranAnali green DO Position: S Physician - Primary Care Member Role: PCP Address: Address: [address] [place] [address] Adult [place] [address]- Care Team Related Persons Name: KATIUSKA VIGIL Address: [address] [place] [address] Name: RAISA AMBROSE Address: home [address] [place] [address] Name: AURORA NIX Name: MELISSA AGUILAR
--- OUTSIDE RECORDS SUMMARY | 2024-05-02 05:04 | XMS_ITS | Continuity of Care Document ---
Author Organization [facility] Address [address] [place] [address]- Care Team Providers Care Latin American Studies Director Name Role Phone Anali Concepcion DO Primary Care Physician [facility] Date(s): 02/07/22 - 04/24/[address] [address] Attending Physician: Lincoln Gordon MD Admitting Physician: Lincoln Gordon MD Referring Physician: Lincoln Gordon MD Allergies, Adverse Reactions, [...] Recorded diphtheria/tetanus/pertussis, acel(DTaP) 85 Recorded 1Result Comment: [facility]# [id number] 2Result Comment: [06/08/2018] [facility]:57307-185-90 Medications albuterol 0.083% inhalation solution 3 mL [...]
--- OUTSIDE RECORDS SUMMARY | 2024-05-02 05:04 | XMS_ITS | Continuity of Care Document ---
Author Organization [facility] Address [address], [address] [place] [address]- Care Team Providers Care Compotype Operator Name Role Phone Anali Concepcion DO Primary Care Physician [place] [facility] [place] 01/28/22 - 02/27/22 [facility] [employer] [facility] [address], [address] [place], [place] [address] Allergies, Adverse Reactions, Alerts Substance [...] Recorded 1Result Comment: [facility]# [id number] 2Result Comment: [06/08/2018] [facility]:65863-132-80 Medications albuterol 0.083% inhalation solution 3 mL [...] capsule, 1 Refills, Maintenance, 01/12/21 8:16:00 EDT, [facility], 146, cm, 01/04/21 11:29:00 EDT, Height, 75.5, [...]
--- OUTSIDE RECORDS SUMMARY | 2024-05-02 05:04 | XMS_ITS | Continuity of Care Document ---
Author Organization [facility] Address [address] [place] [address]- Care Team Providers Care Hotel Maintenance Engineer Name Role Phone Anali Concepcion DO Primary Care Physician [facility]counter [facility] Date(s): 04/10/20 - 05/10/20 [facility] [address] [place] [address]- [facility] Allergies, Adverse Reactions, Alerts [...] 85 Recorded 1Result Comment: [06/08/2018] [facility]:43499-798-44 Medications Advair HFA 230 mcg / 21 [...] 0 Refills, Maintenance, 11/29/19 15:48:00 EDT, Suspension, [facility]/pharmacy #0957, 4 drops Ears, Both [...] 05/21/19 18:52:50 EDT, Route to Pharmacy Electronically, [id number], [facility]/pharmacy #1130 Start Date: 05/21/19 Status: Ordered Claritin 10 mg oral tablet 10 mg, 1, tablet, By Mouth, Daily, # 90 tablet, Refills 0, Tot. Refills 0, Maintenance, 04/02/19 8:27:25 EDT, Route to Pharmacy Electronically, [id number], [facility]/pharmacy #1130 Start Date: 04/02/19 Status: Ordered Colace sodium 100 mg oral capsule 100 mg, 1, capsule, By Mouth, Daily, # 30 capsule, Refills 11, Tot. Refills 11, Maintenance, 02/08/18 15:01:19 EDT, Route to Pharmacy Electronically, [id number], [facility] 8[address] Start Date: 02/08/18 Stop Date: 02/03/19 Status: Ordered Dulera Inhalation, 2 times a day, 0 Refills, Maintenance, 04/02/19 8:28:41 EDT Start Date: 04/02/19 Status: Ordered measles/mumps/rubella/varicella virus vaccine subcutaneous injection 0.5 mL, Subcutaneous Injection, Once, # 1 each, 0 Refills, Soft Stop, 09/02/19 12:34:00 EST, Powder, [facility]/pharmacy #1130, 0.5 mL Subcutaneous Injection Once, 146, cm, 06/28/19 16:39:00 EDT, Height, 77.72, kg, 06/12/19 14:42:00 EDT, Dry Weight Start Date: 09/02/19 Status: Ordered meloxicam 15 mg oral tablet 1 tablet = 15 mg, By Mouth, Daily, with food for foot pain, # 30 tablet, 0 Refills, Maintenance, 03/16/20 11:09:00 EDT, Tablet, [facility]/pharmacy #0957, 146, cm, 03/16/20 10:36:00 [...] each, 2 Refills, Maintenance, 11/29/19 16:12:00 EDT, [facility]/pharmacy#1130, 2 sprays Nares, Both Daily, [...] 9:01:59 EST, Aerosol, Route to Pharmacy Electronically, [id number], [facility] [address] Start Date: 11/02/18 Stop Date: 12/02/18 Status: [...]
--- OUTSIDE RECORDS SUMMARY | 2024-05-02 05:04 | XMS_ITS | Continuity of Care Document ---
Author Organization [facility] Renu Brooks [facility] Address [address] [facility], [address] [place] [address]- Care Team Providers Care Supervisor Fusing Room Name Role Phone Anali Concepcion DO Primary Care Physician Encounter [facility] [place] Date(s): 08/03/20 - 08/10/20 [facility] [employer] [facility] [address] [facility] [address] [facility], [address] [place], [place] [address] Attending Physician: Venice GUTIERREZ, Hanane Malhotra Referring Physician: Anali Concepcion DO Allergies, [...] 1Result Comment: [06/08/2018] [facility]:98184-167-60 Medications Advair HFA 230 mcg / 21 [...] 0 Refills, Maintenance, 11/29/19 15:48:00 EDT, Suspension, [facility]/pharmacy #0957, 4 drops Ears, Both [...] 05/21/19 18:52:50 EDT, Route to Pharmacy Electronically, [id number], [facility]/pharmacy #1130 Start Date: 05/21/19 Status: Ordered Claritin 10 mg oral tablet 10 mg, 1, tablet, By Mouth, Daily, # 90 tablet, Refills 0, Tot. Refills 0, Maintenance, 04/02/19 8:27:25 EDT, Route to Pharmacy Electronically, [id number], [facility]/pharmacy #1130 Start Date: 04/02/19 Status: Ordered Colace sodium 100 mg oral capsule 100 mg, 1, capsule, By Mouth, Daily, # 30 capsule, Refills 11, Tot. Refills 11, Maintenance, 02/08/18 15:01:19 EDT, Route to Pharmacy Electronically, [id number], [facility] [address] Start Date: 02/08/18 Stop Date: 02/03/19 Status: Ordered Dulera Inhalation, 2 times a day, 0 Refills, Maintenance, 04/02/19 8:28:41 EDT Start Date: 04/02/19 Status: Ordered Flonase 50 mcg/inh nasal spray 1 sprays, Nares, Both, 2 times a day, # 3 each, 0 Refills, Maintenance, 08/10/20 10:32:00 EST, [place], [facility] # [facility], Partial fill upon patient request, 1 sprays Nares, Both 2 times a day, 146, cm, 03/16/20 10:36:00 EDT, Height, 75.5, kg, 10/31... Start Date: 08/10/20 Status: Ordered guaiFENesin 100 mg/5 mL oral liquid 10 mL = 200 mg, By Mouth, Every 6 hours, PRN for cough, # 600 mL, 0 Refills, Maintenance, 08/10/20 10:34:00 EST, Liquid, [facility]/pharmacy #0957, Partial fill upon patient request if the prescription is for a schedule II opioid drug., 146, cm, 03/16/20 10:... Start Date: 08/10/20 Status: Ordered measles/mumps/rubella/varicella virus vaccine subcutaneous injection 0.5 mL, Subcutaneous Injection, Once, # 1 each, 0 Refills, Soft Stop, 09/02/19 12:34:00 EST, Powder, [facility]/pharmacy #1130, 0.5 mL Subcutaneous Injection Once, 146, cm, 06/28/19 16:39:00 EDT, Height, 77.72, kg, 06/12/19 14:42:00 EDT, Dry Weight Start Date: 09/02/19 Status: Ordered meloxicam 15 mg oral tablet 1 tablet = 15 mg, By Mouth, Daily, with food for foot pain, # 30 tablet, 0 Refills, Maintenance, 03/16/20 11:09:00 EDT, Tablet, [facility]/pharmacy #0957, 146, cm, 03/16/20 10:36:00 [...] each, 2 Refills, Maintenance, 11/29/19 16:12:00 EDT, [facility]/pharmacy#1130, 2 sprays Nares, Both Daily, [...] capsule, 2 Refills, Maintenance, 06/08/20 13:45:00 EDT, [facility]/pharmacy #0957, 146, cm, 03/16/20 10:36:00 EDT, Height, 75.5, kg, 10/31/19 15:44:00 EST, Dry Weight Start Date: 06/08/20 Status: Ordered ProAir HFA 90 mcg/inh inhalation aerosol with adapter 2, puffs, Inhalation, Every 6 hours, PRN, # 1 each, Refills 0, Tot. Refills 0, Soft Stop, 11/02/18 9:01:59 EST, Aerosol, Route to Pharmacy Electronically, [id number], [facility] [address] Start Date: 11/02/18 Stop Date: 12/02/18 Status: Ordered Recombivax HB Adult 10 mcg/mL intramuscular suspension 1 mL = 10 mcg, Intramuscular, Once, rpt at 1 and 6 months, # 1 mL, 2 Refills, Soft Stop, 09/02/19 12:37:00 EST, [facility]/pharmacy #1130, 146, cm, 06/28/19 16:39:00 [...]
--- OUTSIDE RECORDS SUMMARY | 2024-05-02 05:04 | XMS_ITS | Continuity of Care Document ---
Author Organization [facility] Renu [facility] Address [address] [facility], [address] [place] [address]- Care Team Providers Care Voicer Name Role Phone Anali Concepcion DO Primary Care Physician [place] [facility] [place] - 10/06/21 [facility] Renute CookSwif[employer] [facility] [address] [facility] [facility], [address] [place], [place] [address] Allergies, Adverse Reactions, Alerts Substance [...] Recorded 1Result Comment: [06/08/2018] [facility]:57126-666-72 Medications albuterol 0.083% inhalation solution 3 mL [...] Refills, Maintenance, 01/12/21 8:16:00 EDT, [facility], 146, cm, 01/04/21 11:29:00 EDT, Height, 75.5, [...] 9:01:59 EST, Aerosol, Route to Pharmacy Electronically, [id number], [facility] [address] Start Date: 11/02/18 Stop Date: 12/02/18 Status: [...]
--- OUTSIDE RECORDS SUMMARY | 2024-05-02 05:04 | XMS_ITS | Continuity of Care Document ---
Author Organization [facility] Address [address] [place] [address]- Care Team Providers Care Field Service Engineer Name Role Phone Anali Concepcion DO Primary Care Physician [place] [facility] [place](s): 01/08/21 - 02/25/21 [facility] [address] [place], [place] [address] Attending Physician: Luly Malik MD Allergies, Adverse Reactions, Alerts Substance Reaction [...] diphtheria/tetanus/pertussis, acel(DTaP) 85 Recorded 1Result Comment: [06/08/2018] [facility]:73039-812-13 Medications albuterol 0.083% inhalation solution 3 mL [...] capsule, 1 Refills, Maintenance, 01/12/21 8:16:00 EDT, [facility], 146, cm, 01/04/21 11:29:00 EDT, Height, 75.5, [...] 9:01:59 EST, Aerosol, Route to Pharmacy Electronically, [id number], [facility] [address] Start Date: 11/02/18 Stop Date: 12/02/18 Status: [...]
--- OUTSIDE RECORDS SUMMARY | 2024-05-02 05:04 | XMS_ITS | Continuity of Care Document ---
Author Organization [facility] Address [address] [address]- Care Team Providers Care Air Tester Name Role Phone Anali Concepcion DO Primary Care Physician [place] [facility] [place] 02/09/23 - 03/11/23 [facility] [address] [place] [address]- Attending Physician: Louise Camarillo Admitting Physician: AdmtrLouise Referring Physician: Admtr, Naun8 Allergies, Adverse Reactions, Alerts Substance Reaction Severity [...] acel(DTaP) 85 Recorded 1Result Comment: [06/08/2018] [facility]:11282-499-57 2Result Comment: [facility]# [address]-2 Medications albuterol 0.083% inhalation solution 3 mL [...] capsule, 6 Refills, Maintenance, 02/06/23 16:38:00 EDT, [facility], 146, cm, 01/26/23 10:14:00 EDT, Height, 75, kg, 12/08/22 14:59:00 EDT, Dry Weight Start Date: 02/06/23 Status: Ordered polyethylene glycol 3350 oral powder for reconstitution = 17 Gm, By Mouth, Daily, # 238 Gm, 1 Refills, Maintenance, 02/09/23 16:28:00 EDT, [facility], 15, 17 Gm By Mouth Daily, 146, cm, 02/09/23 9:44:00 EDT, Height, 75, kg, 12/08/22 14:59:00 EDT, Dry Weight Start Date: 02/09/23 Status: Ordered Senna 8.6 mg oral tablet 17.2 mg, 2, tablet, By Mouth, Daily at bedtime, PRN, # 50 tablet, Refills 0, Tot. Refills 0, Acute,Constipation, 03/12/23 10:13:00 EDT, 03/10/23 10:12:00 EDT, Route to Pharmacy Electronically, [facility] Tablet, Partial fill upon patien... [...] Depo-Provera. 3/22/18 denies suicidal ideation on current medications Confirmed [...] Team Personnel Name: Anali Concepcion DO Position: [facility] Physician - Primary Care Member Role: PCP Address: Address: [address] [place] [address] Adult [place] [address]- [place] Care Team Related Persons Name: KATIUSKA VIGIL Address: [address] [place] [address] Name: RAISA AMBROSE Address: [address] [place] [address] Name: AURORA NIX Name: MELISSA AGUILAR
--- OUTSIDE RECORDS SUMMARY | 2024-05-02 05:04 | XMS_ITS | Continuity of Care Document ---
Author Organization [facility] Address [address] [place] [address]- Care Team Providers Care Charging Plug Placer Name Role Phone Anali Concepcion DO Primary Care Physician ( [phone] Encounter [facility] [place] Date(s): 01/21/22 - 05/21/22 [facility] [address] [place] [address]- Attending Physician: Anali Concepcion DO Allergies, Adverse [...] Recorded diphtheria/tetanus/pertussis, acel(DTaP) 85 Recorded 1Result Comment: [facility]# [id number] 2Result Comment: [06/08/2018] [facility]:29370-612-65 Medications albuterol 0.083% inhalation solution 3 mL [...] Team Personnel Name: Anali Concepcion DO Address: [address] [place] [address] Adult & Pediatric Medicine [address]
--- OUTSIDE RECORDS SUMMARY | 2024-05-02 05:04 | XMS_ITS | Continuity of Care Document ---
Author Organization [facility] Address [address] [facility], [address] [place] [address]- Care Team Providers Care Diet Assistant Name Role Phone Anali Concepcion DO Primary Care Physician Encounter [facility] [place] Date(s): 09/10/21 - 10/10/21 [facility] Renute [employer] [facility] [address] [facility], [address] [place], [place] [address] Allergies, Adverse Reactions, Alerts Substance Reaction [...] [facility]:91456-490-24 Medications albuterol 0.083% inhalation solution 3 mL [...] Refills, Maintenance, 01/12/21 8:16:00 EDT, [facility], 146, cm, 01/04/21 11:29:00 EDT, Height, 75.5, [...] 9:01:59 EST, Aerosol, Route to Pharmacy Electronically, [id number], [facility] [address] Start Date: 11/02/18 Stop Date: 12/02/18 Status: [...] Smoking Status Never smoker entered on: 10/03/17 Sex"
--- OUTSIDE RECORDS SUMMARY | 2024-05-02 05:04 | XMS_ITS | Continuity of Care Document ---
Author Organization [facility] Address [address] [place] [address]- Care Team Providers Care Gyroscopic Instrument Mechanic Name Role Phone Anali Concepcion DO Primary Care Physician [facility] Date[facility]): 08[facility]/20 - 08/17/20 [facility] [address] [place], [place] [address] Attending Physician: Anali Concepcion DO [...] diphtheria/tetanus/pertussis, acel(DTaP) 85 Recorded 1Result Comment: [06/08/2018] [facility]:26811-107-86 Medications Advair HFA 230 mcg / 21 [...] 0 Refills, Maintenance, 11/29/19 15:48:00 EDT, Suspension, [facility]/pharmacy #0957, 4 drops Ears, Both 2 times [...] 05/21/19 18:52:50 EDT, Route to Pharmacy Electronically, [id number], [facility]/pharmacy #1130 Start Date: 05/21/19 Status: Ordered Claritin 10 mg oral tablet 10 mg, 1, tablet, By Mouth, Daily, # 90 tablet, Refills 0, Tot. Refills 0, Maintenance, 04/02/19 8:27:25 EDT, Route to Pharmacy Electronically, [id number], [facility]/pharmacy #1130 Start Date: 04/02/19 Status: Ordered Colace sodium 100 mg oral capsule 100 mg, 1, capsule, By Mouth, Daily, # 30 capsule, Refills 11, Tot. Refills 11, Maintenance, 02/08/18 15:01:19 EDT, Route to Pharmacy Electronically, [id number], [facility] Start Date: 02/08/18 Stop Date: 02/03/19 Status: Ordered Dulera Inhalation, 2 times a day, 0 Refills, Maintenance, 04/02/19 8:28:41 EDT Start Date: 04/02/19 Status: Ordered Flonase 50 mcg/inh nasal spray 1 sprays, Nares, Both, 2 times a day, # 3 each, 0 Refills, Maintenance, 08/10/20 10:32:00 EST, Cable, [facility] # [facility], Partial fill upon patient request, 1 sprays Nares, Both 2 times a day, 146, cm, 03/16/20 10:36:00 EDT, Height, 75.5, kg, 10/31... Start Date: 08/10/20 Status: Ordered guaiFENesin 100 mg/5 mL oral liquid 10 mL = 200 mg, By Mouth, Every 6 hours, PRN for cough, # 600 mL, 0 Refills, Maintenance, 08/10/20 10:34:00 EST, Liquid, [facility]/pharmacy #0957, Partial fill upon patient request if the prescription is for a schedule II opioid drug., 146, cm, 03/16/20 10:... Start Date: 08/10/20 Status: Ordered measles/mumps/rubella/varicella virus vaccine subcutaneous injection 0.5 mL, Subcutaneous Injection, Once, # 1 each, 0 Refills, Soft Stop, 09/02/19 12:34:00 EST, Powder, [facility]/pharmacy #1130, 0.5 mL Subcutaneous Injection Once, 146, cm, 06/28/19 16:39:00 EDT, Height, 77.72, kg, 06/12/19 14:42:00 EDT, Dry Weight Start Date: 09/02/19 Status: Ordered meloxicam 15 mg oral tablet 1 tablet = 15 mg, By Mouth, Daily, with food for foot pain, # 30 tablet, 0 Refills, Maintenance, 03/16/20 11:09:00 EDT, Tablet, [facility]/pharmacy #0957, 146, cm, 03/16/20 10:36:00 EDT, Height, [...] capsule, 2 Refills, Maintenance, 06/08/20 13:45:00 EDT, [facility]/pharmacy #0957, 146, cm, 03/16/20 10:36:00 EDT, Height, 75.5, kg, 10/31/19 15:44:00 EST, Dry Weight Start Date: 06/08/20 Status: Ordered predniSONE 10 mg oral tablet See Instructions, 13ixq2n,15kef2u,10ohs1h,96ogj2d then stop with food, # 26 tablet, 0 Refills, Acute 08/20/20 18:22:00 EST, 08/12/20 18:21:00 EST, [facility]/pharmacy #0957, Partial fill upon patient request if the prescription is for a schedule II opioid d... Start Date: 08/12/20 Stop Date: 08/20/20 Status: Ordered ProAir HFA 90 mcg/inh inhalation aerosol with adapter 2, puffs, Inhalation, Every 6 hours, PRN, # 1 each, Refills 0, Tot. Refills 0, Soft Stop, 11/02/18 9:01:59 EST, Aerosol, Route to Pharmacy Electronically, [id number], [facility] Start Date: 11/02/18 Stop Date: 12/02/18 Status: Ordered Recombivax HB Adult 10 mcg/mL intramuscular suspension 1 mL = 10 mcg, Intramuscular, Once, rpt at 1 and 6 months, # 1 mL, 2 Refills, Soft Stop, 09/02/19 12:37:00 EST, [facility]/pharmacy #1130, 146, cm, 06/28/19 16:39:00 EDT, Height, [...] Refills, Soft Stop, 07/29/20 17:17:00 EST, Tablet, [facility]/pharmacy #0957, Partial fill upon patient request, 146, [...]
--- OUTSIDE RECORDS SUMMARY | 2024-05-02 05:04 | XMS_ITS | Continuity of Care Document ---
Author Organization [facility] Address [address] [place] [address]- Care Team Providers Care Securities Lending Trader Name Role Phone Anali Concepcion DO Primary Care Physician En[facility] Date(s): 03/19/24 - 04/18/24 [facility] [address] [place], [place] [address] Attending Physician: Louise Camarillo Admitting Physician: Admtr, [...] Comment: [06/08/2018] [facility]:83486-704-84 2Result Comment: [facility]# [address]-4 Medications albuterol 0.083% inhalation solution 3 mL [...] tablet, 4 Refills, Maintenance, 04/26/23 9:22:00 EDT, [facility] #[facility], 146, cm, 03/10/23 9:41:00 EDT, Height, 70.9, kg, 03/10/23 9:41:00 EDT, Dry Weight Start Date: 04/26/23 Status: Ordered norethindrone 5 mg oral tablet 5 mg, 1, tablet, By Mouth, Daily, # 90 tablet, Refills 3, Tot. Refills 3, Maintenance, 07/12/23 13:25:00 EST, Route to Pharmacy Electronically, [facility] #94, Partial fill upon patientrequest if the prescription is for a schedule II opioid... Start Date: 07/12/23 Status: Ordered omeprazole 20 mg oral enteric coated capsule 1 capsule, By Mouth, Daily, # 30 capsule, 5 Refills, Maintenance, 04/17/24 6:14:00 EDT, [facility], 146, cm, 03/19/24 9:11:00 EDT, Height, 78.2, kg, 03/19/24 9:11:00 EDT, Dry Weight Start Date: 04/17/24 Status: Ordered Singulair 10 mg oral tablet [...] Status Never smoker entered on: 10/03/17 Sex Laboratory * Event Display: Laboratory Result Scanned Authored Date: * Event Display: Laboratory Result Scanned Authored Date: * Event Display: Immunology Report Authored Date: Radiology * Event Display: Ultrasound Lower Extremity, Non-BH Authored Date: Patient Care team information Care Team Personnel Name: Anali Concepcion DO Position: S Physician - Primary Care Member Role: PCP Address: Address: [address] [place] [address] Adult [place] [address]- Care Team Related Persons Name: KATIUSKA VIGIL Address: home [address] [place] [address] Name: RAISA AMBROSE Address: home [address] [place] [address] Name: AURORA NIX Name: MELISSA AGUILAR
--- OUTSIDE RECORDS SUMMARY | 2024-05-02 05:04 | XMS_ITS | Continuity of Care Document ---
Author Organization [facility] Address [address] [place] [address]- Care Team Providers Care Director Hydrogen Storage Engineering Name Role Phone Anali Concepcion DO Primary Care Physician [facility] Date[facility]s): 03/06/23 - 04/05/23 [facility] [address] [place], [place] [address] Allergies, Adverse Reactions, Alerts [...] 1Result Comment: [06/08/2018] [facility]:53646-375-81 2Result Comment: [facility]# [address]-0 Medications albuterol 0.083% inhalation solution 3 mL [...] for reconstitution = 17 Gm, By Mouth, 2 times a day, # 255 Gm, 1 Refills, Maintenance, 04/03/23 8:16:00 EDT, [facility] #[facility], 17 Gm By Mouth 2 times a day, 146, cm, 03/10/23 9:41:00 EDT, Height, 70.9, kg, 03/10/23 9:41:00 EDT, Dry Weight Start Date: 04/03/23 Status: Ordered Singulair 10 mg oral tablet [...] Primary Care Member Role: PCP Address: Address: [address] [place] [address]- Care Team Related Persons Name: MAKIMATTKATUISKA Address: home [address] [place] [address] Name: RAISA AMBROSE Address: home [address] [place] [address] Name: AURORA NIX Name: MELISSA AGUILAR
--- OUTSIDE RECORDS SUMMARY | 2024-05-02 05:04 | XMS_ITS | Continuity of Care Document ---
Author Organization [facility] Address [address] [place] [address]- Care Team Providers Care Furniture Upholsterer Name Role Phone Anali Concepcion DO Primary Care Physician [facility] Date(s): 01/27/22 - 02/26/22 [facility] [address] [place] [address]- Allergies, Adverse Reactions, Alerts Substance Reaction Severity [...] 1Result Comment: [facility]# [id number] 2Result Comment: [06/08/2018] [facility]:16616-813-31 Medications albuterol 0.083% inhalation solution 3 mL [...] capsule, 1 Refills, Maintenance, 01/12/21 8:16:00 EDT, [facility] 58132, 146, cm, 01/04/21 11:29:00 EDT, Height, 75.5, [...]
--- OUTSIDE RECORDS SUMMARY | 2024-05-02 05:04 | XMS_ITS | Continuity of Care Document ---
Author Organization [facility] Address [address] [place] [address]- Care Team Providers Care Transportation Department Head Name Role Phone Anali Cocnepcion DO Primary Care Physician [facility] Date(s): 09/12/23 - 10/12/23 [facility] [address] [place], [place] [address] Allergies, Adverse Reactions, Alerts Substance Reaction Severity Status amoxicillin gi upset Active aloe vera topical Active Zithromax gi upset Active Cats Active Dogs Active Other Environmental Allergy 1, 2 Active Contrave gi upset Active Ragweed Active Latex Active ZyrTEC Active Pollen Ragweed [...] acel(DTaP) 85 Recorded 1Result Comment: [06/08/2018] [facility]:60821-845-49 2Result Comment: [facility]# [address]-2 Medications albuterol 0.083% inhalation solution 3 mL [...] EST, Supply Start Date: 07/24/23 Status: Ordered doxycycline hyclate 100 mg oral capsule 1 capsule = 100 mg, By Mouth, 2 times a day, for 7 days, # 14 capsule, 0 Refills, Acute 10/17/23 8:27:00 EST, 10/10/23 8:27:00 EST, Capsule, [facility], Partial fill upon patient request if the prescription is for a schedule II opioid dr... Start Date: 10/10/23 Stop Date: 10/17/23 Status: Ordered fexofenadine 60 mg oral tablet [...] Team Personnel Name: Anali Concepcion DO Position: [facility] Physician - Primary Care Member Role: PCP Address: Address: [address] [place] [address] Adult & [place] [address]- Care Team Related Persons Name: KATIUSKA VIGIL Address: home [address] [place] [address] Name: RAISA AMBROSE Address: home [address] [place] [address] Name: AURORA NIX Name: MELISSA AGUILAR
--- OUTSIDE RECORDS SUMMARY | 2024-05-02 05:04 | XMS_ITS | Continuity of Care Document ---
Author Organization [facility] Address [address] [place] [address]- Care Team Providers Care Regulatory Submissions Specialist Name Role Phone Anali Concepcion DO Primary Care Physician [facility] Date(s): 05/27/22 - 06/26/22 [facility] [address] [place] [address]- Allergies, Adverse Reactions, Alerts Substance Reaction Severity [...] Recorded diphtheria/tetanus/pertussis, acel(DTaP) 85 Recorded 1Result Comment: [facility]# [address]-8 2Result Comment: [06/08/2018] [facility]:82445-244-81 Medications albuterol 0.083% inhalation solution 3 mL [...] Personnel Name: Anali Concepcion DO Address: Address: [address] [place] [address] Adult & Pediatric Medicine [place], [place] [address]
--- OUTSIDE RECORDS SUMMARY | 2024-05-02 05:04 | XMS_ITS | Continuity of Care Document ---
Author Organization [facility] Address [address] [place] [address]- Care Team Providers Care Business Banking Officer Name Role Phone Anali Concepcion DO Primary Care Physician [facility] Date(s): 09/13/21 - 10/13/21 [facility] [address] [place] [address]- Allergies, Adverse Reactions, Alerts Substance Reaction Severity [...] 1Result Comment: [06/08/2018] [facility]:44593-498-46 Medications albuterol 0.083% inhalation solution 3 mL [...] capsule, 1 Refills, Maintenance, 01/12/21 8:16:00 EDT, [facility], 146, cm, 01/04/21 11:29:00 EDT, Height, 75.5, [...] 9:01:59 EST, Aerosol, Route to Pharmacy Electronically, [id number], [facility] Start Date: 11/02/18 Stop Date: 12/02/18 Status: [...] Active Asthma(Confirmed) Active Last pap smear 10/03/17 negtariq padgett, with negative HPV(Confirmed) Active Endometriosis - diagnosed [...]
--- OUTSIDE RECORDS SUMMARY | 2024-05-02 05:04 | XMS_ITS | Continuity of Care Document ---
Author Organization [facility] Address [address] [place] [address]- Care Team Providers Care Sea Captain Name Role Phone Anali Concepcion DO Primary Care Physician Encounter [facility] Date(s): 02/23/22 - 03/26/22 [facility] [address] [place] [address]- Attending Physician: Vicente Renteria Allergies, Adverse Reactions, Alerts Substance Reaction Severity [...] 1Result Comment: [facility]# [id number] 2Result Comment: [06/08/2018] [facility]:48413-682-91 Medications albuterol 0.083% inhalation solution 3 mL [...] [facility] 49548, 146, cm, 01/04/21 11:29:00 EDT, Height, 75.5, [...]
--- OUTSIDE RECORDS SUMMARY | 2024-05-02 05:04 | XMS_ITS | Continuity of Care Document ---
Author Organization [facility] Address [address] [place] [address]- Care Team Providers Care Cad Administrator Name Role Phone Anali Concepcion DO Primary Care Physician [facility] Date[facility]s): 12/07/20 - 01/06/21 [facility] [address] [place], [place] [address] Allergies, Adverse Reactions, Alerts Substance Reaction [...] 85 Recorded 1Result Comment: [06/08/2018] [facility]:00772-465-37 Medications albuterol 0.083% inhalation solution 3 mL [...] A DAY Start Date: 04/02/19 Status: Ordered omeprazole 20 mg oral enteric [...] 9:01:59 EST, Aerosol, Route to Pharmacy Electronically, [id number], [facility] [address] Start Date: 11/02/18 Stop Date: 12/02/18 Status: [...]
--- OUTSIDE RECORDS SUMMARY | 2024-05-02 05:04 | XMS_ITS | Continuity of Care Document ---
Author Organization [facility] Address [address] [place] [address]- Care Team Providers Care Account Development Representative Name Role Phone Anali Concepcion DO Primary Care Physician [facility] Date(s[facility] 05/13/22 - 06/12/22 [facility] [address] [place] [address]- Allergies, Adverse Reactions, Alerts Substance Reaction Severity [...] 85 Recorded 1Result Comment: [facility]# [id number] 2Result Comment: [06/08/2018] [facility]:48960-454-64 Medications albuterol 0.083% inhalation solution 3 mL [...] Personnel Name: Anali Concepcion DO Address: Address: [address] [place] [address] Adult & Pediatric Medicine [place], [place] [address]
--- OUTSIDE RECORDS SUMMARY | 2024-05-02 05:04 | XMS_ITS | Continuity of Care Document ---
Author Organization [facility] Address [address] [facility] [place] [address]- Care Team Providers Care Can Line Operator Name Role Phone Anali Concepcion DO Primary Care Physician [place] [facility] [place](s): 10/21/21 - 12/03/21 [facility] [address] [facility] [place], [place] [address] Attending Physician: Not on Staff, Attending MD Referring Physician: Yris Bryant CNM Allergies, Adverse Reactions, Alerts Substance Reaction Severity [...] acel(DTaP) 85 Recorded 1Result Comment: [06/08/2018] [facility]:00991-314-10 Medications albuterol 0.083% inhalation solution 3 mL [...] capsule, 1 Refills, Maintenance, 01/12/21 8:16:00 EDT, [facility] 13111, 146, cm, 01/04/21 11:29:00 EDT, Height, 75.5, [...]
--- OUTSIDE RECORDS SUMMARY | 2024-05-02 05:04 | XMS_ITS | Continuity of Care Document ---
Author Organization [facility] Address Unknown Care Team Providers Care Plant Hr Manager Name Role Phone Anali Concepcion DO Primary Care Physician En[place] [facility] Date(s): 12/09/21 - 01/08/22 [facility] Allergies, Adverse Reactions, Alerts Substance Reaction Severity [...] Comment: [06/08/2018] [facility]:88990-370-31 Medications albuterol 0.083% inhalation solution 3 mL [...] capsule, 1 Refills, Maintenance, 01/12/21 8:16:00 EDT, [facility] 04909, 146, cm, 01/04/21 11:29:00 EDT, Height, 75.5, [...] Asthma(Confirmed) Active Last pap smear 10/03/17 negat dayrno, with negative HPV(Confirmed) Active Endometriosis - diagnosed [...]
--- OUTSIDE RECORDS SUMMARY | 2024-05-02 05:04 | XMS_ITS | Continuity of Care Document ---
Author Organization [facility] Address [address] [place] [address]- Care Team Providers Care Economic Developer Name Role Phone Anali Concepcion DO Primary Care Physician ( [phone] [facility]s): 09/28/23 - 10/28/23 [facility] [address] [place], [place] [address] Allergies, Adverse Reactions, Alerts Substance Reaction [...] 1Result Comment: [06/08/2018] [facility]:05552-180-13 2Result Comment: [facility]# [address]-3 Medications albuterol 0.083% inhalation solution 3 mL [...] EST, Route to Pharmacy Electronically, [facility], Partial fill upon patientrequest if [...] Anali Concepcion DO Position: [facility] Physician - Primary Care Member Role: PCP Address: Address: [address] [place] [address] Adult & [place] [address]- Care Team Related Persons Name: KATIUSKA VIGIL Address: [address] [place] [address] Name: RAISA AMBROSE Address: home [address] [place] [address] Name: AURORA NIX Name: MELISSA AGUILAR
--- OUTSIDE RECORDS SUMMARY | 2024-05-02 05:04 | XMS_ITS | Continuity of Care Document ---
Author Organization [facility] Address [address] [place] [address]- Care Team Providers Care Hand Engraver Name Role Phone Anali Concepcion DO Primary Care Physician [facility] Date(s): 07/07/23 - 08/06/23 [facility] [address] [place], [place] [address] Allergies, Adverse Reactions, Alerts Substance [...] Comment: [06/08/2018] [facility]:61662-652-76 2Result Comment: [facility]# [address]-6 Medications albuterol 0.083% inhalation solution 3 mL [...] Primary Care Member Role: PCP Address: Address: [address] [place] [address] Adult [place] [address]- Care Team Related Persons Name: KATIUSKA VIGIL Address: home [address] [place] [address] Name: RAISA AMBROSE Address: home [address] [place] [address] Name: AURORA NIX Name: MELISSA AGUILAR
--- OUTSIDE RECORDS SUMMARY | 2024-05-02 05:04 | XMS_ITS | Continuity of Care Document ---
Author Organization [facility] Address [address] [place] [address]- Care Team Providers Care Hot Stone Setter Name Role Phone Anali Concepcion DO Primary Care Physician Encounter [facility] Date(s): 08/09/23 - 09/08/23 [facility] [address] [place], [place] [address] Allergies, Adverse Reactions, Alerts Substance Reaction Severity [...] 85 Recorded 1Result Comment: [06/08/2018] [facility]:64686-130-97 2Result Comment: [facility]# [address]-1 Medications albuterol 0.083% inhalation solution 3 mL [...] EST, Route to Pharmacy Electronically, [facility], Partial fill upon patientrequest if [...] Team Personnel Name: Anali Concepcion DO Position: [facility] Physician - Primary Care Member Role: PCP Address: Address: [address] [place] [address] Adult [place] [address]- Care Team Related Persons Name: KATIUSKA VIGIL Address: [address] [place] [address] Name: RAISA AMBROSE Address: home [address] [place] [address] Name: AURORA NIX Name: MELISSA AGUILAR
--- OUTSIDE RECORDS SUMMARY | 2024-05-02 05:04 | XMS_ITS | Continuity of Care Document ---
Author Organization [facility] Address [address] [place] [address]- Care Team Providers Care Barrel Waterer Name Role Phone Anali Concepcion DO Primary Care Physician [facility]): 01/07/21 - 02/06/21 [facility] [address] [place], [place] [address] Allergies, Adverse Reactions, Alerts [...] 1Result Comment: [06/08/2018] [facility]:03525-927-73 Medications albuterol 0.083% inhalation solution 3 mL [...] capsule, 1 Refills, Maintenance, 01/12/21 8:16:00 EDT, [facility] 71630, 146, cm, 01/04/21 11:29:00 EDT, Height, 75.5, [...] 9:01:59 EST, Aerosol, Route to Pharmacy Electronically, [id number], [facility] [address] Start Date: 11/02/18 Stop Date: 12/02/18 Status: [...]
--- OUTSIDE RECORDS SUMMARY | 2024-05-02 05:05 | XMS_ITS | Continuity of Care Document ---
Author Organization [facility] Address [address] [facility] [place] [address]- Care Team Providers Care Chalk Tester Name Role Phone Anali Concepcion DO Primary Care Physician [facility] Date(s): 05/17/22 - 06/16/22 [facility] [address] [facility] [place] [address]- Allergies, Adverse Reactions, Alerts Substance Reaction Severity [...] Recorded diphtheria/tetanus/pertussis, acel(DTaP) 85 Recorded 1Result Comment: [facility]# [id number] 2Result Comment: [06/08/2018] [facility]:11030-602-08 Medications albuterol 0.083% inhalation solution 3 mL [...] Personnel Name: Anali Concepcion DO Address: Address: [address] [place] [address] Adult & Pediatric Medicine [place], [place] [address]
--- OUTSIDE RECORDS SUMMARY | 2024-05-02 05:05 | XMS_ITS | Continuity of Care Document ---
Author Organization [facility] Address [address] [place] [address]- Care Team Providers Care Package Pick Up Name Role Phone Anali Concepcion DO Primary Care Physician [facility] Date(s): 12/09/22 - 01/08/23 [facility] [address] [place], [place] [address] Allergies, Adverse Reactions, Alerts Substance [...] Recorded 1Result Comment: [06/08/2018] [facility]:00038-035-10 2Result Comment: [facility]# [address]-6 Medications albuterol 0.083% inhalation solution 3 mL [...] Anali Concepcion DO Position: [facility] Primary Care Physician Member Role: PCP Address: Address: [address] [place] [address] Adult & [place] [address]- Care Team Related Persons Name: KATIUSKA VIGIL Address: [address] [place] [address] Name: RAISA AMBROSE Address: [address] [place] [address] Name: AURORA NIX Name: MELISSA AGUILAR
--- OUTSIDE RECORDS SUMMARY | 2024-05-02 05:05 | XMS_ITS | Continuity of Care Document ---
Author Organization [facility] Address [address] [place] [address]- Care Team Providers Care Project Drilling Engineer Name Role Phone Anali Concepcion DO Primary Care Physician [facility] Date(s): 03/16/20 - 04/15/20 [facility] [address] [place] [address]- [facility] Attending Physician: Louise Camarillo Admitting Physician: Louise [...] acel(DTaP) 85 Recorded 1Result Comment: [06/08/2018] [facility]:[id number] Medications Advair HFA 230 mcg / 21 [...] Refills, Maintenance, 11/29/19 15:48:00 EDT, Suspension, [facility]/pharmacy #0957, 4 drops Ears, Both 2 times [...] 05/21/19 18:52:50 EDT, Route to Pharmacy Electronically, [id number], [facility]/pharmacy #1130 Start Date: 05/21/19 Status: Ordered Claritin 10 mg oral tablet 10 mg, 1, tablet, By Mouth, Daily, # 90 tablet, Refills 0, Tot. Refills 0, Maintenance, 04/02/19 8:27:25 EDT, Route to Pharmacy Electronically, [id number], [facility]/pharmacy #1130 Start Date: 04/02/19 Status: Ordered Colace sodium 100 mg oral capsule 100 mg, 1, capsule, By Mouth, Daily, # 30 capsule, Refills 11, Tot. Refills 11, Maintenance, 02/08/18 15:01:19 EDT, Route to Pharmacy Electronically, [id number], [facility] Start Date: 02/08/18 Stop Date: 02/03/19 Status: Ordered Dulera Inhalation, 2 times a day, 0 Refills, Maintenance, 04/02/19 8:28:41 EDT Start Date: 04/02/19 Status: Ordered measles/mumps/rubella/varicella virus vaccine subcutaneous injection 0.5 mL, Subcutaneous Injection, Once, # 1 each, 0 Refills, Soft Stop, 09/02/19 12:34:00 EST, Powder, [facility]/pharmacy #1130, 0.5 mL Subcutaneous Injection Once, 146, cm, 06/28/19 16:39:00 EDT, Height, 77.72, kg, 06/12/19 14:42:00 EDT, Dry Weight Start Date: 09/02/19 Status: Ordered meloxicam 15 mg oral tablet 1 tablet = 15 mg, By Mouth, Daily, with food for foot pain, # 30 tablet, 0 Refills, Maintenance, 03/16/20 11:09:00 EDT, Tablet, [facility]/pharmacy #0957, 146, cm, 03/16/20 10:36:00 EDT, Height, [...] 2 Refills, Maintenance, 11/29/19 16:12:00 EDT, [facility]/pharmacy#1130, 2 sprays Nares, Both Daily, 146, cm, [...] 9:01:59 EST, Aerosol, Route to Pharmacy Electronically, [id number], [facility] Start Date: 11/02/18 Stop Date: 12/02/18 Status: [...]
--- OUTSIDE RECORDS SUMMARY | 2024-05-02 05:05 | XMS_ITS | Continuity of Care Document ---
Author Organization [facility] Address [address] [place] [address]- Care Team Providers Care Knife Grinder Name Role Phone Anali Concepcion DO Primary Care Physician [facility] Date(s): 10/07/22 - 11/06/22 [facility] [address] [place], [place] [address] Allergies, Adverse Reactions, Alerts Substance Reaction [...] 1Result Comment: [06/08/2018] [facility]:[id number] 2Result Comment: [facility]# [id number] Medications albuterol 0.083% inhalation solution 3 mL [...] Maintenance, 04/12/22 8:47:00 EDT, Tablet, [facility], Partial fill upon patient request if the prescription is for a schedule II opioid drug., 146, cm, 04/12/22 8:15:00 EDT, Hei... Start Date: 04/12/22 Stop Date: 07/06/23 Status: Ordered norethindrone 5 mg oral tablet 5 mg, 1, tablet, By Mouth, Daily, # 90 tablet, Refills 3, Tot. Refills 3, Maintenance, 06/06/22 11:31:00 EDT, Route to Pharmacy Electronically, [facility], Partial fill upon patientrequest if [...] Care Physician Member Role: PCP Address: Address: [address] [place] [address] Adult & [place] [address]- Care Team Related Persons Name: KATIUSKA VIGIL Address: home [address] [place] [address] Name: RAISA AMBROSE Address: home [address] [place] [address] Name: AURORA NIX Name: MELISSA AGUILAR
--- OUTSIDE RECORDS SUMMARY | 2024-05-02 05:05 | XMS_ITS | Continuity of Care Document ---
Author Organization [facility] Address [address] [place] [address]- Care Team Providers Care Haul Truck Driver Name Role Phone Anali Concepcion DO Primary Care Physician [facility] Date(s): 03/02/23 - 04/01/23 [facility] [address] [place], [place] [address] Allergies, Adverse Reactions, Alerts Substance [...] diphtheria/tetanus/pertussis, acel(DTaP) 85 Recorded 1Result Comment: [06/08/2018] [facility]:[id number] 2Result Comment: [facility]# [id number] Medications albuterol 0.083% inhalation solution 3 mL [...] Most recent to oldest [Reference Range]: 1 2 Blood Pressure [90-138/55-84 mm Hg] 127/ 74mm Hg (03/01/23 4:03 PM) 117/71mm Hg (02/21/23 4:02 PM) Social History Social History Type Response Smoking Status Never smoker entered on: 1/30/18 Sex Patient Care team information Care Team Personnel Name: Anali Concepcion DO Position: [facility] Physician - Primary Care Member Role: PCP Address: Address: [address] [place] [address] Adult & [place] [address]- Care Team Related Persons Name: KATIUSKA VIGIL Address: [address] [place] [address] Name: RAISA AMBROSE Address: [address] [place] [address] Name: AURORA NIX Name: MELISSA AGUILAR
--- OUTSIDE RECORDS SUMMARY | 2024-05-02 05:05 | XMS_ITS | Continuity of Care Document ---
Author Organization [facility] Address [address] [place] [address]- Care Team Providers Care Career Services Representative Name Role Phone Anali Concepcion DO Primary Care Physician Encounter [facility] Date(s): 03/10/23 - 04/09/23 [facility] [address] [place], [place] [address] Attending Physician: Louise Camarillo Admitting Physician: [...] Comment: [06/08/2018] [facility]:[id number] 2Result Comment: [facility]# [id number] Medications albuterol 0.083% inhalation solution 3 mL [...] Team Personnel Name: Anali Concepcion DO Position: [facility] Physician - Primary Care Member Role: PCP Address: Address: [address] [place] [address] Adult & Pediatric Medicine [place], [place] [address] Care Team Related Persons Name: KATIUSKA VIGIL Address: [address] [place] [address] Name: RAISA AMBROSE Address: [address] [place] [address] Name: AURORA NIX Name: MELISSA AGUILAR
--- OUTSIDE RECORDS SUMMARY | 2024-05-02 05:05 | XMS_ITS | Continuity of Care Document ---
Author Organization [facility] Address [address] [place] [address]- Care Team Providers Care Inflated Pad Buffer Name Role Phone Anali Concepcion DO Primary Care Physician ( [phone] [facility]counter [facility]s): 01/12/23 - 02/11/23 [facility] [address] [place], [place] [address] Allergies, Adverse Reactions, Alerts Substance Reaction [...] acel(DTaP) 85 Recorded 1Result Comment: [06/08/2018] [facility]:[id number] 2Result Comment: [facility]# [id number] Medications albuterol 0.083% inhalation solution 3 mL [...] Range]: 1 Blood Pressure [90-138/55-84 mm Hg] 125/ 80mm Hg (01/11/23 12:08 PM) Social History Social History Type Response Smoking Status Never smoker entered on: 10/03/17 Sex Patient Care team information Care Team Personnel Name: Anali Concepcion DO Position: [facility] Physician - Primary Care Member Role: PCP Address: Address: [address] [place] [address] Adult [place] [address]- Care Team Related Persons Name: MUSAKATIUSKA Address: home [address] [place] [address] Name: RAISA AMBROSE Address: home [address] [place] [address] Name: AURORA NIX Name: MELISSA AGUILAR
--- OUTSIDE RECORDS SUMMARY | 2024-05-02 05:05 | XMS_ITS | Continuity of Care Document ---
Author Organization [facility] Address [address] [place] [address]- Care Team Providers Care Grounds Person Name Role Phone Anali Concepcion DO Primary Care Physician Encounter [facility] Date(s): 02/24/22 - 03/26/22 [facility] [address] [place], [place] [address] Attending Physician: Louise Camarillo Admitting Physician: [...] Recorded diphtheria/tetanus/pertussis, acel(DTaP) 85 Recorded 1Result Comment: [facility]# [id number] 2Result Comment: [06/08/2018] [facility]:53680-163-17 Medications albuterol 0.083% inhalation solution 3 mL [...] capsule, 1 Refills, Maintenance, 01/12/21 8:16:00 EDT, [facility], 146, cm, 01/04/21 11:29:00 EDT, Height, 75.5, [...]
--- OUTSIDE RECORDS SUMMARY | 2024-05-02 05:05 | XMS_ITS | Continuity of Care Document ---
Author Organization [facility] Address [address] [place] [address]- Care Team Providers Care Cartographic Drafter Name Role Phone Anali Concepcion DO Primary Care Physician Encounter [facility] Date(s): 07/21/22 - 07/28/22 [facility] [address] [place] [address]- Encounter Diagnosis Maxillary sinusitis, chronic(Discharge Diagnosis) - 07/21/22 Right serous otitis media(Discharge Diagnosis) - 07/21/22 Allergic rhinitis, seasonal(Discharge Diagnosis) - 07/21/22 Dizziness(Discharge Diagnosis) - 07/21/22 Attending Physician: Moira GUTIERREZ, Rima Allergies, Adverse Reactions, Alerts Substance Reaction Severity [...] 85 Recorded 1Result Comment: [facility]# [id number] 2Result Comment: [06/08/2018] [facility]:[id number] Medications albuterol 0.083% inhalation solution 3 mL [...] Dates Health Status Cl inical Service Informant Maxillary sinusitis, chronic Discharge Diagnosis 07/21/22 Right serous otitis media Discharge Diagnosis 07/21/22 Allergic rhinitis, seasonal Discharge Diagnosis 07/21/22 Dizziness Discharge Diagnosis 07/21/22 Vital Signs Most recent to oldest [Reference Range]: 1 Height 146 cm (07/21/22 9:03 AM) Oxygen Saturation [94-100 %] 98 % (07/21/22 9:03 AM) Pulse Rate [55-90 bpm] 85 bpm (07/21/22 9:03 AM) Blood Pressure [90-138/55-84 mm Hg] 108/ 66mm Hg (07/21/22 9:03 AM) Mode of Delivery (Oxygen) Room air (07/21/22 9:03 AM) Blood pressure sites Arm, left (07/21/22 9:03 AM) Weight Obtained Via Standing scale (07/21/22 9:03 AM) Social History Social History Type Response Smoking Status Never smoker entered on: 10/03/17 Sex Note * Brooklyn Rodríguez: PERFORM, SIGN, VERIFY Event Display: Patient Education/Instruction Authored Date: [id number] [facility] *[facility] Clinical Summary Name DIONY AMBROSE Age 36 Years 1985 PCP Anali Concepcion DO PCP Visit Date 07/21/2022 09:00:00 Patient Instructions IF symptoms persist beyond 2 weeks, please schedule in office visit. Additional Instructions: Scheduled Appointments?? Future Appointments ?*No[facility] ?[address],??[place],??[address] ?Phone:??--?Fax:??-- ?Appt. Date:??08/12/2022?11:00 AM ?Scheduled Provider:??Anali Concepcion DO Follow-Up Instructions ?? With: Address: When: Anali Concepcion DO Within 2 to 3 weeks, only if needed Comments: dizziness Diagnosis Chronic maxillary sinusitis; Unspecified nonsuppurative otitis media, right ear; Other seasonal allergic rhinitis; Dizziness and giddiness Medications: Please continue your medications until treatment is completed or stopped by your provider. Discuss any questions related to medications with your provider. New Medications [facility], [address], [place] [id number], [phone] Amoxicillin-Clavulanate (Augmentin 875 mg-125 mg oral tablet) 1 tab(s) Oral every 12 hours for 7 Days. Refills: 0. Next Dose: Medications to Continue Taking That Have Changed [facility], [address], [place] [id number], [phone] - Meclizine (meclizine 25 mg oral tablet) 1 tab(s) Oral twice a day for 7 Days. Refills: 0. Next Dose: Medications to Continue [...] capsule Oral Daily. Refills: 2. Next Dose: Simethicone (simethicone 125 mg oral tablet, chewable) 1 tab(s) Chew 4 times a day. Refills: 0. Next Dose: Allergy Info:?? ZyrTEC; Latex; aloe vera topical Medications Given This Visit Future Orders ?No future orders Vital Signs Height 146 cm Weight BMI Blood Pressure 108 mm Hg/66 mm Hg Temperature Pulse Rate 85 bpm Respiratory Rate 02 Sat Mode of Delivery 98 %/Room air You can now view a summary of your hospital visit from the comfort of your home through a free online portal called [employer] is a website that allows you to securely view your medical information including discharge summary, medications and follow-up visits. ??You can alsosend a secure electronic message to your doctor???s office to request appointments, renew medications or just ask a question. You can enroll at [email or web address] or register during your next office visit. [...] primary care provider, you may find a [facility] provider by calling [facility] [employer] at [phone]. For information about the plan of care including goals and instructions for your diagnosis, please see the patient education orders section of this document. Patient Education Materials?? The content of this educational material or handout may have been modified, supplemented, or adapted from its original content and format to support your individualized medical care. Causes of Sinusitis Mucus helps keep your sinuses clean. But mucus may build up in the sinuses due to colds, allergies,or obstructions. These things interfere with the natural drainage of mucus. This may lead to sinusitis (sinus inflammation and infection). ??? Acute sinusitis comes on suddenly. It often happens right after an upper respiratory infection,such as a cold. ??? Chronic sinusitis is ongoing swelling of the sinus lining. This is often the result of allergies or chronic infections. Colds and other infections A cold or flu may cause your sinus and nasal linings to swell. Sinus openings can become blocked. This causes mucus to back up. This backed-up mucus becomes an ideal place for bacteria to grow. Thick, yellow, or discolored mucus is one sign of infection. Allergic reactions You may be sensitive to certain substances. This causes the release of histamine in the body. Histamine makes your sinus and nasal linings swell. Long-term swelling clogs your sinuses. It prevents the cilia (tiny hairs in the nasal lining) from sweeping away mucus. Allergy symptoms can be persistent. But they???re less severe than with colds. Obstructions ??? A polyp is a sac of swollen tissue. It can be the result of an allergy or infection. It may block the middle meatus (the opening where most of your sinuses drain). It may even grow large enough to block your nose. ??? A deviated septum is when the thin wall inside your nose is pushed to one side. It is often theresult of injury. This can block your middle meatus. ?? [id number] [employer]. [address] [place] [address]. All rights reserved. This information is not intended as a substitute for professional medical care. Always follow your healthcare professional's instructions. Allergic Rhinitis Allergic rhinitis is an allergic reaction that affects the nose, and often the eyes. It???s often known as??nasal allergies. Nasal allergies are often due to things in the environment that are breathed in. Depending what you are sensitive to, nasal allergies may occur only during certain seasons. Or they may occur year round. Common indoor allergens include house dust mites, mold, cockroaches, and pet dander. Outdoor allergens include pollen from trees, grasses, and weeds. Symptoms include a drippy, stuffy, and itchy nose. They also include sneezing and red and itchy eyes. You may feel tired more often. Severe allergies may also affect your breathing and trigger a condition called asthma. Tests can be done to see what allergens are affecting you. You may be referred to an information systems security specialist for testing and further evaluation. Home care The healthcare provider may prescribe medicines to help relieve allergy symptoms. Ask the provider for advice on how to avoid substances that you are allergic to.??Below are a few tips for each type of allergen. Pet dander: ??? Do not have pets with fur and feathers. ??? If you cannot avoid having a pet, keep it out of your bedroom and off upholstered furniture. Pollen: ??? When pollen counts are high, keep windows of your car and home closed. If possible, use an air conditioner instead. ??? Wear a filter mask when mowing or doing yard work. House dust mites: ??? Wash bedding every week in warm water and detergent and dry on a hot setting. ??? Cover the mattress, box spring, and pillows with allergy covers. ??? If possible, sleep in a room with no carpet, curtains, or upholstered furniture. Cockroaches: ??? Store food in sealed containers. ??? Remove garbage from the home promptly. ??? Fix water leaks Mold: ??? Keep humidity low by using a dehumidifier or air conditioner. Keep the dehumidifier and air conditioner clean and free of mold. ??? Clean moldy areas with bleach and water. In general: ??? Vacuum once or twice a week. If possible, use a vacuum with a high- efficiency particulate air (HEPA) filter. ??? Do not smoke. Avoid cigarette smoke. Cigarette smoke is an irritant that can make symptoms worse. Follow-up care Follow up as advised by the health care provider or our staff. If you were referred to an information systems security specialist, make this appointment promptly. When to seek medical advice Call your healthcare provider right away if the following occur: ??? Coughing or wheezing ??? Fever greater than 100.4??F (38??C) ??? Continuing symptoms, new symptoms, or worsening symptoms Call 911 right away??if you have: ??? Trouble breathing ??? Hives (raised red bumps) ??? Severe swelling of the face or severe itching of the eyes or mouth ?? [id number] [employer]. [address] [place] [address], [place] [address]. All rights reserved. This information is not intended as a substitute for professional medical care. Always follow your healthcare professional's instructions. Dizziness (Uncertain Cause) Dizziness is a common symptom. It may be described as lightheadedness, spinning, or feeling like you are going to faint. Dizziness can have many causes. Be sure to tell the healthcare provider about: ??? All medicines you take, including prescription, [id number]-duidplm, herbs, and supplements ??? Any other symptoms you have ??? Any health problems you are being treated for ??? Anything that causes the dizziness to get worse or better Today's exam did not show an exact cause for your dizziness.??Other tests may be needed. Follow up with your healthcare provider. Home care ??? Dizziness that occurs with sudden standing may be a sign of mild dehydration. Drink extra fluids for the next few days. ??? If you recently started a new medicine, stopped a medicine, or had the dose of a current medicine changed,??talk with the prescribing healthcare provider. Your medicine plan may need adjustment. ??? If dizziness lasts more than a few seconds, sit or lie down until it passes. This may help prevent injury in case you pass out. ??? Do not drive??or use power tools or dangerous equipment until you have had no dizziness for at least 48 hours. Follow-up care Follow up with your healthcare provider for further evaluation within the next 7 days or as advised. When to seek medical advice Call your healthcare provider for any of the following: ??? Worsening of symptoms or new symptoms ??? Passing out or seizure ??? Repeated vomiting ??? Headache ??? Palpitations (the sense that your heart is fluttering or beating fast or hard) ??? Shortness of breath ??? Blood in vomit or stool (black or red color) ??? Weakness of an arm or leg or one side of the face ??? Vision or hearing changes ??? Trouble walking or speaking ??? Chest, arm, neck, back, or jaw pain ?? [phone] [employer]. [address] [place] [address], [place] [address]. All rights reserved. This information is not intended as a substitute for professional medical care. Always follow your healthcare professional's instructions. Common Middle Ear Problems Your middle ear may have been injured or infected recently. Over time, certain growths or bone disease can also harm the middle ear. Left untreated, middle ear problems often lead to lifelong hearingloss. There are??two types of hearing loss: conductive and sensorineural. One or both kinds can occur. Injury, infection, certain growths, or bone disease can cause your symptoms. A ruptured eardrum or a long-lasting (chronic) ear infection may be painful and decrease hearing. Symptoms ??? Hearing loss in??one or both ears ??? Fluid, often smelly, draining from the ear ??? Pain, pressure, or discomfort in the ear ??? Ringing in the ear Conductive and sensorineural hearing loss Sound waves may be disrupted before they reach the inner ear. If this happens, conductive hearing loss may occur. The ear canal can be blocked by wax, infection, a tumor, or a foreign object. The eardrum can be injured or infected. Abnormal bone growth, infection, or tumors in the middle ear can block sound waves. Sound waves may not be processed correctly in the inner ear. If this happens, sensorineural hearingloss may occur. ?? [phone] [employer]. [address] [place] [address]. All rights reserved. This information is not intended as a substitute for professional medical care. Always follow your healthcare professional's instructions. Patient Care team information Care Team Personnel Name: Anali Concepcion DO Position: [facility] Primary Care Physician Member Role: PCP Address: Address: [address] [place] [address] Adult & Pediatric Medicine [place], [place] [address] Care Team Related Persons Name: KATIUSKA VIGIL Address: [address] [place] [address] Name: RAISA AMBROSE Address: [address] [place] [address] Name: AURORA NIX Name: MELISSA AGUILAR
--- OUTSIDE RECORDS SUMMARY | 2024-05-02 05:05 | XMS_ITS | Continuity of Care Document ---
Author Organization [facility] Address [address] [place] [address]- Care Team Providers Care Clinical Asst Name Role Phone Anali Concepcion DO Primary Care Physician [facility] Date(s): 07/20/22 - 08/19/22 [facility] [address] [place] [address]- Allergies, Adverse Reactions, Alerts Substance Reaction Severity [...] Recorded diphtheria/tetanus/pertussis, acel(DTaP) 85 Recorded 1Result Comment: [facility]# [id number] 2Result Comment: [06/08/2018] [facility]:[id number] Medications albuterol 0.083% inhalation solution 3 mL [...] Team Personnel Name: Anali Concepcion DO Position: [facility] Primary Care Physician Member Role: PCP Address: Address: [address] [place] [address] Adult & [place] [address]- Care Team Related Persons Name: MUSASHALONDAA Address: [address] [place] [address] Name: RAISA AMBROSE Address: [address] [place] [address] Name: AURORA NIX Name: MELISSA AGUILAR
--- OUTSIDE RECORDS SUMMARY | 2024-05-02 05:05 | XMS_ITS | Continuity of Care Document ---
Author Organization [facility] Address [address] [place] [address]- Care Team Providers Care Manager Sharepoint Name Role Phone Anali Concepcion DO Primary Care Physician Encounter [facility] [place] Date(s): 02/01/22 - 02/08/22 [facility] [address] [place], [place] [address] Attending Physician: Not on Staff, Attending MD [...] 85 Recorded 1Result Comment: [facility]# [id number] 2Result Comment: [06/08/2018] [facility]:[id number] Medications albuterol 0.083% inhalation solution 3 mL [...] capsule, 1 Refills, Maintenance, 01/12/21 8:16:00 EDT, [facility] 75207, 146, cm, 01/04/21 11:29:00 EDT, Height, 75.5, [...]
--- OUTSIDE RECORDS SUMMARY | 2024-05-02 05:05 | XMS_ITS | Continuity of Care Document ---
Author Organization [facility] Address [address] [facility], [address] [place] [address]- Care Team Providers Care Engineering Team Supervisor Name Role Phone Anali Concepcion DO Primary Care Physician En[facility] Date(s): 12/08/22 - 01/07/23 [facility] [address] [facility], [address] [place] [address]- Allergies, Adverse Reactions, Alerts Substance Reaction Severity [...] 1Result Comment: [06/08/2018] [facility]:[id number] 2Result Comment: [facility]# [id number] Medications albuterol 0.083% inhalation solution 3 mL [...] Date: 04/05/18 Stop Date: 1/29/19 Status: Ordered Problem List Condition Confirmation Course [...] Physician Member Role: PCP Address: Address: [address] [place] [address] Adult & [place] [address]- Care Team Related Persons Name: KATIUSKA VIGIL Address: home [address] [place] [address] Name: RAISA AMBROSE Address: home [address] [place] [address] Name: AURORA NIX Name: MELISSA AGUILAR
--- OUTSIDE RECORDS SUMMARY | 2024-05-02 05:05 | XMS_ITS | Continuity of Care Document ---
Author Organization [facility] Address [address] [place] [address]- Care Team Providers Care Master Ocean Yacht Name Role Phone Anali Concepcion DO Primary Care Physician ( [phone] Encounter [facility] Date(s): 12/13/21 - 01/12/22 [facility] [address] [place] [address]- Attending Physician: Louise Camarillo Admitting Physician: Louise [...] diphtheria/tetanus/pertussis, acel(DTaP) 85 Recorded 1Result Comment: [06/08/2018] [facility]:48777-407-37 Medications albuterol 0.083% inhalation solution 3 mL [...] capsule, 1 Refills, Maintenance, 01/12/21 8:16:00 EDT, [facility] STORE 11950, 146, cm, 01/04/21 11:29:00 EDT, Height, 75.5, [...]
--- OUTSIDE RECORDS SUMMARY | 2024-05-02 05:05 | XMS_ITS | Continuity of Care Document ---
Author Organization [facility] Address [address] [facility], [address] [place] [address]- Care Team Providers Care Chief Nurse Anesthetist Name Role Phone Anali Concepcion DO Primary Care Physician Encounter [facility] Date(s): 09/07/21 - 09/14/21 [facility] [address] [facility], [address] [place] [address]- Attending Physician: Jonathan Kay MD Referring Physician: Anali Concepcion DO Allergies, [...] Recorded 1Result Comment: [06/08/2018] [facility]:22195-927-31 Medications albuterol 0.083% inhalation solution 3 mL [...] Refills, Maintenance, 01/12/21 8:16:00 EDT, [facility], 146, cm, 01/04/21 11:29:00 EDT, Height, 75.5, [...] 9:01:59 EST, Aerosol, Route to Pharmacy Electronically, [id number][facility] Start Date: 11/02/18 Stop Date: 12/02/18 Status: [...] oldest [Reference Range]: 1 Height 146 cm (09/07/21 2:59 PM) Weight 66.81 kg (09/07/21 2:59 PM) Body Mass Index [18.5-24.99] 31.34 *>HHI* (09/07/21 2:59 PM) Blood Pressure [90-138/55-84 mm Hg] 114/ 69mm Hg (09/07/21 2:59 PM) Blood pressure sites Arm, left (09/07/21 2:59 PM) Weight Obtained Via Standing scale (09/07/21 2:59 PM) Social History Social History Type Response Smoking Status Never smoker entered on: 10/03/17 Sex
--- OUTSIDE RECORDS SUMMARY | 2024-05-02 05:05 | XMS_ITS | Continuity of Care Document ---
Author Organization [facility] Address [address] [facility], [address] [place] [address]- Care Team Providers Care Residential Life Director Name Role Phone Anali Concepcion DO Primary Care Physician Encounter [facility] Date(s): 05/13/22 - 06/12/22 [facility] [employer] [facility] [address] [facility], [address] [place] [address]- Attending Physician: Louise Camarillo Admitting Physician: Louise [...] acel(DTaP) 85 Recorded 1Result Comment: [facility]# [id number] 2Result Comment: [06/08/2018] [facility]:55545-740-04 Medications albuterol 0.083% inhalation solution 3 mL [...] Personnel Name: Anali Concepcion DO Address: Address: [address] [place] [address] Adult & Pediatric Medicine [place], [place] [address]
--- OUTSIDE RECORDS SUMMARY | 2024-05-02 05:05 | XMS_ITS | Continuity of Care Document ---
Author Organization [facility] Address [address] [place] [address]- Care Team Providers Care Retail Link Analyst Name Role Phone Anali Concepcion DO Primary Care Physician Encounter [facility] Date(s): 09/26/23 - 10/26/23 [facility] [address] [place], [place] [address] Allergies, Adverse Reactions, Alerts Substance Reaction Severity Status amoxicillin gi upset Active aloe vera topical Active Dogs Active Contrave gi upset Active Zithromax gi upset Active Cats Active Latex Active [...] acel(DTaP) 85 Recorded 1Result Comment: [06/08/2018] [facility]:24105-975-28 2Result Comment: [facility]# [id number] Medications albuterol 0.083% inhalation solution 3 mL [...] EST, Route to Pharmacy Electronically, [facility], Partial fill upon patientrequest if [...] Team Personnel Name: Anali Concepcion DO Position: [facility] Physician - Primary Care Member Role: PCP Address: Address: [address] [place] [address] Adult [place] [address]- Care Team Related Persons Name: KATIUSKA VIGIL Address: home [address] [place] [address] Name: RAISA AMBROSE Address: home [address] [place] [address] Name: AURORA NIX Name: MELISSA AGUILAR
--- OUTSIDE RECORDS SUMMARY | 2024-05-02 05:05 | XMS_ITS | Continuity of Care Document ---
Author Organization [facility] Address [address] [facility], 4[address] [place] [address]- Care Team Providers Care Histology Technician Name Role Phone Anali Concepcion DO Primary Care Physician ( [phone] Encounter [facility] Date(s): 07/12/23 - 08/11/23 [facility] [address] [facility], 4th [place] [address]- Allergies, Adverse Reactions, Alerts Substance Reaction Severity [...] diphtheria/tetanus/pertussis, acel(DTaP) 85 Recorded 1Result Comment: [06/08/2018] [facility]:[id number] 2Result Comment: [facility]# [id number] Medications albuterol 0.083% inhalation solution 3 mL [...] Primary Care Member Role: PCP Address: Address: [address] [place] [address] Adult & [place] [address]- Care Team Related Persons Name: KATIUSKA VIGIL Address: home [address] [place] [address] Name: RAISA AMBROSE Address: home [address] [place] [address] Name: AURORA NIX Name: MELISSA AGUILAR
--- OUTSIDE RECORDS SUMMARY | 2024-05-02 05:05 | XMS_ITS | Continuity of Care Document ---
Author Organization [facility] Address [address] [place] [address]- Care Team Providers Care Biofuels Product Development Manager Name Role Phone Anali Concepcion DO Primary Care Physician Encounter [facility] [place] Date(s): 01/31/24 - 03/01/24 [facility] [address] [place], [place] [address] Allergies, Adverse Reactions, [...] [facility]:[id number] 2Result Comment: [facility]# [id number] Medications albuterol 0.083% inhalation solution 3 mL [...] tablet, 4 Refills, Maintenance, 04/26/23 9:22:00 EDT, [facility], 146, cm, 03/10/23 9:41:00 EDT, Height, 70.9, kg, 03/10/23 9:41:00 EDT, Dry Weight Start Date: 04/26/23 Status: Ordered norethindrone 5 mg oral tablet 5 mg, 1, tablet, By Mouth, Daily, # 90 tablet, Refills 3, Tot. Refills 3, Maintenance, 07/12/23 13:25:00 EST, Route to Pharmacy Electronically, [facility] #94, Partial fill upon patientrequest if the prescription is for a schedule II opioid... Start Date: 07/12/23 Status: Ordered omeprazole 20 mg oral enteric coated capsule 1 capsule, By Mouth, Daily, # 30 capsule, 2 Refills, Maintenance, 12/29/23 10:32:00 EDT, [facility], 146, cm, 10/10/23 8:12:00 EST, [...] Primary Care Member Role: PCP Address: Address: [address] [place] [address] Adult & [place] [address]- Care Team Related Persons Name: KATIUSKA VIGIL Address: home [address] [place] [address] Name: RAISA AMBROSE Address: home [address] [place] [address] Name: AURORA NIX Name: MELISSA AGUILAR
--- OUTSIDE RECORDS SUMMARY | 2024-05-02 05:05 | XMS_ITS | Continuity of Care Document ---
Author Organization [facility] Address [address] [facility], 4t [place] [address]- Care Team Providers Care Globe Mounter Name Role Phone Anali Concepcion DO Primary Care Physician [place] [facility] [place]): [facility]05[facility]23 [facility] [address] [facility], 4th [place], [place] [address] Attending Physician: AdmLouise galvan Admitting Physician: Admtr, Louise Referring Physician: Admtr, [...] Recorded 1Result Comment: [06/08/2018] [facility]:[id number] 2Result Comment: [facility]# [id number] Medications albuterol 0.083% inhalation solution 3 mL [...] Care Member Role: PCP Address: Address: [address] [place] [address] Adult & [place] [address]- Care Team Related Persons Name: KATIUSKA VIGIL Address: home [address] [place] [address] Name: RAISA AMBROSE Address: home [address] [place] [address] Name: AURORA NIX Name: MELISSA AGUILAR
--- OUTSIDE RECORDS SUMMARY | 2024-05-02 05:05 | XMS_ITS | Continuity of Care Document ---
Author Organization [facility] Address [address] [place] [address]- Care Team Providers Care Software Licensing Analyst Name Role Phone Anali Concepcion DO Primary Care Physician Encounter [facility] Date(s): 04/25/23 - 05/25/23 [facility] [address] [place], [place] [address] Allergies, Adverse [...] Recorded 1Result Comment: [06/08/2018] [facility]:[id number] 2Result Comment: [facility]# [id number] Medications albuterol 0.083% inhalation solution 3 mL [...] 06/06/22 11:31:00 EDT, Route to Pharmacy Electronically, [facility] #94, Partial fill upon patientrequest if the prescription is for a schedule II opioid... Start Date: 06/06/22 Status: Ordered omeprazole 20 mg oral enteric coated capsule 1 capsule, By Mouth, Daily, # 30 capsule, 6 Refills, Maintenance, 02/06/23 16:38:00 EDT, [facility] #[facility], 146, cm, 01/26/23 10:14:00 EDT, Height, 75, kg, 12/08/22 14:59:00 EDT, Dry Weight Start Date: 02/06/23 Status: Ordered polyethylene glycol 3350 oral powder for reconstitution = 17 Gm, By Mouth, Daily, # 527 Gm, 5 Refills, Maintenance, 04/28/23 11:28:00 EDT, [facility] #94, 17 Gm By Mouth Daily, [...] mL, 1 Refills, Maintenance, 04/28/23 11:27:00 EDT, [facility] #94, Partial fill upon patient... Start [...] Team Personnel Name: Anali Concepcion DO Position: [facility] Physician - Primary Care Member Role: PCP Address: Address: [address] [place] [address] Adult & [place] [address]- [place] Care Team Related Persons Name: KATIUSKA VIGIL Address: home [address] [place] [address] Name: RAISA AMBROSE Address: home [address] [place] [address] Name: AURORA NIX Name: MELISSA AGUILAR
--- OUTSIDE RECORDS SUMMARY | 2024-05-02 05:05 | XMS_ITS | Continuity of Care Document ---
Author Organization [facility] Address [address] [place] [address]- Care Team Providers Care Wire Straightening Machine Operator Name Role Phone Anali Concepcion DO Primary Care Physician [place] [facility] [place](s[place] 03/01/24 - 03/31/24 [facility] [address] [place], [place] [address] Allergies, Adverse Reactions, Alerts Substance [...] 1Result Comment: [06/08/2018] [facility]:29933-254-54 2Result Comment: [facility]# [id number] Medications albuterol 0.083% inhalation solution 3 mL [...] tablet, 4 Refills, Maintenance, 04/26/23 9:22:00 EDT, [facility], 146, cm, 03/10/23 9:41:00 EDT, Height, 70.9, kg, 03/10/23 9:41:00 EDT, Dry Weight Start Date: 04/26/23 Status: Ordered norethindrone 5 mg oral tablet 5 mg, 1, tablet, By Mouth, Daily, # 90 tablet, Refills 3, Tot. Refills 3, Maintenance, 07/12/23 13:25:00 EST, Route to Pharmacy Electronically, [facility] #94, Partial fill upon patientrequest if the prescription is for a schedule II opioid... Start Date: 07/12/23 Status: Ordered omeprazole 20 mg oral enteric coated capsule 1 capsule, By Mouth, Daily, # 30 capsule, 2 Refills, Maintenance, 12/29/23 10:32:00 EDT, [facility], 146, cm, 10/10/23 8:12:00 EST, [...] Team Personnel Name: Anali Concepcion DO Position: [facility] Physician - Primary Care Member Role: PCP Address: Address: [address] [place] [address] Adult & [place] [address]- Care Team Related Persons Name: KATIUSKA VIGIL Address: home [address] [place] [address] Name: RAISA AMBROSE Address: home [address] [place] [address] Name: AURORA NIX Name: MELISSA AGUILAR
--- OUTSIDE RECORDS SUMMARY | 2024-05-02 05:05 | XMS_ITS | Continuity of Care Document ---
Author Organization [facility] Address [address] [place] [address]- Care Team Providers Care Window Maker Name Role Phone Anali Concepcion DO Primary Care Physician Encounter [facility] Date(s): 01/26/22 - 02/25/22 [facility] [address] [place] [address]- Allergies, Adverse Reactions, Alerts Substance Reaction Severity [...] diphtheria/tetanus/pertussis, acel(DTaP) 85 Recorded 1Result Comment: [facility]# [id number] 2Result Comment: [06/08/2018] [facility]:71627-112-38 Medications albuterol 0.083% inhalation solution 3 mL [...] capsule, 1 Refills, Maintenance, 01/12/21 8:16:00 EDT, [facility]87, 146, cm, 01/04/21 11:29:00 EDT, Height, 75.5, [...]
--- OUTSIDE RECORDS SUMMARY | 2024-05-02 05:05 | XMS_ITS | Continuity of Care Document ---
Author Organization [facility] Address [address] [facility], [address] [place] [address]- Care Team Providers Care Employment Coach Name Role Phone Anali Concepcion DO Primary Care Physician Encounter [facility] Date(s): 11/16/20 - 12/16/20 [facility] [employer] [address] [facility], [address] [place] [address]- Attending Physician: Louise Camarillo Admitting Physician: Louise [...] diphtheria/tetanus/pertussis, acel(DTaP) 85 Recorded 1Result Comment: [06/08/2018] [facility]:[id number] Medications Advair HFA 230 mcg / 21 [...] Refills, Maintenance, 11/29/19 15:48:00 EDT, Suspension, [facility]/pharmacy #0957, 4 drops Ears, Both 2 [...] 05/21/19 18:52:50 EDT, Route to Pharmacy Electronically, [id number], [facility]/pharmacy #1130 Start Date: 05/21/19 Status: Ordered Claritin 10 mg oral tablet 10 mg, 1, tablet, By Mouth, Daily, # 90 tablet, Refills 0, Tot. Refills 0, Maintenance, 04/02/19 8:27:25 EDT, Route to Pharmacy Electronically, [id number], [facility]/pharmacy #1130 Start Date: 04/02/19 Status: Ordered Colace sodium 100 mg oral capsule 100 mg, 1, capsule, By Mouth, Daily, # 30 capsule, Refills 11, Tot. Refills 11, Maintenance, 02/08/18 15:01:19 EDT, Route to Pharmacy Electronically, [id number], [facility] [address] Start Date: 02/08/18 Stop Date: 02/03/19 Status: Ordered Dulera Inhalation, 2 times a day, 0 Refills, Maintenance, 04/02/19 8:28:41 EDT Start Date: 04/02/19 Status: Ordered Flonase 50 mcg/inh nasal spray 1 sprays, Nares, Both, 2 times a day, # 3 each, 0 Refills, Maintenance, 08/10/20 10:32:00 EST, [place], [facility] # 302, Partial fill upon patient request, 1 sprays Nares, Both 2 times a day, 146, cm, 03/16/20 10:36:00 EDT, Height, 75.5, kg, 10/31... Start Date: 08/10/20 Status: Ordered guaiFENesin 100 mg/5 mL oral liquid 10 mL = 200 mg, By Mouth, Every 6 hours, PRN for cough, # 600 mL, 0 Refills, Maintenance, 08/10/20 10:34:00 EST, Liquid, [facility]/pharmacy #0957, Partial fill upon patient request if the prescription is for a schedule II opioid drug., 146, cm, 03/16/20 10:... Start Date: 08/10/20 Status: Ordered measles/mumps/rubella/varicella virus vaccine subcutaneous injection 0.5 mL, Subcutaneous Injection, Once, # 1 each, 0 Refills, Soft Stop, 09/02/19 12:34:00 EST, Powder, [facility]/pharmacy #1130, 0.5 mL Subcutaneous Injection Once, 146, cm, 06/28/19 16:39:00 EDT, Height, 77.72, kg, 06/12/19 14:42:00 EDT, Dry Weight Start Date: 09/02/19 Status: Ordered meloxicam 15 mg oral tablet 1 tablet = 15 mg, By Mouth, Daily, with food for foot pain, # 30 tablet, 0 Refills, Maintenance, 03/16/20 11:09:00 EDT, Tablet, [facility]/pharmacy #0957, 146, cm, 03/16/20 10:36:00 EDT, [...] 2 Refills, Maintenance, 11/29/19 16:12:00 EDT, [facility]/pharmacy#1130, 2 sprays Nares, Both Daily, 146, [...] capsule, 2 Refills, Maintenance, 09/07/20 10:39:00 EST, [facility]/pharmacy #0957, 146, cm, 08/12/20 17:46:00 EST, Height, 75.5, kg, 10/31/19 15:44:00 EST, Dry Weight Start Date: 09/07/20 Status: Ordered ProAir HFA 90 mcg/inh inhalation aerosol with adapter 2, puffs, Inhalation, Every 6 hours, PRN, # 1 each, Refills 0, Tot. Refills 0, Soft Stop, 11/02/18 9:01:59 EST, Aerosol, Route to Pharmacy Electronically, [id number], [facility] Start Date: 11/02/18 Stop Date: 12/02/18 Status: Ordered Recombivax HB Adult 10 mcg/mL intramuscular suspension 1 mL = 10 mcg, Intramuscular, Once, rpt at 1 and 6 months, # 1 mL, 2 Refills, Soft Stop, 09/02/19 12:37:00 EST, [facility]/pharmacy #1130, 146, cm, 06/28/19 16:39:00 EDT, Height, 77.72, kg, 06/12/19 14:42:00 EDT, Dry Weight Start Date: 09/02/19 Status: Ordered Singulair 10 mg oral tablet 10 mg, 1, tablet, By Mouth, Daily, # 30 tablet, Refills 5, Tot. Refills 5, Maintenance, 04/05/18 14:33:44 EDT, Print Requisition Start Date: 04/05/18 Stop Date: 1/29/19 Status: Ordered Zantac 150 oral tablet 1 [...]
--- OUTSIDE RECORDS SUMMARY | 2024-05-02 05:05 | XMS_ITS | Continuity of Care Document ---
Author Organization [facility] Address [address] [place] [address]- Care Team Providers Care Team Cdl Driver Name Role Phone Anali Concepcion DO Primary Care Physician [facility] Date(s): 10/07/19 - 10/14/19 [facility] [address] [place] [address]- [facility] Attending Physician: Anali Concepcion DO Allergies, Adverse [...] 85 Recorded 1Result Comment: [06/08/2018] [facility]:72693-825-39 Medications Advair HFA 230 mcg / 21 [...] 05/21/19 18:52:50 EDT, Route to Pharmacy Electronically, [id number], [facility]/pharmacy #1130 Start Date: 05/21/19 Status: Ordered Claritin 10 mg oral tablet 10 mg, 1, tablet, By Mouth, Daily, # 90 tablet, Refills 0, Tot. Refills 0, Maintenance, 04/02/19 8:27:25 EDT, Route to Pharmacy Electronically, [id number], [facility] Start Date: 04/02/19 Status: Ordered Colace sodium 100 mg oral capsule 100 mg, 1, capsule, By Mouth, Daily, # 30 capsule, Refills 11, Tot. Refills 11, Maintenance, 02/08/18 15:01:19 EDT, Route to Pharmacy Electronically, [id number], [facility] [address] Start Date: 02/08/18 Stop Date: 02/03/19 Status: [...] 9:01:59 EST, Aerosol, Route to Pharmacy Electronically, [id number], [facility] [address] Start Date: 11/02/18 Stop Date: 12/02/18 Status: Ordered Recombivax HB Adult 10 mcg/mL intramuscular suspension 1 mL = 10 mcg, Intramuscular, Once, rpt at 1 and 6 months, # 1 mL, 2 Refills, Soft Stop, 09/02/19 12:37:00 EST, [facility]/pharmacy #1130, 146, cm, 06/28/19 16:39:00 EDT, [...] oldest [Reference Range]: 1 Height 146 cm (10/07/19 8:16 AM) Weight 76.2 kg (10/07/19 8:16 AM) Oxygen Saturation [94-100 %] 97 % (10/07/19 8:16 AM) Pulse Rate [55-90 bpm] 94 bpm *H* (10/07/19 8:16 AM) Body Mass Index [18.5-24.99] 35.75 *>HHI* (10/07/19 8:16 AM) Blood Pressure [90-138/55-84 mm Hg] 106/ 68mm Hg (10/07/19 8:16 AM) Temperature [96.8-100.4 DegF] 98.5 DegF (10/07/19 8:16 AM) Blood pressure sites Arm, left (10/07/19 8:16 AM) Temperature Route Oral (10/07/19 8:16 AM) Weight Obtained Via Standing scale (10/07/19 8:16 AM) Social History Social History Type Response Smoking Status Never smoker entered on: 10/03/17 Sex
--- OUTSIDE RECORDS SUMMARY | 2024-05-02 05:05 | XMS_ITS | Continuity of Care Document ---
Author Organization [facility] Address [address] [place] [address]- Care Team Providers Care Installer Interior Assemblies Name Role Phone Anali Concepcion DO Primary Care Physician [facility] Date(s): 01/25/21 - 02/24/21 [facility] [address] [place], [place] [address] Allergies, Adverse Reactions, Alerts Substance [...] diphtheria/tetanus/pertussis, acel(DTaP) 85 Recorded 1Result Comment: [06/08/2018] [facility]:45351-737-29 Medications albuterol 0.083% inhalation solution 3 mL [...] 01/12/21 8:16:00 EDT, [facility] 57093, 146, cm, 01/04/21 11:29:00 EDT, Height, 75.5, [...] 9:01:59 EST, Aerosol, Route to Pharmacy Electronically, [id number], [facility] [address] Start Date: 11/02/18 Stop Date: 12/02/18 Status: [...]
--- OUTSIDE RECORDS SUMMARY | 2024-05-02 05:06 | XMS_ITS | Continuity of Care Document ---
Author Organization [facility] Address [address] [place] [address]- Care Team Providers Care Striper Name Role Phone Anali Concepcion DO Primary Care Physician ( [phone] [place] [facility](s): 09/06/22 - 09/13/22 [facility] [address] [place] [address]- Encounter Diagnosis Sinusitis(Discharge Diagnosis) - 09/06/22 Attending Physician: Lc Bassett MD Allergies, Adverse Reactions, Alerts Substance Reaction [...] 85 Recorded 1Result Comment: [facility]# [id number] 2Result Comment: [06/08/2018] [facility]:43567-693-87 Medications albuterol 0.083% inhalation solution 3 mL [...] 4 Refills, Maintenance, 04/12/22 8:47:00 EDT, Tablet, [facility], Partial fill upon patient request if the prescription is for a schedule II opioid drug., 146, cm, 04/12/22 8:15:00 EDT, Hei... Start Date: 04/12/22 Stop Date: 07/06/23 Status: Ordered norethindrone 5 mg oral tablet 5 mg, 1, tablet, By Mouth, Daily, # 90 tablet, Refills 3, Tot. Refills 3, Maintenance, 06/06/22 11:31:00 EDT, Route to Pharmacy Electronically, [facility] #[facility], Partial fill upon patientrequest if [...] Diagnosis Diagnosis Type Effective Dates Health Status Clini shahnaz Service Informant Sinusitis Discharge Diagnosis 09/06/22 Social History Social History Type Response Smoking Status Never smoker entered on: 10/03/17 Sex Patient Care team information Care Team Personnel Name: Anali Concepcion DO Position: [facility] Primary Care Physician Member Role: PCP Address: Address: [address] [place] [address] Adult & [place] [address]- Care Team Related Persons Name: KATIUSKA VIGIL Address: home [address] [place] [address] Name: RAISA AMBROSE Address: home [address] [place] [address] Name: AURORA NIX Name: MELISSA AGUILAR
--- OUTSIDE RECORDS SUMMARY | 2024-05-02 05:06 | XMS_ITS | Continuity of Care Document ---
Author Organization [facility] Address [address] [place] [address]- Care Team Providers Care Host Coordinator Name Role Phone Anali Concepcion DO Primary Care Physician [facility] Date[facility]): 01/09/23 - 02/08/23 [facility] [address] [place], [place] [address] Allergies, Adverse [...] 85 Recorded 1Result Comment: [06/08/2018] [facility]:17172-439-29 2Result Comment: [facility]# [address]-6 Medications albuterol 0.083% inhalation solution 3 mL [...] Primary Care Member Role: PCP Address: Address: [address] [place] [address] Adult & [place] [address]- Care Team Related Persons Name: KATIUSKA VIGIL Address: home [address] [place] [address] Name: RAISA AMBROSE Address: home [address] [place] [address] Name: AURORA NIX Name: MELISSA AGUILAR
--- OUTSIDE RECORDS SUMMARY | 2024-05-02 05:06 | XMS_ITS | Continuity of Care Document ---
Author Organization [facility] Address [address] [facility], [address] [place] [address]- Care Team Providers Care Congressional Assistant Name Role Phone Anali Concepcion DO Primary Care Physician [facility] Date(s): 08/23/21 - 08/30/21 [facility] [address] [facility], [address] [place] [address]- Attending Physician: Jonathan Kay MD Admitting Physician: Yris Bryant CNM Referring Physician: Anali Concepcion DO Allergies, Adverse [...] 1Result Comment: [06/08/2018] [facility]:39615-730-88 Medications albuterol 0.083% inhalation solution 3 mL [...] 8:28:41 EDT Start Date: 04/02/19 Status: Ordered metroNIDAZOLE 500 mg oral tablet 1 tablet = 500 mg, By Mouth, 2 times a day, for 7 days, # 14 tablet, 0 Refills, Acute 09/01/21 16:54:00 EST, 08/25/21 16:54:00 EST, Tablet, [facility], Partial fill upon patient request if the prescription is for a schedule II opioid ivan... Start Date: 08/25/21 Stop Date: 09/01/21 Status: Ordered norethindrone 5 mg oral tablet [...] Refills, Maintenance, 01/12/21 8:16:00 EDT, [facility], 146, cm, 01/04/21 11:29:00 EDT, Height, 75.5, [...] 9:01:59 EST, Aerosol, Route to Pharmacy Electronically, [id number], [facility] [address] Start Date: 11/02/18 Stop Date: 12/02/18 Status: [...] LBP (low back pain)(Confirmed) Active 0(Confirmed) Active Obese class II(Confirmed) Active Obesity(Confirmed) Active RA (rheumatoid arthritis)(Confirmed) Active [...] oldest [Reference Range]: 1 Height 146 cm (08/23/21 11:55 AM) Weight 80.79 kg (08/23/21 11:55 AM) Body Mass Index [18.5-24.99] 37.9 *>HHI* (08/23/21 11:55 AM) Blood Pressure [90-138/55-84 mm Hg] 106/ 69mm Hg (08/23/21 11:55 AM) Blood pressure sites Arm, right (08/23/21 11:55 AM) Weight Obtained Via Standing scale (08/23/21 11:55 AM) Social History Social History Type Response Smoking Status Never smoker entered on: 10/03/17 Sex
--- OUTSIDE RECORDS SUMMARY | 2024-05-02 05:06 | XMS_ITS | Continuity of Care Document ---
Author Organization [facility] Address [address] [place] [address]- Care Team Providers Care Industrial Laborer Name Role Phone Anali Concepcion DO Primary Care Physician [facility] [facility] Date(s): 10/20/22 - 10/27/22 [facility] [address] [place], [place] [address] Attending Physician: Anali Concepcion [...] Comment: [06/08/2018] [facility]:[id number] 2Result Comment: [facility]# [id number] Medications albuterol 0.083% inhalation solution 3 mL [...] 4 Refills, Maintenance, 04/12/22 8:47:00 EDT, Tablet, [email or web address], Partial fill upon patient request if the prescription is for a schedule II opioid drug., 146, cm, 04/12/22 8:15:00 EDT, Hei... Start Date: 04/12/22 Stop Date: 07/06/23 Status: Ordered norethindrone 5 mg oral tablet 5 mg, 1, tablet, By Mouth, Daily, # 90 tablet, Refills 3, Tot. Refills 3, Maintenance, 06/06/22 11:31:00 EDT, Route to Pharmacy Electronically, [email or web address] #[facility], Partial fill upon patientrequest if the prescription is for a schedule II opioid... Start Date: 06/06/22 Status: Ordered omeprazole 20 mg oral enteric coated capsule 1 capsule, By Mouth, Daily, # 30 capsule, 2 Refills, Maintenance, 07/15/22 13:24:00 EST, [facility], 146, cm, 05/17/22 8:07:00 EDT, [...] oldest [Reference Range]: 1 Height 146 cm (10/20/22 11:21 AM) Weight 73.9 kg (10/20/22 11:21 AM) Oxygen Saturation [94-100 %] 98 % (10/20/22 11:21 AM) Pulse Rate [55-90 bpm] 79 bpm (10/20/22 11:21 AM) Body Mass Index [18.5-24.99 kg/m2] 34.67 kg/m2 *>HHI* (10/20/22 11:21 AM) Blood Pressure [90-138/55-84 mm Hg] 112/ 78mm Hg (10/20/22 11:21 AM) Mode of Delivery (Oxygen) Nasal cannula (10/20/22 11:21 AM) Blood pressure sites Arm, left (10/20/22 11:21 AM) Weight Obtained Via Standing scale (10/20/22 11:21 AM) Social History Social History Type Response Smoking Status Never smoker entered on: 10/03/17 Sex Note * Erika Waller: PERFORM, SIGN, VERIFY Event Display: Patient Education/Instruction Authored Date: [id number] [facility] *[facility] Clinical Summary Name DIONY AMBROSE Age 36 Years 1985 PCP Anali Concepcion DO PCP Visit Date 10/20/2022 10:51:00 Additional Instructions: Scheduled Appointments?? Future Appointments ?*No??[facility] ?[address]??[place],??[place],??[address] ?Phone:??--?Fax:??-- ?Appt. Date:??12/15/2022?9:00 AM ?Scheduled Provider:??Anali Concepcion DO Follow-Up Instructions ?? Diagnosis Medications: Please continue your medications until treatment is completed or stopped by your provider. Discuss any questions related to medications with your provider. New Medications [facility], [address] [place], [place] [id number], [phone] buPROPion-naltrexone (Contrave 8 mg-90 mg oral tablet, extended release) one tab daily x 1 week, then 1 tabs 2x daily x week 2, then 2 tabs am and 1 tab pm week 3, then 2 tabs bid x week 4 and then from there on ; TEST script for insurance Dx: BMI >30 and dyslipidemia, failure of prior wt loss trials. Refills: 0. Next Dose: Medications to Continue [...] 2 spray(s) twice a day. Next Dose: Azithromycin (Zithromax 250 mg oral tablet) 1 pack/packet Oral once. Refills: 0. Next Dose: Fexofenadine (fexofenadine 60 mg [...] topical Medications Given This Visit Future Orders ?Vitamin B12 Level? Order Date:10/20/22?- Complete on or after?10/20/22 Vital Signs Height 146 cm Weight 73.9 kg BMI 34.67 kg/m2 Blood Pressure 112 mm Hg/78 mm Hg Temperature Pulse Rate 79 bpm Respiratory Rate 02 Sat Mode of Delivery 98 %/Nasal cannula You can now view a summary of your hospital visit from the comfort of your home through a free online portal called [employer]. Number[employer] is a website that allows you to securely view your medical information including discharge summary, medications and follow-up visits. ??You can alsosend a secure electronic message to your doctor???s office to request appointments, renew medications or just ask a question. You can enroll at [email or web address] or register during your next office visit. [...] primary care provider, you may find a [facility] provider by calling [facility] Link at [phone]. For information about the plan of care [...] Team Personnel Name: Anali Concepcion DO Position: [facility] Primary Care Physician Member Role: PCP Address: Address: [address] [place] [address] Adult & [place] [address]- Care Team Related Persons Name: MUSA KATIUSKA Address: home [address] [place] [address] Name: RAISA AMBROSE Address: [address] [place] [address] Name: AURORA NIX Name: MELISSA AGUILAR
--- OUTSIDE RECORDS SUMMARY | 2024-05-02 05:06 | XMS_ITS | Continuity of Care Document ---
Author Organization [facility] Address [address] [place] [address]- Care Team Providers Care Electrotype Servicer Name Role Phone Anali Concepcion DO Primary Care Physician ( [phone] [facility] Date(s): 04/24/20 - 05/24/20 [facility] [address] [place] [address]- [facility] Allergies, Adverse Reactions, Alerts Substance Reaction Severity [...] diphtheria/tetanus/pertussis, acel(DTaP) 85 Recorded 1Result Comment: [06/08/2018] [facility]:59476-917-26 Medications Advair HFA 230 mcg / 21 [...] Maintenance, 11/29/19 15:48:00 EDT, Suspension, [facility]pharmacy #0957, 4 drops Ears, Both 2 times [...] 05/21/19 18:52:50 EDT, Route to Pharmacy Electronically, [id number], [facility]/pharmacy #1130 Start Date: 05/21/19 Status: Ordered Claritin 10 mg oral tablet 10 mg, 1, tablet, By Mouth, Daily, # 90 tablet, Refills 0, Tot. Refills 0, Maintenance, 04/02/19 8:27:25 EDT, Route to Pharmacy Electronically, [id number], [facility]/pharmacy #1130 Start Date: 04/02/19 Status: Ordered Colace sodium 100 mg oral capsule 100 mg, 1, capsule, By Mouth, Daily, # 30 capsule, Refills 11, Tot. Refills 11, Maintenance, 02/08/18 15:01:19 EDT, Route to Pharmacy Electronically, [id number], [facility] [address] Start Date: 02/08/18 Stop Date: 02/03/19 Status: Ordered Dulera Inhalation, 2 times a day, 0 Refills, Maintenance, 04/02/19 8:28:41 EDT Start Date: 04/02/19 Status: Ordered measles/mumps/rubella/varicella virus vaccine subcutaneous injection 0.5 mL, Subcutaneous Injection, Once, # 1 each, 0 Refills, Soft Stop, 09/02/19 12:34:00 EST, Powder, [facility]/pharmacy #1130, 0.5 mL Subcutaneous Injection Once, 146, cm, 06/28/19 16:39:00 EDT, Height, 77.72, kg, 06/12/19 14:42:00 EDT, Dry Weight Start Date: 09/02/19 Status: Ordered meloxicam 15 mg oral tablet 1 tablet = 15 mg, By Mouth, Daily, with food for foot pain, # 30 tablet, 0 Refills, Maintenance, 03/16/20 11:09:00 EDT, Tablet, [facility]/pharmacy #0957, 146, cm, 03/16/20 10:36:00 EDT, Height, [...] Refills, Maintenance, 11/29/19 16:12:00 EDT, [facility]/pharmacy#1130, 2 sprays Nares, Both Daily, 146, cm, [...] 9:01:59 EST, Aerosol, Route to Pharmacy Electronically, [id number], [facility] [address] Start Date: 11/02/18 Stop Date: 12/02/18 Status: [...]
--- OUTSIDE RECORDS SUMMARY | 2024-05-02 05:06 | XMS_ITS | Continuity of Care Document ---
Author Organization [facility] Address [address] [place] [address]- Care Team Providers Care Assistant Branch Manager Name Role Phone Anali Concepcion DO Primary Care Physician ( [phone] [facility] Date[facility]s): 08/14/23 - 09/13/23 [facility] [address] [place], [place] [address] Allergies, Adverse Reactions, Alerts Substance Reaction Severity Status aloe vera topical Active Cats Active Ragweed Active Other Environmental Allergy 1, 2 Active Pollen Ragweed Active Dogs Active Latex Active ZyrTEC [...] [facility]:59613-075-20 2Result Comment: [facility]# [address]-0 Medications albuterol 0.083% inhalation solution 3 mL [...] EST, Route to Pharmacy Electronically, [facility], Partial fill upon patientrequest if [...] Personnel Name: Anali Concepcion DO Position: [facility] Physician - Primary Care Member Role: PCP Address: Address: [address] [place] [address] Adult & [place] [address]- Care Team Related Persons Name: KATIUSKA VIGIL Address: [address] [place] [address] Name: RAISA AMBROSE Address: [address] [place] [address] Name: AURORA NIX Name: MELISSA AGUILAR
--- OUTSIDE RECORDS SUMMARY | 2024-05-02 05:06 | XMS_ITS | Continuity of Care Document ---
Author Organization [facility] Address [address] [place] [address]- Care Team Providers Care Slumber Room Attendant Name Role Phone Anali Concepcion DO Primary Care Physician [facility] [facility] Date(s): 03/29/23 - 04/28/23 [facility] [address] [place], [place] [address] Allergies, Adverse Reactions, Alerts Substance Reaction Severity Status aloe vera topical Active Cats Active Dogs Active Pollen Ragweed Active Other Environmental Allergy 1, 2 Active Ragweed Active Latex Active ZyrTEC Active 1grass [...] acel(DTaP) 85 Recorded 1Result Comment: [06/08/2018] [facility]:23688-482-09 2Result Comment: [facility]# [address]-5 Medications albuterol 0.083% inhalation solution 3 mL [...] 06/06/22 11:31:00 EDT, Route to Pharmacy Electronically, [facility], Partial fill upon patientrequest if the prescription is for a schedule II opioid... Start Date: 06/06/22 Status: Ordered omeprazole 20 mg oral enteric coated capsule 1 capsule, By Mouth, Daily, # 30 capsule, 6 Refills, Maintenance, 02/06/23 16:38:00 EDT, [facility], 146, cm, 01/26/23 10:14:00 EDT, Height, 75, kg, 12/08/22 14:59:00 EDT, Dry Weight Start Date: 02/06/23 Status: Ordered polyethylene glycol 3350 oral powder for reconstitution = 17 Gm, By Mouth, Daily, # 527 Gm, 5 Refills, Maintenance, 04/28/23 11:28:00 EDT, [facility], 17 Gm By Mouth Daily, [...] mL, 1 Refills, Maintenance, 04/28/23 11:27:00 EDT, [facility] #[facility], Partial fill upon patient... Start [...] 1 2 Blood Pressure [90-138/55-84 mm Hg] 126/ 76mm Hg (03/29/23 10:41 AM) 127/76mm Hg (03/23/23 10:41 AM) Social History Social History Type Response Smoking Status Never smoker entered on: 10/03/17 Sex Patient Care team information Care Team Personnel Name: Anali Concepcion DO Position: S Physician - Primary Care Member Role: PCP Address: Address: [address] [place] [address] Adult & [place] [address]- Care Team Related Persons Name: KATIUSKA VIGIL Address: [address] [place] [address] Name: RAISA AMBROSE Address: [address] [place] [address] Name: AURORA NIX Name: MELISSA AGUILAR
--- OUTSIDE RECORDS SUMMARY | 2024-05-02 05:06 | XMS_ITS | Continuity of Care Document ---
Author Organization [facility] Address [address] [place] [address]- Care Team Providers Care Hazardous Materials Handler Name Role Phone Anali Concepcion DO Primary Care Physician [facility] [id number] Date(s): 03/12/24 - 04/18/24 [facility] [address] [place], [place] [address] Attending Physician: Cheryle Brown MD Allergies, Adverse Reactions, Alerts Substance Reaction [...] Recorded 1Result Comment: [06/08/2018] [facility]:33320-043-09 2Result Comment: [facility]# [address]-8 Medications albuterol 0.083% inhalation solution 3 mL [...] tablet, 4 Refills, Maintenance, 04/26/23 9:22:00 EDT, [facility], 146, cm, 03/10/23 9:41:00 EDT, Height, 70.9, kg, 03/10/23 9:41:00 EDT, Dry Weight Start Date: 04/26/23 Status: Ordered norethindrone 5 mg oral tablet 5 mg, 1, tablet, By Mouth, Daily, # 90 tablet, Refills 3, Tot. Refills 3, Maintenance, 07/12/23 13:25:00 EST, Route to Pharmacy Electronically, [facility] #[facility], Partial fill upon patientrequest if the prescription is for a schedule II opioid... Start Date: 07/12/23 Status: Ordered omeprazole 20 mg oral enteric coated capsule 1 capsule, By Mouth, Daily, # 30 capsule, 5 Refills, Maintenance, 04/17/24 6:14:00 EDT, [facility], 146, cm, 03/19/24 9:11:00 EDT, [...] Care Member Role: PCP Address: Address: [address] [place] [address] Adult & [place] [address]- Care Team Related Persons Name: KATIUSKA VIGIL Address: [address] [place] [address] Name: RAISA AMBROSE Address: [address] [place] [address] Name: AURORA NIX Name: MELISSA AGUILAR
--- OUTSIDE RECORDS SUMMARY | 2024-05-02 05:06 | XMS_ITS | Continuity of Care Document ---
Author Organization [facility] Address [address] [place] [address]- Care Team Providers Care Chairman & Chief Executive Officer Name Role Phone Anali Concepcion DO Primary Care Physician ( [phone] [place] [facility] Date(s): 01/16/20 - 03/06/20 [facility] [address] [place] [address]- [facility] Attending Physician: Anali Concepcion DO Allergies, [...] Comment: [06/08/2018] [facility]:05921-924-89 Medications Advair HFA 230 mcg / 21 [...] Refills, Maintenance, 11/29/19 15:48:00 EDT, Suspension, [facility]/pharmacy #0957, 4 drops Ears, Both 2 [...] 05/21/19 18:52:50 EDT, Route to Pharmacy Electronically, [id number], [facility]/pharmacy #1130 Start Date: 05/21/19 Status: Ordered Claritin 10 mg oral tablet 10 mg, 1, tablet, By Mouth, Daily, # 90 tablet, Refills 0, Tot. Refills 0, Maintenance, 04/02/19 8:27:25 EDT, Route to Pharmacy Electronically, [id number], [facility]/pharmacy #1130 Start Date: 04/02/19 Status: Ordered Colace sodium 100 mg oral capsule 100 mg, 1, capsule, By Mouth, Daily, # 30 capsule, Refills 11, Tot. Refills 11, Maintenance, 02/08/18 15:01:19 EDT, Route to Pharmacy Electronically, [id number], [facility] [address] Start Date: 02/08/18 Stop Date: 02/03/19 Status: Ordered Dulera Inhalation, 2 times a day, 0 Refills, Maintenance, 04/02/19 8:28:41 EDT Start Date: 04/02/19 Status: Ordered measles/mumps/rubella/varicella virus vaccine subcutaneous injection 0.5 mL, Subcutaneous Injection, Once, # 1 each, 0 Refills, Soft Stop, 09/02/19 12:34:00 EST, Powder, [facility]/pharmacy #1130, 0.5 mL Subcutaneous Injection Once, [...] 2 Refills, Maintenance, 11/29/19 16:12:00 EDT, [facility]/pharmacy#1130, 2 sprays Nares, Both Daily, 146, [...] capsule, 2 Refills, Maintenance, 01/20/20 13:47:00 EDT, [facility]/pharmacy #0957, 146, cm, 01/16/20 10:45:00 EDT, Height, 75.5, kg, 10/31/19 15:44:00 EST, Dry Weight Start Date: 01/20/20 Status: Ordered ProAir HFA 90 mcg/inh inhalation aerosol with adapter 2, puffs, Inhalation, Every 6 hours, PRN, # 1 each, Refills 0, Tot. Refills 0, Soft Stop, 11/02/18 9:01:59 EST, Aerosol, Route to Pharmacy Electronically, [id number], [facility] [address] Start Date: 11/02/18 Stop Date: 12/02/18 Status: Ordered Recombivax HB Adult 10 mcg/mL intramuscular suspension 1 mL = 10 mcg, Intramuscular, Once, rpt at 1 and 6 months, # 1 mL, 2 Refills, Soft Stop, 09/02/19 12:37:00 EST, [facility]/pharmacy #1130, 146, cm, 06/28/19 16:39:00 EDT, [...]
--- OUTSIDE RECORDS SUMMARY | 2024-05-02 05:06 | XMS_ITS | Continuity of Care Document ---
Author Organization [facility] Address [address] [place] [address]- Care Team Providers Care Wheel Alignment Mechanic Name Role Phone Anali Concepcion DO Primary Care Physician [facility]): 07/18/22 - 08/17/22 [facility] [address] [place] [address]- Allergies, Adverse Reactions, Alerts Substance Reaction Severity [...] Recorded diphtheria/tetanus/pertussis, acel(DTaP) 85 Recorded 1Result Comment: [facility]# [id number] 2Result Comment: [06/08/2018] [facility]:[id number] Medications albuterol 0.083% inhalation solution 3 mL [...] Name: Anali Concepcion DO Position: [facility] Primary Care Physician Member Role: PCP Address: Address: [address] [place] [address] Adult & [place] [address]- Care Team Related Persons Name: MUSAKATIUSKA Address: [address] [place] [address] Name: RAISA AMBROSE Address: [address] [place] [address] Name: AURORA NIX Name: MELISSA AGUILAR
--- OUTSIDE RECORDS SUMMARY | 2024-05-02 05:06 | XMS_ITS | Continuity of Care Document ---
Author Organization [facility] Address [address] [place] [address]- Care Team Providers Care Electrical And Radio Mechanic Name Role Phone Anali Concepcion DO Primary Care Physician [facility] Date(s): 04/19/21 - 05/19/21 [facility] [address] [place] [address]- Allergies, Adverse Reactions, Alerts Substance Reaction Severity [...] 1Result Comment: [06/08/2018] [facility]:61442-568-76 Medications albuterol 0.083% inhalation solution 3 mL [...] capsule, 1 Refills, Maintenance, 01/12/21 8:16:00 EDT, [facility], 146, cm, 01/04/21 11:29:00 EDT, Height, 75.5, [...] 9:01:59 EST, Aerosol, Route to Pharmacy Electronically, [id number], [facility] [address] Start Date: 11/02/18 Stop Date: 12/02/18 Status: [...]
--- OUTSIDE RECORDS SUMMARY | 2024-05-02 05:06 | XMS_ITS | Continuity of Care Document ---
Author Organization [facility] Address [address] [place] [address]- Care Team Providers Care Tow Picker Name Role Phone Anali Concepcion DO Primary Care Physician [facility] Date(s): 11/11/22 - 12/11/22 [facility] [address] [place], [place] [address] Allergies, Adverse Reactions, Alerts [...] 1Result Comment: [06/08/2018] [facility]:01035-998-05 2Result Comment: [facility]# [address]-8 Medications albuterol 0.083% inhalation solution 3 mL [...] Team Personnel Name: Anali Concepcion DO Position: [facility] Primary Care Physician Member Role: PCP Address: Address: [address] [place] [address] Adult & [place] [address]- Care Team Related Persons Name: KATIUSKA VIGIL Address: home [address] [place] [address] Name: RAISA AMBROSE Address: home [address] [place] [address] Name: AURORA NIX Name: MELISSA AGUILAR
--- OUTSIDE RECORDS SUMMARY | 2024-05-02 05:06 | XMS_ITS | Continuity of Care Document ---
Author Organization [facility] Address [address] [facility], [address] [place] [address]- Care Team Providers Care Signal Processing Engineer Name Role Phone Anali Concepcion DO Primary Care Physician Encounter [facility] Date(s): 08/19/22 - 09/18/22 [facility] [address] [facility] [address], [address] [place] [address]- Attending Physician: Louise Camarillo Admitting Physician: Louise [...] Recorded diphtheria/tetanus/pertussis, acel(DTaP) 85 Recorded 1Result Comment: [facility]# [id number] 2Result Comment: [06/08/2018] [facility]:30018-150-28 Medications albuterol 0.083% inhalation solution 3 mL [...] Maintenance, 04/12/22 8:47:00 EDT, Tablet, [facility], Partial fill upon patient request if the prescription is for a schedule II opioid drug., 146, cm, 04/12/22 8:15:00 EDT, Hei... Start Date: 04/12/22 Stop Date: 07/06/23 Status: Ordered norethindrone 5 mg oral tablet 5 mg, 1, tablet, By Mouth, Daily, # 90 tablet, Refills 3, Tot. Refills 3, Maintenance, 06/06/22 11:31:00 EDT, Route to Pharmacy Electronically, [facility], Partial fill upon patientrequest if the prescription is for a schedule II opioid... Start Date: 06/06/22 Status: Ordered omeprazole 20 mg oral enteric coated capsule 1 capsule, By Mouth, Daily, # 30 capsule, 2 Refills, Maintenance, 07/15/22 13:24:00 EST, [facility], 146, cm, 05/17/22 8:07:00 EDT, [...] Team Personnel Name: Anali Concepcion DO Position: [facility] Primary Care Physician Member Role: PCP Address: Address: [address] [place] [address] Adult & [place] [address]- Care Team Related Persons Name: KATIUSKA VIGIL Address: home [address] [place] [address] Name: RAISA AMBROSE Address: home [address] [place] [address] Name: AURORA NIX Name: MELISSA AGUILAR
--- OUTSIDE RECORDS SUMMARY | 2024-05-02 05:06 | XMS_ITS | Continuity of Care Document ---
Author Organization [facility] Address [address] [place] [address]- Care Team Providers Care Cyanide Pot Hardener Name Role Phone Anali Concepcion DO Primary Care Physician [facility] Date[facility]s): 01/09/21 - 02/08/21 [facility] [address] [place], [place] [address] Allergies, Adverse Reactions, Alerts Substance [...] diphtheria/tetanus/pertussis, acel(DTaP) 85 Recorded 1Result Comment: [06/08/2018] [facility]:41158-905-57 Medications albuterol 0.083% inhalation solution 3 mL [...] capsule, 1 Refills, Maintenance, 01/12/21 8:16:00 EDT, [facility], 146, cm, 01/04/21 11:29:00 EDT, Height, 75.5, [...] 9:01:59 EST, Aerosol, Route to Pharmacy Electronically, [id number], [facility] [address] Start Date: 11/02/18 Stop Date: 12/02/18 Status: [...]
--- OUTSIDE RECORDS SUMMARY | 2024-05-02 05:06 | XMS_ITS | Continuity of Care Document ---
Author Organization [facility] Address [address] [place] [address]- Care Team Providers Care Gyn Physician Name Role Phone Anali Concepcion DO Primary Care Physician [facility] Date(s): 08/13/20 - 09/12/20 [facility] [address] [place], [place] [address] Allergies, Adverse Reactions, Alerts [...] 85 Recorded 1Result Comment: [06/08/2018] [facility]:97654-903-19 Medications Advair HFA 230 mcg / 21 [...] 0 Refills, Maintenance, 11/29/19 15:48:00 EDT, Suspension, [facility]/pharmacy #0957, 4 drops Ears, Both 2 times [...] 05/21/19 18:52:50 EDT, Route to Pharmacy Electronically, [id number], [facility]/pharmacy #1130 Start Date: 05/21/19 Status: Ordered Claritin 10 mg oral tablet 10 mg, 1, tablet, By Mouth, Daily, # 90 tablet, Refills 0, Tot. Refills 0, Maintenance, 04/02/19 8:27:25 EDT, Route to Pharmacy Electronically, [id number], [facility]/pharmacy #1130 Start Date: 04/02/19 Status: Ordered Colace sodium 100 mg oral capsule 100 mg, 1, capsule, By Mouth, Daily, # 30 capsule, Refills 11, Tot. Refills 11, Maintenance, 02/08/18 15:01:19 EDT, Route to Pharmacy Electronically, [id number], [facility] [address]36 Start Date: 02/08/18 Stop Date: 02/03/19 Status: Ordered Dulera Inhalation, 2 times a day, 0 Refills, Maintenance, 04/02/19 8:28:41 EDT Start Date: 04/02/19 Status: Ordered Flonase 50 mcg/inh nasal spray 1 sprays, Nares, Both, 2 times a day, # 3 each, 0 Refills, Maintenance, 08/10/20 10:32:00 EST, [place], [facility] # 302, Partial fill upon patient request, 1 sprays Nares, Both 2 times a day, 146, cm, 03/16/20 10:36:00 EDT, Height, 75.5, kg, 10/31... Start Date: 08/10/20 Status: Ordered guaiFENesin 100 mg/5 mL oral liquid 10 mL = 200 mg, By Mouth, Every 6 hours, PRN for cough, # 600 mL, 0 Refills, Maintenance, 08/10/20 10:34:00 EST, Liquid, [facility]/pharmacy #0957, Partial fill upon patient request if the prescription is for a schedule II opioid drug., 146, cm, 03/16/20 10:... Start Date: 08/10/20 Status: Ordered measles/mumps/rubella/varicella virus vaccine subcutaneous injection 0.5 mL, Subcutaneous Injection, Once, # 1 each, 0 Refills, Soft Stop, 09/02/19 12:34:00 EST, Powder, [facility]/pharmacy #1130, 0.5 mL Subcutaneous Injection Once, 146, cm, 06/28/19 16:39:00 EDT, Height, 77.72, kg, 06/12/19 14:42:00 EDT, Dry Weight Start Date: 09/02/19 Status: Ordered meloxicam 15 mg oral tablet 1 tablet = 15 mg, By Mouth, Daily, with food for foot pain, # 30 tablet, 0 Refills, Maintenance, 03/16/20 11:09:00 EDT, Tablet, [facility]/pharmacy #0957, 146, cm, 03/16/20 10:36:00 EDT, Height, [...] each, 2 Refills, Maintenance, 11/29/19 16:12:00 EDT, [facility]/pharmacy#1130, 2 sprays Nares, Both Daily, 146, cm, [...] capsule, 2 Refills, Maintenance, 09/07/20 10:39:00 EST, [facility]/pharmacy #0957, 146, cm, 08/12/20 17:46:00 EST, Height, 75.5, kg, 10/31/19 15:44:00 EST, Dry Weight Start Date: 09/07/20 Status: Ordered ProAir HFA 90 mcg/inh inhalation aerosol with adapter 2, puffs, Inhalation, Every 6 hours, PRN, # 1 each, Refills 0, Tot. Refills 0, Soft Stop, 11/02/18 9:01:59 EST, Aerosol, Route to Pharmacy Electronically, [id number], [facility] [address] Start Date: 11/02/18 Stop Date: 12/02/18 Status: Ordered Recombivax HB Adult 10 mcg/mL intramuscular suspension 1 mL = 10 mcg, Intramuscular, Once, rpt at 1 and 6 months, # 1 mL, 2 Refills, Soft Stop, 09/02/19 12:37:00 EST, [facility]/pharmacy #1130, 146, cm, 06/28/19 16:39:00 EDT, Height, [...]
--- OUTSIDE RECORDS SUMMARY | 2024-05-02 05:06 | XMS_ITS | Continuity of Care Document ---
Author Organization [facility] Address [address] [place] [address]- Care Team Providers Care School Cafeteria Cook Head Name Role Phone Anali Concepcion DO Primary Care Physician Encounter [facility] Date(s): 08/17/20 - 09/16/20 [facility] [address] [place], [place] [address] Attending Physician: Louise Camarillo Admitting [...] 85 Recorded 1Result Comment: [06/08/2018] [facility]:46828-480-97 Medications Advair HFA 230 mcg / 21 [...] 0 Refills, Maintenance, 11/29/19 15:48:00 EDT, Suspension, [facility]/pharmacy #0957, 4 drops Ears, Both [...] 05/21/19 18:52:50 EDT, Route to Pharmacy Electronically, [id number], [facility]/pharmacy #1130 Start Date: 05/21/19 Status: Ordered Claritin 10 mg oral tablet 10 mg, 1, tablet, By Mouth, Daily, # 90 tablet, Refills 0, Tot. Refills 0, Maintenance, 04/02/19 8:27:25 EDT, Route to Pharmacy Electronically, [id number], [facility]/pharmacy #1130 Start Date: 04/02/19 Status: Ordered Colace sodium 100 mg oral capsule 100 mg, 1, capsule, By Mouth, Daily, # 30 capsule, Refills 11, Tot. Refills 11, Maintenance, 02/08/18 15:01:19 EDT, Route to Pharmacy Electronically, [id number], [facility] [address] Start Date: 02/08/18 Stop Date: 02/03/19 Status: Ordered Dulera Inhalation, 2 times a day, 0 Refills, Maintenance, 04/02/19 8:28:41 EDT Start Date: 04/02/19 Status: Ordered Flonase 50 mcg/inh nasal spray 1 sprays, Nares, Both, 2 times a day, # 3 each, 0 Refills, Maintenance, 08/10/20 10:32:00 EST, [place], [facility] # 302, Partial fill upon patient request, 1 sprays Nares, Both 2 times a day, 146, cm, 03/16/20 10:36:00 EDT, Height, 75.5, kg, 10/31... Start Date: 08/10/20 Status: Ordered guaiFENesin 100 mg/5 mL oral liquid 10 mL = 200 mg, By Mouth, Every 6 hours, PRN for cough, # 600 mL, 0 Refills, Maintenance, 08/10/20 10:34:00 EST, Liquid, [facility]/pharmacy #0957, Partial fill upon patient request if the prescription is for a schedule II opioid drug., 146, cm, 03/16/20 10:... Start Date: 08/10/20 Status: Ordered measles/mumps/rubella/varicella virus vaccine subcutaneous injection 0.5 mL, Subcutaneous Injection, Once, # 1 each, 0 Refills, Soft Stop, 09/02/19 12:34:00 EST, Powder, [facility]/pharmacy #1130, 0.5 mL Subcutaneous Injection Once, 146, cm, 06/28/19 16:39:00 EDT, Height, 77.72, kg, 06/12/19 14:42:00 EDT, Dry Weight Start Date: 09/02/19 Status: Ordered meloxicam 15 mg oral tablet 1 tablet = 15 mg, By Mouth, Daily, with food for foot pain, # 30 tablet, 0 Refills, Maintenance, 03/16/20 11:09:00 EDT, Tablet, [facility]/pharmacy #0957, 146, cm, 03/16/20 10:36:00 [...] each, 2 Refills, Maintenance, 11/29/19 16:12:00 EDT, [facility]/pharmacy#1130, 2 sprays Nares, Both Daily, [...] capsule, 2 Refills, Maintenance, 09/07/20 10:39:00 EST, [facility]/pharmacy #0957, 146, cm, 08/12/20 17:46:00 EST, Height, 75.5, kg, 10/31/19 15:44:00 EST, Dry Weight Start Date: 09/07/20 Status: Ordered ProAir HFA 90 mcg/inh inhalation aerosol with adapter 2, puffs, Inhalation, Every 6 hours, PRN, # 1 each, Refills 0, Tot. Refills 0, Soft Stop, 11/02/18 9:01:59 EST, Aerosol, Route to Pharmacy Electronically, [id number], [facility] [address] Start Date: 11/02/18 Stop Date: 12/02/18 Status: Ordered Recombivax HB Adult 10 mcg/mL intramuscular suspension 1 mL = 10 mcg, Intramuscular, Once, rpt at 1 and 6 months, # 1 mL, 2 Refills, Soft Stop, 09/02/19 12:37:00 EST, [facility]/pharmacy #1130, 146, cm, 06/28/19 16:39:00 [...]
--- OUTSIDE RECORDS SUMMARY | 2024-05-02 05:06 | XMS_ITS | Continuity of Care Document ---
Author Organization [facility] Address [address] [place] [address]- Care Team Providers Care Greens Cutter Name Role Phone Anali Concepcion DO Primary Care Physician [facility] Date[facility]s): 02/06/23 - 03/08/23 [facility] [address] [place], [place] [address] Allergies, Adverse Reactions, Alerts Substance [...] Recorded 1Result Comment: [06/08/2018] [facility]:01079-498-99 2Result Comment: [facility]# [address]-7 Medications albuterol 0.083% inhalation solution 3 mL [...] Care Member Role: PCP Address: Address: [address] [place] [address] Adult & [place] [address]- Care Team Related Persons Name: KATIUSKA VIGIL Address: [address] [place] [address] Name: RAISA AMBROSE Address: home [address] [place] [address] Name: AURORA NIX Name: MELISSA AGUILAR
--- OUTSIDE RECORDS SUMMARY | 2024-05-02 05:06 | XMS_ITS | Continuity of Care Document ---
Author Organization [facility] Address [address] [place] [address]- Care Team Providers Care Emergency Department Physician Name Role Phone Anali Concepcion DO Primary Care Physician [facility] Date(s): 10/19/19 - 10/19/[address] [address]- [facility] Attending Physician: Not on Staff, Attending MD [...] 85 Recorded 1Result Comment: [06/08/2018] [facility]:65656-908-19 Medications Advair HFA 230 mcg / 21 [...] 05/21/19 18:52:50 EDT, Route to Pharmacy Electronically, [id number], [facility]/pharmacy #1130 Start Date: 05/21/19 Status: Ordered Claritin 10 mg oral tablet 10 mg, 1, tablet, By Mouth, Daily, # 90 tablet, Refills 0, Tot. Refills 0, Maintenance, 04/02/19 8:27:25 EDT, Route to Pharmacy Electronically, [id number], [facility]/pharmacy #1130 Start Date: 04/02/19 Status: Ordered Colace sodium 100 mg oral capsule 100 mg, 1, capsule, By Mouth, Daily, # 30 capsule, Refills 11, Tot. Refills 11, Maintenance, 02/08/18 15:01:19 EDT, Route to Pharmacy Electronically, [id number], [facility] [address] Start Date: 02/08/18 Stop Date: 02/03/19 Status: [...] capsule, 2 Refills, Maintenance, 10/17/19 16:34:00 EST, [facility], 146, cm, 10/07/19 8:16:00 EST, Height, 77.72, kg, 06/12/19 14:42:00 EDT, Dry Weight Start Date: 10/17/19 Status: Ordered ProAir HFA 90 mcg/inh inhalation aerosol with adapter 2, puffs, Inhalation, Every 6 hours, PRN, # 1 each, Refills 0, Tot. Refills 0, Soft Stop, 11/02/18 9:01:59 EST, Aerosol, Route to Pharmacy Electronically, [id number], [email or web address] [address] Start Date: 11/02/18 Stop Date: 12/02/18 Status: Ordered Recombivax HB Adult 10 mcg/mL intramuscular suspension 1 mL = 10 mcg, Intramuscular, Once, rpt at 1 and 6 months, # 1 mL, 2 Refills, Soft Stop, 09/02/19 12:37:00 EST, [facility]/pharmacy #1130, 146, cm, 06/28/19 16:39:00 EDT, [...]
--- OUTSIDE RECORDS SUMMARY | 2024-05-02 05:06 | XMS_ITS | Continuity of Care Document ---
Author Organization [facility] Address [address] [place] [address]- Care Team Providers Care Transportation Attendant Name Role Phone Anali Concepcion DO Primary Care Physician Encounter [facility] Date(s): 03/11/24 - 03/18/24 [facility] [address] [place] [address]- Encounter Diagnosis Rash(Discharge Diagnosis) - 03/11/24 Pustule(Discharge Diagnosis) - 03/11/24 Attending Physician: Lc Bassett MD Allergies, Adverse [...] 85 Recorded 1Result Comment: [06/08/2018] [facility]:23211-661-46 2Result Comment: [facility]# [id number] Medications albuterol 0.083% inhalation solution 3 mL [...] Refills, Maintenance, 04/26/23 9:22:00 EDT, [facility] #94, 146, cm, 03/10/23 9:41:00 EDT, Height, 70.9, kg, 03/10/23 9:41:00 EDT, Dry Weight Start Date: 04/26/23 Status: Ordered norethindrone 5 mg oral tablet 5 mg, 1, tablet, By Mouth, Daily, # 90 tablet, Refills 3, Tot. Refills 3, Maintenance, 07/12/23 13:25:00 EST, Route to Pharmacy Electronically, [facility] #94, Partial fill upon patientrequest if the prescription is for a schedule II opioid... Start Date: 07/12/23 Status: Ordered omeprazole 20 mg oral enteric coated capsule 1 capsule, By Mouth, Daily, # 30 capsule, 2 Refills, Maintenance, 12/29/23 10:32:00 EDT, [facility], 146, cm, 10/10/23 8:12:00 EST, [...] Dates Health Status Clini shahnaz Service Informant Rash Discharge Diagnosis 03/11/24 Pustule Discharge Diagnosis 03/11/24 Social History Social History Type Response Smoking Status Never smoker entered on: 10/03/17 Sex Patient Care team information Care Team Personnel Name: Anali Concepcion DO Position: S Physician - Primary Care Member Role: PCP Address: Address: [address] [facility] Adult [place] [address]- Care Team Related Persons Name: KATIUSKA VIGIL Address: [address] [place] [address] Name: RAISA AMBROSE Address: home [address] [place] [address] Name: AURORA NIX Name: MELISSA AGUILAR
--- OUTSIDE RECORDS SUMMARY | 2024-05-02 05:06 | XMS_ITS | Continuity of Care Document ---
Author Organization [facility] Address [address] [place] [address]- Care Team Providers Care Car Builder Name Role Phone Anali Concepcion DO Primary Care Physician Encounter [facility] Date(s): 01/27/22 - 02/26/22 [facility] [employer] [address] [place], [place] [address] Allergies, Adverse Reactions, Alerts Substance Reaction [...] diphtheria/tetanus/pertussis, acel(DTaP) 85 Recorded 1Result Comment: [facility]# [id number] 2Result Comment: [06/08/2018] [facility]:22793-723-69 Medications albuterol 0.083% inhalation solution 3 mL [...] capsule, 1 Refills, Maintenance, 01/12/21 8:16:00 EDT, [facility] 25688, 146, cm, 01/04/21 11:29:00 EDT, Height, 75.5, [...]
--- OUTSIDE RECORDS SUMMARY | 2024-05-02 05:06 | XMS_ITS | Continuity of Care Document ---
Author Organization [facility] Address [address] [facility], [address] [place] [address]- Care Team Providers Care Fire Support Man Name Role Phone Anali Concepcion DO Primary Care Physician Encounter [facility] Date(s): 07/05/23 - 07/12/23 [facility] [employer] Second [employer] [facility] [address] [facility] [address] [place] [address]- Attending Physician: Hanane Millard MD Allergies, Adverse Reactions, Alerts Substance Reaction Severity Status aloe vera topical Active Cats Active Dogs Active Pollen Ragweed Active Ragweed Active Other Environmental Allergy 1, 2 Active Latex Active ZyrTEC Active 1grass Feathers [...] acel(DTaP) 85 Recorded 1Result Comment: [06/08/2018] [facility]:[id number] 2Result Comment: [facility]# [id number] Medications albuterol 0.083% inhalation solution 3 mL [...] 07/12/23 13:25:00 EST, Route to Pharmacy Electronically, [facility] #[facility], Partial fill upon patientrequest if the prescription is for a schedule II opioid... Start Date: 07/12/23 Status: Ordered omeprazole 20 mg oral enteric coated capsule 1 capsule, By Mouth, Daily, # 30 capsule, 6 Refills, Maintenance, 02/06/23 16:38:00 EDT, [facility], 146, cm, 01/26/23 10:14:00 EDT, Height, 75, kg, 12/08/22 14:59:00 EDT, Dry Weight Start Date: 02/06/23 Status: Ordered polyethylene glycol 3350 oral powder for reconstitution = 17 Gm, By Mouth, Daily, # 527 Gm, 5 Refills, Maintenance, 04/28/23 11:28:00 EDT, [facility] #94, 17 Gm By Mouth Daily, [...] mL, 1 Refills, Maintenance, 04/28/23 11:27:00 EDT, [facility] #94, Partial fill upon patient... Start [...] oldest [Reference Range]: 1 Height 146 cm (07/05/23 10:28 AM) Weight 75.00 kg (07/05/23 10:28 AM) Body Mass Index [18.5-24.99 kg/m2] 35.18 kg/m2 *>HHI* (07/05/23 10:28 AM) Blood Pressure [90-138/55-84 mm Hg] 100/ 80mm Hg (07/05/23 10:28 AM) Blood pressure sites Arm, right (07/05/23 10:28 AM) Weight Obtained Via Standing scale (07/05/23 10:28 AM) Social History Social History Type Response Smoking Status Never smoker entered on: 10/03/17 Sex Patient Care team information Care Team Personnel Name: Anali Concepcion DO Position: S Physician - Primary Care Member Role: PCP Address: Address: [address] [place] [address] Adult & [place] [address]- Care Team Related Persons Name: KATIUSKA VIGIL Address: home [address] [place] [address] Name: RAISA AMBROSE Address: home [address] [place] [address] Name: AURORA NIX Name: MELISSA AGUILAR
--- OUTSIDE RECORDS SUMMARY | 2024-05-02 05:06 | XMS_ITS | Continuity of Care Document ---
Author Organization [facility] Address [address], [address] [place] [address]- Care Team Providers Care Patient Assessment Coordinator Name Role Phone Anali Concepcion DO Primary Care Physician ( [phone] Encounter [facility] Date(s): 01/27/22 - 02/26/22 [facility] [employer] [facility] [address] [place], [place] [address] Allergies, Adverse Reactions, Alerts Substance [...] Recorded 1Result Comment: [facility]# [id number] 2Result Comment: [06/08/2018] [facility]:79687-433-17 Medications albuterol 0.083% inhalation solution 3 mL [...] Refills, Maintenance, 01/12/21 8:16:00 EDT, [facility] [address], 146, cm, 01/04/21 11:29:00 EDT, Height, 75.5, [...]
--- OUTSIDE RECORDS SUMMARY | 2024-05-02 05:06 | XMS_ITS | Continuity of Care Document ---
Author Organization [facility] Address [address] [place] [address]- Care Team Providers Care Louver Mortiser Operator Name Role Phone Anali Concepcion DO Primary Care Physician [facility] [place](s): 03/16/23 - 04/15/23 [facility] [address] [place], [place] [address] Allergies, Adverse [...] acel(DTaP) 85 Recorded 1Result Comment: [06/08/2018] [facility]:59304-768-04 2Result Comment: [facility]# [id number] Medications albuterol 0.083% inhalation solution 3 mL [...] Care team information Care Team Personnel Name: Abrannorma Anali Position: [facility] Physician - Primary Care Member Role: PCP Address: Address: [address] [place] [address] Adult & [place] [address]- Care Team Related Persons Name: KATIUSKA VIGIL Address: [address] [place] [address] Name: RAISA AMBROSE Address: [address] [place] [address] Name: AURORA NIX Name: MELISSA AGUILAR
--- OUTSIDE RECORDS SUMMARY | 2024-05-02 05:06 | XMS_ITS | Continuity of Care Document ---
Author Organization [facility] Address [address] [place] [address]- Care Team Providers Care Farm Machinery Assembler Name Role Phone Anali Concepcion DO Primary Care Physician ( [phone] Encounter [facility] Date(s): 08/26/22 - 09/02/22 [facility] [address] [place] [address]- Attending Physician: Thomas Christopher MD Referring Physician: Anali Concepcion DO Allergies, [...] diphtheria/tetanus/pertussis, acel(DTaP) 85 Recorded 1Result Comment: [facility]# [id number] 2Result Comment: [06/08/2018] [facility]:19094-403-87 Medications albuterol 0.083% inhalation solution 3 mL [...] Maintenance, 04/12/22 8:47:00 EDT, Tablet, [facility], Partial fill upon patient request if the prescription is for a schedule II opioid drug., 146, cm, 04/12/22 8:15:00 EDT, Hei... Start Date: 04/12/22 Stop Date: 07/06/23 Status: Ordered norethindrone 5 mg oral tablet 5 mg, 1, tablet, By Mouth, Daily, # 90 tablet, Refills 3, Tot. Refills 3, Maintenance, 06/06/22 11:31:00 EDT, Route to Pharmacy Electronically, [facility], Partial fill upon patientrequest if [...] oldest [Reference Range]: 1 Height 146 cm (08/26/22 11:41 AM) Weight 74.9 kg (08/26/22 11:41 AM) Oxygen Saturation [94-100 %] 98 % (08/26/22 11:41 AM) Pulse Rate [55-90 bpm] 87 bpm (08/26/22 11:41 AM) Body Mass Index [18.5-24.99 kg/m2] 35.14 kg/m2 *>HHI* (08/26/22 11:41 AM) Blood Pressure [90-138/55-84 mm Hg] 120/ 76mm Hg (08/26/22 11:41 AM) Mode of Delivery (Oxygen) Room air (08/26/22 11:41 AM) Blood pressure sites Arm, left (08/26/22 11:41 AM) Social History Social History Type Response Smoking Status Never smoker entered on: 10/03/17 Sex Note * Lynette Benitez: PERFORM, SIGN, VERIFY Event Display: Patient Education/Instruction Authored Date: [id number] [facility] Clinical Summary Name DIONY AMBROSE Age 36 Years 1985 PCP Anali Concepcion DO PCP Visit Date 08/26/2022 11:26:00 Additional Instructions: Scheduled Appointments?? Future Appointments ?*Rehab??Adult??Aud ?Phone:??--?Fax:??-- ?Appt. Date:??08/30/2022?11:00 AM ?Scheduled Provider:??Misty Anna ?*Rehab??Adult??Aud ?Phone:??--?Fax:??-- ?Appt. Date:??09/01/2022?11:00 AM ?Scheduled Provider:??Misty Anna Follow-Up Instructions ?? Diagnosis Otitis media, unspecified, unspecified ear Medications: Please continue your medications until treatment is completed or stopped by your provider. Discuss any questions related to medications with your provider. New Medications [facility], [address], [place] [id number], [phone] Azithromycin (Zithromax 250 mg oral tablet) 1 pack/packet Oral once. Refills: 0. Next Dose: Medications to Continue [...] 2 spray(s) twice a day. Next Dose: Fexofenadine (fexofenadine 60 mg oral [...] capsule Oral Daily. Refills: 2. Next Dose: No Longer Take the Following Medications Diclofenac Topical (Voltaren 1% topical gel) 1 farzana Topically 4 times a day. with food for 4-7 days.Refills: 0. formoterol-mometasone (Dulera) Inhalation twice a day. Ondansetron (ondansetron 4 mg oral tablet) 1 tab(s) Oral every 8 hours. Refills: 0. Simethicone (simethicone 125 mg oral tablet, chewable) 1 tab(s) Chew 4 times a day. Refills: 0. Allergy Info:?? ZyrTEC; Latex; aloe vera topical Medications Given This Visit Future Orders ?No future orders Vital Signs Height 146 cm Weight 74.9 kg BMI 35.14 kg/m2 Blood Pressure 120 mm Hg/76 mm Hg Temperature Pulse Rate 87 bpm Respiratory Rate 02 Sat Mode of Delivery 98 %/Room air You can now view a summary of your hospital visit from the comfort of your home through a free online portal called [employer] is a website that allows you to securely view your medical information including discharge summary, medications and follow-up visits. ??You can alsosend a secure electronic message to your doctor???s office to request appointments, renew medications or just ask a question. You can enroll at [email or web address] or register during your next office [...] care provider, you may find a [facility] provider by calling [facility] Link at [phone]. For information about the plan of care including goals and instructions for your diagnosis, please see the patient education orders section of this document. Patient Education Materials?? The content of this educational material or handout may have been modified, supplemented, or adapted from its original content and format to support your individualized medical care. Additional Provider Instructions: start ZPAK for 5 days MUCINEX every 12 hours NETIPOT: SINUCLEANSE FLONASE 1 spray twice daily after using the netipot Patient Care team information Care Team Personnel Name: Anali Concepcion DO Position: [facility] Primary Care Physician Member Role: PCP Address: Address: [address] [place] [address] Adult [place] [address]- Care Team Related Persons Name: KATIUSKA VIGIL Address: home [address] [place] [address] Name: RAISA AMBROSE Address: home [address] [place] [address] Name: AURORA NIX Name: MELISSA AGUILAR
--- OUTSIDE RECORDS SUMMARY | 2024-05-02 05:06 | XMS_ITS | Continuity of Care Document ---
Author Organization [facility] Address [address], [address] [place] [address]- Care Team Providers Care Plumbing Instructor Name Role Phone Anali Concepcion DO Primary Care Physician Encounter [facility] Date(s): 01/18/22 - 02/17/22 [facility] [address], [address] [place] [address]- Allergies, Adverse Reactions, Alerts Substance Reaction Severity [...] 1Result Comment: [facility]# [id number] 2Result Comment: [06/08/2018] [facility]:65884-651-42 Medications albuterol 0.083% inhalation solution 3 mL [...] capsule, 1 Refills, Maintenance, 01/12/21 8:16:00 EDT, [facility], 146, cm, 01/04/21 11:29:00 EDT, Height, 75.5, [...]
--- OUTSIDE RECORDS SUMMARY | 2024-05-02 05:06 | XMS_ITS | Continuity of Care Document ---
Author Organization [facility] Address [address] [place] [address]- Care Team Providers Care Car Seat Maker Name Role Phone Anali Concepcion DO Primary Care Physician Encounter [facility] Date(s): 01/11/21 - 02/10/21 [facility] [address] [place], [place] [address] Allergies, Adverse Reactions, Alerts Substance [...] acel(DTaP) 85 Recorded 1Result Comment: [06/08/2018] [facility]:[id number] Medications albuterol 0.083% inhalation solution 3 mL [...] capsule, 1 Refills, Maintenance, 01/12/21 8:16:00 EDT, [facility], 146, cm, 01/04/21 11:29:00 EDT, Height, 75.5, [...] 9:01:59 EST, Aerosol, Route to Pharmacy Electronically, [id number], [facility] [id number] Start Date: 11/02/18 Stop Date: 12/02/18 Status: [...]
--- OUTSIDE RECORDS SUMMARY | 2024-05-02 05:07 | XMS_ITS ---
Author Organization [facility] [place] Address [address] [place] [address] Care Team Providers Care Manager Publishing Name Role Phone Anali Concepcion M.D. Primary Care Provider Unavailable Titus Mcgee Unavailable [phone] Tracy Fontanez Unavailable [phone] ALLERGIES Allergen (clinical drug ingredient) Drug/Non Drug Allergy documented on EMR Reaction Allergy Type Onset Date Status erythromycin Erythromycin stomach upset Drug Allergy Active Latex Latex redness,rash Allergy Active REASON FOR VISIT pcp-2022, Painful Toe(s) MEDICATIONS Medication SIG (Take, Route, Frequency, Duration) Notes Start Date End Date Status Contrave 8-90 MG 1 tablet in the morn ing Orally Once a day Not-Taking Norethindrone Active Montelukast Sodium 10 MG 1 tablet Orally Once a day Active Keflex 500 MG 1 capsule Orally miguel ry 12 hrs for 7 days 01/09/2024 Not-Taking Clemencia 04/10/2023 Active Omeprazole Active SOCIAL HISTORY Tobacco Use: Social History Observation Description Date Details (start date - stop date) Never Smoker NA - NA Sex Assigned At : Social History Observation Description Sex Assigned At Unknown Tobacco Use/Smoking Question Answer Notes Are you a: nonsmoker Additional Findings: Tobacco Non-User Current no n-smoker Alcohol Screen Question Answer Notes Did you have a drink containing alcohol in the p ast year? No Points 0 Interpretation Negative Tobacco use other than smoking: Question Answer Notes Are you an other tobacco user? No VITAL SIGNS Height 4ft9in in 01/24/2024 Weight 170 lbs 01/24/2024 BMI 36.78 kg/m2 01/24/2024 Encounters Encounter Location Date Provider Diagnosis [facility] [place] [address] [place] [address] 01/24/2024 Tracy Fontanez Pain in right toe(s) M79.674 ASSESSMENTS Encounter Date Diagnosis Assessment Notes Treatment Notes Treatment Clinical Notes 01/24/2024 Pain in right toe(s) (ICD-10 - M79.674) 01/24/2024 Other PLAN OF TREATMENT Pending Test Test Name Order Date X ray : Foot, right 3V 01/24/2024 Next Appt Details Follow Up: prn, Reason: Progress Notes * Examination Category Sub-Category Detail Notes Dermatologic SKIN FINDINGS: Skin exam reveal s normal color, texture, elasticity, and turgor. There are no masses, nor excrescences. The interspaces are clear, B/L; skin at previous nail procedcure healed, no open wounds, no signs of infection ULCER: LOCATION medial T5, , SIZE, 3mm X 2mm X 2mm, BASE, granular, RIM, hyperkeratotic, UNDERMINING, absent, TRACKING, Full thickness breakdown of skin, DRAINAGE, serosanguineous, mild, NECROTIC TISSUE, loosely- adherent, yellow slough, MALODOR, absent, CALOR, absent, ERYTHEMA, absent, PAIN ON PALPATION, present Orthopedic FOOTWEAR: shoe gear proper ties exacerbate patients foot/toe deformity DIGITAL DEFORMITIES: Minimal pain on pal pation T5 Nails NAILS are: No signs of ingr own nail, no pain on palpation to remaining medial nail border X-Rays - IMAGING REPORT Findings: normal b one and soft tissue density consistent for patients age and sex Fracture: Negative fractures i dentified Views: 3 views of Foot, AP, LO, MO, RIGHT Clinical Indication(s): Evaluate Biomech anical Deformity History and Physical Notes * HPI (History of Present Illness) Category Sub-Category Detail Notes Toe pain Nature: tenderness Location: Right foot Course: worse Treatments: rest/alter normal da pavan activity, change in shoes Skin problems Nature: redness , swelli ng , tender Location: Right , 1st, Toe(s) Duration: several days Course: resolved Treatments: Keflex, iodine
--- OUTSIDE RECORDS SUMMARY | 2024-05-02 05:07 | XMS_ITS | Continuity of Care Document ---
Author Organization [facility] Address [address] [place] [address]- Care Team Providers Care Pastry Finisher Name Role Phone Anali Concepcion DO Primary Care Physician [facility]counter [facility] Date(s): 07/04/23 - 08/03/23 [facility] [address] [place], [place] [address] Allergies, Adverse Reactions, Alerts Substance Reaction Severity Status aloe vera topical Active Cats Active Dogs Active Other Environmental Allergy 1, 2 Active Latex Active ZyrTEC Active Pollen Ragweed [...] acel(DTaP) 85 Recorded 1Result Comment: [06/08/2018] [facility]:[id number] 2Result Comment: [facility]# [id number] Medications albuterol 0.083% inhalation solution 3 mL [...] Primary Care Member Role: PCP Address: Address: [address] [place] [address] Adult & [place] [address]- Care Team Related Persons Name: KATIUSKA VIGIL Address: home [address] [place] [address] Name: RAISA AMBROSE Address: home [address] [place] [address] Name: AURORA NIX Name: MELISSA AGUILAR
--- OUTSIDE RECORDS SUMMARY | 2024-05-02 05:07 | XMS_ITS | Patient Health Record ---
Author Organization [facility] Mariehumberto frazier [place] Address [address] [place] [address] Care Team Providers Care Head Of Mathematics Name Role Phone Anali Concepcion M.D. Primary Care Provider Unavailable Titus Mcgee Unavailable [phone] Lino Joy Unavailable [phone] Tracy Fontanez Unavailable [phone] ALLERGIES Allergen (clinical drug ingredient) Drug/Non Drug Allergy documented on EMR Reaction Allergy Type Onset Date Status erythromycin Erythromycin stomach upset Drug Allergy Active Latex Latex redness,rash Allergy Active REASON FOR REFERRAL No Information MEDICATIONS Medication SIG (Take, Route, Frequency, Duration) Notes Start Date End Date Status Contrave 8-90 MG 1 tablet in the morn ing Orally Once a day Not-Taking Norethindrone Active Omeprazole Active Montelukast Sodium 10 MG 1 tablet Orally Once a day Active Keflex 500 MG 1 capsule Orally miguel ry 12 hrs for 7 days 01/09/2024 Not-Taking Clemencia 04/10/2023 Active SOCIAL HISTORY Tobacco Use: Social History [...] Are you an other tobacco user? No PROBLEMS Problem Type ICD Code Onset Dates Problem Status W/U Status Risk SNOMED Code Notes Problem Skin ulcer of toe of right foot, limited to breakdown of skin (L97.511) Active confirmed Ulcer of toe of right foot (disorder) (7134831658 [id number]) VITAL SIGNS Height 4ft9in in 01/24/2024 Weight 170 lbs 01/24/2024 BMI 36.78 kg/m2 01/24/2024 PROCEDURES Procedure Date Ordered Date Performed Result Body Sit e 51477 I&D ABSCESS- SIMPLE,SINGLE 12/26/2023 N/A Encounters Encounter Location Date [facility] [address] [facility] [address] [place] [address] 05/05/2023 [facility] [address] 12/26/2023 Titus Everardo Abscess of toe, right L02.611 and Ingrown nail L60.[address] [address] 01/08/[address] [address] [facility] [facility] [address] 01/09/[address] [address] 01/11/2024 Tracy Perica Cellulitis of toe of right foot L03.031 and Skin ulcer of toe of left foot, limited to breakdown of skin L97.[address] [address] 01/11/[address] [address] 01/23/[address] [address] 01/24/2024 Tracy Perica Pain in right toe(s) M79.674 ASSESSMENTS Encounter Date Diagnosis Assessment Notes Treatment Notes Treatment Clinical Notes 12/26/2023 Ingrown nail (ICD-10 - L60.0) 12/26/2023 Abscess of toe, right (ICD-10 - L02.611) Patient Educated with: WOUND CARE INSTRUCTIONS.pdf (WOUND CARE INSTRUCTIONS.pdf) 01/11/2024 Cellulitis of toe of right foot (ICD-10 - L03.031) 01/11/2024 Skin ulcer of toe of left foot, limited to breakdown of skin (ICD-10 - L97.521) Patient Educated with: WOUND CARE INSTRUCTIONS.pdf (WOUND CARE INSTRUCTIONS.pdf) 01/24/2024 Pain in right toe(s) (ICD-10 - M79.674) 01/24/2024 Other 01/11/2024 Other PLAN OF TREATMENT Pending Test Test Name Order Date X ray : Foot, right 3V 01/24/2024 53198 I&D ABSCESS- SIMPLE,SINGLE 024 Insurance Providers Payer Name Payer Address Payer Phone Subscriber Number Group Number Insured Name Patient Relationship to Insured Coverage Start Date Coverage End Date [facility] [address] [place] [address] [id number] Kathryn Owusu Self - patient is the insured MEDICAL (GENERAL) HISTORY Medical History History ICD Code Anemia Anxiety Arthritis asthma Back,Hip,and Knee pain Cataracts Depression Headaches/Migraines Keloid/Thick Scar Eczema Reflux ( GERD) Sciatica Surgical History Surgery Date(Month/Year) Tendonitis 2014
--- OUTSIDE RECORDS SUMMARY | 2024-05-02 05:07 | XMS_ITS ---
[facility] Address [address] [place] [address] Care Team Providers Care Partner Name Role Phone Anali Concepcion M.D. Primary Care Provider Unavailable Titus Mcgee Unavailable [phone] REASON FOR VISIT issues with ingrown Encounters Encounter Location Date Provider Diagnosis [facility] [address] [place] [address] 01/23/2024 Titus Mcgee PLAN OF TREATMENT No Information
--- OUTSIDE RECORDS SUMMARY | 2024-05-02 05:07 | XMS_ITS ---
Author Organization [facility] Address [address] [place] [address] Care Team Providers Care Care Partner Name Role Phone Anali Concepcion M.D. Primary Care Provider Unavailable Titus Mcgee Unavailable [phone] REASON FOR VISIT betadine Encounters Encounter Location Date [facility] [place] [address] 01/11/2024 Titus Mcgee PLAN OF TREATMENT No Information
[2024-05-02 07:00] VITALS: BP 123/73; PULSE 92; RESP 18; TEMP 36.9; O2SAT 98
[2024-05-02 07:20] LABS: COVID-19 Test Positive (Negative); IDNOW Serial# 152EDE1D
== END 2024-05-02 07:00 | disposition home or self-care (01) ==
PROVIDERS: Emergency Provider Emergency Medicine; PCP Pediatrics
DX: U07.1 COVID-19 (principal); R05.9 Cough, unspecified
CPT/HCPCS: 71045; 87635; 99282; 99283

== ENCOUNTER 2025-09-02 13:07 | Emergency (ER) | payer OTHER, SELFPAY ==
--- OUTSIDE RECORDS SUMMARY | 2025-08-28 23:59 | XMS_ITS | Continuity of Care Document ---
Author Organization [facility] Address [address] [place] [address]- Care Team Providers Care Summer Analyst Name Role Phone Anali Concepcion DO Primary Care Physician ( [phone] Encounter [facility] [place] Date(s): 07/29/25 - 08/28/25 [facility] [address] [place], [place] [address] Encounter Type: Triage Allergies, Adverse Reactions, Alerts Substance Criticality Severity Reaction Reaction Severity Status erythromycin stomach upset Act dayron amoxicillin gi upset Active Zithromax gi upset Active Cats Active Contrave gi upset Active aloe vera topical Ac tive Dogs Active Latex Active ZyrTEC Active Pollen Ragweed Active Ragweed Active Other Environmental Allergy 1, 2 Active 1grass Feathers 2tree Immunizations Given and Recorded Vaccine Date Status Refusal Reason influenza virus vaccine, inactivated 06/09/25 Give n influenza virus vaccine, inactivated 06/17/24 Fareed rded influenza virus vaccine, inactivated 06/27/22 Fareed rded [...] Recorded 1Result Comment: [06/08/2018] [facility]:[id number] 2Result Comment: [facility]# [id number] Medications albuterol 90 mcg/inh inhalation powder 1 puffs, Inhalation, Every 6 hours, PRN as needed, # 1 each, 0 Refills, Maintenance, 04/18/21 1:10:00 PM EDT, Powder, [facility], Partial fill upon patient request if the prescription is for a schedule II opioid drug., 1 puffs Inhalation Every 6 hours,PRN:as needed, 146, cm, 01/04/21 11:29:00 EDT, Height, 75.5, kg, 10/31/19 15:44:00 EST, Dry Weight Start Date: 04/18/21 Status: Ordered Medication Dispense Status: Completed Quantity: 1.0 Unit: each Total Allowed Fills: 1 Fills Dispensed: 0 baclofen 10 mg oral tablet 90 each, 0 Refill(s), TAKE ONE-HALF TABLET BY MOUTH THREE TIMES A DAY NEEDED, Refills 0, 06/09/2510:07:00 AM EDT, Partial fill upon patient request if the prescription is for a schedule II opioid drug. Start Date: 06/09/25 Status: Ordered Medication Dispense Status: Completed Total Allowed Fills: 1 Fills Dispensed: 0 budesonide 32 mcg/inh nasal spray See Instructions, INHALE TWO SPRAYS IN EACH NOSTRIL TWICE A DAY TO REPLACE FLONASE, # 8.43 mL, 3 Refills, Maintenance, 04/02/25 3:20:00 PM EDT, [facility], 146, cm, 02/25/25 9:05:00 EDT, Height, 78.4, kg, 01/02/25 15:15:00 EDT, Dry Weight Start Date: 04/02/25 Status: Ordered Medication Dispense Status: Completed Quantity: 8.43 Unit: mL Total Allowed Fills: 1 Fills Dispensed: 0 fexofenadine 60 mg oral tablet 1 tablet, By Mouth, Daily, # 90 tablet, 4 Refills, Maintenance, 04/26/23 9:22:00 AM EDT, [facility], 146, cm, 03/10/23 9:41:00 EDT, Height, 70.9, kg, 03/10/23 9:41:00 EDT, Dry Weight Start Date: 04/26/23 Status: Ordered Medication Dispense Status: Completed Quantity: 90.0 Unit: tablet Total Allowed Fills: 1 Fills Dispensed: 0 Hair Skin and Nails oral tablet 1 tablet, By Mouth, Daily, # 90 tablet, 4 Refills, Maintenance, 06/09/25 10:51:00 AM EDT, [facility], Partial fill upon patient request if the prescription is for a schedule II opioiddrug., 1 tablet By Mouth Daily,x90 days, 146, cm, 06/09/25 10:03:00 EDT, Height, 66, kg, 06/09/25 10:03:00 EDT, Dry Weight Start Date: 06/09/25 Stop Date: 09/02/26 Status: Ordered Medication Dispense Status: Completed Quantity: 90.0 Unit: tablet Total Allowed Fills: 5 Fills Dispensed: 0 ipratropium nasal 21 mcg/inh spray 1 sprays = 21 mcg, Nares, Both, Daily at bedtime, # 30 mL, 3 Refills, Maintenance, 05/02/25 11:22:00AM EDT, [facility], Partial fill upon patient request if the prescription is for aschedule II opioid drug., 1 sprays Nares, Both Daily at bedtime, 146, cm, 05/02/25 10:41:00 EDT, Height, 68.9, kg, 05/02/25 10:41:00 EDT, Dry Weight Start Date: 05/02/25 Status: Ordered Medication Dispense Status: Completed Quantity: 30.0 Unit: mL Total Allowed Fills: 4 Fills Dispensed: 0 Indications: Obstructive sleep apnea (adult) (pediatric); MiraLax oral powder for reconstitution See Instructions, By Mouth, PRN Constipation, For constipation: one capful by mouth, every day, titrate up to effect if need be., # 527 Gm, 0 Refills, Maintenance, 01/02/25 3:40:00 PM EDT, [facility], Partial fill upon patient request if the prescription is for a schedule II opioid drug., For constipation: one capful by mouth, every day, titrate up to effect if need be.,PRN:Constipation, 146, cm, 01/02/25 15:15:00 EDT, Height, 78.4, kg, 01/02/25 15:15:00 EDT, Dry Weight Start Date: 01/02/25 Status: Ordered Medication Dispense Status: Completed Quantity: 527.0 Unit: g Total Allowed Fills: 1 Fills Dispensed: 0 Indications: Constipation, unspecified; Nebulizer Tubing and Filter Nebulizer Tubing and Filter, See Instructions, # 1 each, Refills 0, Tot. Refills 0, Maintenance, Use as directed Asthma J45, 11/21/24 9:49:00 AM EDT, Supply Start Date: 11/21/24 Status: Ordered Medication Dispense Status: Completed Quantity: 1.0 Unit: each Total Allowed Fills: 1 Fills Dispensed: 0 norethindrone 5 mg oral tablet 5 mg, 1, tablet, By Mouth, Daily, # 90 tablet, Refills 4, Tot. Refills 4, Maintenance, 11/01/24 3:04:00 PM EST, Route to Pharmacy Electronically, [facility], Partial fill upon patientrequest if the prescription is for a schedule II opioid drug., 146, cm, 11/01/24 14:27:00 EST, Height, 80.8, kg, 09/09/24 13:49:00 EST, Dry Weight Start Date: 11/01/24 Status: Ordered Medication Dispense Status: Completed Quantity: 90.0 Unit: tablet Total Allowed Fills: 5 Fills Dispensed: 0 omeprazole 20 mg oral enteric coated capsule 1 capsule, By Mouth, Daily, # 90 capsule, 1 Refills, Maintenance, 05/23/25 7:16:00 AM EDT, [facility], 146, cm, 05/02/25 10:41:00 EDT, Height, 68.9, kg, 05/02/25 10:41:00 EDT, Dry Weight Start Date: 05/23/25 Status: Ordered Medication Dispense Status: Completed Quantity: 90.0 Unit: capsule Total Allowed Fills: 1 Fills Dispensed: 0 Multivitamins with Folic Acid 0.8 mg oral tablet 1 tablet, By Mouth, Daily, # 100 tablet, 3 Refills, Maintenance, 07/03/25 9:03:00 AM EDT, Tablet, [facility], Partial fill upon patient request if the prescription is for a schedule II opioid drug., 1 tablet By Mouth Daily, 146, cm, 06/27/25 9:12:00 EDT, Height, 64, kg, 06/27/25 9:12:00 EDT, Dry Weight Start Date: 07/03/25 Status: Ordered Medication Dispense Status: Completed Quantity: 100.0 Unit: tablet Total Allowed Fills: 4 Fills Dispensed: 0 Singulair 10 mg oral tablet 10 mg, 1, tablet, By Mouth, Daily, further scripts from [facility] Dr. Saldana, # 7 tablet, Refills 0, Tot. Refills 0, Maintenance, 11/25/24 9:20:00 AM EDT, Route to Pharmacy Electronically, [facility], 146, cm, 11/25/24 8:54:00 EDT, Height, 80.8, kg, 09/09/24 13:49:00 EST, Dry Weight Start Date: 11/25/24 Status: Ordered Medication Dispense Status: Completed Quantity: 7.0 Unit: tablet Total Allowed Fills: 1 Fills Dispensed: 0 Zepbound Pen 12.5 mg/0.5 mL subcutaneous solution = 12.5 mg, Subcutaneous Injection, Every week, rotate injection sites; Note dose change, # 2 mL, 2 Refills, Maintenance, 06/05/25 12:43:00 PM EDT, [facility], [facility], Partial fill upon patient request if the prescription is for a schedule II opioid drug., 146, cm, 05/02/25 10:41:00 EDT, Height, 68.9, kg, 05/02/25 10:41:00 EDT, Dry Weight Start Date: 06/05/25 Status: Ordered Medication Dispense Status: Completed Quantity: 2.0 Unit: mL Total Allowed Fills: 3 Fills Dispensed: 0 Indications: Body mass index [BMI] 30.0-30.9, adult; Zepbound Pen 15 mg/0.5 mL subcutaneous solution = 15 mg, Subcutaneous Injection, Every week, Please process on March 04 as patients insurance will change on March 04, # 2 mL, 0 Refills, Maintenance, 02/28/25 4:01:00 PM EDT, Solution, [facility], Partial fill upon patient request if the prescription is for a schedule II opioid drug., 146, cm, 02/25/25 9:05:00 EDT, Height, 78.4, kg, 01/02/25 15:15:00 EDT, Dry Weight Start Date: 02/28/25 Status: Ordered Medication Dispense Status: Completed Quantity: 2.0 Unit: mL Total Allowed Fills: 1 Fills Dispensed: 0 Indications: Obesity, unspecified; Problem List Condition Confirmation Course Effective Dates Status H ealth Status Informant Elevated ALT measurement Confirmed Active Allergic rhinitis Confirmed Active Anemia Confirmed Active Anxiety Confirmed Active Asthma Confirmed Active Last pap smear 10/03/17 negative, with negative HPV Confirmed Active Chronic rhinitis Confirmed Active Endometriosis - diagnosed in 2011 and had multiple chocolate cysts removed from her ovaries and fallopian tubes 1 Confirmed Active Family history of colon cancer - sister at age 37; colonoscooy done 08/30/18 recommended rpt 08/2023 Confirmed Active LBP (low back pain) Confirmed [...] years. Social History Social History Type Response Sexual Sexually involved in last 6 months: No. Smoking Status Never smoker entered on: 10/03/17 Sex Sex Representation Female (finding) Patient Care team information Care Team Personnel Name: Anali Concepcion DO Position: [facility] Physician - Primary Care Member Role: PCP Address: [address] [place] [address] Adult & Pediatric Medicine [address] Telecom: Care Team Related Persons Name: MUSASHALONDAA Name: RAISA AMBROSE Name: AURORA NIX Name: MELISSA AGUILAR Insurance Providers Guarantor name: DIONY AMBROSE Health Plan Information #: 1 Payer: [employer] Payer Identifier: HARJINDER Member Number: [id number] Group Number: [id number] Subscriber Identifier: NA Relationship to Subscriber: self Coverage Type: Medicaid (Managed Care) Coverage Verification Date: NA Telecom: NA Address:
--- NOTE | ~2025-09-02 | XR_ITS ---
EXAMINATION: XR CHEST CLINICAL INFORMATION: cough w/ blood tinged sputum COMPARISON: 05/02/2024. TECHNIQUE: 2 views of the chest were obtained. FINDINGS: The cardiac, hilar, and mediastinal contours are normal. The lungs are clear bilaterally. There is no pneumothorax or pleural effusion. There is no focal osseous or soft tissue abnormality. XR/XR chest 2V IMPRESSION: Normal chest. Electronically signed by: Vicente Fernandez MD 09/02/2025 02:47 PM [facility]
--- NOTE | 2025-09-02 13:12 | ECG_ITS ---
Test Reason : CP Blood Pressure : */* mmHG Vent. Rate : 118 BPM Atrial Rate : 118 BPM P-R Int : 130 ms QRS Dur : 72 ms QT Int : 310 ms P-R-T Axes : 65 51 24 degrees QTcB Int : 434 ms Sinus tachycardia Nonspecific T wave abnormality Abnormal ECG No previous ECGs available Referred By: Generic ED Physician Electronically Signed By: WINSTON JOHNSON
[2025-09-02 14:26] VITALS: BP 131/80; PULSE 112; RESP 20; TEMP 37.2; O2SAT 100; BMI 28.1
--- NOTE | 2025-09-02 14:26 | ED_ITS ---
HPI - General Adult General Chief complaint: General Medical Stated complaint: CP, shoulder pain, cough Time Seen by Provider: 09/02/25 16:38 Source: patient Mode of arrival: ambulatory Limitations: no limitations History of Present Illness ED Provider: ALMA CAT PA-C HPI narrative: 39 year old female presents to the ED today for evaluation of chest tightness, sore throat, productive cough, and body aches x3-4 days. Reports noticing a blood tinge to her sputum today. Using her albuterol at home, she last used this yesterday. Reports one episode of vomiting yesterday. No nausea. Related Data Previous Rx's ?Medication ?Instructions ?Recorded [id number]-[id number]-augjhvwtzcz 5 10 ml PO Q4H PRN cough #473 mL 05/02/24 mg-10 mg-100 mg/5 mL oral liquid acetaminophen 500 mg tablet 500 mg PO Q6H PRN fever or pain 09/02/25 (Tylenol Extra Strength) #14 tabs benzonatate 100 mg capsule 100 mg PO BID PRN cough #20 caps 09/02/25 ibuprofen 400 mg tablet 400 mg PO Q6H PRN fever or p ain 09/02/25 #14 tabs prednisone 20 mg tablet 40 mg (2 x 20 mg) PO DAILY 5 days 09/02/25 #10 tabs Allergies Allergy/AdvReac Type Severity Reaction Status Date / Time amoxicillin AdvReac Gastrointestinal Verified 09/02/25 14:33 Upset azithromycin AdvReac Gastrointestinal Verified 09/02/25 14:33 Upset Penicillins AdvReac Gastrointestinal Verified 09/02/25 14:33 Upset Latex Allergy Unknown Rash Uncoded 09/02/25 14:33 Zyrtec Allergy Unknown Fatigued Uncoded 09/02/25 14:33 Review of Systems Review of Systems: Yes all other systems are reviewed and are negative PMFSH Past Medical History Attestation statement: The following information was validated with the patient. Source: old records reviewed and nursing notes reviewed Social History Social History Advance Directives: No Advance Directives Information Provided: No Do you have a plan to hurt others: No Plan Physical Exam ED Vital Signs: Vital Signs - 24 hr 09/02/25 14:26 09/02/25 17:19 09/02/25 18:05 Temperature 98.9 F 99.0 F 99.3 F Pulse Rate 112 H 120 H 113 H Respiratory Rate 20 16 16 Blood Pressure 131/80 118/81 108/66 Pulse Oximetry 100 97 97 Oxygen Delivery Method Room Air Room Air Room Air BMI result Body Mass Index 28.1 tachycardic, febrile General: Well appearing, in no acute distress. Skin: Warm, dry, intact. No rashes or lesions. Head: Normocephalic, atraumatic. EENT: Hearing is intact b/l. Conjunctiva clear. PERRLA. EOM intact. Moist mucous membranes.?posterior oropharynx erythematous, no exudates, uvula midline, controlling secretions, speaking in complete sentences Neck: Supple without LAD Cardiac: Chest wall symmetric. RRR Lungs: Normal respiratory effort without accessory muscle use. bronchospastic cough. CTA bilaterally. No rales, rhonchi, or wheezes.? Abdomen: Soft, non-tender, non-distended. No rebound tenderness or guarding. Positive BS x4. Ext: Upper and lower extremities atraumatic, without tenderness, deformity, swelling or erythema Neuro: AOx3. Normal speech. Ambulating with steady gait. Course Course Course Narrative: This is a Rapid Medical Examination (RME) performed by Yulisa Cat PA-C in triage. Full HPI, ROS, assessment and treatment plan per primary provider in the Main ED. Hx: 39 yo F here for eval of cough productive blood tinged sputum x yesterday. reports assoc chest tightness and sore throat. using albuterol at home, last used yesterday. one episode of vomiting yesterday. PE/vitals: tachycardic, afebrile. bronchospastic cough noted, lungs clear Plan: viral swabs, CXR 1700 -- patient tested positive for influenza A. Negative COVID, RSV, strep throat. Chest x-ray does not demonstrate pneumonia. On re-evaluation, I personally rechecked patient's temp via oral thermometer, febrile to 102.4. I did order Motrin, Tylenol. Plan for re-evaluation. She is otherwise stable. if temp improves, patient may be discharged home on supportive management. she is out of the window for tamiflu. > sign out given to aspen richard 6:17 PM 09/02/2025 (Aspen Velasquez PA-C): On re-evaluation temperature and heart rate improved. Patient feels comfortable for discharge home at this time. Requesting Prednisone. Has known history of asthma. Also requesting pres cription for Tylenol and Motrin. Results discussed with patient including worrisome signs and symptoms and strict return precautions, and when to return to the emergency department. They verbalized understanding and feel safe for discharge at this time. Medications Administered Discontinued Medications Generic Name Dose Route Start Last Admin Trade Name Freq PRN Reason Stop Dose Admin Acetaminophen 975 mg 09/02/25 16:46 09/02/25 17:04 Acetaminophen 325 Mg Tablet PO 09/02/25 16:47 975 mg ONCE ONE Administration Ibuprofen 600 mg 09/02/25 16:46 09/02/25 17:04 Ibuprofen 600 Mg Tablet PO 09/02/25 16:47 600 mg ONCE ONE Administration Medical Decision Making Medical Decision Making [facility] Narrative: 39 year old female presents to the ED today for evaluation of chest tightness, sore throat, productive cough, and body aches x3-4 days. Patient is tachycardic, likely secondary to fever/viral syndrome. Differential diagnosis includes viral syndrome, strep throat, pneumonia, bronchitis Plan for ekg, cxr, viral/strep swabs. Differential Diagnosis Differential Diagnoses: The differential diagnosis associated with the presentation includes as above. Admission/Observation not indicated. Lab Data [facility] Lab Attestation statement: I reviewed the patient's lab results. as above. Labs: Lab Results 09/02/25 Range/Units 14:49 Influenza Type A (PCR) POSITIVE A (Negative) Influenza Type B (PCR) NEGATIVE (Negative) RSV RNA Qual (PCR) NEGATIVE (Negative) SARS-CoV-2 RNA (RT-PCR) NEGATIVE (Negative) S. pyogenes GrpA FROILAN Negative (Negative) Independent Interpretation I performed an independent interpretation of an: Plain X-Ray Interpretation: cxr without infiltrate or consolidation Radiology Impression Discussion of test interpretation with radiology: I have reviewed the radiologist's reading. Radiologist Impression: Procedure(s): XR chest 2V Accession Number(s): [id number] cc: ANALI CONCEPCION DO; Alma Cat~ Reason for Exam: cough w/ blood tinged sputum EXAMINATION: XR CHEST CLINICAL INFORMATION: cough w/ blood tinged sputum COMPARISON: 05/02/2024. TECHNIQUE: 2 views of the chest were obtained. FINDINGS: The cardiac, hilar, and mediastinal contours are normal. The lungs are clear bilaterally. There is no pneumothorax or pleural effusion. There is no focal osseous or soft tissue abnormality. XR/XR chest 2V IMPRESSION: Normal chest. Electronically signed by: Vicente Fernandez MD 09/02/2025 02:47 PM [facility] Prescription Management I considered prescription management with: Pain Medication and Other (prednisone) Social Determinants Patient?s care significantly limited by Social Determinants of Health including: Other Social Determinant of Health Critical Care Time Critical Care Time Critical Care Time: No Discharge Plan Discharge Clinical Impression: Influenza A Patient Disposition: Home, Self-Care Instructions: Influenza (ED) Additional Instructions: you have the influenza A. You tested negative for COVID and RSV. Your chest x-ray is reassuring and does not show any evidence of pneumonia. Influenza is a virus and does not warrant treatment with antibiotics. Treatment for influenza is supportive. Make sure you are staying adequately hydrated and getting lots of rest. I am sending [employer] with a [employer]weet[employer] to your pharmacy for you to take as needed for cough. Alter ibuprofen and Tylenol for fevers and body aches. Follow up with your primary care provider. If symptoms persist or worsen please return to the emergency department. The case of an emergency call 911. Prescriptions: New benzonatate 100 mg capsule 100 mg PO BID PRN (Reason: cough) Qty: 20 0RF prednisone 20 mg tablet 40 mg PO DAILY 5 Days Qty: 10 0RF acetaminophen [Tylenol Extra Strength] 500 mg tablet 500 mg PO Q6H PRN (Reason: fever or pain) Qty: 14 0RF ibuprofen 400 mg tablet 400 mg PO Q6H PRN (Reason: fever or pain) Qty: 14 0RF No Action ygrkqtptavrbb-VT-ubhjnhwoflj 5-10-100 mg/5 mL liquid 10 ml PO Q4H PRN (Reason: cough) Qty: 473 0RF Referrals: Anali Concepcion DO [Primary Care Provider, Internal Medicine] Discharge Date/Time: 09/02/25 18:41 Print Language: Cambodian
[2025-09-02 15:09] LABS: Strep A Nucleic Acid Negative (Negative)
[2025-09-02 15:46] LABS: Resp Syncy Virus RNA Qual PCR NEGATIVE (Negative); SARS COV2 PCR INHOUSE NEGATIVE (Negative)
[2025-09-02 17:19] VITALS: BP 118/81; PULSE 120; RESP 16; TEMP 37.2; O2SAT 97
[2025-09-02 18:05] VITALS: BP 108/66; PULSE 113; RESP 16; TEMP 37.4; O2SAT 97
== END 2025-09-02 18:41 | disposition home or self-care (01) ==
PROVIDERS: Physician Assistant Medical; Emergency Provider Emergency Medicine; PCP Pediatrics
DX: J10.1 Influenza due to other identified influenza virus with other respiratory manifestations (principal); R05.9 Cough, unspecified; Z03.818 Encounter for observation for suspected exposure to other biological agents ruled out
CPT/HCPCS: 71046; 87637; 87651; 93005; 99283; 99284

== ENCOUNTER → 2025-09-02 13:12 | Outpatient (BNV) | payer OTHER, SELFPAY | PROVIDERS: Emergency Provider Emergency Medicine; PCP Pediatrics; Visit Provider Internal Medicine | DX: R00.0 Tachycardia, unspecified (principal) | CPT/HCPCS: 93010 ==

== ENCOUNTER → 2025-09-02 14:31 | Outpatient (BNV) | payer OTHER, SELFPAY | PROVIDERS: PCP Pediatrics; Visit Provider Radiology Diagnostic Radiology | DX: R05.9 Cough, unspecified (principal) | CPT/HCPCS: 71046 ==